=== PATIENT | female | born 1950 | race Caucasian/White ===

== ENCOUNTER → 2017-02-12 | Outpatient (CLI) | payer MEDICARE ==
[~2017-02-12] MED LIST: AMBI5TAB PO; CALC250 PO; DEXA4TAB PO; FENT100D T-DERMAL; LEVO.15 PO; MAGN400C2 PO; MULT-65 PO; NORC10TA2 PO; POLY119S PO; PRAV20 PO; PROT40TA PO; VITA20002 PO; [UNRECOGNIZED DRUG - OTHER] PO
== END ==
LOC: PLAB 13:25
PROVIDERS: ATTEND Family Medicine
DX: E03.9 Hypothyroidism, unspecified (principal)

== ENCOUNTER 2018-09-13 08:36 | Inpatient (IN) ==
[2018-09-13] MEDS ORDERED: Morphine Sulfate Inj 8 MG/ML Vial IV.PUSH ONE (08:54)
--- NOTE | 2018-09-13 08:54 | ED ---
HPI General Chief complaint: Pain: Chronic Stated complaint: Back pain/Abd pain Time Seen by Provider: 09/13/18 09:05 Source: patient Mode of arrival: EMS Limitations: no limitations History of Present Illness HPI narrative: This 68-year-old female is complaining of abdominal pain and back pain. She has a history of multiple myeloma. She was initially treated with Revlimid Decadron and Velcade and bone marrow transplant at [facility] in [place]. Last week she had chemotherapy with Dr. Martinez. She was thought not to be responding to the Revlimid so she was given different chemotherapy. The chemotherapy was given last Thursday. She says she felt in her normal health for a couple of days and then or Thursday she started having abdominal pain. She was incontinent of stool and urine on . She has been having vomiting and diarrhea. She has not been able to eat for several days she has been unable to walk due to general weakness Thursday. She denies any numbness in her legs. She says she has not had abdominal pain like this. She does have a history of back pain and says her back pain is worse than usual though she has had back pain like this before. She has no history of abdominal surgery. She has had a myeloma for about 2 years, her bone marrow transplant was about a year ago. Related Data Home Medications Medication Instructions Recorded Confirmed aspirin 81 mg PO DAILY 07/01/18 09/13/18 calcium carbonate [Calcium 500] 500 mg PO DAILY 07/01/18 09/13/18 cholecalciferol (vitamin D3) 2,000 unit PO DAILY 07/01/18 09/13/18 [Vitamin D3] duloxetine 30 mg PO DAILY 07/01/18 09/13/18 gabapentin 2,400 mg PO DAILY 07/01/18 09/13/18 levothyroxine 112 mcg PO DAILY 07/01/18 09/13/18 magnesium oxide 400 mg PO DAILY 07/01/18 09/13/18 metoprolol tartrate 50 mg PO DAILY 07/01/18 09/13/18 metronidazole [MetroCream] 1 applic TOPICAL BID 07/01/18 09/13/18 multivitamin 1 tab PO DAILY 07/01/18 09/13/18 ondansetron 4 mg PO TID PRN 07/01/18 09/13/18 oxycodone 20 mg PO Q4-6H PRN 07/01/18 09/13/18 pantoprazole 40 mg PO DAILY 07/01/18 09/13/18 polyethylene glycol 3350 17 g PO DAILY 07/01/18 09/13/18 potassium chloride 10 meq PO DAILY 07/01/18 09/13/18 pravastatin 40 mg PO DAILY 07/01/18 09/13/18 valacyclovir 500 mg PO BID 07/01/18 09/13/18 zolpidem [Ambien] 5 mg PO DAILY 07/01/18 09/13/18 cholecalciferol (vitamin D3) 1,000 unit PO DAILY 09/13/18 09/13/18 [Vitamin D3] enoxaparin 40 mg SUBCUT DAILY 09/13/18 09/13/18 magnesium oxide [MagOx] 400 mg PO DAILY 09/13/18 09/13/18 pantoprazole [Protonix] 40 mg PO BID 09/13/18 09/13/18 pyridoxine (vitamin B6) [Vitamin 50 mg PO BID 09/13/18 09/13/18 B-6] Allergies Allergy/AdvReac Type Severity Reaction Status Date / Time No Known Allergies Allergy Verified 07/22/18 10:18 Review of Systems Constitutional Reports fatigue, Reports poor appetite and Reports weakness Gastrointestinal Reports diarrhea and Reports vomiting Musculoskeletal Reports back pain, Reports myalgias and Reports muscle weakness PMFSH Medical History Medical History FHx: bone marrow transplant (Acute) FHx: radiation therapy (Acute) GERD (gastroesophageal reflux disease) (Acute) Hemangioma (Acute) Hyperlipemia (Acute) Monoclonal gammopathies (Acute) Multiple myeloma (Acute) Plasmacytoma (Acute) Thyroid disease (Acute) Family History Family History Other Family history of hypertension Social History Social History Substance History: No History of Abuse Second Hand Smoke Exposure: No Smoking Status: Former smoker Tobacco Type: Cigarettes How Often Do You Have a Drink Containing Alcohol: Never Hx Recent Travel: No Recent Travel in [place] within the Last 8 Weeks: No Recent Out of Country Travel within the Last 8 Weeks: No Exam Narrative Exam Narrative: GENERAL: Well-developed female. She is complaining of considerable pain SKIN: Focused skin assessment warm/dry. HEAD: Atraumatic. Normocephalic. EYES: Pupils equal and round. No scleral icterus. No injection or drainage. ENT: No nasal bleeding or discharge. Mucous membranes pink and moist. NECK: Trachea midline. No JVD. CARDIOVASCULAR: Regular rate and rhythm. No murmur appreciated. RESPIRATORY: No accessory muscle use. Clear to auscultation. Breath sounds equal bilaterally. GASTROINTESTINAL: Abdomen there is epigastric and bilateral abdominal upper tenderness. Bowel sounds are diminished. No abnormal masses are felt MUSCULOSKELETAL: No obvious deformities. No clubbing. No cyanosis. No edema. NEUROLOGICAL: Awake and alert. No obvious cranial nerve deficits. He does have a lot of pain in her back and tenderness. Anal sphincter tone is normal. PSYCHIATRIC: Appropriate mood and affect; insight and judgment normal. Course Initial Documented Vital Signs Temperature 98.2 F 09/13/18 08:40 Pulse Rate 96 H 09/13/18 08:40 Respiratory Rate 20 09/13/18 08:40 Blood Pressure 148/83 H 09/13/18 08:40 Pulse Oximetry 90 L 09/13/18 08:40 Last Documented Vital Signs Temperature 98.2 F 09/13/18 08:40 Pulse Rate 109 H 09/13/18 10:59 Respiratory Rate 18 09/13/18 10:59 Blood Pressure 108/70 09/13/18 10:59 Pulse Oximetry 96 09/13/18 10:59 Medical Decision Making MDM Narrative Medical decision making narrative: She has been given IV fluids and some morphine for her pain with some improvement in her pain level. Her lab work is remarkable for a sodium of 119, potassium is 3.1. Her BUN is 86 and creatinine is 9.2. One week ago her creatinine was 1.4. A CT scan of the abdomen and pelvis was obtained which shows a small ventral hernia with only fat and no bowel. There is no bowel obstruction. Patient has acute renal failure possibly due to dehydration. IV fluids are being given. Case discussed with Dr. Valle who recommends admission at the [facility] Medical Screen Exam Complete: Yes Emergency Medical Condition: Yes Differential Diagnosis Differential Diagnosis: Differential includes dehydration, bowel obstruction, adverse medication effect Lab Data Result diagrams: 09/13/18 08:50 09/13/18 08:50 Lab Results 09/13/18 09/13/18 09/13/18 Range/Units 08:50 08:50 08:50 CBC w Diff Slide review pending WBC 5.4 (4.0-11.0) th/mm3 RBC 4.73 (4.00-5.30) mil/mm3 Hgb 15.1 (11.6-15.3) gm/dL Hct 45.5 (35.0-46.0) % MCV 96.3 (80.0-100.0) fL MCH 31.9 (27.0-34.0) pg MCHC 33.2 (32.0-36.0) % RDW 14.7 (11.6-17.2) % Plt Count 133 L (150-450) th/mm3 MPV 8.8 (7.0-11.0) fL Neut % (Auto) 87.7 H (16.0-70.0) % Lymph % (Auto) 6.0 L (9.0-44.0) % [place] % (Auto) 1.7 (0.0-8.0) % Eos % (Auto) 0.1 (0.0-4.0) % Baso % (Auto) 4.5 H (0.0-2.0) % Neut # (Auto) 4.8 (1.8-7.7) th/mm3 Lymph # (Auto) 0.3 L (1.0-4.8) th/mm3 [place]ult[place] # (Auto) 0.1 (0.0-0.9) th/mm3 Eos # (Auto) 0.0 (0.0-0.4) th/mm3 Baso # (Auto) 0.2 (0.0-0.2) th/mm3 WBC Differential . Diff Scan Auto diff confirmed Differential Comment . Platelet Estimate Low L (Normal) Platelet Morphology Normal (Normal) RBC Morphology Normal (Normal) PT 10.8 (9.8-11.6) sec INR 1.1 Ratio APTT 28.1 (24.3-30.1) sec Sodium 119 L* (136-145) meq/L Potassium 3.1 L (3.5-5.1) meq/L Chloride 79 L (98-107) meq/L Carbon Dioxide 19.9 L (21.0-32.0) meq/L Anion Gap 20 H (5-15) meq/L BUN 86 H (7-18) mg/dL Creatinine 9.20 H (0.50-1.00) mg/dL Estimated GFR 4 L (>89) mL/min Random Glucose 131 H (74-106) mg/dL Calcium 9.1 (8.5-10.1) mg/dL Total Bilirubin 1.8 H (0.2-1.0) mg/dL AST 116 H (15-37) U/L ALT 76 H (10-53) U/L Alkaline Phosphatase 53 (45-117) U/L Total Protein 10.5 H D (6.4-8.2) g/dL Albumin 2.7 L (3.4-5.0) g/dL Lipase 60 L (73-393) U/L Imaging Data Radiologist's impression: Abdomen/Pelvis CT 09/13/18 08:54 CONCLUSION: 1. There is a small ventral hernia in the anterior abdominal wall. There is some omental fat herniated through the defect. 2. There are no findings to indicate a bowel obstruction. No free air free fluid is seen. 3. Nodular enlargement of the left adrenal gland new compared to previous of . Metastatic disease to the left adrenal is not excluded. 4. Stable mixed lytic and sclerotic lesion seen in the osseous structures when compared to PET examination of 06/28/2018. Chest X-Ray 09/13/18 08:54 CONCLUSION: Mild streaky opacity in left lateral lung and left lung base with no consolidation. This is most characteristic of atelectasis or scarring. Lumbar Spine CT 09/13/18 08:54 CONCLUSION: 1. Moderate fracture deformity of the L3 vertebral body with central lucency, sclerosis and invagination of the superior and inferior endplates. This may be acute. 2. Moderate fracture deformity of the T11 vertebral body with abnormal lucency , sclerosis and invagination superior and inferior endplates. 3. Atheromatous involvement of T10, T11, L1, L2 and L3 vertebral bodies. 4. Large lytic lesion involving the right side of the sacrum. 5. Moderate central canal stenosis at the L4-5 level secondary to disc bulge and degenerative change involving the facet joints. Discharge Plan Discharge Disposition Patient Disposition: 30 Still Patient Discharge Condition Condition: Serious Discharge Details Diagnosis: Acute renal failure Physicians Team ED Provider: Damaso Sethi Primary Care Provider: Renee Thomson Attending Provider: Jarad Avery Other Providers: Bob Valle ; Genevieve Martinez Status ED Status: Left Department Discharge Information Discharge Date/Time: 09/13/18 14:15
[2018-09-13] MEDS ORDERED: Sod Chloride 0.9% Inj 1,000 ML IV.CONT SCH (09:00)
[2018-09-13 09:11] LABS: Baso # (Auto) 0.2 th/mm3 (0.0-0.2); Baso % (Auto) 4.5 % (0.0-2.0); Eos % (Auto) 0.1 % (0.0-4.0); Hematocrit 45.5 % (35.0-46.0); Hemoglobin 15.1 gm/dL (11.6-15.3); Lymph # (Auto) 0.3 th/mm3 (1.0-4.8); Mean Corpuscular HGB Conc 33.2 % (32.0-36.0); Mean Corpuscular Hemoglobin 31.9 pg (27.0-34.0); Mean Corpuscular Volume 96.3 fL (80.0-100.0); Mean Platelet Volume 8.8 fL (7.0-11.0); Mono # (Auto) 0.1 th/mm3 (0.0-0.9); Mono % (Auto) 1.7 % (0.0-8.0); Neut # (Auto) 4.8 th/mm3 (1.8-7.7); Neut % (Auto) 87.7 % (16.0-70.0); Platelet Count 133 th/mm3 (150-450); Red Blood Count 4.73 mil/mm3 (4.00-5.30); Red Cell Distribution Width 14.7 % (11.6-17.2); White Blood Count 5.4 th/mm3 (4.0-11.0)
[2018-09-13 09:24] LABS: Activated Partial Thrombo Time 28.1 sec (24.3-30.1); INR 1.1 Ratio; Prothrombin Time 10.8 sec (9.8-11.6)
--- NOTE | 2018-09-13 09:33 | XR ---
EXAM DATE: 09/13/2018 9:28 AM EDT AGE/SEX: 68 years / Female INDICATIONS: Short of Breath CLINICAL DATA: This is the patient's initial encounter. Patient reports that signs and symptoms have been present for 1 day and indicates a pain score of 0/10. MEDICAL/SURGICAL HISTORY: . Multiple myeloma. Hysterectomy. . Cholecystectomy COMPARISON: [facility] – [place], CHEST SINGLE AP, 12/06/2015. . FINDINGS: A single AP view of the chest demonstrates the lungs to be symmetrically aerated without evidence of mass, confluent infiltrate or effusion. There is mild streaky opacity in the left lateral lung and le ft lung base with no consolidation. Atherosclerotic changes are present in the aorta. The cardiomedia stinal contours are unremarkable. Osseous structures are intact. CONCLUSION: Mild streaky opacity in left lateral lung and left lung base with no consolidation. This is most joanna acteristic of atelectasis or scarring. Electronically signed by: Luke Barfield MD 09/13/2018 9:31 AM EDT
[2018-09-13 09:53] LABS: Calcium 9.1 mg/dL (8.5-10.1)
[2018-09-13 09:54] LABS: Carbon Dioxide 19.9 meq/L (21.0-32.0); Glucose,Random 131 mg/dL (74-106)
[2018-09-13 09:57] LABS: Alanine Aminotransferase 76 U/L (10-53); Aspartate Aminotransferase 116 U/L (15-37); Glomerular Filtration Rate 4 mL/min (>89); Lipase 60 U/L (73-393)
[2018-09-13 10:00] LABS: Albumin 2.7 g/dL (3.4-5.0)
[2018-09-13 10:04] LABS: Potassium 3.1 meq/L (3.5-5.1)
[2018-09-13 10:09] LABS: Alkaline Phosphatase 53 U/L (45-117); Anion Gap 20 meq/L (5-15); Blood Urea Nitrogen 86 mg/dL (7-18); Chloride 79 meq/L (98-107); Total Protein 10.5 g/dL (6.4-8.2)
[2018-09-13 10:10] LABS: Sodium 119 meq/L (136-145)
[2018-09-13] MEDS ORDERED: Sod Chloride 0.9% Inj 1,000 ML IV.SIG SCH ×3 (10:15→13:00)
[2018-09-13] MEDS ORDERED: Morphine Inj 4 MG/ML Vial IV.PUSH ONE ×2 (10:16→13:54)
[2018-09-13 10:31] LABS: Platelet Morphology Normal (Normal); RBC Morphology Normal (Normal)
--- NOTE | 2018-09-13 10:44 | CT ---
EXAM DATE: 09/13/2018 10:21 AM EDT AGE/SEX: 68 years / Female INDICATIONS: Epigastric and right upper quadrant pain with vomiting and diarrhea. CLINICAL DATA: This is the patient's initial encounter. Patient reports that signs and symptoms have been present for 3 days and indicates a pain score of 9/10. MEDICAL/SURGICAL HISTORY: Gastroesophageal reflux disease. Multiple myeloma. Chemotherapy. Non e. RADIATION DOSE: 22.82 CTDI (mGy) COMPARISON: PET examination dated 06/28/2018.. TECHNIQUE: Multiple contiguous axial images were obtained through the abdomen. Images were obtained using multiple row detector helical technique. Using automated exposure control and adjustment of the mA and/or kV according to patient size, radiation dose was kept as low as reasonably achievable to o btain optimal diagnostic quality images. DICOM format image data is available electronically for rev iew and comparison. FINDINGS: Imaging through the lung bases demonstrate atelectatic changes in both lower lobes. There is no pleur al effusion. The heart is mildly enlarged. There is atherosclerotic plaquing in the coronary arteries . The appearance of the liver, spleen, pancreas, right adrenal gland and kidneys is within normal limit s. Examination of the left adrenal gland demonstrates a 1.1 cm nodule. The left adrenal gland does ap pear larger when compared to a PET examination dated 06/28/2018. Metastatic disease to the left adrena l would be a consideration. There is no retroperitoneal lymphadenopathy. No free air free fluid is seen. The abdominal aorta is n ormal in caliber. The visualized loops of small and large bowel are unremarkable. The patient is post cholecystectomy. There is no free fluid within the pelvis. No iliac or inguinal adenopathy is seen. The patient is pos t hysterectomy. Note is made of a small ventral hernia along the low anterior abdominal wall. Bone windowed images demonstrate a large sclerotic lesion within the sternum and mixed lytic and scle rotic lesions involving T12, at multiple levels of the lumbar spine and the right side of the sacrum. Findings would be consistent with metastatic disease to bone. These changes are similar to previous examination. CONCLUSION: 1. There is a small ventral hernia in the anterior abdominal wall. There is some omental fat herniat ed through the defect. 2. There are no findings to indicate a bowel obstruction. No free air free fluid is seen. 3. Nodular enlargement of the left adrenal gland new compared to previous of 06/28/2018. Metastatic d isease to the left adrenal is not excluded. 4. Stable mixed lytic and sclerotic lesion seen in the osseous structures when compared to PET exami nation of 06/28/2018. Electronically signed by: Jose Peters MD 09/13/2018 10:43 AM EDT
[2018-09-13] MEDS ORDERED: Bisacodyl 10 MG Supp RECTAL PRN (11:11)
--- NOTE | 2018-09-13 11:12 | CT ---
EXAM DATE: 09/13/2018 10:47 AM EDT AGE/SEX: 68 years / Female INDICATIONS: Lower back pain. CLINICAL DATA: This is the patient's initial encounter. Patient reports that signs and symptoms have been present for 3 days and indicates a pain score of 9/10. MEDICAL/SURGICAL HISTORY: Gastroesophageal reflux disease. Multiple myeloma. Chemotherapy. None. RADIATION DOSE: . CTDI (mGy) ; Reconstructed from previous dataset, no dose COMPARISON: No prior exams available for comparison. TECHNIQUE: Contiguous axial images were acquired with a multirow detector CT scanner without contras t. Multiplanar reconstructions in the sagittal and coronal plane were also performed. Using automate d exposure control and adjustment of the mA and/or kV according to patient size, radiation dose was k ept as low as reasonably achievable to obtain optimal diagnostic quality images. DICOM format image data is available electronically for review and comparison. FINDINGS: Vertebrae: Focal destructive change and fracture involving the L3 vertebral body with central lucenc y and patchy sclerosis. There is invagination of the superior and inferior endplates. There are lytic lesions involving the T10 and T11 vertebral bodies with patchy sclerosis. There is invagination of t he superior and inferior endplates of the T11 vertebral body as well consistent with fracture. There are faint lucencies involving the L1, L2 and T12 vertebral bodies. There is patchy osteopenia. There is a mild scoliosis. Discs: Disc space heights are fairly well preserved with mild degenerative disc change in the lower t horacic spine. Alignment: Normal. No subluxation. The axial images again demonstrate the lytic lucencies involving the vertebral bodies as well as a fr acture deformity of the L3 vertebral body. A large lytic lesion involving the right side of the sacru m. There is an annular disc bulge at L4-5 with flattening of the anterior thecal sac and narrowing th e neural foramina. There are degenerative change involving facet joints there is evidence of moderate central canal stenosis. CONCLUSION: 1. Moderate fracture deformity of the L3 vertebral body with central lucency, sclerosis and invagina tion of the superior and inferior endplates. This may be acute. 2. Moderate fracture deformity of the T11 vertebral body with abnormal lucency, sclerosis and invagi nation superior and inferior endplates. 3. Atheromatous involvement of T10, T11, L1, L2 and L3 vertebral bodies. 4. Large lytic lesion involving the right side of the sacrum. 5. Moderate central canal stenosis at the L4-5 level secondary to disc bulge and degenerative change involving the facet joints. Electronically signed by: Luke Barfield MD 09/13/2018 11:10 AM EDT
--- NOTE | 2018-09-13 15:42 | P.HPIM ---
History of Present Illness Service: [facility] Primary Care Physician: Renee Thomson Chief Complaint: Chronic pain/ abdominal pain History of Present Illness: Patient is a 68-year-old female who presented to [place] emergency department complaining of abdominal pain and back pain. She has a history of multiple myeloma. She was recently treated with Revlimid and Decadron and Velcade. Patient also had a bone marrow transplant at [facility] in [place]. Last week she had chemotherapy with Dr. Martinez. She was thought not to be responding to Revlimid and was given a different chemo that she does not know what it was last week. This was given last Thursday. She states she felt in her normal health for a few days and then Thursday started having abdominal pain. She then stated she was incontinent of stool and urine. And was having vomiting and diarrhea. Has not been able to eat or drink for several days has not been able to walk due to generalized weakness. Was found to have acute renal failure with a creatinine of 9 denies any numbness in her legs. States that this abdominal pain is brand-new to her. She does have a history of back pain. And states that her back pain is worse than usual. Patient denies any history of any abdominal surgeries. Has had multiple myeloma for about 2 years and had her bone marrow transplant about a year ago. Past medical history is significant for history of depression and neuropathy and hypothyroidism and hypertension and chronic pain and GERD and constipation and hyperlipidemia and herpes viruses and insomnia Patient not able to give a good historical assessment at this time quite lethargic We will give fluids pain medications and consult nephrology for the severely elevated creatinine and will also consult Dr. Martinez of oncology Inpatient Certification: I certify that the inpatient services were ordered in accordance with Medicare regulations governing the order. This includes certification that hospital inpatient services are reasonable and necessary and in the case of services not specified as inpatient-only under 42 CFR 419.22(n), that they are appropriately provided as inpatient services in accordance to with the 2-midnight benchmark under 43 CFR 412.3(e) Estimated Total Length of Stay (Days): 3 Plans for Post Hospital Care: Not yet determined Review of Systems All other systems reviewed negative except as stated in HPI [facility] - History History Provided By: Patient - Medical History Medical History: Medical History (Last Reviewed 09/13/18 @ 10:53 by Damaso Sethi MD) FHx: bone marrow transplant FHx: radiation therapy GERD (gastroesophageal reflux disease) Hemangioma Hyperlipemia Monoclonal gammopathies Multiple myeloma Plasmacytoma Thyroid disease - Family History Family History: Family History (Last Updated 09/13/18 @ 15:24 by Jarad Avery DO) Other Family history of hypertension - Tobacco History Second Hand Smoke Exposure: No Tobacco Use In Past 30 Days: No Smoking Status: Former smoker Tobacco Type: Cigarettes - Alcohol History How Often Do You Have a Drink Containing Alcohol: Never - Substance Use History Substance History: No History of Abuse - Travel History History of Recent Travel: No Recent Travel in the [place] Within the Last 8 Weeks: No Recent Travel Out of the Country Within the Last 8 Weeks: No - Immunization History Tetanus Immunization: Unsure Medications and Allergies Active Medications: Active Medications Al Hydroxide/Mg Hydroxide (Milk Of Magnesia Liq) 30 ml PO Q12H PRN PRN Reason: Mild Constipation Bisacodyl (Dulcolax Supp) 10 mg RECTAL DAILY PRN PRN Reason: SEVERE CONSITIPATION Sodium Chloride (Ns Inj) 1,000 mls @ 125 mls/hr IV.CONT .Q8H MACKENZIE Stop: 09/13/18 16:59 Last Infusion: 09/13/18 14:07 Dose: 125 mls/hr Sodium Chloride (Ns Inj) 1,000 mls @ 0 mls/hr IV.SIG BOLUS MACKENZIE Last Infusion: 09/13/18 14:07 Dose: Infused Sodium Chloride (Ns Inj) 1,000 mls @ 0 mls/hr IV.SIG BOLUS MACKENZIE Last Infusion: 09/13/18 14:08 Dose: 1,000 mls/hr Sodium Chloride (Ns Inj) 1,000 mls @ 0 mls/hr IV.SIG BOLUS MACKENZIE Lactulose (Lactulose Liq) 30 ml PO DAILY PRN PRN Reason: SEVERE CONSITIPATION Metoclopramide HCl (Reglan Inj) 5 mg IV.PUSH Q6HR PRN; Protocol PRN Reason: NAUSEA OR VOMITING Ondansetron HCl (Zofran Inj) 4 mg IV.PUSH Q6H PRN PRN Reason: NAUSEA OR VOMITING Senna/Docusate Sodium (Chloé-Colace) 1 tab PO BID MACKENZIE Sennosides (Senokot) 17.2 mg PO Q12H PRN PRN Reason: Moderate Constipation Allergies Allergy/AdvReac Type Severity Reaction Status Date / Time No Known Allergies Allergy Verified 07/22/18 10:18 Home Medications Medication Instructions Recorded Confirmed Type aspirin 81 mg PO DAILY 07/01/18 09/13/18 History calcium carbonate [Calcium 500] 500 mg PO DAILY 07/01/18 09/13/18 History cholecalciferol (vitamin D3) 2,000 unit PO DAILY 07/01/18 09/13/18 History [Vitamin D3] duloxetine 30 mg PO DAILY 07/01/18 09/13/18 History gabapentin 2,400 mg PO DAILY 07/01/18 09/13/18 History levothyroxine 112 mcg PO DAILY 07/01/18 09/13/18 History magnesium oxide 400 mg PO DAILY 07/01/18 09/13/18 History metoprolol tartrate 50 mg PO DAILY 07/01/18 09/13/18 History metronidazole [MetroCream] 1 applic TOPICAL BID 07/01/18 09/13/18 History multivitamin 1 tab PO DAILY 07/01/18 09/13/18 History ondansetron 4 mg PO TID PRN 07/01/18 09/13/18 History oxycodone 20 mg PO Q4-6H PRN 07/01/18 09/13/18 History pantoprazole 40 mg PO DAILY 07/01/18 09/13/18 History polyethylene glycol 3350 17 g PO DAILY 07/01/18 09/13/18 History potassium chloride 10 meq PO DAILY 07/01/18 09/13/18 History pravastatin 40 mg PO DAILY 07/01/18 09/13/18 History valacyclovir 500 mg PO BID 07/01/18 09/13/18 History zolpidem [Ambien] 5 mg PO DAILY 07/01/18 09/13/18 History cholecalciferol (vitamin D3) 1,000 unit PO DAILY 09/13/18 09/13/18 History [Vitamin D3] enoxaparin 40 mg SUBCUT DAILY 09/13/18 09/13/18 History magnesium oxide [MagOx] 400 mg PO DAILY 09/13/18 09/13/18 History pantoprazole [Protonix] 40 mg PO BID 09/13/18 09/13/18 History pyridoxine (vitamin B6) [Vitamin 50 mg PO BID 09/13/18 09/13/18 History B-6] Exam Vital signs: Vital Signs 09/13/18 08:40 09/13/18 10:59 Temperature 98.2 F Pulse Rate 96 H 109 H Respiratory Rate 20 18 Blood Pressure 148/83 H 108/70 Pulse Oximetry 90 L 96 Intake & Output 09/12/18 09/13/18 09/13/18 18:59 06:59 18:59 Intake Total 1700 / 1700 Balance 1700 / 1700 Weight 113.398 kg Intake: IV 1700 / 1700 NS Inj 1,000 ML @ 125 mls/hr IV 200 / 200 .CONT .Q8H MACKENZIE Rx#:[id number] NS Inj 1,000 ML @ Wide Open IV. 1500 / 1500 SIG BOLUS MACKENZIE Rx#:[id number] Narrative: Exam Narrative: GENERAL: Well-developed female. She is complaining of considerable pain SKIN: Focused skin assessment warm/dry. HEAD: Atraumatic. Normocephalic. EYES: Pupils equal and round. No scleral icterus. No injection or drainage. ENT: No nasal bleeding or discharge. Mucous membranes pink and moist. NECK: Trachea midline. No JVD. CARDIOVASCULAR: Regular rate and rhythm. No murmur appreciated. RESPIRATORY: No accessory muscle use. Clear to auscultation. Breath sounds equal bilaterally. GASTROINTESTINAL: Abdomen there is epigastric and bilateral abdominal upper tenderness. Bowel sounds are diminished. No abnormal masses are felt obese Razo catheter in place MUSCULOSKELETAL: No obvious deformities. No clubbing. No cyanosis. No edema. NEUROLOGICAL: Awake and alert. No obvious cranial nerve deficits. He does have a lot of pain in her back and tenderness. Anal sphincter tone is normal. PSYCHIATRIC: Appropriate mood and affect; insight and judgment normal. Results - Labs CBC & Chem 7: 09/13/18 08:50 09/13/18 08:50 Labs: Short CBC 09/13/18 Range/Units 08:50 WBC 5.4 (4.0-11.0) th/mm3 Hgb 15.1 (11.6-15.3) gm/dL Hct 45.5 (35.0-46.0) % Plt Count 133 L (150-450) th/mm3 BMP 09/13/18 08:50 Sodium 119 L* Potassium 3.1 L Chloride 79 L Carbon Dioxide 19.9 L BUN 86 H Creatinine 9.20 H Calcium 9.1 Liver Function 09/13/18 Range/Units 08:50 Total Bilirubin 1.8 H (0.2-1.0) mg/dL AST 116 H (15-37) U/L ALT 76 H (10-53) U/L Alkaline Phosphatase 53 (45-117) U/L Albumin 2.7 L (3.4-5.0) g/dL - Imaging Impressions Abdomen/Pelvis CT 09/13/18 08:54 CONCLUSION: 1. There is a small ventral hernia in the anterior abdominal wall. There is some omental fat herniated through the defect. 2. There are no findings to indicate a bowel obstruction. No free air free fluid is seen. 3. Nodular enlargement of the left adrenal gland new compared to previous of . Metastatic disease to the left adrenal is not excluded. 4. Stable mixed lytic and sclerotic lesion seen in the osseous structures when compared to PET examination of 06/28/2018. Chest X-Ray 09/13/18 08:54 CONCLUSION: Mild streaky opacity in left lateral lung and left lung base with no consolidation. This is most characteristic of atelectasis or scarring. Lumbar Spine CT 09/13/18 08:54 CONCLUSION: 1. Moderate fracture deformity of the L3 vertebral body with central lucency, sclerosis and invagination of the superior and inferior endplates. This may be acute. 2. Moderate fracture deformity of the T11 vertebral body with abnormal lucency , sclerosis and invagination superior and inferior endplates. 3. Atheromatous involvement of T10, T11, L1, L2 and L3 vertebral bodies. 4. Large lytic lesion involving the right side of the sacrum. 5. Moderate central canal stenosis at the L4-5 level secondary to disc bulge and degenerative change involving the facet joints. Caprini VTE Risk Assessment Caprini VTE Risk Assessment: Moderate/High Risk (score >= 2) Caprini Risk Assessment Model: Point Value = 1 Point Value = 2 Point Value = 3 Point Value = 5 Age 41-60 Minor surgery BMI > 25 kg/m2 Swollen legs Varicose veins or History of unexplained or recurrent spontaneous Oral contraceptives or hormone replacement Sepsis (< 1 month) Serious lung disease, including pneumonia (< 1 month) Abnormal pulmonary function Acute myocardial infarction Congestive heart failure (< 1 month) History of inflammatory bowel disease Medical patient at bed rest Age 61-74 Arthroscopic surgery Major open surgery (> 45 min) Laparoscopic surgery (> 45 min) Malignancy Confined to bed (> 72 hours) Immobilizing plaster cast Central venous access Age >= 75 History of VTE Family history of VTE Factor V Leiden Prothrombin [id number] Lupus anticoagulant Anticardiolipin antibodies Elevated serum homocysteine Heparin-induced thrombocytopenia Other congenital or acquired thrombophilia Stroke (< 1 month) Elective arthroplasty Hip, pelvis, or leg fracture Acute spinal cord injury (< 1 month) Prophylaxis Regimen: Total Risk Factor Score Risk Level Prophylaxis Regimen 0-1 Low Early ambulation 2 Moderate Order ONE of the following: *Sequential Compression Device (SCD) *Heparin 5000 units SQ BID 3-4 Higher Order ONE of the following medications: *Heparin 5000 units SQ TID *Enoxaparin/Lovenox 40 mg SQ daily (WT < 150 kg, CrCl > 30 mL/min) *Enoxaparin/Lovenox 30 mg SQ daily (WT < 150 kg, CrCl > 10-29 mL/min) *Enoxaparin/Lovenox 30 mg SQ BID (WT < 150 kg, CrCl > 30 mL/min) AND/OR *Sequential Compression Device (SCD) 5 or more Highest Order ONE of the following medications: *Heparin 5000 units SQ TID (Preferred with Epidurals) *Enoxaparin/Lovenox 40 mg SQ daily (WT < 150 kg, CrCl > 30 mL/min) *Enoxaparin/Lovenox 30 mg SQ daily (WT < 150 kg, CrCl > 10-29 mL/min) *Enoxaparin/Lovenox 30 mg SQ BID (WT < 150 kg, CrCl > 30 mL/min) AND *Sequential Compression Device (SCD) Assessment and Plan - Plan Acute renal failure BUN of 86 and creatinine of 9.2 suspect prerenal with persistent nausea and vomiting Consult Dr. DYER of nephrology Continue IV fluids -Dehydration Multiple myeloma status post chemotherapy by Dr. Maritnez -Continue aggressive fluid rehydration Nausea and vomiting continue aggressive fluid rehydration Hyponatremia due to severe nausea and vomiting-continue rehydration with fluids Hypokalemia of 3.1 we will gently replace Neuropathy chronically on gabapentin-will hold Hyperlipidemia chronically on pravastatin-we will hold Hypertension we will hold blood pressure medications and she remains hypotensive we will give aggressive fluid rehydration Depression and anxiety continue on duloxetine once fluid status is improved Hypothyroidism we will restart her levothyroxine and check a TSH and a free T4 Chronic pain will continue with IV pain meds and oxycodone as needed DVT prophylaxis with heparin GI prophylaxis PT and OT Code Status: Full code Discussed Condition With: RN and patient Discharge Planning: Pending improvement
[2018-09-13] MEDS ORDERED: Morphine Sulfate Inj 2 MG/ML Vial IV.PUSH PRN (16:46)
[2018-09-13] MEDS ORDERED: oxyCODONE/Acetaminophen 10/325 Tablet PO PRN (16:46)
[2018-09-13] MEDS ORDERED: Acetaminophen 325 MG Tablet PO PRN (16:46)
[2018-09-13] MEDS ORDERED: Morphine Inj 4 MG/ML Vial IV.PUSH PRN ×3 (16:46)
[2018-09-13] MEDS ORDERED: Naloxone Inj 0.4 MG/ML Vial IV.PUSH PRN (16:46)
--- NOTE | 2018-09-13 16:50 | US ---
EXAM DATE: 09/13/2018 4:38 PM EDT AGE/SEX: 68 years / Female INDICATIONS: Increased BUN/creatinine. CLINICAL DATA: This is the patient's initial encounter. Patient reports that signs and symptoms have been present for 1 day and indicates a pain score of 0/10. MEDICAL/SURGICAL HISTORY: Gastroesophageal reflux disease. Hemangioma. Hyperlipidemia. Multiple myeloma. Thyroid disease. . Bone marrow transplant. Radiation therapy. COMPARISON: [facility], CT ABDOMEN & PELVIS W/O CONTRAST, 09/13/2018. . MEASUREMENTS: Right Kidney:__10.4 x 5.0 x 5.4 cm Left Kidney:__10.2 x 4.4 x 5.4 cm FINDINGS: Right Kidney: Normal echotexture and cortical thickness. No mass or hydronephrosis. Left Kidney: 2.1 x 2 x 2.3 cm simple cyst at the midpole. Bladder: Razo catheter is present. Bladder decompressed. Other: None. CONCLUSION: 1. Simple cyst left kidney. Electronically signed by: Michael Glaser MD 09/13/2018 4:48 PM EDT
[2018-09-13] MEDS ORDERED: Dextrose 50% in Water 50 ML Vial IV.PUSH PRN (17:15)
[2018-09-13 17:31] LABS: ABG Base Excess -11.2 mmol/L (-2-2); ABG PCO2 34 mmHg (38-42); ABG PO2 88 mmHG (61-120)
--- NOTE | 2018-09-13 17:46 | P.CONNP ---
History of Present Illness Service: Nephrology Reason for Consult: MARGOT Primary Care Provider: Renee Thomson Chief Complaint: Chronic pain/ abdominal pain History of Present Illness: This is a 68 year old lady with multiple myeloma. She apparently has been treated with bone marrow transplant at [facility], it appears that her disease has recurred, she was on Velcade, Revlimid, and Decadron. Apparently she was not responding, and Last Thursday she was treated with another agent. Patient has developed severe diarrhea for the past 4 days, her oral intake has been poor , she has developed abdominal pain and tenderness. She presented to the ER with these complaints. She was transferred here for further management. On route, apparently she was hypotensive. Also, she is hypoxic. Patient has received at least 1.5 liters of IVF, her urine output is low. She has a Razo catheter. She is lethargic, moaning, not a good historian. Obvious discomfort is noted. Ill appearing, also looks pale. Review of Systems Constitutional: Reports anorexia, Reports body ache(s), Reports malaise, Reports weight loss, Denies chills Cardiovascular: Denies chest pain, Denies shortness of breath Respiratory: Denies cough Gastrointestinal: Reports abdominal pain, Reports cramping, Denies black, tarry stools, Denies pain with swallowing Hematologic/Lymphatic: Denies easy bleeding PMFSH - History History Provided By: Patient - Medical History Medical History: Medical History (Last Reviewed 09/13/18 @ 10:53 by Damaso Sethi MD) FHx: bone marrow transplant FHx: radiation therapy GERD (gastroesophageal reflux disease) Hemangioma Hyperlipemia Monoclonal gammopathies Multiple myeloma Plasmacytoma Thyroid disease - Family History Family History: Family History (Last Updated 09/13/18 @ 15:24 by Jarad Avery DO) Other Family history of hypertension - Tobacco History Second Hand Smoke Exposure: No Tobacco Use In Past 30 Days: No Smoking Status: Former smoker Tobacco Type: Cigarettes - Alcohol History How Often Do You Have a Drink Containing Alcohol: Never - Substance Use History Substance History: No History of Abuse - Travel History History of Recent Travel: No Recent Travel in the [place] Within the Last 8 Weeks: No Recent Travel Out of the Country Within the Last 8 Weeks: No - Immunization History Tetanus Immunization: Unsure Medications and Allergies Active Medications: Active Medications Acetaminophen (Tylenol) 650 mg PO Q6HR PRN PRN Reason: PAIN SCALE 1 TO 2 Al Hydroxide/Mg Hydroxide (Milk Of Magnesia Liq) 30 ml PO Q12H PRN PRN Reason: Mild Constipation Albuterol (Duoneb Neb (Prn)) 1 ampul NEB Q2HR NEB PRN PRN Reason: SHORTNESS OF BREATH Albuterol (Duoneb Neb (Bill)) 1 ampul NEB Q4HR NEB BILL Bisacodyl (Dulcolax Supp) 10 mg RECTAL DAILY PRN PRN Reason: SEVERE CONSITIPATION Dextrose (D50w Vial) 50 ml IV.PUSH UNSCH PRN PRN Reason: PER HYPOGLYCEMIA PROTOCOL Glucagon (Glucagon Inj) 1 mg OTHER PRN PRN PRN Reason: for Hypoglycemia Protocol Heparin Sodium (Porcine) (Heparin Inj) 5,000 units SQ Q8HR BILL Sodium Chloride (Ns Inj) 1,000 mls @ 0 mls/hr IV.SIG BOLUS BILL Last Infusion: 09/13/18 14:07 Dose: Infused Sodium Chloride (Ns Inj) 1,000 mls @ 0 mls/hr IV.SIG BOLUS BILL Last Infusion: 09/13/18 14:08 Dose: 1,000 mls/hr Sodium Chloride (Ns Inj) 1,000 mls @ 0 mls/hr IV.SIG BOLUS BILL Insulin Human Regular (Novolin R Correctional Sugar Inj) 0 units SQ Q4HR BILL; Protocol Lactulose (Lactulose Liq) 30 ml PO DAILY PRN PRN Reason: SEVERE CONSITIPATION Levothyroxine Sodium (Synthroid) 112 mcg PO DAILY@0600 [facility] Metoclopramide HCl (Reglan Inj) 5 mg IV.PUSH Q6HR PRN; Protocol PRN Reason: NAUSEA OR VOMITING Morphine Sulfate (Morphine Inj) 4 mg IV.PUSH Q3H PRN PRN Reason: PAIN 6-10;IF UNABLE TO TAKE PO Morphine Sulfate (Morphine Inj) 4 mg IV.PUSH Q3H PRN PRN Reason: BREAKTHROUGH PAIN Morphine Sulfate (Morphine Inj) 4 mg IV.PUSH Q1H PRN PRN Reason: Pain Scale 7-10 (Intractable) Morphine Sulfate (Morphine Inj) 2 mg IV.PUSH Q3H PRN PRN Reason: PAIN 3-5; IF UABLE TO TAKE PO Naloxone HCl (Narcan Inj) 0.4 mg IV.PUSH UNSCH PRN PRN Reason: SEE LABEL COMMENTS Ondansetron HCl (Zofran Inj) 4 mg IV.PUSH Q6H PRN PRN Reason: NAUSEA OR VOMITING Oxycodone/Acetaminophen (Percocet 10/325 Mg) 1 tab PO Q6H PRN PRN Reason: PAIN SCALE 6 TO 10 Oxycodone/Acetaminophen (Percocet 5/325 Mg) 1 tab PO Q6H PRN PRN Reason: PAIN SCALE 3 TO 5 Pantoprazole Sodium (Protonix) 40 mg PO DAILY BILL Senna/Docusate Sodium (Chloé-Colace) 1 tab PO BID BILL Sennosides (Senokot) 17.2 mg PO Q12H PRN PRN Reason: Moderate Constipation Allergies Allergy/AdvReac Type Severity Reaction Status Date / Time No Known Allergies Allergy Verified 07/22/18 10:18 Home Medications Medication Instructions Recorded Confirmed Type aspirin 81 mg PO DAILY 07/01/18 09/13/18 History calcium carbonate [Calcium 500] 500 mg PO DAILY 07/01/18 09/13/18 History cholecalciferol (vitamin D3) 2,000 unit PO DAILY 07/01/18 09/13/18 History [Vitamin D3] duloxetine 30 mg PO DAILY 07/01/18 09/13/18 History gabapentin 2,400 mg PO DAILY 07/01/18 09/13/18 History levothyroxine 112 mcg PO DAILY 07/01/18 09/13/18 History magnesium oxide 400 mg PO DAILY 07/01/18 09/13/18 History metoprolol tartrate 50 mg PO DAILY 07/01/18 09/13/18 History metronidazole [MetroCream] 1 applic TOPICAL BID 07/01/18 09/13/18 History multivitamin 1 tab PO DAILY 07/01/18 09/13/18 History ondansetron 4 mg PO TID PRN 07/01/18 09/13/18 History oxycodone 20 mg PO Q4-6H PRN 07/01/18 09/13/18 History pantoprazole 40 mg PO DAILY 07/01/18 09/13/18 History polyethylene glycol 3350 17 g PO DAILY 07/01/18 09/13/18 History potassium chloride 10 meq PO DAILY 07/01/18 09/13/18 History pravastatin 40 mg PO DAILY 07/01/18 09/13/18 History valacyclovir 500 mg PO BID 07/01/18 09/13/18 History zolpidem [Ambien] 5 mg PO DAILY 07/01/18 09/13/18 History cholecalciferol (vitamin D3) 1,000 unit PO DAILY 09/13/18 09/13/18 History [Vitamin D3] enoxaparin 40 mg SUBCUT DAILY 09/13/18 09/13/18 History magnesium oxide [MagOx] 400 mg PO DAILY 09/13/18 09/13/18 History pantoprazole [Protonix] 40 mg PO BID 09/13/18 09/13/18 History pyridoxine (vitamin B6) [Vitamin 50 mg PO BID 09/13/18 09/13/18 History B-6] Exam Vital signs: Vital Signs 09/13/18 08:40 09/13/18 10:59 Temperature 98.2 F Pulse Rate 96 H 109 H Respiratory Rate 20 18 Blood Pressure 148/83 H 108/70 Pulse Oximetry 90 L 96 Intake & Output 09/12/18 09/13/18 09/13/18 18:59 06:59 18:59 Intake Total 1700 / 1700 Balance 1700 / 1700 Weight 113.398 kg Intake: IV 1700 / 1700 NS Inj 1,000 ML @ 125 mls/hr IV 200 / 200 .CONT .Q8H BILL Rx#:[id number] NS Inj 1,000 ML @ Wide Open IV. 1500 / 1500 SIG BOLUS BILL Rx#:[id number] - Constitutional mild distress, chronically ill appearing Comments: ill appearing. - Routine HEENT Exam Head: Present: normocephalic, atraumatic Eye: Present: EOMI, PERRL ENT: Present: mucous membranes dry - Routine Neck Exam Absent: JVD, carotid bruit, lymphadenopathy, thyromegaly - Routine Chest/Breast/Axilla Exam Chest wall: Absent: tenderness, pacemaker - Routine Cardiovascular Exam Present: RRR, S1, S2 - Routine Abdominal Exam Present: soft, tenderness, distended - Routine Extremities Exam Absent: edema - Routine Skin Exam Present: intact - Routine Neurological Exam lethargic. Able to move all extremities. Results - Lab Results 09/13/18 08:50 09/13/18 08:50 Most recent lab results Calcium 9.1 mg/dL (8.5-10.1) 09/13/18 08:50 Assessment and Plan - Assessment (1) Acute renal failure Code(s): N17.9 - Acute kidney failure, unspecified Status: Acute Plan: patient may have developed pre-renal azotemia due to GI losses, but it could have progressed to ATN. Also have to consider cast nephropathy or "myeloma kidney". It is not known what chemotherapy she received, so drug toxicity is a consideration. Continue IVF. Obtain UA. Avoid nephrotoxic agents. CT did not reveal hydronephrosis. Monitor urine output. Prognosis is guarded. (2) Hypo-osmolality and hyponatremia Code(s): E87.1 - Hypo-osmolality and hyponatremia Status: Acute Plan: Could be hypovolemic hyponatremia. Continue isotonic fluids, repeat labs. Obtain serum uric acid. (3) Hypokalemia Code(s): E87.6 - Hypokalemia Status: Acute Plan: Likely due to GI losses. Replace. Repeat labs. (4) Acidosis Code(s): E87.2 - Acidosis Status: Acute Plan: Anion gap of 19. Could be due to renal failure. Obtain lactic acid level. (5) Multiple myeloma Code(s): C90.00 - Multiple myeloma not having achieved remission Status: Acute Plan: consider consulting oncology. - Attending Attestation Thanks for the consult. Her condition is guarded, she became hypotensive and hypoxic. May be transferred to ICU. Discussed with hospitalist. (1) Acute renal failure Qualifiers: Acute renal failure type: unspecified Qualified Code(s): N17.9 - Acute kidney failure, unspecified
[2018-09-13 17:57] LABS: Baso % (Auto) 0.2 % (0.0-2.0); Eos % (Auto) 0.7 % (0.0-4.0); Hematocrit 37.7 % (35.0-46.0); Hemoglobin 13.2 gm/dL (11.6-15.3); Lymph # (Auto) 0.2 th/mm3 (1.0-4.8); Lymph % (Auto) 5.8 % (9.0-44.0); Mean Corpuscular HGB Conc 34.9 % (32.0-36.0); Mean Corpuscular Hemoglobin 33.2 pg (27.0-34.0); Mean Corpuscular Volume 95.2 fL (80.0-100.0); Mean Platelet Volume 9.3 fL (7.0-11.0); Mono % (Auto) 0.9 % (0.0-8.0); Neut # (Auto) 2.9 th/mm3 (1.8-7.7); Neut % (Auto) 92.4 % (16.0-70.0); Platelet Count 85 th/mm3 (150-450); Red Blood Count 3.96 mil/mm3 (4.00-5.30); Red Cell Distribution Width 15.3 % (11.6-17.2); White Blood Count 3.2 th/mm3 (4.0-11.0)
[2018-09-13] MEDS ORDERED: Sodium Bicarbonate 8.4% Inj 100 MEQ in Water for Inj, Sterile 900 ML IV.CONT SCH (18:00)
[2018-09-13] MEDS: Pantoprazole Inj 40 MG Vial IV.PUSH SCH (18:19)
[2018-09-13 18:32] LABS: Albumin 2.1 g/dL (3.4-5.0); Carbon Dioxide 16.6 meq/L (21.0-32.0); Potassium 3.3 meq/L (3.5-5.1); Thyroid Stimulating Hormone 0.238 uIU/mL (0.358-3.740); Total Protein 8.6 g/dL (6.4-8.2)
[2018-09-13 18:38] LABS: Calcium 7.3 mg/dL (8.5-10.1)
[2018-09-13 18:47] LABS: Eosinophils 1 % (0-4); Lymphocytes 6 % (9-44); Metamyelocytes 6 % (0-1); Monocytes 4 % (0-8); Myelocytes 1 % (0-0); Tallied Nucleated RBC 1 (0-0)
[2018-09-13 18:49] LABS: Dohle Bodies Present; Toxic Granulation 2+; Toxic Vacuolation Present
[2018-09-13 19:06] LABS: CKMB Percent 0.6 % (0.0-4.0)
[2018-09-13] MEDS: Sodium Bicarbonate 8.4% Inj 75 MEQ in Sodium Chloride 0.45 % Inj 925 ML IV.CONT SCH (19:14)
--- NOTE | 2018-09-13 19:46 | MB ---
cc: Yin Polk MD DATE: 09/13/2018 HISTORY OF PRESENT ILLNESS: The patient is a 68-year-old female with a past medical history of hyperlipidemia, multiple myeloma, monoclonal gammopathy and GERD, who initially presented to [facility] with complaints of abdominal pain and back pain. The patient was recently treated with Revlimid, Decadron and Velcade. She also had a bone marrow transplant at [facility] in [place]. She is being followed by Dr. Martinez and had chemotherapy last week. The patient also was incontinent with a stool and urine and reported feeling nauseous and having vomiting and diarrhea. Also, she reports decreased p.o. intake for several days and generalized weakness. Her initial laboratory data showed acute renal failure with a BUN of 86, creatinine 9.2 and hyponatremia with a sodium level of 119. There was no evidence of any fever or leukocytosis. Due to abdominal pain, a CT abdomen and pelvis was done which showed a small ventral hernia in the anterior abdominal wall, no findings to indicate a bowel obstruction and no evidence of any free air or free fluid. Nodular enlargement of the left adrenal gland, new compared to prior study, and stable mixed lytic and sclerotic lesions in the osseous structures. She also had an ultrasound of the abdomen which showed a simple cyst in left kidney, no evidence of any masses or hydronephrosis. Due to her back pain, a lumbar CT spine was performed which showed moderate fracture deformity of the L3 vertebral body and T11. She was transferred to [facility] where she was seen by Dr. Avery from the hospitalist service this afternoon. Shortly after, the patient was transferred to the ICU for increased O2 requirements and tachycardia. She had a chest x-ray this morning as well which showed a mild streaky opacity in the left lateral lung and left lung base with no consolidation. When seen in the ICU, she is tachycardic with heart rate of 114, blood pressure 128/79 and on a nonrebreather mask. The patient is complaining of abdominal pain and back pain. She received morphine earlier. The patient was also seen by Dr. Valle from the nephrology service. She has been given approximately 3 liters of crystalloids thus far. PAST MEDICAL HISTORY: Significant for multiple myeloma, depression, neuropathy, hypothyroidism, hypertension, chronic pain syndrome, GERD, hyperlipidemia. PAST SURGICAL HISTORY: Previous bone marrow transplant. FAMILY HISTORY: Hypertension runs in the family. ALLERGIES: NO KNOWN DRUG ALLERGIES. SOCIAL HISTORY: Nondrinker, ex-smoker. MEDICATIONS AT HOME: Include: 1. Valacyclovir. 2. Pravastatin. 3. Protonix. 4. Oxycodone. 5. Gabapentin. 6. Aspirin. REVIEW OF SYSTEMS: As per HPI. The rest of the review of systems is limited as the patient is a poor historian. PHYSICAL EXAMINATION: GENERAL: A 68-year-old female lying in bed, in mild to moderate distress, complaining of back and abdominal pain. VITAL SIGNS: Afebrile with a temperature of 98.2, pulse 114, blood pressure 124/54, saturation 93% to 96% on a nonrebreather mask, respiratory rate 18. HEENT: Atraumatic, normocephalic. Pupils are equal, round and reactive to light and accommodation. Extraocular muscles are intact. Conjunctivae pink. Nonicteric sclerae. Oral mucosa within normal. NECK: Supple. No JVD, adenopathy or thyromegaly. Trachea in the midline. CARDIOVASCULAR: Tachycardic. Normal S1, S2. No murmurs, rubs or gallops noted. PULMONARY: Bilateral equal air entry. No rales or wheezing. ABDOMEN: Soft, obese. Epigastric tenderness noted. No distention. Bowel sounds normal. EXTREMITIES: No cyanosis, clubbing or edema. NEUROLOGIC: No focal sensory deficits. LABORATORY DATA: WBC 5.4, hemoglobin 15, hematocrit 45, platelet count 133. Sodium 119, potassium 3.1, chloride 79, CO2 of 19.9, BUN 86, creatinine 9.20, glucose 131, AST 116, ALT 76, total bilirubin 1.8. INR 1.1, PT 10.8, PTT 28.1. RADIOGRAPHIC STUDIES: CT abdomen and pelvis showed no findings to indicate a bowel obstruction. Ultrasound of the abdomen showed no evidence of hydronephrosis. Chest x-ray showed a mild streaky opacity in the left lung base. IMPRESSION: 1. Acute hypoxemic respiratory insufficiency. 2. Acute renal failure. 3. Hyponatremia. 4. Dehydration. 5. Elevated liver enzymes. 6. Hypertension. 7. Chronic pain syndrome. 8. Abdominal pain associated with nausea and vomiting. 9. Gastroesophageal reflux disease. 10. History of multiple myeloma. RECOMMENDATIONS: 1. Monitor neuro status closely. 2. Continue with oxygen and maintain sats above 92%. 3. Bronchodilators in the form of DuoNeb q.4 plus q.2 p.r.n. for shortness of breath. 4. BiPAP p.r.n. for respiratory distress. We will obtain ABGs now. If there is any worsening in respiratory status or clinical condition, we will proceed with intubation and mechanical ventilation. 5. Monitor heart rate and blood pressure closely and maintain a MAP of greater than 65 mmHg. 6. Monitor renal function, I's and O's and avoid nephrotoxins. A CT abdomen and pelvis showed no signs of obstruction and an ultrasound of the abdomen showed no evidence of hydronephrosis. She has been given approximately 3 liters of crystalloids so far and is currently on NS at 125 mL an hour. 7. We will repeat labs now, which include a CMP, CK, serum and urine osmolality and baseline TSH level. 8. The patient was seen by Dr. Valle from the nephrology service. Follow electrolytes closely. If there is no improvement, she might need dialysis. 9. Check a baseline lactic acid level. 10. Keep n.p.o. for now and place on Protonix 40 mg IV daily for GI prophylaxis. 11. Monitor LFTs. A CT abdomen and pelvis showed the liver was within normal limits. 12. We will obtain a urinalysis with culture if indicated and check a sputum culture. Monitor for signs of infection, which includes fever and WBC. I will hold off on antibiotics at this time as there is no evidence of any infectious process. 13. Monitor CBC and coags. We will consult Dr. Martinez from the hematology service as the patient is known to her. 14. Place on sliding scale insulin with Accu-Cheks to maintain euglycemic control. 15. GI prophylaxis with Protonix 40 mg daily and DVT prophylaxis with SCDs and heparin subcutaneously. MD LEELEE Villafuerte/jonelle , 05:38 PM , 05:56 PM
[2018-09-13] MEDS ORDERED: Influenza (Quadrivalent) Vaccine 0.5 ML Syringe IM ONE (20:15)
[2018-09-13] MEDS ORDERED: Sodium Chloride 0.9% 2 ML Flush PRN IV.FLUSH (20:15)
[2018-09-13 20:38] LABS: Bacteria,Urine Many /hpf; Bilirubin,Urine Negative (Negative); Clarity,Urine Turbid (Clear); Color,Urine Yellow (Yellw/Straw); Glucose,Urine (UA) Negative (Negative); Hyaline Casts,Urine 19 /lpf (0-3); Leukocyte Esterase,Urine Moderate (Negative); Mucus,Urine Many /lpf (Occasional); Nitrite,Urine Negative (Negative); Specific Gravity,Urine 1.025 (1.002-1.035)
[2018-09-13] MEDS: Insulin NovoLIN Regular Correctional Sugar Inj SQ SCH (20:38)
[2018-09-13 20:41] LABS: Creatinine,Urine Random 244 mg/dL (27-300)
[2018-09-13] MEDS: Senna/Docusate Sodium 8.6/50 MG Tablet PO SCH (20:55)
[2018-09-13] MEDS: Sodium Chloride 0.9% 2 ML Flush BID IV.FLUSH SCH (21:01)
[2018-09-13] MEDS: Heparin - SQ 10,000 UNITS/ML Vial SQ SCH (21:01)
--- NOTE | 2018-09-13 23:42 | MB ---
cc: Genevieve Martinez MD, Dr. DATE: 09/13/2018 REFERRING PHYSICIAN: Dr. Emerson. CHIEF COMPLAINT: Dr. Emerson requests a consultation for Mrs. Garcia regarding multiple myeloma. HISTORY OF PRESENT ILLNESS: Mrs. Garcia is a 68-year-old woman, well known patient with a history of plasmacytoma subsequently diagnosed with multiple myeloma with high risk cytogenetics. She had induction therapy with Revlimid, Decadron and Velcade and underwent autologous stem cell transplant at [facility]. She had a very good partial response and was placed on maintenance therapy with Revlimid. Throughout her course in followup. She has had a recurrent or progressive disease. Most recent evaluation shows an increase in her creatinine and increase in her monoclonal protein and her light chain. The monoclonal gammaglobulin had increased progressively. Her free kappa light chain as good rippled on her last evaluation on 08/24/2018. This is despite Revlimid maintenance. We had a lengthy discussion about treatment of her myeloma with combination darutumamab, Velcade, Decadron. She received her first dose of treatment 7 days ago. She was due for her day 8 treatment of darutumumab today with her next dose tomorrow. Her baseline creatinine was 1.4, but was increasing. Several days after her infusion, her describes her appetite decreased. She was having constipation, was using some MiraLax. He reports that she was drinking the whole time. However, her performance status is diminished. She was usually independent, but she was requiring his assistance even go to the bathroom. He assures me that she was drinking and urinating the whole time. However, she was staying in bed most of the time on Thursday, Thursday, Thursday. On Thursday morning, I was called by her . He was advised to go into the emergency room and called the ambulance as he is unable to lift her to the car to come into the clinic. She, at this point, was complaining of low abdominal pain. He denies her taking ibuprofen. She has chronic pain and is taking her chronic pain regimen. He denies any fevers at home. Very little information is obtained from the patient. She was sedated, moaning. She is on 100% nonrebreather with saturation 96%. Much of the history was obtained from the , who was at bedside. PAST MEDICAL HISTORY: Gastroesophageal reflux, obesity, hypercholesterolemia, hypothyroidism, history of MGUS leading to multiple myeloma, plasmacytoma, status post radiation, autologous stem cell transplant, pulmonary nodule. PAST SURGICAL HISTORY: Fractured right arm, hysterectomy autologous bone marrow transplant, cholecystectomy, colonoscopy, kyphoplasty. FAMILY HISTORY: Significant for a family history of brother with hemochromatosis and hepatocellular cancer. ALLERGIES: NO KNOWN DRUG ALLERGIES. SOCIAL HISTORY: She is and lives with her . She quit smoking 25 years ago. She is an active social drinker. She denies any illicit drug use. MEDICATIONS: 1. Tylenol p.r.n. 2. DuoNebs. 3. Dulcolax. 4. Dextrose. 5. Glucagon. 6. Heparin. 7. Novolin. 8. Lactulose. 9. Synthroid. 10. Reglan. 11. Morphine p.r.n. 12. Ondansetron p.r.n. 13. Protonix. 14. Normal saline. PHYSICAL EXAMINATION: VITAL SIGNS: Temperature 98.2, heart rate 109, respiratory rate 22, blood pressure 108/70, saturation 96% on nonrebreather. GENERAL: Mrs. Garcia is a well-developed, ill-appearing woman, who looks her stated age. She is lethargic, moans. HEENT: Her pupils are round, reactive to light and accommodation. Oropharynx is dry. NECK: Supple. LUNGS: Clear anteriorly. CARDIOVASCULAR: Reveals tachycardia. ABDOMEN: Large but benign, soft, nontender. No guarding. EXTREMITIES: No edema. Good pulses. She is unable to participate in neurological exam. LABORATORY DATA: Significant for hyponatremia, sodium 125, which is improve, a potassium of 3.3, BUN of 92, creatinine 8.83, calcium is decreased to 7.3, total bilirubin 2.0, LDH is pending. Total protein is decreased to 8.6. CBC significant for mild thrombocytopenia with platelet count of 133, hemoglobin is 11.5. ASSESSMENT AND PLAN: Mrs. Garcia is a 68-year-old woman with multiple myeloma, not in remission. She has a history of induction therapy with Revlimid, Decadron and Velcade followed by autologous stem cell transplant with very good partial response. She was placed on Revlimid maintenance until progression. She had her first cycle of darutumumab, Velcade and Decadron about 7 days ago. She is admitted with acute renal failure and mild thrombocytopenia. Microangiopathic hemolytic process will be excluded. Ultrasound of the kidneys were noted to be normal. There is no obstruction. LDH will be obtained. She seems to be responding with a slight improvement in her creatinine with the hydration over the last 12 hours. Her bilirubin is slightly elevated. She has not been eating, per her . Liver function appears to be stable. Peripheral smear will be reviewed. There is no significant thrombocytopenia and therefore, a microangiopathic hemolytic process is less likely. LDH and haptoglobin will be added. Treatment for her myeloma is placed on hold at present. We will continue her treatment once she is stabilized from the acute events. The case was discussed with the gate services supervisor. Support and correction of renal failure with nephrology help. Renal failure is acute and is in keeping with prerenal. Darutumumab is unlikely the culprit. Darutumumab can be administered to patients without dose adjustment with a single male infiltration lead up to 15%. It is a monoclonal antibody to CD38. It is generally not nephrotoxic. I considered; however, a response to the darutumumab which may have precipitated the renal failure. Her 's questions were answered to his satisfaction. The case was discussed with her nurse. MD OCTAVIO Venegas/brittney , 07:39 PM , 07:54 PM
[2018-09-14] MEDS: Insulin NovoLIN Regular Correctional Sugar Inj SQ SCH ×7 (01:09→23:41)
[2018-09-14] MEDS ORDERED: Chlorhexidine Gluconate 2% 1 Pack (2 Cloths) TOPICAL PRN (04:00)
[2018-09-14] MEDS: Chlorhexidine Gluconate 2% 1 Pack (2 Cloths) TOPICAL SCH (04:35)
[2018-09-14] MEDS: Sodium Bicarbonate 8.4% Inj 75 MEQ in Sodium Chloride 0.45 % Inj 925 ML IV.CONT SCH (04:36)
[2018-09-14 06:07] LABS: Baso % (Auto) 0.2 % (0.0-2.0); Eos % (Auto) 0.3 % (0.0-4.0); Hematocrit 33.4 % (35.0-46.0); Hemoglobin 11.5 gm/dL (11.6-15.3); Lymph # (Auto) 0.2 th/mm3 (1.0-4.8); Lymph % (Auto) 8.7 % (9.0-44.0); Mean Corpuscular HGB Conc 34.3 % (32.0-36.0); Mean Corpuscular Hemoglobin 33.3 pg (27.0-34.0); Mean Platelet Volume 9.1 fL (7.0-11.0); Mono # (Auto) 0.1 th/mm3 (0.0-0.9); Mono % (Auto) 4.6 % (0.0-8.0); Neut % (Auto) 86.2 % (16.0-70.0); Platelet Count 46 th/mm3 (150-450); Red Blood Count 3.44 mil/mm3 (4.00-5.30); Red Cell Distribution Width 15.5 % (11.6-17.2); White Blood Count 2.3 th/mm3 (4.0-11.0)
[2018-09-14 06:20] LABS: INR 1.2 Ratio; Prothrombin Time 11.8 sec (9.8-11.6)
[2018-09-14] MEDS: Levothyroxine 112 MCG Tablet PO SCH (06:26)
[2018-09-14] MEDS: Heparin - SQ 10,000 UNITS/ML Vial SQ SCH (06:26)
[2018-09-14 06:45] LABS: Albumin 1.8 g/dL (3.4-5.0); Calcium 6.9 mg/dL (8.5-10.1); Free T4 (Free Thyroxine) 1.34 ng/dL (0.76-1.46); Magnesium 2.2 mg/dL (1.5-2.5); Phosphorus 11.6 mg/dL (2.5-4.9); Potassium 3.4 meq/L (3.5-5.1); Thyroid Stimulating Hormone 0.145 uIU/mL (0.358-3.740); Total Protein 7.5 g/dL (6.4-8.2)
--- NOTE | 2018-09-14 07:09 | P.PNCC ---
Subjective Subjective Remarks/Hospital Course: patient is a 68-year-old female with a past medical history of hyperlipidemia, multiple myeloma, monoclonal gammopathy and GERD, who initially presented to [place] ED with complaints of abdominal pain and back pain. The patient was recently treated with Revlimid, Decadron and Velcade. She also had a bone marrow transplant at [facility] in [place]. She is being followed by Dr. Martinez and had chemotherapy last week. The patient also was incontinent with a stooland urine and reported feeling nauseous and having vomiting and diarrhea. Also, she reports decreased p.o. intake for several days and generalized weakness. Her initial laboratory data showed acute renal failure with a BUN of 86, creatinine 9.2 and hyponatremia with a sodium level of 119. There was no evidence of any fever or leukocytosis. Due to abdominal pain, a CT abdomen and pelvis was done which showed a small ventral hernia in the anterior abdominal wall, no findings to indicate a bowel obstruction and no evidence of any free air or free fluid. Nodular enlargement of the left adrenal gland, new compared to prior study, and stable mixed lytic and sclerotic lesions in the osseous structures. She also had an ultrasound of the abdomen which showed a simple cyst in left kidney, no evidence of any masses or hydronephrosis. Due to her back pain, a lumbar CT spine was performed which showed moderate fracture deformity of the L3 vertebral body and T11. She was transferred to [facility] where she was seen by Dr. Avery from the hospitalist service this afternoon. Shortly after, the patient was transferred to the ICU for increased O2 requirements and tachycardia. She had a chest x- ray this morning as well which showeda mild streaky opacity in the left lateral lung and left lung base with no consolidation. When seen in the ICU, she is tachycardic with heart rate of 114, blood pressure 128/79 and on a nonrebreather mask. The patient is complaining of abdominal pain and back pain. She received morphine earlier. The patient was also seen by Dr. Valle from the nephrology service. She has been given approximately 3 liters of crystalloids thus far. 09/14 Patient is on NRM, renal function slowly improving, on bicarb drip. Afebrile. Objective Vital Signs / I&O: Vital Signs 09/13/18 08:40 09/13/18 10:59 09/13/18 18:06 Temperature 98.2 F Pulse Rate 96 H 109 H Respiratory Rate 20 18 22 Blood Pressure 148/83 H 108/70 Pulse Oximetry 90 L 96 09/13/18 20:00 09/13/18 20:58 09/13/18 21:00 Temperature 97.6 F Pulse Rate 109 H 109 H 108 H Respiratory Rate 24 24 24 Blood Pressure 92/50 L 119/59 L Pulse Oximetry 96 96 93 L 09/13/18 22:00 09/13/18 23:00 09/14/18 00:00 Temperature 97.6 F Pulse Rate 105 H 101 H 100 H Respiratory Rate 24 24 24 Blood Pressure 82/52 L 90/55 L 91/50 L Pulse Oximetry 96 96 99 09/14/18 00:56 09/14/18 01:00 09/14/18 01:35 Temperature Pulse Rate 100 H 100 H 100 H Respiratory Rate 26 H 24 20 Blood Pressure 78/50 L Pulse Oximetry 95 98 09/14/18 01:45 09/14/18 02:00 09/14/18 02:15 Temperature Pulse Rate 100 H 100 H 101 H Respiratory Rate 26 H 25 H 32 H Blood Pressure 100/58 L 91/51 L 124/59 L Pulse Oximetry 97 96 93 L 09/14/18 02:30 09/14/18 02:35 09/14/18 02:45 Temperature Pulse Rate 101 H 101 H 102 H Respiratory Rate 32 H 26 H 27 H Blood Pressure 110/55 L 102/59 L Pulse Oximetry 93 L 92 L 09/14/18 03:00 09/14/18 03:15 09/14/18 03:30 Temperature Pulse Rate 101 H 101 H 100 H Respiratory Rate 28 H 22 21 Blood Pressure 98/54 L 103/56 L 100/50 L Pulse Oximetry 92 L 92 L 92 L Intake & Output 09/13/18 09/13/18 09/14/18 06:59 18:59 06:59 Intake Total 1700 / 1700 2300 / 2300 Output Total 50 / 50 Balance 1650 / 1650 2300 / 2300 Weight 113.398 kg Intake: IV 1700 / 1700 2300 / 2300 NS Inj 1,000 ML @ 125 mls/hr IV 200 / 200 800 / 800 .CONT .Q8H [facility] Rx#:[id number] Sodium Bicarbonate 8.4% Inj 75 1000 / 1000 MEQ In 1/2 Normal Saline Inj 925 ML @ 100 mls/hr IV.CONT . Q10H [facility] Rx#:[id number] NS Inj 1,000 ML @ Wide Open IV. 1500 / 1500 500 / 500 SIG BOLUS [facility] Rx#:[id number] Output: Urine Amount (Catheter) 50 / 50 Indwelling Urethral Catheter 50 / 50 Result Diagrams: 09/14/18 04:18 09/14/18 04:18 Other Results: Laboratory Results - last 12 hr 09/13/18 09/13/18 09/13/18 17:40 17:45 17:45 WBC RBC Hgb Hct MCV MCH MCHC RDW Plt Count MPV Prelim Diff (Auto) Neut % (Auto) Lymph % (Auto) [place] % (Auto) Eos % (Auto) Baso % (Auto) Neut # (Auto) Lymph # (Auto) [place] # (Auto) Eos # (Auto) Baso # (Auto) Differential Comment Haptoglobin PT INR POC Glucose Osmolality Lactic Acid Total Bilirubin Direct Bilirubin Indirect Bilirubin Lactate Dehydrogenase CK-MB (CK-2) CK-MB (CK-2) % Urine Color Yellow Urine Clarity Turbid H Urine pH 5.0 Ur Specific [place] 1.025 Urine Protein 100 H Urine Glucose (UA) Negative Urine Ketones Negative Urine Occult Blood Moderate H Urine Nitrate Negative Urine Bilirubin Negative Urine Urobilinogen Less than 2 Ur Leukocyte Esterase Moderate H Urine RBC 19 H Urine WBC Urine Bacteria Many H Hyaline Casts 19 Urine Mucus Many H Micro UA Comment Cath-culture ind Ur Microscopic Review Not Reportable Urine Culture Comments Cath-cult indicated Urine Osmolality Ur Random Creatinine 244 Ur Random Sodium 19 Nasal Screen MRSA (PCR) Not detected 09/13/18 09/13/18 09/13/18 17:45 17:54 17:54 WBC RBC Hgb Hct MCV MCH MCHC RDW Plt Count MPV Prelim Diff (Auto) Neut % (Auto) Lymph % (Auto) [place] % (Auto) Eos % (Auto) Baso % (Auto) Neut # (Auto) Lymph # (Auto) [place] # (Auto) Eos # (Auto) Baso # (Auto) Differential Comment Haptoglobin PT INR POC Glucose Osmolality 297 H Lactic Acid Total Bilirubin Direct Bilirubin Indirect Bilirubin Lactate Dehydrogenase CK-MB (CK-2) 3 CK-MB (CK-2) % 0.6 Urine Color Urine Clarity Urine pH Ur Specific [place] Urine Protein Urine Glucose (UA) Urine Ketones Urine Occult Blood Urine Nitrate Urine Bilirubin Urine Urobilinogen Ur Leukocyte Esterase Urine RBC Urine WBC Urine Bacteria Hyaline Casts Urine Mucus Micro UA Comment Ur Microscopic Review Urine Culture Comments Urine Osmolality 313 Ur Random Creatinine Ur Random Sodium Nasal Screen MRSA (PCR) 09/13/18 09/13/18 09/13/18 17:54 17:54 20:08 WBC RBC Hgb Hct MCV MCH MCHC RDW Plt Count MPV Prelim Diff (Auto) Neut % (Auto) Lymph % (Auto) [place] % (Auto) Eos % (Auto) Baso % (Auto) Neut # (Auto) Lymph # (Auto) [place] # (Auto) Eos # (Auto) Baso # (Auto) Differential Comment Haptoglobin 321 H PT INR POC Glucose 91 Osmolality Lactic Acid Total Bilirubin 2.0 H Direct Bilirubin 1.4 H Indirect Bilirubin 0.6 Lactate Dehydrogenase 350 H CK-MB (CK-2) CK-MB (CK-2) % Urine Color Urine Clarity Urine pH Ur Specific [place] Urine Protein Urine Glucose (UA) Urine Ketones Urine Occult Blood Urine Nitrate Urine Bilirubin Urine Urobilinogen Ur Leukocyte Esterase Urine RBC Urine WBC Urine Bacteria Hyaline Casts Urine Mucus Micro UA Comment Ur Microscopic Review Urine Culture Comments Urine Osmolality Ur Random Creatinine Ur Random Sodium Nasal Screen MRSA (PCR) 09/13/18 09/13/18 09/14/18 21:34 23:20 04:18 WBC 2.3 L RBC 3.44 L Hgb 11.5 L Hct 33.4 L MCV 97.0 MCH 33.3 MCHC 34.3 RDW 15.5 Plt Count 46 L D MPV 9.1 Prelim Diff (Auto) Slide review pending Neut % (Auto) 86.2 H Lymph % (Auto) 8.7 L [place] % (Auto) 4.6 Eos % (Auto) 0.3 Baso % (Auto) 0.2 Neut # (Auto) 2.0 Lymph # (Auto) 0.2 L [place] # (Auto) 0.1 Eos # (Auto) 0.0 Baso # (Auto) 0.0 Differential Comment . Haptoglobin PT INR POC Glucose 89 Osmolality Lactic Acid 1.9 Total Bilirubin Direct Bilirubin Indirect Bilirubin Lactate Dehydrogenase CK-MB (CK-2) CK-MB (CK-2) % Urine Color Urine Clarity Urine pH Ur Specific [place] Urine Protein Urine Glucose (UA) Urine Ketones Urine Occult Blood Urine Nitrate Urine Bilirubin Urine Urobilinogen Ur Leukocyte Esterase Urine RBC Urine WBC Urine Bacteria Hyaline Casts Urine Mucus Micro UA Comment Ur Microscopic Review Urine Culture Comments Urine Osmolality Ur Random Creatinine Ur Random Sodium Nasal Screen MRSA (PCR) 09/14/18 09/14/18 04:18 04:30 WBC RBC Hgb Hct MCV MCH MCHC RDW Plt Count MPV Prelim Diff (Auto) Neut % (Auto) Lymph % (Auto) [place] % (Auto) Eos % (Auto) Baso % (Auto) Neut # (Auto) Lymph # (Auto) [place] # (Auto) Eos # (Auto) Baso # (Auto) Differential Comment Haptoglobin PT 11.8 H INR 1.2 POC Glucose 87 Osmolality Lactic Acid Total Bilirubin Direct Bilirubin Indirect Bilirubin Lactate Dehydrogenase CK-MB (CK-2) CK-MB (CK-2) % Urine Color Urine Clarity Urine pH Ur Specific [place] Urine Protein Urine Glucose (UA) Urine Ketones Urine Occult Blood Urine Nitrate Urine Bilirubin Urine Urobilinogen Ur Leukocyte Esterase Urine RBC Urine WBC Urine Bacteria Hyaline Casts Urine Mucus Micro UA Comment Ur Microscopic Review Urine Culture Comments Urine Osmolality Ur Random Creatinine Ur Random Sodium Nasal Screen MRSA (PCR) Imaging: Abdomen/Bladder Ultrasound 09/13/18 00:00 CONCLUSION: 1. Simple cyst left kidney. Abdomen/Pelvis CT 09/13/18 08:54 CONCLUSION: 1. There is a small ventral hernia in the anterior abdominal wall. There is some omental fat herniated through the defect. 2. There are no findings to indicate a bowel obstruction. No free air free fluid is seen. 3. Nodular enlargement of the left adrenal gland new compared to previous of . Metastatic disease to the left adrenal is not excluded. 4. Stable mixed lytic and sclerotic lesion seen in the osseous structures when compared to PET examination of 06/28/2018. Chest X-Ray 09/13/18 08:54 CONCLUSION: Mild streaky opacity in left lateral lung and left lung base with no consolidation. This is most characteristic of atelectasis or scarring. Lumbar Spine CT 09/13/18 08:54 CONCLUSION: 1. Moderate fracture deformity of the L3 vertebral body with central lucency, sclerosis and invagination of the superior and inferior endplates. This may be acute. 2. Moderate fracture deformity of the T11 vertebral body with abnormal lucency , sclerosis and invagination superior and inferior endplates. 3. Atheromatous involvement of T10, T11, L1, L2 and L3 vertebral bodies. 4. Large lytic lesion involving the right side of the sacrum. 5. Moderate central canal stenosis at the L4-5 level secondary to disc bulge and degenerative change involving the facet joints. Objective Remarks: GENERAL: Patient is 68 yo lying in bed in mild-mod distress SKIN: Warm and dry. HEAD: Normocephalic. EYES: No scleral icterus. No injection or drainage. NECK: Supple, trachea midline. No JVD or lymphadenopathy. CARDIOVASCULAR: Tachycardic without murmurs, gallops, or rubs. RESPIRATORY: Breath sounds equal bilaterally. No accessory muscle use. GASTROINTESTINAL: Abdomen soft, mild-tenderness on palpation, nondistended, obese. MUSCULOSKELETAL: No cyanosis, or edema. Neuro: Awake and alert Assessment and Plan - Assessment and Plan Plan: 1. Acute hypoxemic respiratory insufficiency. 2. Acute renal failure. 3. Hyponatremia. 4. Dehydration. 5. Elevated liver enzymes. 6. Hypertension. 7. Chronic pain syndrome. 8. Abdominal pain associated with nausea and vomiting. 9. Gastroesophageal reflux disease. 10. History of multiple myeloma. 11 UTI 12 Pancytopenia Plan Neuro: Monitor neuro status closely. Pain control with morphine and Percocet Pulm: Wean down oxygen and maintain sats > 92%. Bronchodilators. Check ABG BiPAP p.r.n. for respiratory distress. CV: Monitor HR and BP keep MAP>65mmHG Lactic acid 1.9 from 3.1 Check 2D echo to eval LV function : Monitor renal function, I's and O's and avoid nephrotoxins. CT abdomen and pelvis showed no signs of obstruction ultrasound abdomen showed no evidence of hydronephrosis. She has been given Renal is following- Tori Lay, on 1/2NS+75meq bicarb drip @100ml/hr. Follow up on BMP GI: on Protonix 40 mg IV daily for GI prophylaxis. Monitor LFTs. A CT abdomen and pelvis showed the liver was within normal limits. ID: Start on Zosyn. Monitor for signs of infections( fever and WBC). Follow up on urine cx Heme: Monitor CBC and coags. Check Fibrinogen level. Hold Heparin SQ for worsening thrombocytopenia, PLT < 50 Endo: SSI with Accu-Cheks to maintain euglycemic control. TSH: 0.145, FT4:1.34 GI prophylaxis with Protonix 40 mg daily and DVT prophylaxis with SCDs, hold Heparin SQ Addendum 1600 Patient became hypotensive and had low O2 saturation on BIPAP after discussion with patient and her at bedside they were agreeable for intubation and central line placement. She was subsequently intubated and right IJ central line placed. Patient was started on Neosyn. CCT 40 mins excluding procedures
[2018-09-14 07:44] LABS: Lymphocytes 8 % (9-44); Metamyelocytes 2 % (0-1); Monocytes 2 % (0-8)
[2018-09-14 07:45] LABS: Burr Cells 1+; Dohle Bodies Present; Ovalocytes 1+; Tear Drop Cells 1+; Toxic Granulation 2+
[2018-09-14 07:46] LABS: Platelet Morphology Normal (Normal)
[2018-09-14] MEDS: Piperacil/Tazo 2.25 GM Premix 50 ML IV.SIG SCH ×3 (08:50→23:41)
[2018-09-14] MEDS: Senna/Docusate Sodium 8.6/50 MG Tablet PO SCH ×3 (08:50→22:13)
[2018-09-14] MEDS: Calcium Gluconate Inj 2 GM in Sodium Chlor 0.9% Inj 100 ML IV.SIG ONE ×2 (08:50→09:10)
[2018-09-14] MEDS: Sodium Chloride 0.9% 2 ML Flush BID IV.FLUSH SCH ×2 (08:50→20:35)
--- NOTE | 2018-09-14 11:09 | P.PNNP ---
Subjective Interval history: Oliguric. Patient is lethargic, continues to complain of abdominal pain. BUN is higher. Serum Na is 130, improved. Acidosis has improved. Physical Exam Vital signs: Vital Signs 09/13/18 10:59 09/13/18 18:06 09/13/18 20:00 Temperature 97.6 F Pulse Rate 109 H 109 H Respiratory Rate 18 22 24 Blood Pressure 108/70 92/50 L Pulse Oximetry 96 96 09/13/18 20:58 09/13/18 21:00 09/13/18 22:00 Temperature Pulse Rate 109 H 108 H 105 H Respiratory Rate 24 24 24 Blood Pressure 119/59 L 82/52 L Pulse Oximetry 96 93 L 96 09/13/18 23:00 09/14/18 00:00 09/14/18 00:56 Temperature 97.6 F Pulse Rate 101 H 100 H 100 H Respiratory Rate 24 24 26 H Blood Pressure 90/55 L 91/50 L Pulse Oximetry 96 99 09/14/18 01:00 09/14/18 01:35 09/14/18 01:45 Temperature Pulse Rate 100 H 100 H 100 H Respiratory Rate 24 20 26 H Blood Pressure 78/50 L 100/58 L Pulse Oximetry 95 98 97 09/14/18 02:00 09/14/18 02:15 09/14/18 02:30 Temperature Pulse Rate 100 H 101 H 101 H Respiratory Rate 25 H 32 H 32 H Blood Pressure 91/51 L 124/59 L 110/55 L Pulse Oximetry 96 93 L 93 L 09/14/18 02:35 09/14/18 02:45 09/14/18 03:00 Temperature Pulse Rate 101 H 102 H 101 H Respiratory Rate 26 H 27 H 28 H Blood Pressure 102/59 L 98/54 L Pulse Oximetry 92 L 92 L 09/14/18 03:15 09/14/18 03:30 09/14/18 03:45 Temperature Pulse Rate 101 H 100 H 100 H Respiratory Rate 22 21 26 H Blood Pressure 103/56 L 100/50 L 102/54 L Pulse Oximetry 92 L 92 L 93 L 09/14/18 04:00 09/14/18 04:15 09/14/18 04:30 Temperature 97.9 F Pulse Rate 101 H 103 H 104 H Respiratory Rate 31 H 31 H 32 H Blood Pressure 108/53 L 108/57 L 111/55 L Pulse Oximetry 94 L 94 L 94 L 09/14/18 04:45 09/14/18 05:00 09/14/18 05:15 Temperature Pulse Rate 104 H 102 H 101 H Respiratory Rate 34 H 35 H 28 H Blood Pressure 117/56 L 108/54 L 109/56 L Pulse Oximetry 95 94 L 95 09/14/18 05:30 09/14/18 05:45 09/14/18 06:00 Temperature Pulse Rate 104 H 101 H 102 H Respiratory Rate 35 H 36 H 30 H Blood Pressure 113/58 L 102/54 L 110/57 L Pulse Oximetry 95 94 L 94 L 09/14/18 06:15 09/14/18 06:30 09/14/18 06:45 Temperature Pulse Rate 101 H 104 H 104 H Respiratory Rate 37 H 45 H 36 H Blood Pressure 114/61 122/65 125/70 Pulse Oximetry 96 90 L 91 L 09/14/18 07:00 09/14/18 08:00 Temperature Pulse Rate 104 H Respiratory Rate 32 H Blood Pressure 124/59 L Pulse Oximetry 91 L 92 L Intake & Output 09/13/18 09/14/18 09/14/18 18:59 06:59 18:59 Intake Total 1700 / 1700 3020 / 3020 Output Total 50 / 50 75 / 75 Balance 1650 / 1650 2945 / 2945 Weight 113.398 kg Intake: IV 1700 / 1700 2300 / 2300 NS Inj 1,000 ML @ 125 mls/hr IV 200 / 200 800 / 800 .CONT .Q8H [facility] Rx#:[id number] Sodium Bicarbonate 8.4% Inj 75 1000 / 1000 MEQ In 1/2 Normal Saline Inj 925 ML @ 100 mls/hr IV.CONT . Q10H [facility] Rx#:[id number] NS Inj 1,000 ML @ Wide Open IV. 1500 / 1500 500 / 500 SIG BOLUS [facility] Rx#:[id number] Oral 720 / 720 Output: Urine Amount (Catheter) 50 / 50 75 / 75 Indwelling Urethral Catheter 50 / 50 75 / 75 Other: # Bowel Movements 0 Narrative: GENERAL: lethargic, complaining of abdominal pain, weak appearing, pale. SKIN: Focused skin assessment warm/dry. HEAD: Atraumatic. Normocephalic. EYES: Pupils equal and round. No scleral icterus. No injection or drainage. ENT: No nasal bleeding or discharge. Mucous membranes pink and moist. NECK: Trachea midline. No JVD. CARDIOVASCULAR: Regular rate and rhythm. No murmur appreciated. RESPIRATORY: No accessory muscle use. Clear to auscultation. Breath sounds equal bilaterally. GASTROINTESTINAL: diffuse non specific tenderness. Today her abdomen is soft, no organomegaly. Razo catheter in place MUSCULOSKELETAL: No obvious deformities. No clubbing. No cyanosis. No edema. NEUROLOGICAL: No focal deficits. - Urinary Catheter Management Indwelling Urethral Catheter Cath placed during this visit: yes Reason for continuing: Other continuation reason Insertion date: 09/13/18 Insertion time: 10:44 Assessment and Plan - Assessment (1) Acute renal failure Code(s): N17.9 - Acute kidney failure, unspecified Status: Acute Qualifiers: Acute renal failure type: unspecified Qualified Code(s): N17.9 - Acute kidney failure, unspecified Plan: Patient is oliguric. May have suffered ATN. Also have to consider cast nephropathy or "myeloma kidney". Tumor lysis syndrome is a consideration, I will obtain uric acid level. Continue cautious hydration. UA suggests UTI. Avoid nephrotoxic agents. CT did not reveal hydronephrosis. Monitor urine output. Prognosis is guarded. (2) Hypo-osmolality and hyponatremia Code(s): E87.1 - Hypo-osmolality and hyponatremia Status: Acute Plan: improved with hydration, will change IVF to 1/2NS. (3) Hypokalemia Code(s): E87.6 - Hypokalemia Status: Acute Plan: Improved, replace cautiously. (4) Acidosis Code(s): E87.2 - Acidosis Status: Acute Plan: Anion gap of 19. Could be due to renal failure. Lactic acid level was not high. (5) Multiple myeloma Code(s): C90.00 - Multiple myeloma not having achieved remission Status: Acute Plan: Oncology on the case, note was reviewed.
[2018-09-14 11:12] LABS: Hemoglobin A1c 5.2 % (4.3-6.0)
[2018-09-14] MEDS ORDERED: Sodium Chloride 0.45 % Inj 1,000 ML IV.CONT SCH (11:15)
[2018-09-14 11:46] LABS: ABG PCO2 46 mmHg (38-42); ABG PO2 71 mmHG (61-120)
[2018-09-14 15:03] LABS: ABG Base Excess -6.5 mmol/L (-2-2); ABG PCO2 35 mmHg (38-42); ABG PO2 82 mmHG (61-120)
--- NOTE | 2018-09-14 15:54 | OTSOAPIP ---
RECEIVED OCCUPATIONAL THERAPY ORDER FROM DR. LEMSO. ATTEMPTED TO SEE PATIENT, HOWEVER UPON ARRIVAL, PATIENT WAS NOT MEDICALLY STABLE AND MAY REQUIRE INTUBATION. YOVANNY MERCADO DEFERRED EVALUATION THIS DATE. WILL FOLLOW UP NEXT DAY. INTERDISCIPLINARY COMMUNICATION: REVIEWED ELECTRONIC MEDICAL RECORD, SPOKE WITH YOVANNY MERCADO Therapist: Brooklynn Villafana OTR/L Signature on file
--- NOTE | 2018-09-14 16:20 | ECG ---
Date Performed: 09/13/2018 Time Performed: 09:07:32 PTAGE: 68 years EKG: Sinus Tachycardia INCOMPLETE RIGHT BUNDLE BRANCH BLOCK INFERIOR MYOCARDIAL INFARCTION Consi kenna Inferior Myocardial infarction, age indeterminate PREVIOUS TRACING : 10/10/2015 09.39 DOCTOR: Krishna Chaidez Interpretating Date/Time 09/14/2018 16:19:09
--- NOTE | 2018-09-14 16:29 | P.PNONC ---
Subjective Interval history: Afebrile, patient currently on BiPAP. She responds to voice and is alert to person. Her RN is at the bedside and the patient is currently hypotensive, she is communicating with the operations leader at this time and has received orders for a 250 mL bolus. Patient's is at the bedside, his questions have been answered. Objective Vital Signs/Intake & Output: Vital Signs 09/13/18 18:06 09/13/18 20:00 09/13/18 20:58 Temperature 97.6 F Pulse Rate 109 H 109 H Respiratory Rate 22 24 24 Blood Pressure 92/50 L Pulse Oximetry 96 96 09/13/18 21:00 09/13/18 22:00 09/13/18 23:00 Temperature Pulse Rate 108 H 105 H 101 H Respiratory Rate 24 24 24 Blood Pressure 119/59 L 82/52 L 90/55 L Pulse Oximetry 93 L 96 96 09/14/18 00:00 09/14/18 00:56 09/14/18 01:00 Temperature 97.6 F Pulse Rate 100 H 100 H 100 H Respiratory Rate 24 26 H 24 Blood Pressure 91/50 L 78/50 L Pulse Oximetry 99 95 09/14/18 01:35 09/14/18 01:45 09/14/18 02:00 Temperature Pulse Rate 100 H 100 H 100 H Respiratory Rate 20 26 H 25 H Blood Pressure 100/58 L 91/51 L Pulse Oximetry 98 97 96 09/14/18 02:15 09/14/18 02:30 09/14/18 02:35 Temperature Pulse Rate 101 H 101 H 101 H Respiratory Rate 32 H 32 H 26 H Blood Pressure 124/59 L 110/55 L Pulse Oximetry 93 L 93 L 09/14/18 02:45 09/14/18 03:00 09/14/18 03:15 Temperature Pulse Rate 102 H 101 H 101 H Respiratory Rate 27 H 28 H 22 Blood Pressure 102/59 L 98/54 L 103/56 L Pulse Oximetry 92 L 92 L 92 L 09/14/18 03:30 09/14/18 03:45 09/14/18 04:00 Temperature 97.9 F Pulse Rate 100 H 100 H 101 H Respiratory Rate 21 26 H 31 H Blood Pressure 100/50 L 102/54 L 108/53 L Pulse Oximetry 92 L 93 L 94 L 09/14/18 04:15 09/14/18 04:30 09/14/18 04:45 Temperature Pulse Rate 103 H 104 H 104 H Respiratory Rate 31 H 32 H 34 H Blood Pressure 108/57 L 111/55 L 117/56 L Pulse Oximetry 94 L 94 L 95 09/14/18 05:00 09/14/18 05:15 09/14/18 05:30 Temperature Pulse Rate 102 H 101 H 104 H Respiratory Rate 35 H 28 H 35 H Blood Pressure 108/54 L 109/56 L 113/58 L Pulse Oximetry 94 L 95 95 09/14/18 05:45 09/14/18 06:00 09/14/18 06:15 Temperature Pulse Rate 101 H 102 H 101 H Respiratory Rate 36 H 30 H 37 H Blood Pressure 102/54 L 110/57 L 114/61 Pulse Oximetry 94 L 94 L 96 09/14/18 06:30 09/14/18 06:45 09/14/18 07:00 Temperature Pulse Rate 104 H 104 H 104 H Respiratory Rate 45 H 36 H 32 H Blood Pressure 122/65 125/70 124/59 L Pulse Oximetry 90 L 91 L 91 L 09/14/18 07:15 09/14/18 07:30 09/14/18 07:45 Temperature Pulse Rate 103 H 103 H 104 H Respiratory Rate 30 H 32 H 38 H Blood Pressure 131/56 L 126/59 L 113/58 L Pulse Oximetry 80 L 93 L 92 L 09/14/18 08:00 09/14/18 08:15 09/14/18 08:30 Temperature 98.0 F Pulse Rate 104 H 106 H 109 H Respiratory Rate 44 H 47 H 39 H Blood Pressure 136/58 L 122/59 L 117/56 L Pulse Oximetry 90 L 90 L 94 L 09/14/18 08:45 09/14/18 09:00 09/14/18 09:15 Temperature Pulse Rate 106 H 108 H 108 H Respiratory Rate 29 H 29 H 26 H Blood Pressure 115/56 L 103/53 L 108/57 L Pulse Oximetry 90 L 91 L 92 L 09/14/18 09:30 09/14/18 09:45 09/14/18 10:00 Temperature Pulse Rate 109 H 108 H 109 H Respiratory Rate 37 H 30 H 27 H Blood Pressure 119/59 L 109/51 L 112/54 L Pulse Oximetry 89 L 95 95 09/14/18 10:15 09/14/18 10:30 09/14/18 10:45 Temperature Pulse Rate 108 H 109 H 109 H Respiratory Rate 28 H 28 H 29 H Blood Pressure 93/50 L 107/59 L 107/58 L Pulse Oximetry 94 L 94 L 82 L 09/14/18 10:56 09/14/18 11:00 09/14/18 11:15 Temperature Pulse Rate 109 H 109 H 110 H Respiratory Rate 20 27 H 32 H Blood Pressure 107/53 L 109/56 L Pulse Oximetry 89 L 91 L 09/14/18 11:30 09/14/18 11:46 09/14/18 12:00 Temperature 98.2 F Pulse Rate 154 H 114 H 113 H Respiratory Rate 30 H 29 H 28 H Blood Pressure 141/51 H 136/59 L 121/58 L Pulse Oximetry 90 L 92 L 93 L 09/14/18 12:15 09/14/18 12:19 09/14/18 12:30 Temperature Pulse Rate 115 H 114 H 113 H Respiratory Rate 27 H 31 H 36 H Blood Pressure 90/48 L 122/56 L 104/55 L Pulse Oximetry 90 L 87 L 93 L Intake & Output 09/13/18 09/14/18 09/14/18 18:59 06:59 18:59 Intake Total 1700 / 1700 3020 / 3020 Output Total 50 / 50 75 / 75 Balance 1650 / 1650 2945 / 2945 Weight 113.398 kg Intake: IV 1700 / 1700 2300 / 2300 NS Inj 1,000 ML @ 125 mls/hr IV 200 / 200 800 / 800 .CONT .Q8H MACKENZIE Rx#:[id number] Sodium Bicarbonate 8.4% Inj 75 1000 / 1000 MEQ In 1/2 Normal Saline Inj 925 ML @ 100 mls/hr IV.CONT . Q10H MACKENZIE Rx#:[id number] NS Inj 1,000 ML @ Wide Open IV. 1500 / 1500 500 / 500 SIG BOLUS MACKENZIE Rx#:[id number] Oral 720 / 720 Output: Urine Amount (Catheter) 50 / 50 75 / 75 Indwelling Urethral Catheter 50 / 50 75 / 75 Other: # Bowel Movements 0 Result Diagrams: 09/14/18 17:10 09/14/18 17:10 Laboratory Results: Laboratory Results - last 24 hr 1009/13/18 09/13/18 17:25 17:30 17:40 WBC RBC Hgb Hct MCV MCH MCHC RDW Plt Count MPV Prelim Diff (Auto) Neut % (Auto) Lymph % (Auto) [place] % (Auto) Eos % (Auto) Baso % (Auto) Neut # (Auto) Lymph # (Auto) [place] # (Auto) Eos # (Auto) Baso # (Auto) WBC Differential Seg Neuts % (Manual) Band Neuts % (Manual) Lymphocytes % (Manual) Monocytes % (Manual) Eosinophils % (Manual) Metamyelocytes % (Man) Myelocytes % (Man) Abs Neuts (Manual) Nucleated RBCs/100 WBC Differential Comment Toxic Granulation Toxic Vacuolation Dohle Bodies Platelet Estimate Platelet Morphology Tear Drop Cells Ovalocytes Avery Cells Haptoglobin PT INR Fibrinogen Puncture Site Left radial Patient Temperature 98.6 O2 Saturation 91 ABG pH 7.26 L* ABG pCO2 34 L ABG pO2 88 ABG HCO3 15 L* ABG O2 Content 16.6 ABG Base Excess -11.2 L ABG Methemoglobin 1.9 John Test Present Hemoglobin 13.0 Carboxyhemoglobin 1.0 O2 Delivery Device Non-rebreathing mask Liter Flow 15.00 Vent Setting Inspired O2 Critical Value Yes Sodium Potassium Chloride Carbon Dioxide Anion Gap BUN Creatinine Estimated GFR POC Glucose Random Glucose Hemoglobin A1c Osmolality Lactic Acid 3.1 H Uric Acid Calcium Prot Corrected Calcium Phosphorus Magnesium Total Bilirubin Direct Bilirubin Indirect Bilirubin AST ALT Alkaline Phosphatase Lactate Dehydrogenase Total Creatine Kinase CK-MB (CK-2) CK-MB (CK-2) % Total Protein Albumin TSH Free T4 Urine Color Urine Clarity Urine pH Ur Specific [place] Urine Protein Urine Glucose (UA) Urine Ketones Urine Occult Blood Urine Nitrate Urine Bilirubin Urine Urobilinogen Ur Leukocyte Esterase Urine RBC Urine WBC Urine Bacteria Hyaline Casts Urine Mucus Micro UA Comment Ur Microscopic Review Urine Culture Comments Urine Osmolality Ur Random Creatinine Ur Random Sodium Nasal Screen MRSA (PCR) Not detected 09/13/18 09/13/18 09/13/18 17:45 17:45 17:45 WBC RBC Hgb Hct MCV MCH MCHC RDW Plt Count MPV Prelim Diff (Auto) Neut % (Auto) Lymph % (Auto) [place] % (Auto) Eos % (Auto) Baso % (Auto) Neut # (Auto) Lymph # (Auto) [place] # (Auto) Eos # (Auto) Baso # (Auto) WBC Differential Seg Neuts % (Manual) Band Neuts % (Manual) Lymphocytes % (Manual) Monocytes % (Manual) Eosinophils % (Manual) Metamyelocytes % (Man) Myelocytes % (Man) Abs Neuts (Manual) Nucleated RBCs/100 WBC Differential Comment Toxic Granulation Toxic Vacuolation Dohle Bodies Platelet Estimate Platelet Morphology Tear Drop Cells Ovalocytes Avery Cells Haptoglobin PT INR Fibrinogen Puncture Site Patient Temperature O2 Saturation ABG pH ABG pCO2 ABG pO2 ABG HCO3 ABG O2 Content ABG Base Excess ABG Methemoglobin John Test Hemoglobin Carboxyhemoglobin O2 Delivery Device Liter Flow Vent Setting Inspired O2 Critical Value Sodium Potassium Chloride Carbon Dioxide Anion Gap BUN Creatinine Estimated GFR POC Glucose Random Glucose Hemoglobin A1c Osmolality Lactic Acid Uric Acid Calcium Prot Corrected Calcium Phosphorus Magnesium Total Bilirubin Direct Bilirubin Indirect Bilirubin AST ALT Alkaline Phosphatase Lactate Dehydrogenase Total Creatine Kinase CK-MB (CK-2) CK-MB (CK-2) % Total Protein Albumin TSH Free T4 Urine Color Yellow Urine Clarity Turbid H Urine pH 5.0 Ur Specific [place] 1.025 Urine Protein 100 H Urine Glucose (UA) Negative Urine Ketones Negative Urine Occult Blood Moderate H Urine Nitrate Negative Urine Bilirubin Negative Urine Urobilinogen Less than 2 Ur Leukocyte Esterase Moderate H Urine RBC 19 H Urine WBC Urine Bacteria Many H Hyaline Casts 19 Urine Mucus Many H Micro UA Comment Cath-culture ind Ur Microscopic Review Not Reportable Urine Culture Comments Cath-cult indicated Urine Osmolality 313 Ur Random Creatinine 244 Ur Random Sodium 19 Nasal Screen MRSA (PCR) 09/13/18 09/13/18 09/13/18 17:54 17:54 17:54 WBC 3.2 L RBC 3.96 L Hgb 13.2 Hct 37.7 MCV 95.2 MCH 33.2 MCHC 34.9 RDW 15.3 Plt Count 85 L D MPV 9.3 Prelim Diff (Auto) Slide review pending Neut % (Auto) 92.4 H Lymph % (Auto) 5.8 L [place] % (Auto) 0.9 Eos % (Auto) 0.7 Baso % (Auto) 0.2 Neut # (Auto) 2.9 Lymph # (Auto) 0.2 L [place] # (Auto) 0.0 Eos # (Auto) 0.0 Baso # (Auto) 0.0 WBC Differential Manual diff final Seg Neuts % (Manual) 43 Band Neuts % (Manual) 39 H Lymphocytes % (Manual) 6 L Monocytes % (Manual) 4 Eosinophils % (Manual) 1 Metamyelocytes % (Man) 6 H Myelocytes % (Man) 1 H Abs Neuts (Manual) 2.8 Nucleated RBCs/100 WBC 1 H Differential Comment . Toxic Granulation 2+ H Toxic Vacuolation Present H Dohle Bodies Present H Platelet Estimate Low L Platelet Morphology Enlarged H Tear Drop Cells Ovalocytes [place] Cells Haptoglobin PT INR Fibrinogen Puncture Site Patient Temperature O2 Saturation ABG pH ABG pCO2 ABG pO2 ABG HCO3 ABG O2 Content ABG Base Excess ABG Methemoglobin John Test Hemoglobin Carboxyhemoglobin O2 Delivery Device Liter Flow Vent Setting Inspired O2 Critical Value Sodium 125 L Potassium 3.3 L Chloride 91 L D Carbon Dioxide 16.6 L Anion Gap 17 H BUN 92 H Creatinine 8.83 H Estimated GFR 4 L POC Glucose Random Glucose 88 Hemoglobin A1c Osmolality 297 H Lactic Acid Uric Acid Calcium 7.3 L* D Prot Corrected Calcium Phosphorus Magnesium Total Bilirubin 2.0 H Direct Bilirubin Indirect Bilirubin AST 102 H ALT 73 H Alkaline Phosphatase 46 Lactate Dehydrogenase Total Creatine Kinase 505 H CK-MB (CK-2) 3 CK-MB (CK-2) % 0.6 Total Protein 8.6 H D Albumin 2.1 L D TSH 0.238 L Free T4 Urine Color Urine Clarity Urine pH Ur Specific [place] Urine Protein Urine Glucose (UA) Urine Ketones Urine Occult Blood Urine Nitrate Urine Bilirubin Urine Urobilinogen Ur Leukocyte Esterase Urine RBC Urine WBC Urine Bacteria Hyaline Casts Urine Mucus Micro UA Comment Ur Microscopic Review Urine Culture Comments Urine Osmolality Ur Random Creatinine Ur Random Sodium Nasal Screen MRSA (PCR) 09/13/18 09/13/18 09/13/18 17:54 17:54 20:08 WBC RBC Hgb Hct MCV MCH MCHC RDW Plt Count MPV Prelim Diff (Auto) Neut % (Auto) Lymph % (Auto) [place] % (Auto) Eos % (Auto) Baso % (Auto) Neut # (Auto) Lymph # (Auto) [place] # (Auto) Eos # (Auto) Baso # (Auto) WBC Differential Seg Neuts % (Manual) Band Neuts % (Manual) Lymphocytes % (Manual) Monocytes % (Manual) Eosinophils % (Manual) Metamyelocytes % (Man) Myelocytes % (Man) Abs Neuts (Manual) Nucleated RBCs/100 WBC Differential Comment Toxic Granulation Toxic Vacuolation Dohle Bodies Platelet Estimate Platelet Morphology Tear Drop Cells Ovalocytes Avery Cells Haptoglobin 321 H PT INR Fibrinogen Puncture Site Patient Temperature O2 Saturation ABG pH ABG pCO2 ABG pO2 ABG HCO3 ABG O2 Content ABG Base Excess ABG Methemoglobin John Test Hemoglobin Carboxyhemoglobin O2 Delivery Device Liter Flow Vent Setting Inspired O2 Critical Value Sodium Potassium Chloride Carbon Dioxide Anion Gap BUN Creatinine Estimated GFR POC Glucose 91 Random Glucose Hemoglobin A1c Osmolality Lactic Acid Uric Acid Calcium Prot Corrected Calcium Phosphorus Magnesium Total Bilirubin 2.0 H Direct Bilirubin 1.4 H Indirect Bilirubin 0.6 AST ALT Alkaline Phosphatase Lactate Dehydrogenase 350 H Total Creatine Kinase CK-MB (CK-2) CK-MB (CK-2) % Total Protein Albumin TSH Free T4 Urine Color Urine Clarity Urine pH Ur Specific [place] Urine Protein Urine Glucose (UA) Urine Ketones Urine Occult Blood Urine Nitrate Urine Bilirubin Urine Urobilinogen Ur Leukocyte Esterase Urine RBC Urine WBC Urine Bacteria Hyaline Casts Urine Mucus Micro UA Comment Ur Microscopic Review Urine Culture Comments Urine Osmolality Ur Random Creatinine Ur Random Sodium Nasal Screen MRSA (PCR) 09/13/18 09/13/18 09/14/18 21:34 23:20 04:18 WBC RBC Hgb Hct MCV MCH MCHC RDW Plt Count MPV Prelim Diff (Auto) Neut % (Auto) Lymph % (Auto) [place] % (Auto) Eos % (Auto) Baso % (Auto) Neut # (Auto) Lymph # (Auto) [place] # (Auto) Eos # (Auto) Baso # (Auto) WBC Differential Seg Neuts % (Manual) Band Neuts % (Manual) Lymphocytes % (Manual) Monocytes % (Manual) Eosinophils % (Manual) Metamyelocytes % (Man) Myelocytes % (Man) Abs Neuts (Manual) Nucleated RBCs/100 WBC Differential Comment Toxic Granulation Toxic Vacuolation Dohle Bodies Platelet Estimate Platelet Morphology Tear Drop Cells Ovalocytes [place] Cells Haptoglobin PT INR Fibrinogen Puncture Site Patient Temperature O2 Saturation ABG pH ABG pCO2 ABG pO2 ABG HCO3 ABG O2 Content ABG Base Excess ABG Methemoglobin John Test Hemoglobin Carboxyhemoglobin O2 Delivery Device Liter Flow Vent Setting Inspired O2 Critical Value Sodium 130 L Potassium 3.4 L Chloride 91 L Carbon Dioxide 23.0 Anion Gap 16 H BUN 96 H Creatinine 8.64 H Estimated GFR 5 L POC Glucose 89 Random Glucose 73 L Hemoglobin A1c Osmolality Lactic Acid 1.9 Uric Acid Calcium 6.9 L* Prot Corrected Calcium 6.8 L* Phosphorus 11.6 H Magnesium 2.2 Total Bilirubin 1.8 H Direct Bilirubin Indirect Bilirubin AST 93 H ALT 73 H Alkaline Phosphatase 39 L Lactate Dehydrogenase 330 H Total Creatine Kinase CK-MB (CK-2) CK-MB (CK-2) % Total Protein 7.5 D Albumin 1.8 L TSH 0.145 L Free T4 1.34 Urine Color Urine Clarity Urine pH Ur Specific [place] Urine Protein Urine Glucose (UA) Urine Ketones Urine Occult Blood Urine Nitrate Urine Bilirubin Urine Urobilinogen Ur Leukocyte Esterase Urine RBC Urine WBC Urine Bacteria Hyaline Casts Urine Mucus Micro UA Comment Ur Microscopic Review Urine Culture Comments Urine Osmolality Ur Random Creatinine Ur Random Sodium Nasal Screen MRSA (PCR) 09/14/18 09/14/18 09/14/18 04:18 04:18 04:18 WBC 2.3 L RBC 3.44 L Hgb 11.5 L Hct 33.4 L MCV 97.0 MCH 33.3 MCHC 34.3 RDW 15.5 Plt Count 46 L D MPV 9.1 Prelim Diff (Auto) Slide review pending Neut % (Auto) 86.2 H Lymph % (Auto) 8.7 L [place] % (Auto) 4.6 Eos % (Auto) 0.3 Baso % (Auto) 0.2 Neut # (Auto) 2.0 Lymph # (Auto) 0.2 L [place] # (Auto) 0.1 Eos # (Auto) 0.0 Baso # (Auto) 0.0 WBC Differential Manual diff final Seg Neuts % (Manual) 37 Band Neuts % (Manual) 51 H Lymphocytes % (Manual) 8 L Monocytes % (Manual) 2 Eosinophils % (Manual) Metamyelocytes % (Man) 2 H Myelocytes % (Man) Abs Neuts (Manual) 2.1 Nucleated RBCs/100 WBC Differential Comment . Toxic Granulation 2+ H Toxic Vacuolation Dohle Bodies Present H Platelet Estimate Low L Platelet Morphology Normal Tear Drop Cells 1+ H Ovalocytes 1+ H Avery Cells 1+ H Haptoglobin PT 11.8 H INR 1.2 Fibrinogen Puncture Site Patient Temperature O2 Saturation ABG pH ABG pCO2 ABG pO2 ABG HCO3 ABG O2 Content ABG Base Excess ABG Methemoglobin John Test Hemoglobin Carboxyhemoglobin O2 Delivery Device Liter Flow Vent Setting Inspired O2 Critical Value Sodium Potassium Chloride Carbon Dioxide Anion Gap BUN Creatinine Estimated GFR POC Glucose Random Glucose Hemoglobin A1c 5.2 Osmolality Lactic Acid Uric Acid Calcium Prot Corrected Calcium Phosphorus Magnesium Total Bilirubin Direct Bilirubin Indirect Bilirubin AST ALT Alkaline Phosphatase Lactate Dehydrogenase Total Creatine Kinase CK-MB (CK-2) CK-MB (CK-2) % Total Protein Albumin TSH Free T4 Urine Color Urine Clarity Urine pH Ur Specific [place] Urine Protein Urine Glucose (UA) Urine Ketones Urine Occult Blood Urine Nitrate Urine Bilirubin Urine Urobilinogen Ur Leukocyte Esterase Urine RBC Urine WBC Urine Bacteria Hyaline Casts Urine Mucus Micro UA Comment Ur Microscopic Review Urine Culture Comments Urine Osmolality Ur Random Creatinine Ur Random Sodium Nasal Screen MRSA (PCR) 09/14/18 09/14/18 09/14/18 04:18 04:18 04:30 WBC RBC Hgb Hct MCV MCH MCHC RDW Plt Count MPV Prelim Diff (Auto) Neut % (Auto) Lymph % (Auto) [place] % (Auto) Eos % (Auto) Baso % (Auto) Neut # (Auto) Lymph # (Auto) [place] # (Auto) Eos # (Auto) Baso # (Auto) WBC Differential Seg Neuts % (Manual) Band Neuts % (Manual) Lymphocytes % (Manual) Monocytes % (Manual) Eosinophils % (Manual) Metamyelocytes % (Man) Myelocytes % (Man) Abs Neuts (Manual) Nucleated RBCs/100 WBC Differential Comment Toxic Granulation Toxic Vacuolation Dohle Bodies Platelet Estimate Platelet Morphology Tear Drop Cells Ovalocytes [place] Cells Haptoglobin PT INR Fibrinogen 657 H Puncture Site Patient Temperature O2 Saturation ABG pH ABG pCO2 ABG pO2 ABG HCO3 ABG O2 Content ABG Base Excess ABG Methemoglobin John Test Hemoglobin Carboxyhemoglobin O2 Delivery Device Liter Flow Vent Setting Inspired O2 Critical Value Sodium Potassium Chloride Carbon Dioxide Anion Gap BUN Creatinine Estimated GFR POC Glucose 87 Random Glucose Hemoglobin A1c Osmolality Lactic Acid Uric Acid 12.5 H Calcium Prot Corrected Calcium Phosphorus Magnesium Total Bilirubin Direct Bilirubin Indirect Bilirubin AST ALT Alkaline Phosphatase Lactate Dehydrogenase Total Creatine Kinase CK-MB (CK-2) CK-MB (CK-2) % Total Protein Albumin TSH Free T4 Urine Color Urine Clarity Urine pH Ur Specific [place] Urine Protein Urine Glucose (UA) Urine Ketones Urine Occult Blood Urine Nitrate Urine Bilirubin Urine Urobilinogen Ur Leukocyte Esterase Urine RBC Urine WBC Urine Bacteria Hyaline Casts Urine Mucus Micro UA Comment Ur Microscopic Review Urine Culture Comments Urine Osmolality Ur Random Creatinine Ur Random Sodium Nasal Screen MRSA (PCR) 09/14/18 09/14/18 09/14/18 10:39 11:35 11:35 WBC RBC Hgb Hct MCV MCH MCHC RDW Plt Count MPV Prelim Diff (Auto) Neut % (Auto) Lymph % (Auto) [place] % (Auto) Eos % (Auto) Baso % (Auto) Neut # (Auto) Lymph # (Auto) [place] # (Auto) Eos # (Auto) Baso # (Auto) WBC Differential Seg Neuts % (Manual) Band Neuts % (Manual) Lymphocytes % (Manual) Monocytes % (Manual) Eosinophils % (Manual) Metamyelocytes % (Man) Myelocytes % (Man) Abs Neuts (Manual) Nucleated RBCs/100 WBC Differential Comment Toxic Granulation Toxic Vacuolation Dohle Bodies Platelet Estimate Platelet Morphology Tear Drop Cells Ovalocytes Avery Cells Haptoglobin PT INR Fibrinogen Puncture Site Left radial Left radial Patient Temperature 98.6 98.6 O2 Saturation 88 L* 92 ABG pH 7.26 L* 7.34 L ABG pCO2 46 H 35 L ABG pO2 71 82 ABG HCO3 20 L 18 L ABG O2 Content 14.8 15.3 ABG Base Excess -6.0 L -6.5 L ABG Methemoglobin 2.0 1.9 John Test Present Present Hemoglobin 11.9 L 11.8 L Carboxyhemoglobin 0.8 0.9 O2 Delivery Device Nrb Bipap Liter Flow 15.00 Vent Setting 15/+5 Inspired O2 100 50 Critical Value Yes No Sodium Potassium Chloride Carbon Dioxide Anion Gap BUN Creatinine Estimated GFR POC Glucose 72 Random Glucose Hemoglobin A1c Osmolality Lactic Acid Uric Acid Calcium Prot Corrected Calcium Phosphorus Magnesium Total Bilirubin Direct Bilirubin Indirect Bilirubin AST ALT Alkaline Phosphatase Lactate Dehydrogenase Total Creatine Kinase CK-MB (CK-2) CK-MB (CK-2) % Total Protein Albumin TSH Free T4 Urine Color Urine Clarity Urine pH Ur Specific [place] Urine Protein Urine Glucose (UA) Urine Ketones Urine Occult Blood Urine Nitrate Urine Bilirubin Urine Urobilinogen Ur Leukocyte Esterase Urine RBC Urine WBC Urine Bacteria Hyaline Casts Urine Mucus Micro UA Comment Ur Microscopic Review Urine Culture Comments Urine Osmolality Ur Random Creatinine Ur Random Sodium Nasal Screen MRSA (PCR) 09/14/18 09/14/18 11:38 15:27 WBC RBC Hgb Hct MCV MCH MCHC RDW Plt Count MPV Prelim Diff (Auto) Neut % (Auto) Lymph % (Auto) [place] % (Auto) Eos % (Auto) Baso % (Auto) Neut # (Auto) Lymph # (Auto) [place] # (Auto) Eos # (Auto) Baso # (Auto) WBC Differential Seg Neuts % (Manual) Band Neuts % (Manual) Lymphocytes % (Manual) Monocytes % (Manual) Eosinophils % (Manual) Metamyelocytes % (Man) Myelocytes % (Man) Abs Neuts (Manual) Nucleated RBCs/100 WBC Differential Comment Toxic Granulation Toxic Vacuolation Dohle Bodies Platelet Estimate Platelet Morphology Tear Drop Cells Ovalocytes Avery Cells Haptoglobin PT INR Fibrinogen Puncture Site Patient Temperature O2 Saturation ABG pH ABG pCO2 ABG pO2 ABG HCO3 ABG O2 Content ABG Base Excess ABG Methemoglobin John Test Hemoglobin Carboxyhemoglobin O2 Delivery Device Liter Flow Vent Setting Inspired O2 Critical Value Sodium Potassium Chloride Carbon Dioxide Anion Gap BUN Creatinine Estimated GFR POC Glucose 72 71 Random Glucose Hemoglobin A1c Osmolality Lactic Acid Uric Acid Calcium Prot Corrected Calcium Phosphorus Magnesium Total Bilirubin Direct Bilirubin Indirect Bilirubin AST ALT Alkaline Phosphatase Lactate Dehydrogenase Total Creatine Kinase CK-MB (CK-2) CK-MB (CK-2) % Total Protein Albumin TSH Free T4 Urine Color Urine Clarity Urine pH Ur Specific [place] Urine Protein Urine Glucose (UA) Urine Ketones Urine Occult Blood Urine Nitrate Urine Bilirubin Urine Urobilinogen Ur Leukocyte Esterase Urine RBC Urine WBC Urine Bacteria Hyaline Casts Urine Mucus Micro UA Comment Ur Microscopic Review Urine Culture Comments Urine Osmolality Ur Random Creatinine Ur Random Sodium Nasal Screen MRSA (PCR) Culture Results: Microbiology 09/13/18 17:45 Urine Culture - Preliminary Catheterized Urine gram negative rods Imaging Studies: Impressions Abdomen/Bladder Ultrasound 09/13/18 00:00 CONCLUSION: 1. Simple cyst left kidney. Medications: Active Medications Generic Name Dose Route Start Last Admin Trade Name Tyler PRN Reason Stop Dose Admin Albuterol 1 ampul 09/13/18 20:00 09/14/18 10:54 Duoneb Neb ([facility]) NEB 1 ampul Q4HR NEB MACKENZIE Administration Chlorhexidine Gluconate 3 pack 09/14/18 04:00 09/14/18 04:35 Chlorhexidine 2% Cloth TOPICAL 09/19/18 03:59 3 pack DAILY@0400 MACKENZIE Administration Heparin Sodium (Porcine) 5,000 units 09/13/18 22:00 09/14/18 06:26 Heparin Inj SQ 5,000 units Q8HR MACKENZIE Administration Piperacillin/Tazobactam/Dextrose 50 mls @ 100 mls/hr 09/14/18 08:00 09/14/18 08:50 Zosyn 2.25 Gm Premix IV.SIG 100 mls/hr Q8H MACKENZIE Administration Insulin Human Regular 0 units 09/13/18 20:00 09/14/18 11:39 Novolin R Correctional Sugar Inj SQ Not Given Q4HR [facility] Protocol Levothyroxine Sodium 112 mcg 09/14/18 06:00 09/14/18 06:26 Synthroid PO 112 mcg DAILY@0600 MACKENZIE Administration Morphine Sulfate 4 mg 09/13/18 16:46 09/14/18 08:36 Morphine Inj IV.PUSH 4 mg Q3H PRN Administration BREAKTHROUGH PAIN Morphine Sulfate 2 mg 09/13/18 16:46 09/14/18 04:41 Morphine Inj IV.PUSH 2 mg Q3H PRN Administration PAIN 3-5; IF UABLE TO TAKE PO Oxycodone/Acetaminophen 1 tab 09/13/18 16:46 09/14/18 03:00 Percocet 10/325 Mg PO 1 tab Q6H PRN Administration PAIN SCALE 6 TO 10 Oxycodone/Acetaminophen 1 tab 09/13/18 16:46 09/13/18 20:55 Percocet 5/325 Mg PO 1 tab Q6H PRN Administration PAIN SCALE 3 TO 5 Pantoprazole Sodium 40 mg 09/13/18 18:00 09/13/18 18:19 Protonix Inj IV.PUSH 40 mg Q24H MACKENZIE Administration Senna/Docusate Sodium 1 tab 09/13/18 21:00 09/14/18 08:50 Chloé-Colace PO 1 tab BID MACKENZIE Administration Sodium Chloride 2 ml 09/13/18 21:00 09/14/18 08:50 Ns Flush IV.FLUSH 2 ml BID MACKENZIE Administration Objective Remarks: GENERAL: Critically ill appearing female patient, in moderate distress. SKIN: Pale, warm and dry. HEAD: Normocephalic. EYES: No scleral icterus. No injection or drainage. NECK: Supple, trachea midline. No JVD or lymphadenopathy. LYMPHATIC: No adenopathy. CARDIOVASCULAR: Regular rate and rhythm without murmurs. + Tachycardic RESPIRATORY: Breath sounds equal bilaterally. Tachypneic, BiPAP in place EXTREMITIES: No cyanosis, or edema. Bilateral hands cool to touch. Cap refill< 3 sec. diminished radial pulses. MUSCULOSKELETAL: Decreased muscle tone. NEUROLOGICAL: Opens her eyes to voice, alert to person. PSYCHIATRIC: Appropriate mood and affect; insight and judgment normal. Assessment/Plan - Plan Mrs. 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 She has a history of induction therapy with Revlimid, Decadron and Velcade followed by stem cell transplant. She was placed on Revlimid maintenance until progression. She had her first cycle of darutumumab, Velcade and Decadron approximately 8 days ago. She was admitted to the hospital with acute renal failure and mild thrombocytopenia. Recommendations: 1. Multiple myeloma, treatment is placed on hold until she is stabilized from her acute events. 2. Acute renal failure, management per nephrology. 3. Critical care, management per operations leader. 4. Thrombocytopenia, platelets decreased to 46,000 today. Continue to monitor closely for bleeding. Continue to hold heparin. 5. Urine culture positive for gram-negative rods. Patient appears to likely be septic, will order blood cultures and consult infectious disease. 6. Patient's condition is critical, discussed with , all questions answered. - Attending Statement The exam, history, and the medical decision-making described in the above note were completed with the assistance of the mid-level provider. I reviewed and agree with the findings presented. I attest that I had a [id number] encounter with the patient on the same day, and personally performed and documented my assessment and findings in the medical record. Pt seen and examined in evening. Events in AM noted, pt intubated and sedated. Urine out put was poor, no improvement despite hydration support. Noted acuity of renal failure, hypocalcemia, hypokalemia, acidosis. LDH increase mild, unlikely microangiopathic process. Consider tumor lysis post treatment however dramatic responses are not typical with one dose. Patient had prodrome of anorexia followed by abdominal pain. Treatment is supportive. Agree with current support. Pt has had Velcade before without such a dramatic response. Myeloma kidney, pt known to have lambda light chain but the acute deterioration of renal function is difficult to explain. Consider biopsy kidney if no improvement to evaluate confirm light chain disease.
--- NOTE | 2018-09-14 16:46 | P.PCN ---
Date of procedure: 09/14/18 Pre-op diagnosis: resp failure Post-op diagnosis: same Procedure: Central line placement: Right IJ vein. Ultrasound-guided INDICATION: Central venous access CONSENT Informed consent for procedure was obtained from patient's after discussion of risk, benefits, alternatives. DESCRIPTION OF THE PROCEDURE The patient was placed in supine position, Trendelenburg. The skin was cleansed with Chloraprep x3. Additional barrier precautions included large sterile drape, sterile gloves, sterile gown, face mask, and hat. 1 % lidocaine was used for local anesthesia. Under direct ultrasound guidance and on single attempt, the vein was accessed with an introducer needle. The guide wire was advanced and confirmed intravenous by ultrasound. The tract was dilated. Using Seldinger technique a 7 Bulgarian 20 cm antimicrobial coated triple-lumen catheter was advanced to a depth of 16 centimeters. The guide wire was removed. All ports had good return of dark venous blood and flushed easily with saline. A sterile dressing with antibiotic disc was applied. ESTIMATED BLOOD LOSS: Minimal COMPLICATIONS: No apparent complications. CXR ordered to verify line placement.
[2018-09-14] MEDS: Phenylephrine Inj 40 MG in Sodium Chlor 0.9% Inj 496 ML IV.CONT PRN (17:04)
--- NOTE | 2018-09-14 17:04 | XR ---
EXAM DATE: 09/14/2018 5:01 PM EDT AGE/SEX: 68 years / Female INDICATIONS: Post central line placement. CLINICAL DATA: This is the patient's subsequent encounter. Patient reports that signs and symptoms h ave been present for 1 day and indicates a pain score of Nonresponsive. MEDICAL/SURGICAL HISTORY: . Gastroesophageal reflux disease. Hemangioma. Hyperlipidemia. Multip le myeloma. Thyroid disease. . Bone marrow transplant. COMPARISON: [facility], CHEST 1V SINGLE AP, 09/13/2018. . FINDINGS: Single view chest demonstrate the endotracheal tube, right IJ central line are in good position. Ther e is bilateral perihilar vascular congestion. There is no visible pneumothorax. The heart is slightly enlarged. CONCLUSION: Right IJ central line in excellent position. No visible pneumothorax Electronically signed by: Shorty Bosch MD 09/14/2018 5:03 PM EDT
[2018-09-14] MEDS: Pantoprazole Inj 40 MG Vial IV.PUSH SCH (17:21)
[2018-09-14 17:22] LABS: Hemoglobin 11.3 gm/dL (11.6-15.3); Mean Corpuscular HGB Conc 34.3 % (32.0-36.0); Mean Corpuscular Hemoglobin 32.9 pg (27.0-34.0); Mean Corpuscular Volume 95.9 fL (80.0-100.0); Mean Platelet Volume 10.3 fL (7.0-11.0); Platelet Count 57 th/mm3 (150-450); Red Blood Count 3.45 mil/mm3 (4.00-5.30); Red Cell Distribution Width 15.6 % (11.6-17.2); White Blood Count 3.1 th/mm3 (4.0-11.0)
[2018-09-14] MEDS: Dextrose 5%/NaCl 0.45% Inj 1,000 ML IV.CONT SCH (17:22)
[2018-09-14 17:34] LABS: INR 1.3 Ratio; Prothrombin Time 12.7 sec (9.8-11.6)
[2018-09-14 17:48] LABS: Alanine Aminotransferase 66 U/L (10-53); Albumin 1.5 g/dL (3.4-5.0); Alkaline Phosphatase 34 U/L (45-117); Anion Gap 17 meq/L (5-15); Aspartate Aminotransferase 80 U/L (15-37); Blood Urea Nitrogen 100 mg/dL (7-18); Calcium 6.3 mg/dL (8.5-10.1); Carbon Dioxide 22.5 meq/L (21.0-32.0); Chloride 92 meq/L (98-107); Creatine Kinase 186 U/L (26-192); Glomerular Filtration Rate 5 mL/min (>89); Glucose,Random 103 mg/dL (74-106); Potassium 3.2 meq/L (3.5-5.1); Sodium 131 meq/L (136-145); Total Protein 6.8 g/dL (6.4-8.2)
[2018-09-14 18:08] LABS: Creatine Kinase MB 2.1 ng/mL (0.5-3.6)
[2018-09-14] MEDS: fentaNYL 10 mcg/mL Premix Drip 2,500 MCG/250 ML BAG IV.SIG PRN (19:00)
--- NOTE | 2018-09-14 21:35 | XR ---
EXAM DATE: 09/14/2018 9:27 PM EDT AGE/SEX: 68 years / Female INDICATIONS: OG tube placement. CLINICAL DATA: This is the patient's subsequent encounter. Patient reports that signs and symptoms h ave been present for 1 day and indicates a pain score of Nonresponsive. MEDICAL/SURGICAL HISTORY: . Gastroesophageal reflux disease. Hemangioma. Hyperlipidemia. Multip le myeloma. Thyroid disease. . Bone marrow transplant. [place] [facility] [place]. . FINDINGS: There is bilateral basilar consolidation and probable small effusions. Right jugular line tip overlie s the SVC. Endotracheal tube tip terminates 3 cm above the evangelist. There is cardiomegaly. Enteric tub e is noted and the side-port is believed to project at the inferior margin the film in the left upper quadrant. The distal tip is not fully visualized. CONCLUSION: Enteric tube distal tip is not clearly seen. It extends beneath the diaphragm. Electronically signed by: Michael Glaser MD 09/14/2018 9:33 PM EDT
--- NOTE | 2018-09-14 22:59 | XR ---
EXAM DATE: 09/14/2018 10:45 PM EDT AGE/SEX: 68 years / Female INDICATIONS: OG TUBE PLACEMENT. CLINICAL DATA: This is the patient's subsequent encounter. Patient reports that signs and symptoms h ave been present for 1 week and indicates a pain score of 0/10. MEDICAL/SURGICAL HISTORY: Non-responsive. Non-responsive. COMPARISON: No prior exams available for comparison. FINDINGS: Bowel gas pattern nonspecific without evidence for obstruction. NG tip in distal stomach. No free air . Mild rotatory lumbar levoscoliosis. CONCLUSION: OG tube tip in distal stomach. No free air. Electronically signed by: Ahsan Tillman MD 09/14/2018 10:57 PM EDT
[2018-09-15 03:35] LABS: Baso % (Auto) 0.1 % (0.0-2.0); Eos % (Auto) 0.2 % (0.0-4.0); Hematocrit 32.9 % (35.0-46.0); Hemoglobin 11.3 gm/dL (11.6-15.3); Lymph # (Auto) 0.3 th/mm3 (1.0-4.8); Lymph % (Auto) 3.9 % (9.0-44.0); Mean Corpuscular HGB Conc 34.4 % (32.0-36.0); Mean Corpuscular Hemoglobin 33.1 pg (27.0-34.0); Mean Corpuscular Volume 96.1 fL (80.0-100.0); Mean Platelet Volume 9.4 fL (7.0-11.0); Mono # (Auto) 0.2 th/mm3 (0.0-0.9); Mono % (Auto) 2.7 % (0.0-8.0); Neut # (Auto) 6.8 th/mm3 (1.8-7.7); Neut % (Auto) 93.1 % (16.0-70.0); Platelet Count 47 th/mm3 (150-450); Red Blood Count 3.42 mil/mm3 (4.00-5.30); Red Cell Distribution Width 15.7 % (11.6-17.2); White Blood Count 7.3 th/mm3 (4.0-11.0)
[2018-09-15 04:07] LABS: Lymphocytes 3 % (9-44); Metamyelocytes 8 % (0-1); Plasma Cells 1 % (0-0)
[2018-09-15 04:12] LABS: Acanthocytes Occ; Dohle Bodies Present; Ovalocytes 1+; Platelet Morphology Normal (Normal); Toxic Vacuolation Present
[2018-09-15] MEDS: Insulin NovoLIN Regular Correctional Sugar Inj SQ SCH ×6 (04:21→23:55)
[2018-09-15] MEDS: Chlorhexidine Gluconate 2% 1 Pack (2 Cloths) TOPICAL SCH (04:21)
[2018-09-15 04:26] LABS: Albumin 1.4 g/dL (3.4-5.0); Calcium 5.9 mg/dL (8.5-10.1); Carbon Dioxide 23.8 meq/L (21.0-32.0); Phosphorus 9.2 mg/dL (2.5-4.9); Potassium 3.5 meq/L (3.5-5.1); Total Protein 6.4 g/dL (6.4-8.2)
[2018-09-15] MEDS: Phenylephrine Inj 40 MG in Sodium Chlor 0.9% Inj 496 ML IV.CONT PRN ×3 (04:40→22:43)
[2018-09-15] MEDS ORDERED: Calcium Chloride Inj 1 GM in Sodium Chlor 0.9% Inj 100 ML IV.SIG ONE (05:30)
[2018-09-15] MEDS: Levothyroxine 112 MCG Tablet PO SCH (05:36)
[2018-09-15] MEDS ORDERED: Vancomycin Inj 1,000 MG in Sodium Chlor 0.9% Inj 250 ML IV.SIG ONE (05:52)
[2018-09-15] MEDS: Piperacil/Tazo 2.25 GM Premix 50 ML IV.SIG SCH ×3 (08:01→23:55)
[2018-09-15] MEDS: Sodium Chloride 0.9% 2 ML Flush BID IV.FLUSH SCH ×2 (08:02→20:24)
[2018-09-15] MEDS: Senna/Docusate Sodium 8.6/50 MG Tablet PO SCH ×2 (08:03→20:24)
[2018-09-15] MEDS: Dextrose 5%/NaCl 0.45% Inj 1,000 ML IV.CONT SCH (08:03)
--- NOTE | 2018-09-15 09:48 | P.PNCC ---
Subjective Subjective Remarks/Hospital Course: patient is a 68-year-old female with a past medical history of hyperlipidemia, multiple myeloma, monoclonal gammopathy and GERD, who initially presented to [place] ED with complaints of abdominal pain and back pain. The patient was recently treated with Revlimid, Decadron and Velcade. She also had a bone marrow transplant at [facility] in [place]. She is being followed by Dr. Martinez and had chemotherapy last week. The patient also was incontinent with a stooland urine and reported feeling nauseous and having vomiting and diarrhea. Also, she reports decreased p.o. intake for several days and generalized weakness. Her initial laboratory data showed acute renal failure with a BUN of 86, creatinine 9.2 and hyponatremia with a sodium level of 119. There was no evidence of any fever or leukocytosis. Due to abdominal pain, a CT abdomen and pelvis was done which showed a small ventral hernia in the anterior abdominal wall, no findings to indicate a bowel obstruction and no evidence of any free air or free fluid. Nodular enlargement of the left adrenal gland, new compared to prior study, and stable mixed lytic and sclerotic lesions in the osseous structures. She also had an ultrasound of the abdomen which showed a simple cyst in left kidney, no evidence of any masses or hydronephrosis. Due to her back pain, a lumbar CT spine was performed which showed moderate fracture deformity of the L3 vertebral body and T11. She was transferred to [facility] where she was seen by Dr. Avery from the hospitalist service this afternoon. Shortly after, the patient was transferred to the ICU for increased O2 requirements and tachycardia. She had a chest x- ray this morning as well which showeda mild streaky opacity in the left lateral lung and left lung base with no consolidation. When seen in the ICU, she is tachycardic with heart rate of 114, blood pressure 128/79 and on a nonrebreather mask. The patient is complaining of abdominal pain and back pain. She received morphine earlier. The patient was also seen by Dr. Valle from the nephrology service. She has been given approximately 3 liters of crystalloids thus far. 09/14 Patient is on NRM, renal function slowly improving, on bicarb drip. Afebrile. Subjective 09/15: Febrile overnight. T-max 102.9. Currently on phenylephrine drip. Minimal urine output. Tolerating tube feeds at 30 cc an hour. Objective Vital Signs / I&O: Vital Signs 09/14/18 09:45 09/14/18 10:00 09/14/18 10:15 Temperature Pulse Rate 108 H 109 H 108 H Respiratory Rate 30 H 27 H 28 H Blood Pressure 109/51 L 112/54 L 93/50 L Pulse Oximetry 95 95 94 L 09/14/18 10:30 09/14/18 10:45 09/14/18 10:56 Temperature Pulse Rate 109 H 109 H 109 H Respiratory Rate 28 H 29 H 20 Blood Pressure 107/59 L 107/58 L Pulse Oximetry 94 L 82 L 09/14/18 11:00 09/14/18 11:15 09/14/18 11:30 Temperature Pulse Rate 109 H 110 H 154 H Respiratory Rate 27 H 32 H 30 H Blood Pressure 107/53 L 109/56 L 141/51 H Pulse Oximetry 89 L 91 L 90 L 09/14/18 11:46 09/14/18 12:00 09/14/18 12:15 Temperature 98.2 F Pulse Rate 114 H 113 H 115 H Respiratory Rate 29 H 28 H 27 H Blood Pressure 136/59 L 121/58 L 90/48 L Pulse Oximetry 92 L 93 L 90 L 09/14/18 12:19 09/14/18 12:30 09/14/18 13:00 Temperature Pulse Rate 114 H 113 H 111 H Respiratory Rate 31 H 36 H 26 H Blood Pressure 122/56 L 104/55 L 91/55 L Pulse Oximetry 87 L 93 L 92 L 09/14/18 14:00 09/14/18 15:00 09/14/18 16:00 Temperature 98.0 F Pulse Rate 113 H 115 H 120 H Respiratory Rate 26 H 30 H 30 H Blood Pressure 83/50 L 74/51 L 103/50 L Pulse Oximetry 96 93 L 90 L 09/14/18 16:55 09/14/18 17:00 09/14/18 18:48 Temperature Pulse Rate 112 H 113 H Respiratory Rate 20 19 19 Blood Pressure 79/52 L 104/51 L Pulse Oximetry 96 91 L 91 L 09/14/18 18:51 09/14/18 18:54 09/14/18 18:57 Temperature Pulse Rate 112 H 112 H 112 H Respiratory Rate 20 19 19 Blood Pressure 100/60 95/53 L 86/42 L Pulse Oximetry 92 L 91 L 91 L 09/14/18 19:00 09/14/18 19:03 09/14/18 19:07 Temperature Pulse Rate 113 H 112 H 113 H Respiratory Rate 20 19 19 Blood Pressure 88/52 L 94/46 L 86/58 L Pulse Oximetry 91 L 91 L 91 L 09/14/18 19:09 09/14/18 19:12 09/14/18 19:15 Temperature Pulse Rate 113 H 114 H 113 H Respiratory Rate 19 21 19 Blood Pressure 67/48 L 76/53 L 90/55 L Pulse Oximetry 92 L 92 L 92 L 09/14/18 19:19 09/14/18 19:21 09/14/18 19:24 Temperature Pulse Rate 113 H 115 H 115 H Respiratory Rate 20 20 20 Blood Pressure 108/57 L 87/54 L 83/53 L Pulse Oximetry 92 L 92 L 91 L 09/14/18 19:27 09/14/18 19:30 09/14/18 19:33 Temperature Pulse Rate 115 H 114 H 113 H Respiratory Rate 19 20 19 Blood Pressure 87/49 L 86/47 L 85/51 L Pulse Oximetry 92 L 92 L 91 L 09/14/18 19:36 09/14/18 19:39 09/14/18 19:42 Temperature Pulse Rate 114 H 113 H 114 H Respiratory Rate 19 19 20 Blood Pressure 85/54 L 94/54 L 91/55 L Pulse Oximetry 92 L 91 L 92 L 09/14/18 19:45 09/14/18 19:48 09/14/18 19:51 Temperature Pulse Rate 115 H 114 H 114 H Respiratory Rate 20 19 19 Blood Pressure 91/53 L 90/54 L 90/54 L Pulse Oximetry 92 L 92 L 91 L 09/14/18 19:54 09/14/18 19:57 09/14/18 20:00 Temperature Pulse Rate 114 H 115 H 115 H Respiratory Rate 19 19 20 Blood Pressure 85/50 L 85/54 L 86/50 L Pulse Oximetry 91 L 92 L 100 09/14/18 20:03 09/14/18 20:06 09/14/18 20:10 Temperature 98 F Pulse Rate 115 H 114 H 115 H Respiratory Rate 19 19 19 Blood Pressure 93/51 L 85/53 L Pulse Oximetry 91 L 91 L 91 L 09/14/18 20:12 09/14/18 20:15 09/14/18 20:16 Temperature Pulse Rate 115 H 115 H 115 H Respiratory Rate 20 19 20 Blood Pressure 87/52 L 91/52 L Pulse Oximetry 90 L 90 L 93 L 09/14/18 20:18 09/14/18 20:21 09/14/18 20:24 Temperature Pulse Rate 115 H 114 H 114 H Respiratory Rate 21 20 19 Blood Pressure 86/53 L 87/53 L 85/51 L Pulse Oximetry 96 91 L 94 L 09/14/18 20:28 09/14/18 20:30 09/14/18 20:33 Temperature Pulse Rate 115 H 115 H 115 H Respiratory Rate 19 19 19 Blood Pressure 78/50 L 81/58 L 90/52 L Pulse Oximetry 91 L 91 L 91 L 09/14/18 20:36 09/14/18 20:39 09/14/18 20:42 Temperature Pulse Rate 115 H 115 H 115 H Respiratory Rate 19 19 19 Blood Pressure 89/52 L 98/43 L 90/55 L Pulse Oximetry 90 L 91 L 91 L 09/14/18 20:45 09/14/18 20:48 09/14/18 20:51 Temperature Pulse Rate 116 H 116 H 116 H Respiratory Rate 19 19 19 Blood Pressure 86/49 L 88/50 L 87/52 L Pulse Oximetry 91 L 91 L 91 L 09/14/18 20:54 09/14/18 20:57 09/14/18 21:00 Temperature Pulse Rate 116 H 117 H 117 H Respiratory Rate 19 20 23 Blood Pressure 87/54 L 89/54 L Pulse Oximetry 92 L 91 L 91 L 09/14/18 21:01 09/14/18 21:03 09/14/18 21:06 Temperature Pulse Rate 117 H 116 H 116 H Respiratory Rate 21 19 19 Blood Pressure 100/53 L 92/51 L 81/45 L Pulse Oximetry 90 L 91 L 91 L 09/14/18 21:09 09/14/18 21:12 09/14/18 21:15 Temperature Pulse Rate 116 H 117 H 117 H Respiratory Rate 19 20 21 Blood Pressure 87/51 L 87/52 L 90/50 L Pulse Oximetry 91 L 91 L 91 L 09/14/18 21:18 09/14/18 21:21 09/14/18 21:30 Temperature Pulse Rate 118 H 116 H 115 H Respiratory Rate 22 19 19 Blood Pressure 90/53 L 90/55 L 88/51 L Pulse Oximetry 91 L 91 L 91 L 09/14/18 21:45 09/14/18 22:00 09/14/18 22:15 Temperature Pulse Rate 115 H 115 H 114 H Respiratory Rate 19 20 18 Blood Pressure 86/54 L 89/50 L 84/51 L Pulse Oximetry 91 L 91 L 92 L 09/14/18 22:30 09/14/18 22:45 09/14/18 23:00 Temperature Pulse Rate 115 H 114 H 114 H Respiratory Rate 19 18 19 Blood Pressure 88/54 L 91/53 L 90/50 L Pulse Oximetry 93 L 92 L 92 L 09/14/18 23:15 09/14/18 23:30 09/14/18 23:40 Temperature Pulse Rate 114 H 114 H 114 H Respiratory Rate 18 18 18 Blood Pressure 89/52 L 87/51 L 91/54 L Pulse Oximetry 92 L 92 L 92 L 09/14/18 23:45 09/15/18 00:00 09/15/18 00:15 Temperature 98.5 F Pulse Rate 114 H 113 H 112 H Respiratory Rate 18 18 17 Blood Pressure 91/55 L 89/53 L 89/53 L Pulse Oximetry 92 L 91 L 91 L 09/15/18 00:30 09/15/18 00:45 09/15/18 01:00 Temperature Pulse Rate 113 H 112 H 113 H Respiratory Rate 18 19 18 Blood Pressure 90/54 L 90/51 L 89/52 L Pulse Oximetry 91 L 91 L 92 L 09/15/18 01:02 09/15/18 01:15 09/15/18 01:30 Temperature Pulse Rate 113 H 113 H 114 H Respiratory Rate 17 17 18 Blood Pressure 89/52 L 89/54 L Pulse Oximetry 92 L 92 L 92 L 09/15/18 01:45 09/15/18 02:00 09/15/18 02:15 Temperature Pulse Rate 114 H 114 H 114 H Respiratory Rate 18 17 19 Blood Pressure 89/53 L 88/50 L 91/50 L Pulse Oximetry 91 L 92 L 92 L 09/15/18 02:30 09/15/18 02:45 09/15/18 03:00 Temperature Pulse Rate 115 H 113 H 115 H Respiratory Rate 19 19 23 Blood Pressure 86/53 L 86/54 L 85/52 L Pulse Oximetry 92 L 92 L 92 L 09/15/18 03:15 09/15/18 03:30 09/15/18 03:40 Temperature Pulse Rate 115 H 113 H 113 H Respiratory Rate 21 20 20 Blood Pressure 104/54 L 97/54 L Pulse Oximetry 92 L 90 L 92 L 09/15/18 03:45 09/15/18 04:00 09/15/18 04:15 Temperature 101.2 F H Pulse Rate 114 H 113 H 115 H Respiratory Rate 19 19 19 Blood Pressure 98/52 L 102/50 L 91/55 L Pulse Oximetry 91 L 92 L 93 L 09/15/18 04:30 09/15/18 04:45 09/15/18 05:00 Temperature Pulse Rate 114 H 113 H 113 H Respiratory Rate 19 20 19 Blood Pressure 96/51 L 96/54 L 90/51 L Pulse Oximetry 93 L 94 L 93 L 09/15/18 05:15 09/15/18 05:30 09/15/18 05:45 Temperature Pulse Rate 114 H 113 H 116 H Respiratory Rate 20 20 20 Blood Pressure 94/53 L 87/49 L 92/51 L Pulse Oximetry 94 L 94 L 93 L 09/15/18 06:00 09/15/18 06:15 09/15/18 07:51 Temperature 102 F H Pulse Rate 115 H 114 H Respiratory Rate 18 19 16 Blood Pressure 93/55 L 93/55 L Pulse Oximetry 93 L 93 L 95 Intake & Output 09/14/18 09/15/18 09/15/18 18:59 06:59 18:59 Intake Total 1150 / 1150 760 / 760 2300 / 2300 Output Total 75 / 75 75 / 75 Balance 1075 / 1075 685 / 685 2300 / 2300 Weight 96.5 kg Intake: IV 1100 / 1100 660 / 660 2300 / 2300 D5W/1/2 NS Inj 1,000 ML @ 60 1000 / 1000 mls/hr IV.CONT .[id number] [facility] Rx# :[id number] Neosynephrine Inj 40 MG In NS 500 / 500 Inj 496 ML @ 40 MCG/MIN 30 mls/ hr IV.CONT TITRATE PRN Rx#: [id number] Sodium Bicarbonate 8.4% Inj 75 1000 / 1000 MEQ In 1/2 Normal Saline Inj 925 ML @ 100 mls/hr IV.CONT . Q10H [facility] Rx#:[id number] Calcium Chloride Inj 1 GM In NS 110 / 110 Inj 100 ML @ 110 mls/hr IV.SIG ONCE ONE Rx#:[id number] Zosyn 2.25 GM Premix 50 ML @ 100 / 100 50 / 50 50 / 50 100 mls/hr IV.SIG Q8H [facility] Rx#: [id number] Vancomycin Inj 1,000 MG In NS 250 / 250 Inj 250 ML @ 250 mls/hr IV.SIG ONCE ONE Rx#:[id number] Oral 50 / 50 Tube Feeding 100 / 100 Output: Urine Amount (Catheter) 75 / 75 75 / 75 Indwelling Urethral Catheter 75 / 75 75 / 75 Other: Date of Last Bowel Movement 09/15/18 # Bowel Movements 0 # Incontinent Bowel Movements 1 Result Diagrams: 09/15/18 02:55 09/15/18 02:55 Other Results: Microbiology 09/14/18 18:13 Blood - Peripheral Aerobic Blood Culture - Preliminary gram negative rods 09/13/18 17:45 Catheterized Urine Urine Culture - Preliminary gram negative rods Imaging: Abdomen/Bladder Ultrasound 09/13/18 00:00 CONCLUSION: 1. Simple cyst left kidney. Abdomen/Pelvis CT 09/13/18 08:54 CONCLUSION: 1. There is a small ventral hernia in the anterior abdominal wall. There is some omental fat herniated through the defect. 2. There are no findings to indicate a bowel obstruction. No free air free fluid is seen. 3. Nodular enlargement of the left adrenal gland new compared to previous of . Metastatic disease to the left adrenal is not excluded. 4. Stable mixed lytic and sclerotic lesion seen in the osseous structures when compared to PET examination of 06/28/2018. Chest X-Ray 09/13/18 08:54 CONCLUSION: Mild streaky opacity in left lateral lung and left lung base with no consolidation. This is most characteristic of atelectasis or scarring. Lumbar Spine CT 09/13/18 08:54 CONCLUSION: 1. Moderate fracture deformity of the L3 vertebral body with central lucency, sclerosis and invagination of the superior and inferior endplates. This may be acute. 2. Moderate fracture deformity of the T11 vertebral body with abnormal lucency , sclerosis and invagination superior and inferior endplates. 3. Atheromatous involvement of T10, T11, L1, L2 and L3 vertebral bodies. 4. Large lytic lesion involving the right side of the sacrum. 5. Moderate central canal stenosis at the L4-5 level secondary to disc bulge and degenerative change involving the facet joints. Chest X-Ray 09/14/18 00:00 CONCLUSION: Right IJ central line in excellent position. No visible pneumothorax Chest X-Ray 09/14/18 21:04 CONCLUSION: Enteric tube distal tip is not clearly seen. It extends beneath the diaphragm. Abdomen X-Ray 09/14/18 21:45 CONCLUSION: OG tube tip in distal stomach. No free air. Objective Remarks: GENERAL: Patient is 68 yo lying in bed in no acute distress SKIN: Warm and dry. HEAD: Normocephalic. EYES: No scleral icterus. No injection or drainage. NECK: Supple, trachea midline. No JVD or lymphadenopathy. He is clean dry and intact CARDIOVASCULAR: Tachycardic without murmurs, gallops, or rubs. RESPIRATORY: Breath sounds equal bilaterally. No accessory muscle use. GASTROINTESTINAL: Abdomen soft, mild-tenderness on palpation, nondistended, obese. Reducible anterior wall hernia MUSCULOSKELETAL: Trace bilateral lower extremity edema. Neuro: Awake and alert Assessment and Plan - Assessment and Plan Plan: 1. Acute hypoxemic respiratory insufficiency. 2. Acute renal failure. 3. Hyponatremia. 4. Dehydration. 5. Elevated liver enzymes. 6. Hypertension. 7. Chronic pain syndrome. 8. Abdominal pain associated with nausea and vomiting. 9. Gastroesophageal reflux disease. 10. History of multiple myeloma. 11 UTI -gram-negative warren 12 normocytic anemia with thrombocytopenia/acute 13. Gram-negative warren sepsis 14. Hypocalcemia 15. Hyponatremia 16. Hyperphosphatemia 17. Lactic acidosis 18. Ventral abdominal hernia with omental fat 19 T11 fracture, L3 fracture 20. Hypothyroidism overcorrected Plan Neuro: Monitor neuro status closely. Currently on fentanyl drip at 50 mcg/min. Pulm: PRVC ventilation and maintain sats > 92%. Albuterol/ipratropium aerosols every 4 hours with albuterol aerosols every 2 hours as needed dyspnea Spontaneous breathing trials when clinically indicated CV: Monitor HR and BP keep MAP>65mmHG. Currently on phenylephrine drip at 100 mcg/min Lactic acid 1.9 from 3.1 Check 2D echo to eval LV function and complete 09/14. Results pending : Monitor renal function, I's and O's and avoid nephrotoxins. CT abdomen and pelvis showed no signs of obstruction ultrasound abdomen showed no evidence of hydronephrosis. She has been given Renal is following- Tori Lay, on D5 water/half normal saline at 60 cc an hour Follow up on BMP in a.m. GI: on pantoprazole 40 mg IV daily for GI prophylaxis. Monitor LFTs. A CT abdomen and pelvis showed the liver was within normal limits. ID: Start on piperacillin/tazobactam and vancomycin. Monitor for signs of infections( fever and WBC). Follow up on urine cx 09/13 and blood culture 09/14 with gram-negative rods Heme: Monitor CBC and coags. Hold Heparin SQ for worsening thrombocytopenia, PLT < 50 Endo: SSI with Accu-Cheks to maintain euglycemic control every 4 hours. TSH: 0.145, FT4:1.34. Reduce levothyroxine from 112 200 mg daily GI prophylaxis with pantoprazole 40 mg daily and DVT prophylaxis with SCDs, hold Heparin SQ CCT 40 mins excluding procedures
--- NOTE | 2018-09-15 10:10 | ECHRPT ---
Indication: SHORTNESSS OF BREATH CONCLUSIONS Normal left ventricular size and wall thickness. The left ventricular systolic function is normal wi th an estimated ejection fraction in the range of 60-65%. No regional wall motion abnormalities are prese nt. There is mild tricuspid valve regurgitation. The estimated pulmonary arterial pressure is 30 mmHg. There is a small circumferential pericardial effusion present with no definite echocardiographic lia dence for tamponade. BP: / HR: Rhythm: MEASUREMENTS (Male / Female) Normal Values Technical Quality: 2D ECHO LV Diastolic Diameter PLAX 4.6 cm 4.2 - 5.9 / 3.9 - 5.3 cm LV Systolic Diameter PLAX 3.9 cm IVS Diastolic Thickness 1.3 cm 0.6 - 1.0 / 0.6 - 0.9 cm LVPW Diastolic Thickness 1.3 cm 0.6 - 1.0 / 0.6 - 0.9 cm LV Relative Wall Thickness 0.6 RV Internal Dim ED PLAX 2.5 cm LVOT Diameter 1.8 cm Aortic Root Diameter 2.4 cm LA Systolic Diameter LX 3.3 cm 3.0 - 4.0 / 2.7 - 3.8 cm LV Ejection Fraction MOD BP 43.6 % >= 55 % LV Ejection Fraction MOD 4C 57.4 % LV Ejection Fraction 4C AL 58.5 % LV Ejection Fraction MOD 2C 40.6 % LV Ejection Fraction 2C AL 43.6 % M-MODE Aortic Root Diameter MM 2.6 cm LA Systolic Diameter MM 3.7 cm LA Ao Ratio MM 1.4 AV Cusp Separation MM 1.4 cm DOPPLER AV Peak Velocity 149.0 cm/s AV Peak Gradient 8.9 mmHg LVOT Peak Velocity 116.0 cm/s LVOT Peak Gradient 5.4 mmHg AV Area Cont Eq pk 2.0 cm Mitral E Point Velocity 61.7 cm/s Mitral A Point Velocity 62.9 cm/s Mitral E to A Ratio 1.0 LV E' Lateral Velocity 6.1 cm/s Mitral E to LV E' Lateral Ratio 10.0 LV E' Septal Velocity 4.2 cm/s Mitral E to LV E' Septal Ratio 14.7 TR Peak Velocity 221.0 cm/s TR Peak Gradient 19.5 mmHg Right Atrial Pressure 10.0 mmHg Pulmonary Artery Systolic Pressu 29.5 mmHg Right Ventricular Systolic Press 29.5 mmHg PV Peak Velocity 115.0 cm/s PV Peak Gradient 5.3 mmHg FINDINGS LEFT VENTRICLE Normal left ventricular size and wall thickness. The left ventricular systolic function is normal wi th an estimated ejection fraction in the range of 60-65%. No regional wall motion abnormalities are prese nt. RIGHT VENTRICLE Normal right ventricular size and systolic function. LEFT ATRIUM The left atrial size is normal. RIGHT ATRIUM The right atrial size is normal. ATRIAL SEPTUM Normal atrial septal thickness without atrial level shunting by limited color doppler interrogation. AORTA The aortic root and proximal ascending aorta are normal in size on limited imaging. MITRAL VALVE Structurally normal mitral valve. No mitral valve stenosis or regurgitation. AORTIC VALVE Trileaflet aortic valve. No aortic valve stenosis or regurgitation. TRICUSPID VALVE There is mild tricuspid valve regurgitation. The estimated pulmonary arterial pressure is 30 mmHg. PULMONARY VALVE No pulmonary valve regurgitation or stenosis. VESSELS The inferior vena cava is normal in size. PERICARDIUM There is a small circumferential pericardial effusion present with no definite echocardiographic lia dence for tamponade. Jone Ayala MD (Electronically Signed) Final Date:15 September 2018 10:08
[2018-09-15] MEDS ORDERED: Sod Chloride 0.9% Inj 1,000 ML OTHER PRN ×2 (11:06)
[2018-09-15] MEDS ORDERED: Acetaminophen 325 MG Tablet PO PRN (11:06)
[2018-09-15] MEDS ORDERED: Gelatin 12 MM/7 MM Topical Foam TOPICAL PRN (11:06)
[2018-09-15] MEDS ORDERED: Heparin 10,000 UNITS/10 ML Vial (for IV use) OTHER PRN (11:06)
[2018-09-15] MEDS ORDERED: Sod Chloride 0.9% Inj 1,000 ML IV.CONT PRN (11:06)
--- NOTE | 2018-09-15 11:12 | P.PNNP ---
Subjective Interval history: patient was intubated yesterday. Minimal urine output. Renal function is worse. Needs dialysis today. Physical Exam Vital signs: Vital Signs 09/14/18 11:15 09/14/18 11:30 09/14/18 11:46 Temperature Pulse Rate 110 H 154 H 114 H Respiratory Rate 32 H 30 H 29 H Blood Pressure 109/56 L 141/51 H 136/59 L Pulse Oximetry 91 L 90 L 92 L 09/14/18 12:00 09/14/18 12:15 09/14/18 12:19 Temperature 98.2 F Pulse Rate 113 H 115 H 114 H Respiratory Rate 28 H 27 H 31 H Blood Pressure 121/58 L 90/48 L 122/56 L Pulse Oximetry 93 L 90 L 87 L 09/14/18 12:30 09/14/18 13:00 09/14/18 14:00 Temperature Pulse Rate 113 H 111 H 113 H Respiratory Rate 36 H 26 H 26 H Blood Pressure 104/55 L 91/55 L 83/50 L Pulse Oximetry 93 L 92 L 96 09/14/18 15:00 09/14/18 16:00 09/14/18 16:55 Temperature 98.0 F Pulse Rate 115 H 120 H Respiratory Rate 30 H 30 H 20 Blood Pressure 74/51 L 103/50 L Pulse Oximetry 93 L 90 L 96 09/14/18 17:00 09/14/18 18:48 09/14/18 18:51 Temperature Pulse Rate 112 H 113 H 112 H Respiratory Rate 19 19 20 Blood Pressure 79/52 L 104/51 L 100/60 Pulse Oximetry 91 L 91 L 92 L 09/14/18 18:54 09/14/18 18:57 09/14/18 19:00 Temperature Pulse Rate 112 H 112 H 113 H Respiratory Rate 19 19 20 Blood Pressure 95/53 L 86/42 L 88/52 L Pulse Oximetry 91 L 91 L 91 L 09/14/18 19:03 09/14/18 19:07 09/14/18 19:09 Temperature Pulse Rate 112 H 113 H 113 H Respiratory Rate 19 19 19 Blood Pressure 94/46 L 86/58 L 67/48 L Pulse Oximetry 91 L 91 L 92 L 09/14/18 19:12 09/14/18 19:15 09/14/18 19:19 Temperature Pulse Rate 114 H 113 H 113 H Respiratory Rate 21 19 20 Blood Pressure 76/53 L 90/55 L 108/57 L Pulse Oximetry 92 L 92 L 92 L 09/14/18 19:21 09/14/18 19:24 09/14/18 19:27 Temperature Pulse Rate 115 H 115 H 115 H Respiratory Rate 20 20 19 Blood Pressure 87/54 L 83/53 L 87/49 L Pulse Oximetry 92 L 91 L 92 L 09/14/18 19:30 09/14/18 19:33 09/14/18 19:36 Temperature Pulse Rate 114 H 113 H 114 H Respiratory Rate 20 19 19 Blood Pressure 86/47 L 85/51 L 85/54 L Pulse Oximetry 92 L 91 L 92 L 09/14/18 19:39 09/14/18 19:42 09/14/18 19:45 Temperature Pulse Rate 113 H 114 H 115 H Respiratory Rate 19 20 20 Blood Pressure 94/54 L 91/55 L 91/53 L Pulse Oximetry 91 L 92 L 92 L 09/14/18 19:48 09/14/18 19:51 09/14/18 19:54 Temperature Pulse Rate 114 H 114 H 114 H Respiratory Rate 19 19 19 Blood Pressure 90/54 L 90/54 L 85/50 L Pulse Oximetry 92 L 91 L 91 L 09/14/18 19:57 09/14/18 20:00 09/14/18 20:03 Temperature 98 F Pulse Rate 115 H 115 H 115 H Respiratory Rate 19 20 19 Blood Pressure 85/54 L 86/50 L Pulse Oximetry 92 L 100 91 L 09/14/18 20:06 09/14/18 20:10 09/14/18 20:12 Temperature Pulse Rate 114 H 115 H 115 H Respiratory Rate 19 19 20 Blood Pressure 93/51 L 85/53 L 87/52 L Pulse Oximetry 91 L 91 L 90 L 09/14/18 20:15 09/14/18 20:16 09/14/18 20:18 Temperature Pulse Rate 115 H 115 H 115 H Respiratory Rate 19 20 21 Blood Pressure 91/52 L 86/53 L Pulse Oximetry 90 L 93 L 96 09/14/18 20:21 09/14/18 20:24 09/14/18 20:28 Temperature Pulse Rate 114 H 114 H 115 H Respiratory Rate 20 19 19 Blood Pressure 87/53 L 85/51 L 78/50 L Pulse Oximetry 91 L 94 L 91 L 09/14/18 20:30 09/14/18 20:33 09/14/18 20:36 Temperature Pulse Rate 115 H 115 H 115 H Respiratory Rate 19 19 19 Blood Pressure 81/58 L 90/52 L 89/52 L Pulse Oximetry 91 L 91 L 90 L 09/14/18 20:39 09/14/18 20:42 09/14/18 20:45 Temperature Pulse Rate 115 H 115 H 116 H Respiratory Rate 19 19 19 Blood Pressure 98/43 L 90/55 L 86/49 L Pulse Oximetry 91 L 91 L 91 L 09/14/18 20:48 09/14/18 20:51 09/14/18 20:54 Temperature Pulse Rate 116 H 116 H 116 H Respiratory Rate 19 19 19 Blood Pressure 88/50 L 87/52 L 87/54 L Pulse Oximetry 91 L 91 L 92 L 09/14/18 20:57 09/14/18 21:00 09/14/18 21:01 Temperature Pulse Rate 117 H 117 H 117 H Respiratory Rate 20 23 21 Blood Pressure 89/54 L 100/53 L Pulse Oximetry 91 L 91 L 90 L 09/14/18 21:03 09/14/18 21:06 09/14/18 21:09 Temperature Pulse Rate 116 H 116 H 116 H Respiratory Rate 19 19 19 Blood Pressure 92/51 L 81/45 L 87/51 L Pulse Oximetry 91 L 91 L 91 L 09/14/18 21:12 09/14/18 21:15 09/14/18 21:18 Temperature Pulse Rate 117 H 117 H 118 H Respiratory Rate 20 21 22 Blood Pressure 87/52 L 90/50 L 90/53 L Pulse Oximetry 91 L 91 L 91 L 09/14/18 21:21 09/14/18 21:30 09/14/18 21:45 Temperature Pulse Rate 116 H 115 H 115 H Respiratory Rate 19 19 19 Blood Pressure 90/55 L 88/51 L 86/54 L Pulse Oximetry 91 L 91 L 91 L 09/14/18 22:00 09/14/18 22:15 09/14/18 22:30 Temperature Pulse Rate 115 H 114 H 115 H Respiratory Rate 20 18 19 Blood Pressure 89/50 L 84/51 L 88/54 L Pulse Oximetry 91 L 92 L 93 L 09/14/18 22:45 09/14/18 23:00 09/14/18 23:15 Temperature Pulse Rate 114 H 114 H 114 H Respiratory Rate 18 19 18 Blood Pressure 91/53 L 90/50 L 89/52 L Pulse Oximetry 92 L 92 L 92 L 09/14/18 23:30 09/14/18 23:40 09/14/18 23:45 Temperature Pulse Rate 114 H 114 H 114 H Respiratory Rate 18 18 18 Blood Pressure 87/51 L 91/54 L 91/55 L Pulse Oximetry 92 L 92 L 92 L 09/15/18 00:00 09/15/18 00:15 09/15/18 00:30 Temperature 98.5 F Pulse Rate 113 H 112 H 113 H Respiratory Rate 18 17 18 Blood Pressure 89/53 L 89/53 L 90/54 L Pulse Oximetry 91 L 91 L 91 L 09/15/18 00:45 09/15/18 01:00 09/15/18 01:02 Temperature Pulse Rate 112 H 113 H 113 H Respiratory Rate 19 18 17 Blood Pressure 90/51 L 89/52 L Pulse Oximetry 91 L 92 L 92 L 09/15/18 01:15 09/15/18 01:30 09/15/18 01:45 Temperature Pulse Rate 113 H 114 H 114 H Respiratory Rate 17 18 18 Blood Pressure 89/52 L 89/54 L 89/53 L Pulse Oximetry 92 L 92 L 91 L 09/15/18 02:00 09/15/18 02:15 09/15/18 02:30 Temperature Pulse Rate 114 H 114 H 115 H Respiratory Rate 17 19 19 Blood Pressure 88/50 L 91/50 L 86/53 L Pulse Oximetry 92 L 92 L 92 L 09/15/18 02:45 09/15/18 03:00 09/15/18 03:15 Temperature Pulse Rate 113 H 115 H 115 H Respiratory Rate 19 23 21 Blood Pressure 86/54 L 85/52 L 104/54 L Pulse Oximetry 92 L 92 L 92 L 09/15/18 03:30 09/15/18 03:40 09/15/18 03:45 Temperature Pulse Rate 113 H 113 H 114 H Respiratory Rate 20 20 19 Blood Pressure 97/54 L 98/52 L Pulse Oximetry 90 L 92 L 91 L 09/15/18 04:00 09/15/18 04:15 09/15/18 04:30 Temperature 101.2 F H Pulse Rate 113 H 115 H 114 H Respiratory Rate 19 19 19 Blood Pressure 102/50 L 91/55 L 96/51 L Pulse Oximetry 92 L 93 L 93 L 09/15/18 04:45 09/15/18 05:00 09/15/18 05:15 Temperature Pulse Rate 113 H 113 H 114 H Respiratory Rate 20 19 20 Blood Pressure 96/54 L 90/51 L 94/53 L Pulse Oximetry 94 L 93 L 94 L 09/15/18 05:30 09/15/18 05:45 09/15/18 06:00 Temperature 102 F H Pulse Rate 113 H 116 H 115 H Respiratory Rate 20 20 18 Blood Pressure 87/49 L 92/51 L 93/55 L Pulse Oximetry 94 L 93 L 93 L 09/15/18 06:15 09/15/18 07:45 09/15/18 07:51 Temperature Pulse Rate 114 H 114 H Respiratory Rate 19 18 16 Blood Pressure 93/55 L Pulse Oximetry 93 L 95 09/15/18 08:00 Temperature Pulse Rate Respiratory Rate Blood Pressure Pulse Oximetry 94 L Intake & Output 09/14/18 09/15/18 09/15/18 18:59 06:59 18:59 Intake Total 1150 / 1150 760 / 760 2300 / 2300 Output Total 75 / 75 75 / 75 Balance 1075 / 1075 685 / 685 2300 / 2300 Weight 96.5 kg 97.7 kg Intake: IV 1100 / 1100 660 / 660 2300 / 2300 D5W/1/2 NS Inj 1,000 ML @ 60 1000 / 1000 mls/hr IV.CONT .[id number] [facility] Rx# :[id number] Neosynephrine Inj 40 MG In NS 500 / 500 Inj 496 ML @ 40 MCG/MIN 30 mls/ hr IV.CONT TITRATE PRN Rx#: [id number] Sodium Bicarbonate 8.4% Inj 75 1000 / 1000 MEQ In 1/2 Normal Saline Inj 925 ML @ 100 mls/hr IV.CONT . Q10H [facility] Rx#:[id number] Calcium Chloride Inj 1 GM In NS 110 / 110 Inj 100 ML @ 110 mls/hr IV.SIG ONCE ONE Rx#:[id number] Zosyn 2.25 GM Premix 50 ML @ 100 / 100 50 / 50 50 / 50 100 mls/hr IV.SIG Q8H [facility] Rx#: [id number] Vancomycin Inj 1,000 MG In NS 250 / 250 Inj 250 ML @ 250 mls/hr IV.SIG ONCE ONE Rx#:[id number] Oral 50 / 50 Tube Feeding 100 / 100 Output: Urine Amount (Catheter) 75 / 75 75 / 75 Indwelling Urethral Catheter 75 / 75 75 / 75 Other: Date of Last Bowel Movement 09/15/18 09/15/18 # Bowel Movements 0 # Incontinent Bowel Movements 1 Weight On Admission 96.5 kg Narrative: GENERAL:intubated, patient is awake, does not follow commands. HEAD: Atraumatic. Normocephalic. EYES: Pupils equal and round. No scleral icterus. No injection or drainage. ENT: No nasal bleeding or discharge. Mucous membranes pink and moist. NECK: Trachea midline. No JVD. CARDIOVASCULAR: sinus tachycardia, BP is low. RESPIRATORY: vented breath sounds heard bilaterally. GASTROINTESTINAL: soft. Razo catheter in place MUSCULOSKELETAL: No obvious deformities. No clubbing. No cyanosis. No edema. - Urinary Catheter Management Indwelling Urethral Catheter Cath placed during this visit: yes Reason for continuing: Other continuation reason Insertion date: 09/13/18 Insertion time: 10:44 Assessment and Plan - Assessment (1) Acute renal failure Code(s): N17.9 - Acute kidney failure, unspecified Status: Acute Qualifiers: Acute renal failure type: unspecified Qualified Code(s): N17.9 - Acute kidney failure, unspecified Plan: Patient is oliguric. May have suffered ATN. Also have to consider cast nephropathy or "myeloma kidney". Tumor lysis syndrome is a consideration. Continue cautious hydration. Patient has UTI with sepsis. Therefore multiple possible etiologies. Oliguric, high waste products, will initiate dialysis today. Prognosis is guarded. Avoid nephrotoxic agents. CT did not reveal hydronephrosis. Monitor urine output. (2) Hypo-osmolality and hyponatremia Code(s): E87.1 - Hypo-osmolality and hyponatremia Status: Acute Plan: improved. (3) Hypokalemia Code(s): E87.6 - Hypokalemia Status: Acute Plan: Improved. (4) Acidosis Code(s): E87.2 - Acidosis Status: Acute Plan: improved. (5) Multiple myeloma Code(s): C90.00 - Multiple myeloma not having achieved remission Status: Acute Plan: Oncology on the case, note was reviewed.
--- NOTE | 2018-09-15 11:15 | P.CONID ---
History of Present Illness Service: Infectious Disease Consult date: 09/15/18 Requesting Physician: Yin Polk Reason for Consult: Evaluation and Mment of Septic shock with GNR bacteremia Primary Care Provider: Renee Thomson Chief Complaint: Chronic pain/ abdominal pain History of Present Illness: is a 68-year-old female with past medical history significant for multiple myeloma, monoclonal gammopathy, status post bone marrow transplant at [facility] in [place]. Patient also recently underwent chemotherapy with Revlimid, Decadron and Velcade. She is followed by Dr. Martinez and her last chemotherapy was per week prior to admission. Most of the history is obtained by review of medical records as patient is currently intubated and sedated and no family at bedside. Patient reportedly was incontinent of stool and urine and reportedly felt nauseous with vomiting and diarrhea prior to admission. Her p.o. intake had remarkably gone down prior to admission and she experienced generalized weakness. Upon initial presentation at [facility] she was noted to be in acute renal failure with a BUN of 86, creatinine of 9.2 and a hyponatremia with sodium of 119. No reported history of fever or leukocytosis but again this patient is immune compromised as she has received chemotherapy in the last 1 week prior to admission. A CT of the abdomen and pelvis was done due to history of abdominal pain and GI symptoms. CT shows a small ventral hernia in the anterior abdominal wall with no evidence of bowel obstruction no evidence of any free air or free fluid. There was noted and nodular enlargement of the left adrenal gland as well as stable lytic and sclerotic lesions in the osseous structures. An ultrasound of the abdomen showed simple cyst in the left kidney with no evidence of masses or hydronephrosis or stones noted. Due to her back pain and lumbar spine CT was performed which showed moderate fracture deformity of the L3 vertebral body and T11. She started complaining of abdominal and back pain. Patient received morphine and at some point it appears patient ended up being intubated possibly for respiratory distress or airway protection. Patient also was on Jim-Synephrine 18 mics this morning and currently is on 50 mics. Patient has been evaluated by Dr. Mg from nephrology services the nurse informs me there is a plan for Vas- Cath placement and possible hemodialysis. Patient has been evaluated for sepsis since admission and blood cultures drawn on admission positive for gram-negative rods, urine cultures are positive for Klebsiella pneumonia. Infectious disease is consulted for evaluation and management of septic shock as well as gram-negative bacteremia as well as Klebsiella UTI. Review of Systems unobtainable due to endotracheal tube PMFSH - History History Provided By: Patient - Medical History Medical History: Medical History (Last Reviewed 09/14/18 @ 14:28 by Brooklynn Villafana) FHx: bone marrow transplant FHx: radiation therapy GERD (gastroesophageal reflux disease) Hemangioma Hyperlipemia Monoclonal gammopathies Multiple myeloma Plasmacytoma Thyroid disease - Family History Family History: Family History (Last Updated 09/13/18 @ 15:24 by Jarad Avery DO) Other Family history of hypertension - Tobacco History Second Hand Smoke Exposure: No Tobacco Use In Past 30 Days: No Smoking Status: Former smoker Tobacco Type: Cigarettes - Alcohol History How Often Do You Have a Drink Containing Alcohol: Never - Substance Use History Substance History: No History of Abuse - Travel History History of Recent Travel: No Recent Travel in the [place] Within the Last 8 Weeks: No Recent Travel Out of the Country Within the Last 8 Weeks: No - Immunization History Tetanus Immunization: Unsure Hx Influenza Vaccine This Season: No Medications and Allergies Active Medications: Active Medications Acetaminophen (Tylenol) 650 mg PO Q6HR PRN PRN Reason: FEVER Acetaminophen (Tylenol) 650 mg PO UNSCH X1 PRN PRN Reason: SEE LABEL COMMENTS Al Hydroxide/Mg Hydroxide (Milk Of Gaye Griffith) 30 ml PO Q12H PRN PRN Reason: Mild Constipation Albuterol (Duoneb Neb (Bill)) 1 ampul NEB Q4HR NEB [facility] Last Admin: 09/15/18 07:50 Dose: 1 ampul Albuterol (Albuterol Neb (Prn)) 2.5 mg NEB Q2HR NEB PRN PRN Reason: DYSPNEA Artificial Tears (Tears Naturale Opth Drops) 1 drop EACH EYE TID [facility] Bisacodyl (Dulcolax Supp) 10 mg RECTAL DAILY PRN PRN Reason: SEVERE CONSITIPATION Chlorhexidine Gluconate (Chlorhexidine 2% Cloth) 3 pack TOPICAL DAILY@0400 BILL Stop: 09/19/18 03:59 Last Admin: 09/15/18 04:21 Dose: 3 pack Chlorhexidine Gluconate (Chlorhexidine 2% Cloth) 3 pack TOPICAL DAILY@0400 PRN PRN Reason: Extra cloth needed Stop: 09/19/18 03:59 Clonidine HCl (Catapres) 0.1 mg PO UNSCH PRN PRN Reason: SEE LABEL COMMENTS Dextrose (D50w Vial) 50 ml IV.PUSH UNSCH PRN PRN Reason: PER HYPOGLYCEMIA PROTOCOL Diphenhydramine HCl (Benadryl) 25 mg PO UNSCH PRN PRN Reason: SEE LABEL COMMENTS Gelatin (Gelfoam 12 Mm/7 Mm Topical) 1 foam TOPICAL PRN PRN PRN Reason: help stop bleeding from site Gentamicin Sulfate (Gentamicin Inj) 20 mg OTHER WITH DIALYSIS PRN PRN Reason: Dwell Gentamycin Lock Glucagon (Glucagon Inj) 1 mg OTHER PRN PRN PRN Reason: for Hypoglycemia Protocol Heparin Sodium (Porcine) (Heparin Inj) 8,000 units OTHER WITH DIALYSIS PRN PRN Reason: for machine prime Heparin Sodium (Porcine) (Heparin Inj) 1,000 units OTHER WITH DIALYSIS PRN PRN Reason: Dwell Heparin to Fill Catheter Sodium Chloride (Ns Inj) 1,000 mls @ 0 mls/hr IV.SIG BOLUS BILL Piperacillin/Tazobactam/Dextrose (Zosyn 2.25 Gm Premix) 50 mls @ 100 mls/hr IV.SIG Q8H [facility] Last Infusion: 09/15/18 08:52 Dose: Infused Phenylephrine HCl 40 mg/ (Sodium Chloride) 500 mls @ 30 mls/hr IV.CONT TITRATE PRN; Protocol PRN Reason: See Protocol Last Titration: 09/15/18 11:00 Dose: 50 mcg/min, 37.5 mls/hr Dextrose/Sodium Chloride (D5w/1/2 Ns Inj) 1,000 mls @ 60 mls/hr IV.CONT .[id number] [facility] Last Admin: 09/15/18 08:03 Dose: 60 mls/hr Fentanyl (Fentanyl 10 Mcg/Ml Premix Drip) 2,500 mcg in 250 mls @ 5 mls/hr IV.SIG TITRATE PRN; Protocol PRN Reason: Per Protocol Last Admin: 09/14/18 19:00 Dose: 50 mcg/hr, 5 mls/hr Albumin Human (Flexbumin 25% Inj) 100 mls @ 60 mls/hr IV.SIG WITH DIALYSIS PRN PRN Reason: hypotension / volume replace Sodium Chloride (Ns Inj) 1,000 mls @ 0 mls/hr OTHER .Q0M PRN PRN Reason: for prime and rinse back Sodium Chloride (Ns Inj) 1,000 mls @ 200 mls/hr OTHER .Q5H PRN PRN Reason: for dialyzer flush PRN Sodium Chloride (Ns Inj) 1,000 mls @ 0 mls/hr IV.CONT .Q0M PRN PRN Reason: hypotension / volume replace Insulin Human Regular (Novolin R Correctional Sugar Inj) 0 units SQ Q4HR [facility]; Protocol Last Admin: 09/15/18 08:00 Dose: Not Given Lactulose (Lactulose Liq) 30 ml PO DAILY PRN PRN Reason: SEVERE CONSITIPATION Levothyroxine Sodium (Synthroid) 100 mcg PO DAILY@0600 [facility] Mannitol (Mannitol Inj) 12.5 gm IV.PUSH UNSCH PRN PRN Reason: hypotension / volume replace Metoclopramide HCl (Reglan Inj) 5 mg IV.PUSH Q6HR PRN; Protocol PRN Reason: NAUSEA OR VOMITING Multivitamins (Theragran) 1 tab PO DAILY [facility] Naloxone HCl (Narcan Inj) 0.4 mg IV.PUSH UNSCH PRN PRN Reason: SEE LABEL COMMENTS Nitroglycerin (Nitrostat Sl) 0.4 mg SL Q5M PRN PRN Reason: CHEST PAIN Ondansetron HCl (Zofran Inj) 4 mg IV.PUSH Q6H PRN PRN Reason: NAUSEA OR VOMITING Ondansetron HCl (Zofran Inj) 4 mg IV.PUSH UNSCH PRN PRN Reason: NAUSEA OR VOMITING Pantoprazole Sodium (Protonix Inj) 40 mg IV.PUSH Q24H [facility] Last Admin: 09/14/18 17:21 Dose: 40 mg Metronidazole Cream 1 Application To Skin Bid 0 each TOPICAL BID [facility] Polyethylene Glycol (Miralax) 17 gm PO DAILY [facility] Pyridoxine HCl (Vitamin B-6) 50 mg PO BID [facility] Senna/Docusate Sodium (Chloé-Colace) 1 tab PO BID [facility] Last Admin: 09/15/18 08:03 Dose: Not Given Sennosides (Senokot) 17.2 mg PO Q12H PRN PRN Reason: Moderate Constipation Sodium Chloride (Ns Flush) 2 ml IV.FLUSH BID [facility] Last Admin: 09/15/18 08:02 Dose: 2 ml Sodium Chloride (Ns Flush) 2 ml IV.FLUSH PRN PRN PRN Reason: FLUSH AFTER USING IV ACCESS Sodium Chloride (Ns Flush) 5 ml IV.FLUSH PRN PRN PRN Reason: flush each lumen during HD Terbutaline Sulfate (Brethine Inj) 1 mg SQ UNSCH PRN PRN Reason: For Extravasation Vitamin D (Vitamin D3) 1,000 unit PO DAILY BILL Vitamin D (Vitamin D3) 2,000 unit PO DAILY BILL Allergies Allergy/AdvReac Type Severity Reaction Status Date / Time No Known Allergies Allergy Verified 07/22/18 10:18 Home Medications Medication Instructions Recorded Confirmed Type aspirin 81 mg PO DAILY 07/01/18 09/13/18 History calcium carbonate [Calcium 500] 500 mg PO DAILY 07/01/18 09/13/18 History cholecalciferol (vitamin D3) 2,000 unit PO DAILY 07/01/18 09/13/18 History [Vitamin D3] duloxetine 30 mg PO DAILY 07/01/18 09/13/18 History gabapentin 2,400 mg PO DAILY 07/01/18 09/13/18 History levothyroxine 112 mcg PO DAILY 07/01/18 09/13/18 History magnesium oxide 400 mg PO DAILY 07/01/18 09/13/18 History metoprolol tartrate 50 mg PO DAILY 07/01/18 09/13/18 History metronidazole [MetroCream] 1 applic TOPICAL BID 07/01/18 09/13/18 History multivitamin 1 tab PO DAILY 07/01/18 09/13/18 History ondansetron 4 mg PO TID PRN 07/01/18 09/13/18 History oxycodone 20 mg PO Q4-6H PRN 07/01/18 09/13/18 History pantoprazole 40 mg PO DAILY 07/01/18 09/13/18 History polyethylene glycol 3350 17 g PO DAILY 07/01/18 09/13/18 History potassium chloride 10 meq PO DAILY 07/01/18 09/13/18 History pravastatin 40 mg PO DAILY 07/01/18 09/13/18 History valacyclovir 500 mg PO BID 07/01/18 09/13/18 History zolpidem [Ambien] 5 mg PO DAILY 07/01/18 09/13/18 History cholecalciferol (vitamin D3) 1,000 unit PO DAILY 09/13/18 09/13/18 History [Vitamin D3] enoxaparin 40 mg SUBCUT DAILY 09/13/18 09/13/18 History magnesium oxide [MagOx] 400 mg PO DAILY 09/13/18 09/13/18 History pantoprazole [Protonix] 40 mg PO BID 09/13/18 09/13/18 History pyridoxine (vitamin B6) [Vitamin 50 mg PO BID 09/13/18 09/13/18 History B-6] Exam Vital signs: Vital Signs 09/14/18 11:30 09/14/18 11:46 09/14/18 12:00 Temperature 98.2 F Pulse Rate 154 H 114 H 113 H Respiratory Rate 30 H 29 H 28 H Blood Pressure 141/51 H 136/59 L 121/58 L Pulse Oximetry 90 L 92 L 93 L 09/14/18 12:15 09/14/18 12:19 09/14/18 12:30 Temperature Pulse Rate 115 H 114 H 113 H Respiratory Rate 27 H 31 H 36 H Blood Pressure 90/48 L 122/56 L 104/55 L Pulse Oximetry 90 L 87 L 93 L 09/14/18 13:00 09/14/18 14:00 09/14/18 15:00 Temperature Pulse Rate 111 H 113 H 115 H Respiratory Rate 26 H 26 H 30 H Blood Pressure 91/55 L 83/50 L 74/51 L Pulse Oximetry 92 L 96 93 L 09/14/18 16:00 09/14/18 16:55 09/14/18 17:00 Temperature 98.0 F Pulse Rate 120 H 112 H Respiratory Rate 30 H 20 19 Blood Pressure 103/50 L 79/52 L Pulse Oximetry 90 L 96 91 L 09/14/18 18:48 09/14/18 18:51 09/14/18 18:54 Temperature Pulse Rate 113 H 112 H 112 H Respiratory Rate 19 20 19 Blood Pressure 104/51 L 100/60 95/53 L Pulse Oximetry 91 L 92 L 91 L 09/14/18 18:57 09/14/18 19:00 09/14/18 19:03 Temperature Pulse Rate 112 H 113 H 112 H Respiratory Rate 19 20 19 Blood Pressure 86/42 L 88/52 L 94/46 L Pulse Oximetry 91 L 91 L 91 L 09/14/18 19:07 09/14/18 19:09 09/14/18 19:12 Temperature Pulse Rate 113 H 113 H 114 H Respiratory Rate 19 19 21 Blood Pressure 86/58 L 67/48 L 76/53 L Pulse Oximetry 91 L 92 L 92 L 09/14/18 19:15 09/14/18 19:19 09/14/18 19:21 Temperature Pulse Rate 113 H 113 H 115 H Respiratory Rate 19 20 20 Blood Pressure 90/55 L 108/57 L 87/54 L Pulse Oximetry 92 L 92 L 92 L 09/14/18 19:24 09/14/18 19:27 09/14/18 19:30 Temperature Pulse Rate 115 H 115 H 114 H Respiratory Rate 20 19 20 Blood Pressure 83/53 L 87/49 L 86/47 L Pulse Oximetry 91 L 92 L 92 L 09/14/18 19:33 09/14/18 19:36 09/14/18 19:39 Temperature Pulse Rate 113 H 114 H 113 H Respiratory Rate 19 19 19 Blood Pressure 85/51 L 85/54 L 94/54 L Pulse Oximetry 91 L 92 L 91 L 09/14/18 19:42 09/14/18 19:45 09/14/18 19:48 Temperature Pulse Rate 114 H 115 H 114 H Respiratory Rate 20 20 19 Blood Pressure 91/55 L 91/53 L 90/54 L Pulse Oximetry 92 L 92 L 92 L 09/14/18 19:51 09/14/18 19:54 09/14/18 19:57 Temperature Pulse Rate 114 H 114 H 115 H Respiratory Rate 19 19 19 Blood Pressure 90/54 L 85/50 L 85/54 L Pulse Oximetry 91 L 91 L 92 L 09/14/18 20:00 09/14/18 20:03 09/14/18 20:06 Temperature 98 F Pulse Rate 115 H 115 H 114 H Respiratory Rate 20 19 19 Blood Pressure 86/50 L 93/51 L Pulse Oximetry 100 91 L 91 L 09/14/18 20:10 09/14/18 20:12 09/14/18 20:15 Temperature Pulse Rate 115 H 115 H 115 H Respiratory Rate 19 20 19 Blood Pressure 85/53 L 87/52 L 91/52 L Pulse Oximetry 91 L 90 L 90 L 09/14/18 20:16 09/14/18 20:18 09/14/18 20:21 Temperature Pulse Rate 115 H 115 H 114 H Respiratory Rate 20 21 20 Blood Pressure 86/53 L 87/53 L Pulse Oximetry 93 L 96 91 L 09/14/18 20:24 09/14/18 20:28 09/14/18 20:30 Temperature Pulse Rate 114 H 115 H 115 H Respiratory Rate 19 19 19 Blood Pressure 85/51 L 78/50 L 81/58 L Pulse Oximetry 94 L 91 L 91 L 09/14/18 20:33 09/14/18 20:36 09/14/18 20:39 Temperature Pulse Rate 115 H 115 H 115 H Respiratory Rate 19 19 19 Blood Pressure 90/52 L 89/52 L 98/43 L Pulse Oximetry 91 L 90 L 91 L 09/14/18 20:42 09/14/18 20:45 09/14/18 20:48 Temperature Pulse Rate 115 H 116 H 116 H Respiratory Rate 19 19 19 Blood Pressure 90/55 L 86/49 L 88/50 L Pulse Oximetry 91 L 91 L 91 L 09/14/18 20:51 09/14/18 20:54 09/14/18 20:57 Temperature Pulse Rate 116 H 116 H 117 H Respiratory Rate 19 19 20 Blood Pressure 87/52 L 87/54 L 89/54 L Pulse Oximetry 91 L 92 L 91 L 09/14/18 21:00 09/14/18 21:01 09/14/18 21:03 Temperature Pulse Rate 117 H 117 H 116 H Respiratory Rate 23 21 19 Blood Pressure 100/53 L 92/51 L Pulse Oximetry 91 L 90 L 91 L 09/14/18 21:06 09/14/18 21:09 09/14/18 21:12 Temperature Pulse Rate 116 H 116 H 117 H Respiratory Rate 19 19 20 Blood Pressure 81/45 L 87/51 L 87/52 L Pulse Oximetry 91 L 91 L 91 L 09/14/18 21:15 09/14/18 21:18 09/14/18 21:21 Temperature Pulse Rate 117 H 118 H 116 H Respiratory Rate 21 22 19 Blood Pressure 90/50 L 90/53 L 90/55 L Pulse Oximetry 91 L 91 L 91 L 09/14/18 21:30 09/14/18 21:45 09/14/18 22:00 Temperature Pulse Rate 115 H 115 H 115 H Respiratory Rate 19 19 20 Blood Pressure 88/51 L 86/54 L 89/50 L Pulse Oximetry 91 L 91 L 91 L 09/14/18 22:15 09/14/18 22:30 09/14/18 22:45 Temperature Pulse Rate 114 H 115 H 114 H Respiratory Rate 18 19 18 Blood Pressure 84/51 L 88/54 L 91/53 L Pulse Oximetry 92 L 93 L 92 L 09/14/18 23:00 09/14/18 23:15 09/14/18 23:30 Temperature Pulse Rate 114 H 114 H 114 H Respiratory Rate 19 18 18 Blood Pressure 90/50 L 89/52 L 87/51 L Pulse Oximetry 92 L 92 L 92 L 09/14/18 23:40 09/14/18 23:45 09/15/18 00:00 Temperature 98.5 F Pulse Rate 114 H 114 H 113 H Respiratory Rate 18 18 18 Blood Pressure 91/54 L 91/55 L 89/53 L Pulse Oximetry 92 L 92 L 91 L 09/15/18 00:15 09/15/18 00:30 09/15/18 00:45 Temperature Pulse Rate 112 H 113 H 112 H Respiratory Rate 17 18 19 Blood Pressure 89/53 L 90/54 L 90/51 L Pulse Oximetry 91 L 91 L 91 L 09/15/18 01:00 09/15/18 01:02 09/15/18 01:15 Temperature Pulse Rate 113 H 113 H 113 H Respiratory Rate 18 17 17 Blood Pressure 89/52 L 89/52 L Pulse Oximetry 92 L 92 L 92 L 09/15/18 01:30 09/15/18 01:45 09/15/18 02:00 Temperature Pulse Rate 114 H 114 H 114 H Respiratory Rate 18 18 17 Blood Pressure 89/54 L 89/53 L 88/50 L Pulse Oximetry 92 L 91 L 92 L 09/15/18 02:15 09/15/18 02:30 09/15/18 02:45 Temperature Pulse Rate 114 H 115 H 113 H Respiratory Rate 19 19 19 Blood Pressure 91/50 L 86/53 L 86/54 L Pulse Oximetry 92 L 92 L 92 L 09/15/18 03:00 09/15/18 03:15 09/15/18 03:30 Temperature Pulse Rate 115 H 115 H 113 H Respiratory Rate 23 21 20 Blood Pressure 85/52 L 104/54 L 97/54 L Pulse Oximetry 92 L 92 L 90 L 09/15/18 03:40 09/15/18 03:45 09/15/18 04:00 Temperature 101.2 F H Pulse Rate 113 H 114 H 113 H Respiratory Rate 20 19 19 Blood Pressure 98/52 L 102/50 L Pulse Oximetry 92 L 91 L 92 L 09/15/18 04:15 09/15/18 04:30 09/15/18 04:45 Temperature Pulse Rate 115 H 114 H 113 H Respiratory Rate 19 19 20 Blood Pressure 91/55 L 96/51 L 96/54 L Pulse Oximetry 93 L 93 L 94 L 09/15/18 05:00 09/15/18 05:15 09/15/18 05:30 Temperature Pulse Rate 113 H 114 H 113 H Respiratory Rate 19 20 20 Blood Pressure 90/51 L 94/53 L 87/49 L Pulse Oximetry 93 L 94 L 94 L 09/15/18 05:45 09/15/18 06:00 09/15/18 06:15 Temperature 102 F H Pulse Rate 116 H 115 H 114 H Respiratory Rate 20 18 19 Blood Pressure 92/51 L 93/55 L 93/55 L Pulse Oximetry 93 L 93 L 93 L 09/15/18 07:45 09/15/18 07:51 09/15/18 08:00 Temperature Pulse Rate 114 H Respiratory Rate 18 16 Blood Pressure Pulse Oximetry 95 94 L Intake & Output 09/14/18 09/15/18 09/15/18 18:59 06:59 18:59 Intake Total 1150 / 1150 760 / 760 2300 / 2300 Output Total 75 / 75 75 / 75 Balance 1075 / 1075 685 / 685 2300 / 2300 Weight 96.5 kg 97.7 kg Intake: IV 1100 / 1100 660 / 660 2300 / 2300 D5W/1/2 NS Inj 1,000 ML @ 60 1000 / 1000 mls/hr IV.CONT .[id number] BILL Rx# :[id number] Neosynephrine Inj 40 MG In NS 500 / 500 Inj 496 ML @ 40 MCG/MIN 30 mls/ hr IV.CONT TITRATE PRN Rx#: [id number] Sodium Bicarbonate 8.4% Inj 75 1000 / 1000 MEQ In 1/2 Normal Saline Inj 925 ML @ 100 mls/hr IV.CONT . Q10H [facility] Rx#:[id number] Calcium Chloride Inj 1 GM In NS 110 / 110 Inj 100 ML @ 110 mls/hr IV.SIG ONCE ONE Rx#:[id number] Zosyn 2.25 GM Premix 50 ML @ 100 / 100 50 / 50 50 / 50 100 mls/hr IV.SIG Q8H [facility] Rx#: [id number] Vancomycin Inj 1,000 MG In NS 250 / 250 Inj 250 ML @ 250 mls/hr IV.SIG ONCE ONE Rx#:[id number] Oral 50 / 50 Tube Feeding 100 / 100 Output: Urine Amount (Catheter) 75 / 75 75 / 75 Indwelling Urethral Catheter 75 / 75 75 / 75 Other: Date of Last Bowel Movement 09/15/18 09/15/18 # Bowel Movements 0 # Incontinent Bowel Movements 1 Weight On Admission 96.5 kg Narrative: GENERAL: Obese acutely ill appearing, not in acute distress SKIN: Cool and dry, no generalized rash HEAD: Atraumatic. Normocephalic. No temporal or scalp tenderness. EYES: Pupils equal round and reactive. Scleral icterus. No injection or drainage. No petechia ENT: Intubated. NECK: Trachea midline. Supple, nontender, no meningeal signs. CARDIOVASCULAR: HS audible. RESPIRATORY: Clear to auscultation bilaterally. AE decreased in the bases. GASTROINTESTINAL: Abdomen soft , diffuse tenderness. Obese. MUSCULOSKELETAL: Extremities without clubbing, cyanosis. NEUROLOGICAL: Alert oriented 3. Nonfocal. Psych cooperative IV line sites ok. CL site ok. Results - Labs CBC & Chem 7: 09/15/18 02:55 09/15/18 02:55 Labs: Laboratory Results - last 24 hr 09/13/18 09/14/18 09/14/18 17:45 04:18 04:18 WBC RBC Hgb Hct MCV MCH MCHC RDW Plt Count MPV Prelim Diff (Auto) Neut % (Auto) Lymph % (Auto) [place] % (Auto) Eos % (Auto) Baso % (Auto) Neut # (Auto) Lymph # (Auto) [place] # (Auto) Eos # (Auto) Baso # (Auto) WBC Differential Seg Neuts % (Manual) Band Neuts % (Manual) Lymphocytes % (Manual) Metamyelocytes % (Man) Plasma Cell % (Manual) Abs Neuts (Manual) Differential Comment Toxic Vacuolation Dohle Bodies Platelet Estimate Platelet Morphology Ovalocytes Acanthocytes (Spur) PT INR Puncture Site Patient Temperature O2 Saturation ABG pH ABG pCO2 ABG pO2 ABG HCO3 ABG O2 Content ABG Base Excess ABG Methemoglobin John Test Hemoglobin Carboxyhemoglobin O2 Delivery Device Liter Flow Vent Setting Inspired O2 Critical Value Sodium Potassium Chloride Carbon Dioxide Anion Gap BUN Creatinine Estimated GFR POC Glucose Random Glucose Hemoglobin A1c 5.2 Lactic Acid Uric Acid 12.5 H Calcium Prot Corrected Calcium Phosphorus Total Bilirubin AST ALT Alkaline Phosphatase Total Creatine Kinase CK-MB (CK-2) Troponin I Total Protein Albumin Urine Color Yellow Urine Clarity Turbid H Urine pH 5.0 Ur Specific [place] 1.025 Urine Protein 100 H Urine Glucose (UA) Negative Urine Ketones Negative Urine Occult Blood Moderate H Urine Nitrate Negative Urine Bilirubin Negative Urine Urobilinogen Less than 2 Ur Leukocyte Esterase Moderate H Urine RBC 19 H Urine WBC Urine Bacteria Many H Hyaline Casts 19 Urine Mucus Many H Micro UA Comment Cath-culture ind Urine Culture Comments Cath-cult indicated 09/14/18 09/14/18 09/14/18 11:35 11:35 11:38 WBC RBC Hgb Hct MCV MCH MCHC RDW Plt Count MPV Prelim Diff (Auto) Neut % (Auto) Lymph % (Auto) [place] % (Auto) Eos % (Auto) Baso % (Auto) Neut # (Auto) Lymph # (Auto) [place] # (Auto) Eos # (Auto) Baso # (Auto) WBC Differential Seg Neuts % (Manual) Band Neuts % (Manual) Lymphocytes % (Manual) Metamyelocytes % (Man) Plasma Cell % (Manual) Abs Neuts (Manual) Differential Comment Toxic Vacuolation Dohle Bodies Platelet Estimate Platelet Morphology Ovalocytes Acanthocytes (Spur) PT INR Puncture Site Left radial Left radial Patient Temperature 98.6 98.6 O2 Saturation 88 L* 92 ABG pH 7.26 L* 7.34 L ABG pCO2 46 H 35 L ABG pO2 71 82 ABG HCO3 20 L 18 L ABG O2 Content 14.8 15.3 ABG Base Excess -6.0 L -6.5 L ABG Methemoglobin 2.0 1.9 John Test Present Present Hemoglobin 11.9 L 11.8 L Carboxyhemoglobin 0.8 0.9 O2 Delivery Device Nrb Bipap Liter Flow 15.00 Vent Setting 15/+5 Inspired O2 100 50 Critical Value Yes No Sodium Potassium Chloride Carbon Dioxide Anion Gap BUN Creatinine Estimated GFR POC Glucose 72 Random Glucose Hemoglobin A1c Lactic Acid Uric Acid Calcium Prot Corrected Calcium Phosphorus Total Bilirubin AST ALT Alkaline Phosphatase Total Creatine Kinase CK-MB (CK-2) Troponin I Total Protein Albumin Urine Color Urine Clarity Urine pH Ur Specific [place] Urine Protein Urine Glucose (UA) Urine Ketones Urine Occult Blood Urine Nitrate Urine Bilirubin Urine Urobilinogen Ur Leukocyte Esterase Urine RBC Urine WBC Urine Bacteria Hyaline Casts Urine Mucus Micro UA Comment Urine Culture Comments 09/14/18 09/14/18 09/14/18 15:27 17:10 17:10 WBC 3.1 L RBC 3.45 L Hgb 11.3 L Hct 33.0 L MCV 95.9 MCH 32.9 MCHC 34.3 RDW 15.6 Plt Count 57 L MPV 10.3 Prelim Diff (Auto) Neut % (Auto) Lymph % (Auto) [place] % (Auto) Eos % (Auto) Baso % (Auto) Neut # (Auto) Lymph # (Auto) [place] # (Auto) Eos # (Auto) Baso # (Auto) WBC Differential Seg Neuts % (Manual) Band Neuts % (Manual) Lymphocytes % (Manual) Metamyelocytes % (Man) Plasma Cell % (Manual) Abs Neuts (Manual) Differential Comment Toxic Vacuolation Dohle Bodies Platelet Estimate Platelet Morphology Ovalocytes Acanthocytes (Spur) PT 12.7 H INR 1.3 Puncture Site Patient Temperature O2 Saturation ABG pH ABG pCO2 ABG pO2 ABG HCO3 ABG O2 Content ABG Base Excess ABG Methemoglobin John Test Hemoglobin Carboxyhemoglobin O2 Delivery Device Liter Flow Vent Setting Inspired O2 Critical Value Sodium Potassium Chloride Carbon Dioxide Anion Gap BUN Creatinine Estimated GFR POC Glucose 71 Random Glucose Hemoglobin A1c Lactic Acid Uric Acid Calcium Prot Corrected Calcium Phosphorus Total Bilirubin AST ALT Alkaline Phosphatase Total Creatine Kinase CK-MB (CK-2) Troponin I Total Protein Albumin Urine Color Urine Clarity Urine pH Ur Specific [place] Urine Protein Urine Glucose (UA) Urine Ketones Urine Occult Blood Urine Nitrate Urine Bilirubin Urine Urobilinogen Ur Leukocyte Esterase Urine RBC Urine WBC Urine Bacteria Hyaline Casts Urine Mucus Micro UA Comment Urine Culture Comments 09/14/18 09/14/18 09/14/18 17:10 17:10 20:13 WBC RBC Hgb Hct MCV MCH MCHC RDW Plt Count MPV Prelim Diff (Auto) Neut % (Auto) Lymph % (Auto) [place] % (Auto) Eos % (Auto) Baso % (Auto) Neut # (Auto) Lymph # (Auto) [place] # (Auto) Eos # (Auto) Baso # (Auto) WBC Differential Seg Neuts % (Manual) Band Neuts % (Manual) Lymphocytes % (Manual) Metamyelocytes % (Man) Plasma Cell % (Manual) Abs Neuts (Manual) Differential Comment Toxic Vacuolation Dohle Bodies Platelet Estimate Platelet Morphology Ovalocytes Acanthocytes (Spur) PT INR Puncture Site Patient Temperature O2 Saturation ABG pH ABG pCO2 ABG pO2 ABG HCO3 ABG O2 Content ABG Base Excess ABG Methemoglobin John Test Hemoglobin Carboxyhemoglobin O2 Delivery Device Liter Flow Vent Setting Inspired O2 Critical Value Sodium 131 L Potassium 3.2 L Chloride 92 L Carbon Dioxide 22.5 Anion Gap 17 H BUN 100 H Creatinine 8.65 H Estimated GFR 5 L POC Glucose 106 Random Glucose 103 Hemoglobin A1c Lactic Acid 3.7 H Uric Acid Calcium 6.3 L* Prot Corrected Calcium 6.5 L* Phosphorus Total Bilirubin 1.7 H AST 80 H ALT 66 H Alkaline Phosphatase 34 L Total Creatine Kinase 186 CK-MB (CK-2) 2.1 Troponin I Less than 0.02 L Total Protein 6.8 D Albumin 1.5 L Urine Color Urine Clarity Urine pH Ur Specific [place] Urine Protein Urine Glucose (UA) Urine Ketones Urine Occult Blood Urine Nitrate Urine Bilirubin Urine Urobilinogen Ur Leukocyte Esterase Urine RBC Urine WBC Urine Bacteria Hyaline Casts Urine Mucus Micro UA Comment Urine Culture Comments 09/14/18 09/15/18 09/15/18 23:25 02:55 02:55 WBC 7.3 D RBC 3.42 L Hgb 11.3 L Hct 32.9 L MCV 96.1 MCH 33.1 MCHC 34.4 RDW 15.7 Plt Count 47 L MPV 9.4 Prelim Diff (Auto) Slide review pending Neut % (Auto) 93.1 H Lymph % (Auto) 3.9 L [place] % (Auto) 2.7 Eos % (Auto) 0.2 Baso % (Auto) 0.1 Neut # (Auto) 6.8 Lymph # (Auto) 0.3 L [place] # (Auto) 0.2 Eos # (Auto) 0.0 Baso # (Auto) 0.0 WBC Differential Manual diff final Seg Neuts % (Manual) 69 Band Neuts % (Manual) 19 H Lymphocytes % (Manual) 3 L Metamyelocytes % (Man) 8 H Plasma Cell % (Manual) 1 H Abs Neuts (Manual) 7.0 Differential Comment . Toxic Vacuolation Present H Dohle Bodies Present H Platelet Estimate Low L Platelet Morphology Normal Ovalocytes 1+ H Acanthocytes (Spur) Occ H PT INR Puncture Site Patient Temperature O2 Saturation ABG pH ABG pCO2 ABG pO2 ABG HCO3 ABG O2 Content ABG Base Excess ABG Methemoglobin John Test Hemoglobin Carboxyhemoglobin O2 Delivery Device Liter Flow Vent Setting Inspired O2 Critical Value Sodium 132 L Potassium 3.5 Chloride 92 L Carbon Dioxide 23.8 Anion Gap 16 H BUN 109 H Creatinine 8.96 H Estimated GFR 4 L POC Glucose 86 Random Glucose 95 Hemoglobin A1c Lactic Acid Uric Acid Calcium 5.9 L* Prot Corrected Calcium 6.2 L* Phosphorus 9.2 H D Total Bilirubin 1.6 H AST 82 H ALT 58 H Alkaline Phosphatase 30 L Total Creatine Kinase CK-MB (CK-2) Troponin I Total Protein 6.4 Albumin 1.4 L Urine Color Urine Clarity Urine pH Ur Specific [place] Urine Protein Urine Glucose (UA) Urine Ketones Urine Occult Blood Urine Nitrate Urine Bilirubin Urine Urobilinogen Ur Leukocyte Esterase Urine RBC Urine WBC Urine Bacteria Hyaline Casts Urine Mucus Micro UA Comment Urine Culture Comments 09/15/18 08:00 WBC RBC Hgb Hct MCV MCH MCHC RDW Plt Count MPV Prelim Diff (Auto) Neut % (Auto) Lymph % (Auto) [place] % (Auto) Eos % (Auto) Baso % (Auto) Neut # (Auto) Lymph # (Auto) [place] # (Auto) Eos # (Auto) Baso # (Auto) WBC Differential Seg Neuts % (Manual) Band Neuts % (Manual) Lymphocytes % (Manual) Metamyelocytes % (Man) Plasma Cell % (Manual) Abs Neuts (Manual) Differential Comment Toxic Vacuolation Dohle Bodies Platelet Estimate Platelet Morphology Ovalocytes Acanthocytes (Spur) PT INR Puncture Site Patient Temperature O2 Saturation ABG pH ABG pCO2 ABG pO2 ABG HCO3 ABG O2 Content ABG Base Excess ABG Methemoglobin John Test Hemoglobin Carboxyhemoglobin O2 Delivery Device Liter Flow Vent Setting Inspired O2 Critical Value Sodium Potassium Chloride Carbon Dioxide Anion Gap BUN Creatinine Estimated GFR POC Glucose 97 Random Glucose Hemoglobin A1c Lactic Acid Uric Acid Calcium Prot Corrected Calcium Phosphorus Total Bilirubin AST ALT Alkaline Phosphatase Total Creatine Kinase CK-MB (CK-2) Troponin I Total Protein Albumin Urine Color Urine Clarity Urine pH Ur Specific [place] Urine Protein Urine Glucose (UA) Urine Ketones Urine Occult Blood Urine Nitrate Urine Bilirubin Urine Urobilinogen Ur Leukocyte Esterase Urine RBC Urine WBC Urine Bacteria Hyaline Casts Urine Mucus Micro UA Comment Urine Culture Comments - Imaging Impressions Chest X-Ray 09/14/18 00:00 CONCLUSION: Right IJ central line in excellent position. No visible pneumothorax Chest X-Ray 09/14/18 21:04 CONCLUSION: Enteric tube distal tip is not clearly seen. It extends beneath the diaphragm. Abdomen X-Ray 09/14/18 21:45 CONCLUSION: OG tube tip in distal stomach. No free air. Assessment and Plan - Plan Septic shock with multiorgan dysfunction syndrome Likely source Klebsiella pneumoniae UTI and gram-negative bacteremia expect gram -negative in the blood to be most likely Klebsiella pneumonia. Gram-negative warren bacteremia Klebsiella pneumoniae UTI Immune compromised status recent chemotherapy Multiple myeloma Acute respiratory failure Acute renal failure possibility of hemodialysis later today Recommendations: Continue Zosyn IV for now as clinically appears to be improving. No need for anymore vanco IV at present time as no GP identified, no skin lesions and patient in acute renal failure. Follow cultures follow clinical course. rebecca HAIRSTON
[2018-09-15] MEDS ORDERED: Etomidate Inj 40 MG/20 ML Vial IV.PUSH ONE (12:45)
[2018-09-15] MEDS ORDERED: fentaNYL Citrate Inj 100 MCG/2 ML Ampul IV.PUSH ONE (12:45)
[2018-09-15] MEDS: Levothyroxine 100 MCG Tablet PO SCH (13:16)
[2018-09-15] MEDS: Artificial Tears Opth Drops 15 ML Bottle EACH EYE SCH ×2 (13:17→17:27)
--- NOTE | 2018-09-15 13:39 | P.PNONC ---
Subjective Interval history: Febrile, T-max 102 F. Patient intubated and placed on pressors yesterday for septic shock. Nephrology plans for dialysis today. Patient opens her eyes to command, otherwise does not follow directions. Objective Vital Signs/Intake & Output: Vital Signs 09/14/18 14:00 09/14/18 15:00 09/14/18 16:00 Temperature 98.0 F Pulse Rate 113 H 115 H 120 H Respiratory Rate 26 H 30 H 30 H Blood Pressure 83/50 L 74/51 L 103/50 L Pulse Oximetry 96 93 L 90 L 09/14/18 16:55 09/14/18 17:00 09/14/18 18:48 Temperature Pulse Rate 112 H 113 H Respiratory Rate 20 19 19 Blood Pressure 79/52 L 104/51 L Pulse Oximetry 96 91 L 91 L 09/14/18 18:51 09/14/18 18:54 09/14/18 18:57 Temperature Pulse Rate 112 H 112 H 112 H Respiratory Rate 20 19 19 Blood Pressure 100/60 95/53 L 86/42 L Pulse Oximetry 92 L 91 L 91 L 09/14/18 19:00 09/14/18 19:03 09/14/18 19:07 Temperature Pulse Rate 113 H 112 H 113 H Respiratory Rate 20 19 19 Blood Pressure 88/52 L 94/46 L 86/58 L Pulse Oximetry 91 L 91 L 91 L 09/14/18 19:09 09/14/18 19:12 09/14/18 19:15 Temperature Pulse Rate 113 H 114 H 113 H Respiratory Rate 19 21 19 Blood Pressure 67/48 L 76/53 L 90/55 L Pulse Oximetry 92 L 92 L 92 L 09/14/18 19:19 09/14/18 19:21 09/14/18 19:24 Temperature Pulse Rate 113 H 115 H 115 H Respiratory Rate 20 20 20 Blood Pressure 108/57 L 87/54 L 83/53 L Pulse Oximetry 92 L 92 L 91 L 09/14/18 19:27 09/14/18 19:30 09/14/18 19:33 Temperature Pulse Rate 115 H 114 H 113 H Respiratory Rate 19 20 19 Blood Pressure 87/49 L 86/47 L 85/51 L Pulse Oximetry 92 L 92 L 91 L 09/14/18 19:36 09/14/18 19:39 09/14/18 19:42 Temperature Pulse Rate 114 H 113 H 114 H Respiratory Rate 19 19 20 Blood Pressure 85/54 L 94/54 L 91/55 L Pulse Oximetry 92 L 91 L 92 L 09/14/18 19:45 09/14/18 19:48 09/14/18 19:51 Temperature Pulse Rate 115 H 114 H 114 H Respiratory Rate 20 19 19 Blood Pressure 91/53 L 90/54 L 90/54 L Pulse Oximetry 92 L 92 L 91 L 09/14/18 19:54 09/14/18 19:57 09/14/18 20:00 Temperature Pulse Rate 114 H 115 H 115 H Respiratory Rate 19 19 20 Blood Pressure 85/50 L 85/54 L 86/50 L Pulse Oximetry 91 L 92 L 100 09/14/18 20:03 09/14/18 20:06 09/14/18 20:10 Temperature 98 F Pulse Rate 115 H 114 H 115 H Respiratory Rate 19 19 19 Blood Pressure 93/51 L 85/53 L Pulse Oximetry 91 L 91 L 91 L 09/14/18 20:12 09/14/18 20:15 09/14/18 20:16 Temperature Pulse Rate 115 H 115 H 115 H Respiratory Rate 20 19 20 Blood Pressure 87/52 L 91/52 L Pulse Oximetry 90 L 90 L 93 L 09/14/18 20:18 09/14/18 20:21 09/14/18 20:24 Temperature Pulse Rate 115 H 114 H 114 H Respiratory Rate 21 20 19 Blood Pressure 86/53 L 87/53 L 85/51 L Pulse Oximetry 96 91 L 94 L 09/14/18 20:28 09/14/18 20:30 09/14/18 20:33 Temperature Pulse Rate 115 H 115 H 115 H Respiratory Rate 19 19 19 Blood Pressure 78/50 L 81/58 L 90/52 L Pulse Oximetry 91 L 91 L 91 L 09/14/18 20:36 09/14/18 20:39 09/14/18 20:42 Temperature Pulse Rate 115 H 115 H 115 H Respiratory Rate 19 19 19 Blood Pressure 89/52 L 98/43 L 90/55 L Pulse Oximetry 90 L 91 L 91 L 09/14/18 20:45 09/14/18 20:48 09/14/18 20:51 Temperature Pulse Rate 116 H 116 H 116 H Respiratory Rate 19 19 19 Blood Pressure 86/49 L 88/50 L 87/52 L Pulse Oximetry 91 L 91 L 91 L 09/14/18 20:54 09/14/18 20:57 09/14/18 21:00 Temperature Pulse Rate 116 H 117 H 117 H Respiratory Rate 19 20 23 Blood Pressure 87/54 L 89/54 L Pulse Oximetry 92 L 91 L 91 L 09/14/18 21:01 09/14/18 21:03 09/14/18 21:06 Temperature Pulse Rate 117 H 116 H 116 H Respiratory Rate 21 19 19 Blood Pressure 100/53 L 92/51 L 81/45 L Pulse Oximetry 90 L 91 L 91 L 09/14/18 21:09 09/14/18 21:12 09/14/18 21:15 Temperature Pulse Rate 116 H 117 H 117 H Respiratory Rate 19 20 21 Blood Pressure 87/51 L 87/52 L 90/50 L Pulse Oximetry 91 L 91 L 91 L 09/14/18 21:18 09/14/18 21:21 09/14/18 21:30 Temperature Pulse Rate 118 H 116 H 115 H Respiratory Rate 22 19 19 Blood Pressure 90/53 L 90/55 L 88/51 L Pulse Oximetry 91 L 91 L 91 L 09/14/18 21:45 09/14/18 22:00 09/14/18 22:15 Temperature Pulse Rate 115 H 115 H 114 H Respiratory Rate 19 20 18 Blood Pressure 86/54 L 89/50 L 84/51 L Pulse Oximetry 91 L 91 L 92 L 09/14/18 22:30 09/14/18 22:45 09/14/18 23:00 Temperature Pulse Rate 115 H 114 H 114 H Respiratory Rate 19 18 19 Blood Pressure 88/54 L 91/53 L 90/50 L Pulse Oximetry 93 L 92 L 92 L 09/14/18 23:15 09/14/18 23:30 09/14/18 23:40 Temperature Pulse Rate 114 H 114 H 114 H Respiratory Rate 18 18 18 Blood Pressure 89/52 L 87/51 L 91/54 L Pulse Oximetry 92 L 92 L 92 L 09/14/18 23:45 09/15/18 00:00 09/15/18 00:15 Temperature 98.5 F Pulse Rate 114 H 113 H 112 H Respiratory Rate 18 18 17 Blood Pressure 91/55 L 89/53 L 89/53 L Pulse Oximetry 92 L 91 L 91 L 09/15/18 00:30 09/15/18 00:45 09/15/18 01:00 Temperature Pulse Rate 113 H 112 H 113 H Respiratory Rate 18 19 18 Blood Pressure 90/54 L 90/51 L 89/52 L Pulse Oximetry 91 L 91 L 92 L 09/15/18 01:02 09/15/18 01:15 09/15/18 01:30 Temperature Pulse Rate 113 H 113 H 114 H Respiratory Rate 17 17 18 Blood Pressure 89/52 L 89/54 L Pulse Oximetry 92 L 92 L 92 L 09/15/18 01:45 09/15/18 02:00 09/15/18 02:15 Temperature Pulse Rate 114 H 114 H 114 H Respiratory Rate 18 17 19 Blood Pressure 89/53 L 88/50 L 91/50 L Pulse Oximetry 91 L 92 L 92 L 09/15/18 02:30 09/15/18 02:45 09/15/18 03:00 Temperature Pulse Rate 115 H 113 H 115 H Respiratory Rate 19 19 23 Blood Pressure 86/53 L 86/54 L 85/52 L Pulse Oximetry 92 L 92 L 92 L 09/15/18 03:15 09/15/18 03:30 09/15/18 03:40 Temperature Pulse Rate 115 H 113 H 113 H Respiratory Rate 21 20 20 Blood Pressure 104/54 L 97/54 L Pulse Oximetry 92 L 90 L 92 L 09/15/18 03:45 09/15/18 04:00 09/15/18 04:15 Temperature 101.2 F H Pulse Rate 114 H 113 H 115 H Respiratory Rate 19 19 19 Blood Pressure 98/52 L 102/50 L 91/55 L Pulse Oximetry 91 L 92 L 93 L 09/15/18 04:30 09/15/18 04:45 09/15/18 05:00 Temperature Pulse Rate 114 H 113 H 113 H Respiratory Rate 19 20 19 Blood Pressure 96/51 L 96/54 L 90/51 L Pulse Oximetry 93 L 94 L 93 L 09/15/18 05:15 09/15/18 05:30 09/15/18 05:45 Temperature Pulse Rate 114 H 113 H 116 H Respiratory Rate 20 20 20 Blood Pressure 94/53 L 87/49 L 92/51 L Pulse Oximetry 94 L 94 L 93 L 09/15/18 06:00 09/15/18 06:15 09/15/18 07:45 Temperature 102 F H Pulse Rate 115 H 114 H 114 H Respiratory Rate 18 19 18 Blood Pressure 93/55 L 93/55 L Pulse Oximetry 93 L 93 L 09/15/18 07:51 09/15/18 08:00 09/15/18 11:00 Temperature Pulse Rate 115 H Respiratory Rate 16 26 H Blood Pressure Pulse Oximetry 95 94 L 09/15/18 12:00 09/15/18 12:17 Temperature 101.9 F H Pulse Rate 115 H Respiratory Rate 21 20 Blood Pressure 103/59 L Pulse Oximetry 89 L 93 L Intake & Output 09/14/18 09/15/18 09/15/18 18:59 06:59 18:59 Intake Total 1150 / 1150 760 / 760 2300 / 2300 Output Total 75 / 75 75 / 75 Balance 1075 / 1075 685 / 685 2300 / 2300 Weight 96.5 kg 97.7 kg Intake: IV 1100 / 1100 660 / 660 2300 / 2300 D5W/1/2 NS Inj 1,000 ML @ 60 1000 / 1000 mls/hr IV.CONT .[id number] [facility] Rx# :[id number] Neosynephrine Inj 40 MG In NS 500 / 500 Inj 496 ML @ 40 MCG/MIN 30 mls/ hr IV.CONT TITRATE PRN Rx#: [id number] Sodium Bicarbonate 8.4% Inj 75 1000 / 1000 MEQ In 1/2 Normal Saline Inj 925 ML @ 100 mls/hr IV.CONT . Q10H [facility] Rx#:[id number] Calcium Chloride Inj 1 GM In NS 110 / 110 Inj 100 ML @ 110 mls/hr IV.SIG ONCE ONE Rx#:[id number] Zosyn 2.25 GM Premix 50 ML @ 100 / 100 50 / 50 50 / 50 100 mls/hr IV.SIG Q8H [facility] Rx#: [id number] Vancomycin Inj 1,000 MG In NS 250 / 250 Inj 250 ML @ 250 mls/hr IV.SIG ONCE ONE Rx#:[id number] Oral 50 / 50 Tube Feeding 100 / 100 Output: Urine Amount (Catheter) 75 / 75 75 / 75 Indwelling Urethral Catheter 75 / 75 75 / 75 Other: Date of Last Bowel Movement 10/31/18 10/31/18 # Bowel Movements 0 # Incontinent Bowel Movements 1 Weight On Admission 96.5 kg Result Diagrams: 09/15/18 02:55 09/15/18 02:55 Laboratory Results: Laboratory Results - last 24 hr 09/13/18 09/14/18 09/14/18 17:45 11:35 15:27 WBC RBC Hgb Hct MCV MCH MCHC RDW Plt Count MPV Prelim Diff (Auto) Neut % (Auto) Lymph % (Auto) [place] % (Auto) Eos % (Auto) Baso % (Auto) Neut # (Auto) Lymph # (Auto) [place] # (Auto) Eos # (Auto) Baso # (Auto) WBC Differential Seg Neuts % (Manual) Band Neuts % (Manual) Lymphocytes % (Manual) Metamyelocytes % (Man) Plasma Cell % (Manual) Abs Neuts (Manual) Differential Comment Toxic Vacuolation Dohle Bodies Platelet Estimate Platelet Morphology Ovalocytes Acanthocytes (Spur) PT INR Puncture Site Left radial Patient Temperature 98.6 O2 Saturation 92 ABG pH 7.34 L ABG pCO2 35 L ABG pO2 82 ABG HCO3 18 L ABG O2 Content 15.3 ABG Base Excess -6.5 L ABG Methemoglobin 1.9 John Test Present Hemoglobin 11.8 L Carboxyhemoglobin 0.9 O2 Delivery Device Bipap Vent Setting 15/+5 Inspired O2 50 Critical Value No Sodium Potassium Chloride Carbon Dioxide Anion Gap BUN Creatinine Estimated GFR POC Glucose 71 Random Glucose Lactic Acid Calcium Prot Corrected Calcium Phosphorus Total Bilirubin AST ALT Alkaline Phosphatase Total Creatine Kinase CK-MB (CK-2) Troponin I Total Protein Albumin Urine Color Yellow Urine Clarity Turbid H Urine pH 5.0 Ur Specific [place] 1.025 Urine Protein 100 H Urine Glucose (UA) Negative Urine Ketones Negative Urine Occult Blood Moderate H Urine Nitrate Negative Urine Bilirubin Negative Urine Urobilinogen Less than 2 Ur Leukocyte Esterase Moderate H Urine RBC 19 H Urine WBC Urine Bacteria Many H Hyaline Casts 19 Urine Mucus Many H Micro UA Comment Cath-culture ind Urine Culture Comments Cath-cult indicated 09/14/18 09/14/18 09/14/18 17:10 17:10 17:10 WBC 3.1 L RBC 3.45 L Hgb 11.3 L Hct 33.0 L MCV 95.9 MCH 32.9 MCHC 34.3 RDW 15.6 Plt Count 57 L MPV 10.3 Prelim Diff (Auto) Neut % (Auto) Lymph % (Auto) [place] % (Auto) Eos % (Auto) Baso % (Auto) Neut # (Auto) Lymph # (Auto) [place] # (Auto) Eos # (Auto) Baso # (Auto) WBC Differential Seg Neuts % (Manual) Band Neuts % (Manual) Lymphocytes % (Manual) Metamyelocytes % (Man) Plasma Cell % (Manual) Abs Neuts (Manual) Differential Comment Toxic Vacuolation Dohle Bodies Platelet Estimate Platelet Morphology Ovalocytes Acanthocytes (Spur) PT 12.7 H INR 1.3 Puncture Site Patient Temperature O2 Saturation ABG pH ABG pCO2 ABG pO2 ABG HCO3 ABG O2 Content ABG Base Excess ABG Methemoglobin John Test Hemoglobin Carboxyhemoglobin O2 Delivery Device Vent Setting Inspired O2 Critical Value Sodium 131 L Potassium 3.2 L Chloride 92 L Carbon Dioxide 22.5 Anion Gap 17 H BUN 100 H Creatinine 8.65 H Estimated GFR 5 L POC Glucose Random Glucose 103 Lactic Acid Calcium 6.3 L* Prot Corrected Calcium 6.5 L* Phosphorus Total Bilirubin 1.7 H AST 80 H ALT 66 H Alkaline Phosphatase 34 L Total Creatine Kinase 186 CK-MB (CK-2) 2.1 Troponin I Less than 0.02 L Total Protein 6.8 D Albumin 1.5 L Urine Color Urine Clarity Urine pH Ur Specific [place] Urine Protein Urine Glucose (UA) Urine Ketones Urine Occult Blood Urine Nitrate Urine Bilirubin Urine Urobilinogen Ur Leukocyte Esterase Urine RBC Urine WBC Urine Bacteria Hyaline Casts Urine Mucus Micro UA Comment Urine Culture Comments 09/14/18 09/14/18 09/14/18 17:10 20:13 23:25 WBC RBC Hgb Hct MCV MCH MCHC RDW Plt Count MPV Prelim Diff (Auto) Neut % (Auto) Lymph % (Auto) [place] % (Auto) Eos % (Auto) Baso % (Auto) Neut # (Auto) Lymph # (Auto) [place] # (Auto) Eos # (Auto) Baso # (Auto) WBC Differential Seg Neuts % (Manual) Band Neuts % (Manual) Lymphocytes % (Manual) Metamyelocytes % (Man) Plasma Cell % (Manual) Abs Neuts (Manual) Differential Comment Toxic Vacuolation Dohle Bodies Platelet Estimate Platelet Morphology Ovalocytes Acanthocytes (Spur) PT INR Puncture Site Patient Temperature O2 Saturation ABG pH ABG pCO2 ABG pO2 ABG HCO3 ABG O2 Content ABG Base Excess ABG Methemoglobin John Test Hemoglobin Carboxyhemoglobin O2 Delivery Device Vent Setting Inspired O2 Critical Value Sodium Potassium Chloride Carbon Dioxide Anion Gap BUN Creatinine Estimated GFR POC Glucose 106 86 Random Glucose Lactic Acid 3.7 H Calcium Prot Corrected Calcium Phosphorus Total Bilirubin AST ALT Alkaline Phosphatase Total Creatine Kinase CK-MB (CK-2) Troponin I Total Protein Albumin Urine Color Urine Clarity Urine pH Ur Specific [place] Urine Protein Urine Glucose (UA) Urine Ketones Urine Occult Blood Urine Nitrate Urine Bilirubin Urine Urobilinogen Ur Leukocyte Esterase Urine RBC Urine WBC Urine Bacteria Hyaline Casts Urine Mucus Micro UA Comment Urine Culture Comments 09/15/18 09/15/18 09/15/18 02:55 02:55 08:00 WBC 7.3 D RBC 3.42 L Hgb 11.3 L Hct 32.9 L MCV 96.1 MCH 33.1 MCHC 34.4 RDW 15.7 Plt Count 47 L MPV 9.4 Prelim Diff (Auto) Slide review pending Neut % (Auto) 93.1 H Lymph % (Auto) 3.9 L [place] % (Auto) 2.7 Eos % (Auto) 0.2 Baso % (Auto) 0.1 Neut # (Auto) 6.8 Lymph # (Auto) 0.3 L [place] # (Auto) 0.2 Eos # (Auto) 0.0 Baso # (Auto) 0.0 WBC Differential Manual diff final Seg Neuts % (Manual) 69 Band Neuts % (Manual) 19 H Lymphocytes % (Manual) 3 L Metamyelocytes % (Man) 8 H Plasma Cell % (Manual) 1 H Abs Neuts (Manual) 7.0 Differential Comment . Toxic Vacuolation Present H Dohle Bodies Present H Platelet Estimate Low L Platelet Morphology Normal Ovalocytes 1+ H Acanthocytes (Spur) Occ H PT INR Puncture Site Patient Temperature O2 Saturation ABG pH ABG pCO2 ABG pO2 ABG HCO3 ABG O2 Content ABG Base Excess ABG Methemoglobin John Test Hemoglobin Carboxyhemoglobin O2 Delivery Device Vent Setting Inspired O2 Critical Value Sodium 132 L Potassium 3.5 Chloride 92 L Carbon Dioxide 23.8 Anion Gap 16 H BUN 109 H Creatinine 8.96 H Estimated GFR 4 L POC Glucose 97 Random Glucose 95 Lactic Acid Calcium 5.9 L* Prot Corrected Calcium 6.2 L* Phosphorus 9.2 H D Total Bilirubin 1.6 H AST 82 H ALT 58 H Alkaline Phosphatase 30 L Total Creatine Kinase CK-MB (CK-2) Troponin I Total Protein 6.4 Albumin 1.4 L Urine Color Urine Clarity Urine pH Ur Specific [place] Urine Protein Urine Glucose (UA) Urine Ketones Urine Occult Blood Urine Nitrate Urine Bilirubin Urine Urobilinogen Ur Leukocyte Esterase Urine RBC Urine WBC Urine Bacteria Hyaline Casts Urine Mucus Micro UA Comment Urine Culture Comments 09/15/18 09/15/18 11:00 12:12 WBC RBC Hgb Hct MCV MCH MCHC RDW Plt Count MPV Prelim Diff (Auto) Neut % (Auto) Lymph % (Auto) [place] % (Auto) Eos % (Auto) Baso % (Auto) Neut # (Auto) Lymph # (Auto) [place] # (Auto) Eos # (Auto) Baso # (Auto) WBC Differential Seg Neuts % (Manual) Band Neuts % (Manual) Lymphocytes % (Manual) Metamyelocytes % (Man) Plasma Cell % (Manual) Abs Neuts (Manual) Differential Comment Toxic Vacuolation Dohle Bodies Platelet Estimate Platelet Morphology Ovalocytes Acanthocytes (Spur) PT INR Puncture Site Patient Temperature O2 Saturation ABG pH ABG pCO2 ABG pO2 ABG HCO3 ABG O2 Content ABG Base Excess ABG Methemoglobin John Test Hemoglobin Carboxyhemoglobin O2 Delivery Device Vent Setting Inspired O2 Critical Value Sodium Potassium Chloride Carbon Dioxide Anion Gap BUN Creatinine Estimated GFR POC Glucose 86 Random Glucose Lactic Acid Calcium 6.3 L* Prot Corrected Calcium Phosphorus Total Bilirubin AST ALT Alkaline Phosphatase Total Creatine Kinase CK-MB (CK-2) Troponin I Total Protein Albumin Urine Color Urine Clarity Urine pH Ur Specific [place] Urine Protein Urine Glucose (UA) Urine Ketones Urine Occult Blood Urine Nitrate Urine Bilirubin Urine Urobilinogen Ur Leukocyte Esterase Urine RBC Urine WBC Urine Bacteria Hyaline Casts Urine Mucus Micro UA Comment Urine Culture Comments Culture Results: Microbiology 09/14/18 18:13 Aerobic Blood Culture - Preliminary Blood - Peripheral gram negative rods Anaerobic Blood Culture - Preliminary No growth in 1 day 09/14/18 18:10 Aerobic Blood Culture - Preliminary Blood - Line gram negative rods Anaerobic Blood Culture - Preliminary No growth in 1 day 09/13/18 17:45 Urine Culture - Final Catheterized Urine Klebsiella pneumoniae Imaging Studies: Impressions Chest X-Ray 09/14/18 00:00 CONCLUSION: Right IJ central line in excellent position. No visible pneumothorax Chest X-Ray 09/14/18 21:04 CONCLUSION: Enteric tube distal tip is not clearly seen. It extends beneath the diaphragm. Abdomen X-Ray 09/14/18 21:45 CONCLUSION: OG tube tip in distal stomach. No free air. Medications: Active Medications Generic Name Dose Route Start Last Admin Trade Name Freq PRN Reason Stop Dose Admin Albuterol 1 ampul 09/13/18 20:00 09/15/18 12:21 Duoneb Neb (Bill) NEB 1 ampul Q4HR NEB BILL Administration Artificial Tears 1 drop 09/15/18 13:00 09/15/18 13:17 Tears Naturale Opth Drops EACH EYE Not Given TID [facility] Chlorhexidine Gluconate 3 pack 09/14/18 04:00 09/15/18 04:21 Chlorhexidine 2% Cloth TOPICAL 09/19/18 03:59 3 pack DAILY@0400 [facility] Administration Piperacillin/Tazobactam/Dextrose 50 mls @ 100 mls/hr 09/14/18 08:00 09/15/18 08:52 Zosyn 2.25 Gm Premix IV.SIG Infused Q8H [facility] Infusion Phenylephrine HCl 40 mg/ 500 mls @ 30 mls/hr 09/14/18 15:18 09/15/18 11:00 Sodium Chloride IV.CONT 50 mcg/min TITRATE PRN 37.5 mls/hr See Protocol Titration Protocol 40 MCG/MIN Dextrose/Sodium Chloride 1,000 mls @ 60 mls/hr 09/14/18 16:00 09/15/18 08:03 D5w/1/2 Ns Inj IV.CONT 60 mls/hr .[id number] [facility] Administration Fentanyl 2,500 mcg in 250 mls @ 5 mls/hr 09/14/18 15:55 09/14/18 19:00 Fentanyl 10 Mcg/Ml Premix Drip IV.SIG 50 mcg/hr TITRATE PRN 5 mls/hr Per Protocol Administration Protocol 50 MCG/HR Insulin Human Regular 0 units 09/13/18 20:00 09/15/18 12:53 Novolin R Correctional Sugar Inj SQ Not Given Q4HR [facility] Protocol Levothyroxine Sodium 100 mcg 09/15/18 11:00 09/15/18 13:16 Synthroid PO 100 mcg DAILY@0600 [facility] Administration Pantoprazole Sodium 40 mg 09/13/18 18:00 09/14/18 17:21 Protonix Inj IV.PUSH 40 mg Q24H BILL Administration Senna/Docusate Sodium 1 tab 09/13/18 21:00 09/15/18 08:03 Chloé-Colace PO Not Given BID BILL Sodium Chloride 2 ml 09/13/18 21:00 09/15/18 08:02 Ns Flush IV.FLUSH 2 ml BID BILL Administration Objective Remarks: GENERAL: Critically ill appearing female patient, intubated and sedated. SKIN: Pale, warm and dry. HEAD: Normocephalic. EYES: No scleral icterus. No injection or drainage. NECK: Supple, trachea midline. Central line to right subclavian, dressing dry/ intact. CARDIOVASCULAR: Regular rate and rhythm without murmurs. + Tachycardic RESPIRATORY: Breath sounds equal bilaterally. Intubated, FiO2 50%. EXTREMITIES: No cyanosis, or edema. MUSCULOSKELETAL: Decreased muscle tone. NEUROLOGICAL: Opens her eyes to voice. Assessment/Plan - Plan Mrs. 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 She has a history of induction therapy with Revlimid, Decadron and Velcade followed by stem cell transplant. She was placed on Revlimid maintenance until progression. She had her first cycle of darutumumab, Velcade and Decadron approximately 8 days ago. She was admitted to the hospital with acute renal failure and mild thrombocytopenia. Recommendations: 1. Multiple myeloma, treatment is placed on hold until she is stabilized from her acute events. 2. Acute renal failure, management per nephrology. Plans for hemodialysis today. 3. Septic shock, febrile, urine culture positive for Klebsiella pneumonia, blood cultures growing gram-negative rods. Infectious disease consulted and following. 4. Thrombocytopenia, platelets 47,000 today. Continue to monitor closely for bleeding. Continue to hold heparin. 5. Continue supportive care. - Attending Statement The exam, history, and the medical decision-making described in the above note were completed with the assistance of the mid-level provider. I reviewed and agree with the findings presented. I attest that I had a [id number] encounter with the patient on the same day, and personally performed and documented my assessment and findings in the medical record. Discussed with precision jig grinder. Concern for ATN, less likely tumor lysis. Defer renal biopsy as it is unlikely to change manager. Anticipate recovery renal function if ATN. Consider renal biopsy if no response to treatment. Discussed with log sorter. Continue support for sepsis from GNR bacteremia. Appreciate ID consult. Noted fevers. Abx support administered. Continue to monitor response to above intervention.
--- NOTE | 2018-09-15 14:59 | ECG ---
Date Performed: 09/14/2018 Time Performed: 15:38:41 PTAGE: 68 years EKG: ATRIAL FIBRILLATION WITH RAPID VENTRICULAR RESPONSE POSSIBLE INFEROLATERAL MYOCARDIAL INFAR CTION, ST ELEVATION ABNORMAL RHYTHM ECG PREVIOUS TRACING : 09/13/2018 09.07 DOCTOR: Shorty Iyer Interpretating Date/Time 09/15/2018 14:57:29
[2018-09-15] MEDS ORDERED: *Heparin 10,000 UNITS/10 ML Vial Periprocedural ONLY ONE (15:57)
--- NOTE | 2018-09-15 16:16 | P.DIET ---
Nutritional Evaluation Type of nutrition evaluation: initial Nutrition consult regarding: Tube Feeding Objective - Diagnosis acute renal failure, multiple myeloma - Objective Body Mass Index: 42.1 % IBW: 215 (IBW = 100lb) Body Weight Used for Calculations: IBW (for protein needs), Actual (for kcal) Energy Needs - Lower Range (kCal/kg): 22 Energy Needs - Upper Range (kCal/kg): 25 Lower Limit kCal/kg (kCals): 2,149 Upper Limit kCal/kg (kCals): 2,443 Lower Limit Protein Factor (Grams per Kg): 1.5 Upper Limit Protein Factor (Grams per Kg): 2.0 Lower Protein Needs (Protein): 68 Upper Protein Needs (Protein): 91 Fluid Factor (ml/kg): 25 Estimated Fluid Needs (ml): 2,443 Dietitian Reviewed in Medical Record: Current diet, Curent medications, Intake & Output, Labs, Medical history, Tube feeding Diet Order: TF Objective Comments: PMH: GERD, hemangioma, hyperlipidemia, multiple myeloma, plasmacytoma, thyroid disease Labs: BUN 109, Cr 8.8, GFR 4, Ca+ 6.3 Feeding - Current Tube Feeding Tube Feeding Product: Nepro Tube Feeding Rate: 40 Assessment Assessment: Pt intubated, on pressors yesterday for septic shock. Pt is currently on Nepro TF @ 40mL/hr and tolerating. RD recommends Nepro goal rate @ 50mL/hr to provide 2160kcal, 97g of protein, and 872mL of free water to meet pts nutritional needs. Will continue to monitor TF tolerance and renal labs. Dietitian following. Recommendations: 1. Recommend Nepro goal rate @ 50mL/hr to meet pts nutritional needs 2. Will continue to monitor TF tolerance and renal labs 3. Dietitian following. Dietitian to Monitor: Lab values, Renal labs, Intake & Output, Tube feeding tolerance, Weight change, Medical course
--- NOTE | 2018-09-15 16:16 | OTSOAPIP ---
TIME SESSION COMPLETED: 1500 TREATMENT TIME: 0 MINS. CHART REVIEWED. PATIENT WAS BEING TRANSPORTED TO INTERVENTIONAL RADIOLOGY. _X_ PT WAS INSTRUCTED TO NOT GET OUT OF BED OR CHAIR WITHOUT ASSISTANCE. CALL SIMMONS WAS LEFT WITHIN REACH. DISABILITIES ELEMENTS SCORE SELF-FEEDING ____ 4 = INDEPENDENT: EATS FROM A DISH AND DRINKS FROM A CUP OR GLASS PRESENTED IN THE CUSTOMARY MANNER ON TABLE OR TRAY. USES ORDINARY KNIFE, FORK, AND SPOON. ____ 3 = INDEPENDENT WITH DEVICE: USES AN ADAPTIVE OR ASSISTING DEVICE SUCH A STRAW, SPORK, OR ROCKING KNIFE OR REQUIRES MORE THAN A REASONABLE TIME TO EAT. ____ 2 = DEPENDENT PARTIAL HELP REQUIRED: PERFORMS HALF OR MORE OF FEEDING TASKS BUT REQUIRES SUPERVISION (E.G., STANDBY, CUEING, OR COAXING), SETUP (APPLICATION OF ORTHOTICS), OR OTHER HELP. ____ 1 = DEPENDENT TOTAL HELP REQUIRED: EITHER PERFORMS LESS THAN HALF OF FEEDING TASKS, OR DOES NOT EAT OR DRINK FULL MEALS BY MOUTH AND RELIES AT LEAST IN PART ON OTHER MEANS OF ALIMENTATION, SUCH PARENTERAL OR GASTROSTOMY FEEDINGS. INTERDISCIPLINARY COMMUNICATION:ELECTRONIC MEDICAL RECORD AND NURSE Therapist: Tamanna Ferrer Signature on file
[2018-09-15] MEDS ORDERED: Heparin Central Flush 100 UNIT/ML 5 ML Vial IV.FLUSH PRN (16:20)
--- NOTE | 2018-09-15 16:23 | P.RAD ---
Post Procedure Progress Note - Procedure Information Procedure Date: 09/15/18 Supervising Radiologist: ELENO Varela Assisting Physician: Gonzalo Arreguin Estimated blood loss (mL): 5 Anesthesia: Conscious Sedation - Plan of Activity Patient to Unit: Critical Care Patient Condition: Good See PACS Report for procedural detail/treatment.
[2018-09-15] MEDS: Albumin Human 25% Inj 100 ML IV.SIG PRN ×2 (16:43→16:46)
[2018-09-15] MEDS: Heparin 10,000 UNITS/10 ML Vial (for IV use) OTHER PRN (16:44)
[2018-09-15] MEDS: Pantoprazole Inj 40 MG Vial IV.PUSH SCH (17:26)
[2018-09-15] MEDS ORDERED: METRONIDAZOLE TOPICAL SCH (21:00)
[2018-09-16] MEDS: Dextrose 5%/NaCl 0.45% Inj 1,000 ML IV.CONT SCH (00:26)
[2018-09-16] MEDS: fentaNYL 10 mcg/mL Premix Drip 2,500 MCG/250 ML BAG IV.SIG PRN ×2 (00:26→23:56)
[2018-09-16 03:08] LABS: Baso % (Auto) 0.2 % (0.0-2.0); Eos % (Auto) 0.1 % (0.0-4.0); Hematocrit 25.7 % (35.0-46.0); Hemoglobin 8.7 gm/dL (11.6-15.3); Lymph # (Auto) 0.1 th/mm3 (1.0-4.8); Lymph % (Auto) 2.3 % (9.0-44.0); Mean Corpuscular Hemoglobin 32.9 pg (27.0-34.0); Mean Corpuscular Volume 96.8 fL (80.0-100.0); Mono # (Auto) 0.1 th/mm3 (0.0-0.9); Mono % (Auto) 1.5 % (0.0-8.0); Neut # (Auto) 4.7 th/mm3 (1.8-7.7); Neut % (Auto) 95.9 % (16.0-70.0); Platelet Count 29 th/mm3 (150-450); Red Blood Count 2.66 mil/mm3 (4.00-5.30); Red Cell Distribution Width 16.3 % (11.6-17.2); White Blood Count 4.9 th/mm3 (4.0-11.0)
[2018-09-16] MEDS: Chlorhexidine Gluconate 2% 1 Pack (2 Cloths) TOPICAL SCH (03:15)
[2018-09-16] MEDS: Insulin NovoLIN Regular Correctional Sugar Inj SQ SCH ×5 (03:38→21:45)
[2018-09-16 04:01] LABS: Calcium 6.6 mg/dL (8.5-10.1); Carbon Dioxide 25.3 meq/L (21.0-32.0); Magnesium 2.2 mg/dL (1.5-2.5); Phosphorus 6.9 mg/dL (2.5-4.9); Potassium 3.3 meq/L (3.5-5.1); Total Protein 6.2 g/dL (6.4-8.2)
[2018-09-16 04:29] LABS: Dohle Bodies Present; Lymphocytes 5 % (9-44); Metamyelocytes 4 % (0-1); Monocytes 2 % (0-8); Platelet Estimate Rare (Normal); Platelet Morphology Normal (Normal); Toxic Granulation 1+
--- NOTE | 2018-09-16 05:10 | XR ---
EXAM DATE: 09/16/2018 4:33 AM EDT AGE/SEX: 68 years / Female INDICATIONS: Shortness of breath, possible pulmonary disease. CLINICAL DATA: This is the patient's subsequent encounter. Patient reports that signs and symptoms h ave been present for 4 - 6 days and indicates a pain score of 0/10. MEDICAL/SURGICAL HISTORY: . Multiple myeloma. Hysterectomy. Cholecystectomy. COMPARISON: [facility], CHEST 1V SINGLE AP, 09/14/2018. . FINDINGS: Bilateral diffuse airspace opacities and small pleural effusions are again noted and not significantl y changed. No pneumothorax seen. Heart size stable, within normal limits. Endotracheal tube tip is approximately 2.3 cm above the evangelist. Nasogastric tube courses into the sto mach. Unchanged right internal jugular central venous catheter with tip in the superior vena cava. Th ere is a new double-lumen left internal jugular central venous catheter with tip in the right atrium. CONCLUSION: 1. No significant change bilateral airspace opacities and small effusions. 2. New left IJ double lumen central venous catheter with tip in the right atrium. No pneumothorax. O ther lines and tubes unchanged as above. Electronically signed by: Darell Douglas MD 09/16/2018 5:09 AM EDT
[2018-09-16] MEDS: Levothyroxine 100 MCG Tablet PO SCH (05:32)
[2018-09-16] MEDS: Phenylephrine Inj 40 MG in Sodium Chlor 0.9% Inj 496 ML IV.CONT PRN ×2 (05:33→11:39)
--- NOTE | 2018-09-16 07:42 | IR ---
EXAM DATE: 09/15/2018 4:40 PM EDT AGE/SEX: 68 years / Female INDICATIONS: Acute renal failure CLINICAL DATA: This is the patient's initial encounter. Patient reports that signs and symptoms have been present for 2 days and indicates a pain score of Nonresponsive. MEDICAL/SURGICAL HISTORY: Gastroesophageal reflux disease. Renal failure, acute. Hypertension . chronic pain, depression, hypothyroidism, multiple myeloma.sepsis . bone marrow transplant, radia tion therapy,chemotherapy COMPARISON: No prior exams available for comparison. FLUORO TIME (min): 0.10 IMAGE SERIES: 2 ACCESS SITE: Left internal jugular vein DEVICE(S): 14 Brazilian double lumen 20 CM Schon catheter . . PROCEDURE : 1. Ultrasound guided venipuncture. 2. Fluoroscopic guidance. 3. Central line placement. The risks, benefits and alternatives to the procedure were explained and verbal and written consent w as obtained. The site was prepped in sterile fashion. Full sterile technique was used, including ca p, mask, sterile gloves and gown and a large sterile sheet. Hand hygiene and 2% chlorhexidine prep w as utilized per protocol for cutaneous antisepsis with appropriate dry time for site. Sterile gel an d sterile probe cover were utilized for ultrasound guidance. The skin and subcutaneous tissues were infiltrated with local anesthetic solution. A suitable site a mitch the vein was selected with ultrasound and fluoroscopic guidance. A small incision was made. Th e vein was accessed under direct ultrasound visualization using the micropuncture technique. The guera ropuncture set was exchanged for a 0.035 wire. The tract was dilated. The catheter was advanced int o position under direct fluoroscopic visualization, and was advanced with the tip at the junction of the superior vena cava and rt atrium. The catheter was fixed in place with suture and a sterile dres sing was applied. The patient tolerated the procedure well and there were no complications. CONCLUSION: 1. Uncomplicated line placement as above. Electronically signed by: Gonzalo Arreguin MD 09/16/2018 7:41 AM EDT
[2018-09-16] MEDS: Sodium Chloride 0.9% 2 ML Flush BID IV.FLUSH SCH ×2 (08:17→21:47)
[2018-09-16] MEDS: Polyethylene Glycol 3350 17 GM Packet PO SCH (08:17)
[2018-09-16] MEDS: Artificial Tears Opth Drops 15 ML Bottle EACH EYE SCH ×3 (08:17→17:39)
[2018-09-16] MEDS: Senna/Docusate Sodium 8.6/50 MG Tablet PO SCH ×2 (08:17→21:47)
[2018-09-16] MEDS: Piperacil/Tazo 2.25 GM Premix 50 ML IV.SIG SCH ×3 (08:17→23:57)
--- NOTE | 2018-09-16 08:20 | P.PNCC ---
Subjective Subjective Remarks/Hospital Course: patient is a 68-year-old female with a past medical history of hyperlipidemia, multiple myeloma, monoclonal gammopathy and GERD, who initially presented to [facility] ED with complaints of abdominal pain and back pain. The patient was recently treated with Revlimid, Decadron and Velcade. She also had a bone marrow transplant at [facility] in [place]. She is being followed by Dr. Martinez and had chemotherapy last week. The patient also was incontinent with a stooland urine and reported feeling nauseous and having vomiting and diarrhea. Also, she reports decreased p.o. intake for several days and generalized weakness. Her initial laboratory data showed acute renal failure with a BUN of 86, creatinine 9.2 and hyponatremia with a sodium level of 119. There was no evidence of any fever or leukocytosis. Due to abdominal pain, a CT abdomen and pelvis was done which showed a small ventral hernia in the anterior abdominal wall, no findings to indicate a bowel obstruction and no evidence of any free air or free fluid. Nodular enlargement of the left adrenal gland, new compared to prior study, and stable mixed lytic and sclerotic lesions in the osseous structures. She also had an ultrasound of the abdomen which showed a simple cyst in left kidney, no evidence of any masses or hydronephrosis. Due to her back pain, a lumbar CT spine was performed which showed moderate fracture deformity of the L3 vertebral body and T11. She was transferred to [facility] where she was seen by Dr. Avery from the hospitalist service this afternoon. Shortly after, the patient was transferred to the ICU for increased O2 requirements and tachycardia. She had a chest x- ray this morning as well which showeda mild streaky opacity in the left lateral lung and left lung base with no consolidation. When seen in the ICU, she is tachycardic with heart rate of 114, blood pressure 128/79 and on a nonrebreather mask. The patient is complaining of abdominal pain and back pain. She received morphine earlier. The patient was also seen by Dr. Valle from the nephrology service. She has been given approximately 3 liters of crystalloids thus far. 09/14 Patient is on NRM, renal function slowly improving, on bicarb drip. Afebrile. 09/15: Febrile overnight. T-max 102.9. Currently on phenylephrine drip. Minimal urine output. Tolerating tube feeds at 30 cc an hour. Subjective 09/16: T-max 101.8. Currently afebrile. Received hemodialysis yesterday. Remains on the ventilator. Platelets continue to down trend. Replacing calcium today. Klebsiella from urine likely blood cultures well. Objective Vital Signs / I&O: Vital Signs 09/15/18 11:00 09/15/18 12:00 09/15/18 12:17 Temperature 101.9 F H Pulse Rate 115 H 115 H Respiratory Rate 26 H 21 20 Blood Pressure 103/59 L Pulse Oximetry 89 L 93 L 09/15/18 15:00 09/15/18 15:16 09/15/18 15:35 Temperature Pulse Rate 116 H 115 H 113 H Respiratory Rate 19 19 20 Blood Pressure 105/51 L 100/51 L Pulse Oximetry 95 95 98 09/15/18 15:44 09/15/18 15:45 09/15/18 16:15 Temperature Pulse Rate 115 H 118 H Respiratory Rate 33 H Blood Pressure 101/53 L Pulse Oximetry 94 L 79 L 09/15/18 16:27 09/15/18 16:30 09/15/18 16:45 Temperature Pulse Rate 117 H 115 H Respiratory Rate 19 17 Blood Pressure 121/56 L 115/56 L 125/52 L Pulse Oximetry 88 L 82 L 90 L 09/15/18 17:00 09/15/18 17:15 09/15/18 17:30 Temperature Pulse Rate 115 H 114 H 114 H Respiratory Rate 18 18 17 Blood Pressure 105/51 L 94/55 L 87/53 L Pulse Oximetry 91 L 90 L 90 L 09/15/18 17:45 09/15/18 17:48 09/15/18 18:00 Temperature Pulse Rate 116 H 115 H Respiratory Rate 17 17 18 Blood Pressure 102/47 L 102/49 L Pulse Oximetry 91 L 91 L 91 L 09/15/18 18:15 09/15/18 18:30 09/15/18 18:35 Temperature Pulse Rate 111 H 112 H 115 H Respiratory Rate 16 17 Blood Pressure 102/46 L 101/50 L 101/50 L Pulse Oximetry 93 L 94 L 09/15/18 18:45 09/15/18 18:47 09/15/18 18:48 Temperature Pulse Rate 110 H 107 H 107 H Respiratory Rate 17 17 16 Blood Pressure 101/50 L 105/49 L 98/48 L Pulse Oximetry 93 L 93 L 93 L 09/15/18 19:00 09/15/18 19:15 09/15/18 19:30 Temperature Pulse Rate 113 H 108 H 108 H Respiratory Rate 16 15 15 Blood Pressure 107/49 L 92/55 L 105/52 L Pulse Oximetry 93 L 94 L 93 L 09/15/18 19:45 09/15/18 19:50 09/15/18 19:59 Temperature Pulse Rate 106 H 100 H Respiratory Rate 17 18 18 Blood Pressure 109/52 L Pulse Oximetry 93 L 95 09/15/18 20:00 09/15/18 20:15 09/15/18 20:30 Temperature 99.2 F Pulse Rate 106 H 107 H 112 H Respiratory Rate 18 16 21 Blood Pressure 119/54 L 108/52 L 106/50 L Pulse Oximetry 95 94 L 94 L 09/15/18 20:45 09/15/18 20:59 09/15/18 21:00 Temperature Pulse Rate 106 H 108 H 105 H Respiratory Rate 16 18 19 Blood Pressure 102/50 L 110/51 L Pulse Oximetry 94 L 95 95 09/15/18 21:15 09/15/18 21:30 09/15/18 21:45 Temperature Pulse Rate 105 H 101 H 106 H Respiratory Rate 19 20 19 Blood Pressure 118/52 L 116/54 L 120/52 L Pulse Oximetry 95 96 96 09/15/18 22:00 09/15/18 22:15 09/15/18 22:30 Temperature Pulse Rate 105 H 106 H 99 H Respiratory Rate 20 18 20 Blood Pressure 123/52 L 114/54 L 104/52 L Pulse Oximetry 95 96 95 09/15/18 22:45 09/15/18 23:00 09/15/18 23:15 Temperature Pulse Rate 95 H 96 H 97 H Respiratory Rate 21 20 22 Blood Pressure 112/53 L 115/54 L 115/55 L Pulse Oximetry 96 96 96 09/15/18 23:30 09/15/18 23:45 09/16/18 00:00 Temperature 98.8 F Pulse Rate 98 H 99 H 97 H Respiratory Rate 20 20 21 Blood Pressure 112/55 L 105/54 L 111/55 L Pulse Oximetry 96 96 95 09/16/18 00:15 09/16/18 00:18 09/16/18 00:30 Temperature Pulse Rate 96 H 90 102 H Respiratory Rate 18 19 18 Blood Pressure 124/55 L 107/55 L Pulse Oximetry 96 96 94 L 09/16/18 00:45 09/16/18 01:00 09/16/18 01:15 Temperature Pulse Rate 101 H 117 H 114 H Respiratory Rate 18 17 17 Blood Pressure 107/51 L 106/51 L 107/53 L Pulse Oximetry 95 95 95 09/16/18 01:30 09/16/18 01:45 09/16/18 02:00 Temperature Pulse Rate 110 H 109 H 109 H Respiratory Rate 20 19 18 Blood Pressure 107/55 L 99/54 L 100/53 L Pulse Oximetry 95 95 95 09/16/18 02:15 09/16/18 02:30 09/16/18 02:45 Temperature Pulse Rate 108 H 107 H 106 H Respiratory Rate 19 18 16 Blood Pressure 102/56 L 102/55 L 99/54 L Pulse Oximetry 96 96 96 09/16/18 03:00 09/16/18 03:15 09/16/18 03:30 Temperature Pulse Rate 108 H 105 H 106 H Respiratory Rate 18 17 24 Blood Pressure 102/57 L 99/55 L 107/52 L Pulse Oximetry 95 96 97 09/16/18 03:45 09/16/18 04:00 09/16/18 04:15 Temperature 98.2 F Pulse Rate 106 H 102 H 103 H Respiratory Rate 19 17 18 Blood Pressure 106/53 L 95/51 L 99/52 L Pulse Oximetry 96 96 96 09/16/18 04:28 09/16/18 04:29 09/16/18 04:30 Temperature Pulse Rate 99 H 99 H Respiratory Rate 19 17 16 Blood Pressure 101/49 L Pulse Oximetry 97 96 09/16/18 04:45 09/16/18 05:00 09/16/18 05:15 Temperature Pulse Rate 104 H 108 H 106 H Respiratory Rate 17 19 17 Blood Pressure 95/48 L 100/52 L 97/55 L Pulse Oximetry 97 96 97 09/16/18 05:30 09/16/18 05:45 09/16/18 06:00 Temperature Pulse Rate 106 H 111 H 108 H Respiratory Rate 17 32 H 19 Blood Pressure 103/56 L 105/57 L 104/59 L Pulse Oximetry 96 95 09/16/18 07:00 09/16/18 07:52 Temperature Pulse Rate 108 H 98 H Respiratory Rate 16 16 Blood Pressure 99/53 L Pulse Oximetry 97 96 Intake & Output 09/15/18 09/16/18 09/16/18 18:59 06:59 18:59 Intake Total 3050 / 3050 2300 / 2300 Output Total 700 / 700 50 / 50 Balance 2350 / 2350 2250 / 2250 Weight 97.7 kg 99.1 kg Intake: IV 3050 / 3050 2300 / 2300 D5W/1/2 NS Inj 1,000 ML @ 60 1000 / 1000 1000 / 1000 mls/hr IV.CONT .[id number] [facility] Rx# :[id number] Neosynephrine Inj 40 MG In NS 500 / 500 1000 / 1000 Inj 496 ML @ 40 MCG/MIN 30 mls/ hr IV.CONT TITRATE PRN Rx#: [id number] Flexbumin 25% Inj 100 ML @ 60 200 / 200 mls/hr IV.SIG WITH DIALYSIS PRN Rx#:[id number] Zosyn 2.25 GM Premix 50 ML @ 100 / 100 50 / 50 100 mls/hr IV.SIG Q8H [facility] Rx#: [id number] Vancomycin Inj 1,000 MG In NS 250 / 250 Inj 250 ML @ 250 mls/hr IV.SIG ONCE ONE Rx#:[id number] fentaNYL 10 mcg/mL Premix Drip 250 / 250 2,500 mcg In 250 ml @ 50 MCG/HR 5 mls/hr IV.SIG TITRATE PRN Rx #:[id number] Tube Feeding 0 / 0 Output: Hemodialysis Amount 700 / 700 Urine Amount (Catheter) 50 / 50 Indwelling Urethral Catheter 50 / 50 Other: Date of Last Bowel Movement 09/15/18 09/15/18 # Incontinent Bowel Movements 2 Weight On Admission 96.5 kg Result Diagrams: 09/16/18 02:50 09/16/18 02:50 Other Results: Microbiology 09/14/18 18:13 Blood - Peripheral Aerobic Blood Culture - Preliminary gram negative rods 09/14/18 18:13 Blood - Peripheral Anaerobic Blood Culture - Preliminary No growth in 1 day 09/14/18 18:10 Blood - Line Aerobic Blood Culture - Preliminary gram negative rods 09/14/18 18:10 Blood - Line Anaerobic Blood Culture - Preliminary No growth in 1 day 09/13/18 17:45 Catheterized Urine Urine Culture - Final Klebsiella pneumoniae Imaging: Abdomen/Bladder Ultrasound 09/13/18 00:00 CONCLUSION: 1. Simple cyst left kidney. Abdomen/Pelvis CT 09/13/18 08:54 CONCLUSION: 1. There is a small ventral hernia in the anterior abdominal wall. There is some omental fat herniated through the defect. 2. There are no findings to indicate a bowel obstruction. No free air free fluid is seen. 3. Nodular enlargement of the left adrenal gland new compared to previous of . Metastatic disease to the left adrenal is not excluded. 4. Stable mixed lytic and sclerotic lesion seen in the osseous structures when compared to PET examination of 06/28/2018. Chest X-Ray 09/13/18 08:54 CONCLUSION: Mild streaky opacity in left lateral lung and left lung base with no consolidation. This is most characteristic of atelectasis or scarring. Lumbar Spine CT 09/13/18 08:54 CONCLUSION: 1. Moderate fracture deformity of the L3 vertebral body with central lucency, sclerosis and invagination of the superior and inferior endplates. This may be acute. 2. Moderate fracture deformity of the T11 vertebral body with abnormal lucency , sclerosis and invagination superior and inferior endplates. 3. Atheromatous involvement of T10, T11, L1, L2 and L3 vertebral bodies. 4. Large lytic lesion involving the right side of the sacrum. 5. Moderate central canal stenosis at the L4-5 level secondary to disc bulge and degenerative change involving the facet joints. Chest X-Ray 09/14/18 00:00 CONCLUSION: Right IJ central line in excellent position. No visible pneumothorax Chest X-Ray 09/14/18 21:04 CONCLUSION: Enteric tube distal tip is not clearly seen. It extends beneath the diaphragm. Abdomen X-Ray 09/14/18 21:45 CONCLUSION: OG tube tip in distal stomach. No free air. Catheter Placement 09/15/18 00:00 CONCLUSION: 1. Uncomplicated line placement as above. Chest X-Ray 09/16/18 06:00 CONCLUSION: 1. No significant change bilateral airspace opacities and small effusions. 2. New left IJ double lumen central venous catheter with tip in the right atrium. No pneumothorax. Other lines and tubes unchanged as above. Objective Remarks: GENERAL: Patient is 68 yo lying in bed in no acute distress SKIN: Warm and dry. HEAD: Normocephalic. EYES: No scleral icterus. No injection or drainage. NECK: Supple, trachea midline. No JVD or lymphadenopathy. Right IJ CVL and left hemodialysis catheter is clean dry and intact CARDIOVASCULAR: Tachycardic without murmurs, gallops, or rubs. RESPIRATORY: Breath sounds equal bilaterally. No accessory muscle use. GASTROINTESTINAL: Abdomen soft, mild-tenderness on palpation, nondistended, obese. Reducible anterior wall hernia MUSCULOSKELETAL: Trace bilateral lower extremity edema. Neuro: Awake and alert Assessment and Plan - Assessment and Plan Plan: 1. Acute hypoxemic respiratory failure. 2. Acute renal failure -currently on hemodialysis. 3. Hyponatremia -resolving. 4. Dehydration. 5. Elevated liver enzymes including AST, total bilirubin and decreased albumin. 6. Hypertension currently hypotensive likely secondary to severe sepsis. 7. Chronic pain syndrome. 8. Abdominal pain associated with nausea and vomiting. 9. Gastroesophageal reflux disease. 10. History of multiple myeloma. 11 UTI -Klebsiella pneumoniae 12 normocytic anemia with thrombocytopenia/acute 13. Gram-negative warren sepsis 14. Hypocalcemia 15. Hyponatremia 16. Hyperphosphatemia 17. Lactic acidosis 18. Ventral abdominal hernia with omental fat 19 T11 fracture, L3 fracture 20. Hypothyroidism overcorrected Plan Neuro: Monitor neuro status closely. Currently on fentanyl drip at 75 mcg/min. Pulm: PRVC ventilation and maintain sats > 92%. Albuterol/ipratropium aerosols every 4 hours with albuterol aerosols every 2 hours as needed dyspnea Spontaneous breathing trials when clinically indicated CV: Monitor HR and BP keep MAP>65mmHG. Currently on phenylephrine drip at 90 mcg/min Lactic acid 1.9 from 3.1 Check 2D echo to eval LV function and complete 09/14. Revealed EF 60-65% . PA P 30 mmHg. : Monitor renal function, I's and O's and avoid nephrotoxins. CT abdomen and pelvis showed no signs of obstruction ultrasound abdomen showed no evidence of hydronephrosis. She has been given Renal is following- Tori Lay, on D5 water/half normal saline at 60 cc an hour Follow up on BMP in a.m. GI: on pantoprazole 40 mg IV daily for GI prophylaxis. Monitor LFTs. A CT abdomen and pelvis showed the liver was within normal limits. ID: Start on piperacillin/tazobactam and vancomycin. Monitor for signs of infections( fever and WBC). Follow up on urine cx 09/13 and blood culture 09/14 with gram-negative rods Heme: Monitor CBC and coags. Hold Heparin SQ for worsening thrombocytopenia, PLT < 50 Endo: SSI with Accu-Cheks to maintain euglycemic control every 4 hours. TSH: 0.145, FT4:1.34. Reduce levothyroxine from 112 200 mg daily Renal: Received hemodialysis 09/15. Likely again today. GI prophylaxis with pantoprazole 40 mg daily and DVT prophylaxis with SCDs, hold Heparin SQ CCT 40 mins excluding procedures
[2018-09-16] MEDS ORDERED: Heparin Central Flush 100 UNIT/ML 5 ML Vial IV.FLUSH SCH (09:00)
[2018-09-16] MEDS ORDERED: Calcium Chloride Inj 1 GM in Sodium Chlor 0.9% Inj 100 ML IV.SIG ONE (10:00)
--- NOTE | 2018-09-16 11:31 | P.PNNP ---
Subjective Interval history: Patient is on the ventilator. Minimal urine output. Dialyzed yesterday. Remains on phenylephrine. Left IJ VasCath. Right IJ TLC Discussed with Dr. Martinez yesterday. Physical Exam Vital signs: Vital Signs 09/15/18 12:00 09/15/18 12:17 09/15/18 15:00 Temperature 101.9 F H Pulse Rate 115 H 116 H Respiratory Rate 21 20 19 Blood Pressure 103/59 L Pulse Oximetry 89 L 93 L 95 09/15/18 15:16 09/15/18 15:35 09/15/18 15:44 Temperature Pulse Rate 115 H 113 H 115 H Respiratory Rate 19 20 33 H Blood Pressure 105/51 L 100/51 L Pulse Oximetry 95 98 94 L 09/15/18 15:45 09/15/18 16:15 09/15/18 16:27 Temperature Pulse Rate 118 H Respiratory Rate Blood Pressure 101/53 L 121/56 L Pulse Oximetry 79 L 88 L 09/15/18 16:30 09/15/18 16:45 09/15/18 17:00 Temperature Pulse Rate 117 H 115 H 115 H Respiratory Rate 19 17 18 Blood Pressure 115/56 L 125/52 L 105/51 L Pulse Oximetry 82 L 90 L 91 L 09/15/18 17:15 09/15/18 17:30 09/15/18 17:45 Temperature Pulse Rate 114 H 114 H 116 H Respiratory Rate 18 17 17 Blood Pressure 94/55 L 87/53 L 102/47 L Pulse Oximetry 90 L 90 L 91 L 09/15/18 17:48 09/15/18 18:00 09/15/18 18:15 Temperature Pulse Rate 115 H 111 H Respiratory Rate 17 18 16 Blood Pressure 102/49 L 102/46 L Pulse Oximetry 91 L 91 L 93 L 09/15/18 18:30 09/15/18 18:35 09/15/18 18:45 Temperature Pulse Rate 112 H 115 H 110 H Respiratory Rate 17 17 Blood Pressure 101/50 L 101/50 L 101/50 L Pulse Oximetry 94 L 93 L 09/15/18 18:47 09/15/18 18:48 09/15/18 19:00 Temperature Pulse Rate 107 H 107 H 113 H Respiratory Rate 17 16 16 Blood Pressure 105/49 L 98/48 L 107/49 L Pulse Oximetry 93 L 93 L 93 L 09/15/18 19:15 09/15/18 19:30 09/15/18 19:45 Temperature Pulse Rate 108 H 108 H 106 H Respiratory Rate 15 15 17 Blood Pressure 92/55 L 105/52 L 109/52 L Pulse Oximetry 94 L 93 L 93 L 09/15/18 19:50 09/15/18 19:59 09/15/18 20:00 Temperature 99.2 F Pulse Rate 100 H 106 H Respiratory Rate 18 18 18 Blood Pressure 119/54 L Pulse Oximetry 95 95 09/15/18 20:15 09/15/18 20:30 09/15/18 20:45 Temperature Pulse Rate 107 H 112 H 106 H Respiratory Rate 16 21 16 Blood Pressure 108/52 L 106/50 L 102/50 L Pulse Oximetry 94 L 94 L 94 L 09/15/18 20:59 09/15/18 21:00 09/15/18 21:15 Temperature Pulse Rate 108 H 105 H 105 H Respiratory Rate 18 19 19 Blood Pressure 110/51 L 118/52 L Pulse Oximetry 95 95 95 09/15/18 21:30 09/15/18 21:45 09/15/18 22:00 Temperature Pulse Rate 101 H 106 H 105 H Respiratory Rate 20 19 20 Blood Pressure 116/54 L 120/52 L 123/52 L Pulse Oximetry 96 96 95 09/15/18 22:15 09/15/18 22:30 09/15/18 22:45 Temperature Pulse Rate 106 H 99 H 95 H Respiratory Rate 18 20 21 Blood Pressure 114/54 L 104/52 L 112/53 L Pulse Oximetry 96 95 96 09/15/18 23:00 09/15/18 23:15 09/15/18 23:30 Temperature Pulse Rate 96 H 97 H 98 H Respiratory Rate 20 22 20 Blood Pressure 115/54 L 115/55 L 112/55 L Pulse Oximetry 96 96 96 09/15/18 23:45 09/16/18 00:00 09/16/18 00:15 Temperature 98.8 F Pulse Rate 99 H 97 H 96 H Respiratory Rate 20 21 18 Blood Pressure 105/54 L 111/55 L 124/55 L Pulse Oximetry 96 95 96 09/16/18 00:18 09/16/18 00:30 09/16/18 00:45 Temperature Pulse Rate 90 102 H 101 H Respiratory Rate 19 18 18 Blood Pressure 107/55 L 107/51 L Pulse Oximetry 96 94 L 95 09/16/18 01:00 09/16/18 01:15 09/16/18 01:30 Temperature Pulse Rate 117 H 114 H 110 H Respiratory Rate 17 17 20 Blood Pressure 106/51 L 107/53 L 107/55 L Pulse Oximetry 95 95 95 09/16/18 01:45 09/16/18 02:00 09/16/18 02:15 Temperature Pulse Rate 109 H 109 H 108 H Respiratory Rate 19 18 19 Blood Pressure 99/54 L 100/53 L 102/56 L Pulse Oximetry 95 95 96 09/16/18 02:30 09/16/18 02:45 09/16/18 03:00 Temperature Pulse Rate 107 H 106 H 108 H Respiratory Rate 18 16 18 Blood Pressure 102/55 L 99/54 L 102/57 L Pulse Oximetry 96 96 95 09/16/18 03:15 09/16/18 03:30 09/16/18 03:45 Temperature Pulse Rate 105 H 106 H 106 H Respiratory Rate 17 24 19 Blood Pressure 99/55 L 107/52 L 106/53 L Pulse Oximetry 96 97 96 09/16/18 04:00 09/16/18 04:15 09/16/18 04:28 Temperature 98.2 F Pulse Rate 102 H 103 H 99 H Respiratory Rate 17 18 19 Blood Pressure 95/51 L 99/52 L Pulse Oximetry 96 96 09/16/18 04:29 09/16/18 04:30 09/16/18 04:45 Temperature Pulse Rate 99 H 104 H Respiratory Rate 17 16 17 Blood Pressure 101/49 L 95/48 L Pulse Oximetry 97 96 97 09/16/18 05:00 09/16/18 05:15 09/16/18 05:30 Temperature Pulse Rate 108 H 106 H 106 H Respiratory Rate 19 17 17 Blood Pressure 100/52 L 97/55 L 103/56 L Pulse Oximetry 96 97 96 09/16/18 05:45 09/16/18 06:00 09/16/18 07:00 Temperature Pulse Rate 111 H 108 H 108 H Respiratory Rate 32 H 19 16 Blood Pressure 105/57 L 104/59 L 99/53 L Pulse Oximetry 95 97 09/16/18 07:52 09/16/18 08:00 09/16/18 09:00 Temperature 99.3 F Pulse Rate 98 H 100 H 104 H Respiratory Rate 16 17 19 Blood Pressure 112/54 L 107/53 L Pulse Oximetry 96 96 97 09/16/18 10:00 09/16/18 11:07 Temperature Pulse Rate 98 H 97 H Respiratory Rate 18 16 Blood Pressure 102/49 L Pulse Oximetry 97 96 Intake & Output 09/15/18 09/16/18 09/16/18 18:59 06:59 18:59 Intake Total 3050 / 3050 2300 / 2300 160 / 160 Output Total 700 / 700 50 / 50 Balance 2350 / 2350 2250 / 2250 160 / 160 Weight 97.7 kg 99.1 kg Intake: IV 3050 / 3050 2300 / 2300 160 / 160 D5W/1/2 NS Inj 1,000 ML @ 60 1000 / 1000 1000 / 1000 mls/hr IV.CONT .[id number] [facility] Rx# :[id number] Neosynephrine Inj 40 MG In NS 500 / 500 1000 / 1000 Inj 496 ML @ 40 MCG/MIN 30 mls/ hr IV.CONT TITRATE PRN Rx#: [id number] Flexbumin 25% Inj 100 ML @ 60 200 / 200 mls/hr IV.SIG WITH DIALYSIS PRN Rx#:[id number] Calcium Chloride Inj 1 GM In NS 110 / 110 Inj 100 ML @ 110 mls/hr IV.SIG ONCE ONE Rx#:[id number] Zosyn 2.25 GM Premix 50 ML @ 100 / 100 50 / 50 50 / 50 100 mls/hr IV.SIG Q8H [facility] Rx#: [id number] Vancomycin Inj 1,000 MG In NS 250 / 250 Inj 250 ML @ 250 mls/hr IV.SIG ONCE ONE Rx#:[id number] fentaNYL 10 mcg/mL Premix Drip 250 / 250 2,500 mcg In 250 ml @ 50 MCG/HR 5 mls/hr IV.SIG TITRATE PRN Rx #:[id number] Tube Feeding 0 / 0 Output: Hemodialysis Amount 700 / 700 Urine Amount (Catheter) 50 / 50 Indwelling Urethral Catheter 50 / 50 Other: Date of Last Bowel Movement 09/15/18 09/15/18 09/16/18 # Incontinent Bowel Movements 2 Weight On Admission 96.5 kg - Constitutional Comments: on the ventilator. - Routine HEENT Exam Head: Present: normocephalic, atraumatic Comments: orally intubated. - Routine Neck Exam Present: supple - Routine Respiratory Exam Comments: vented breath sounds - Routine Cardiovascular Exam Present: RRR, S1, S2 - Routine Abdominal Exam Present: soft - Routine Extremities Exam Absent: edema - Routine Neurological Exam sedated on the vent. - Urinary Catheter Management Indwelling Urethral Catheter Cath placed during this visit: yes Reason for continuing: Other continuation reason Insertion date: 09/13/18 Insertion time: 10:44 Assessment and Plan - Assessment (1) Acute renal failure Code(s): N17.9 - Acute kidney failure, unspecified Status: Acute Qualifiers: Acute renal failure type: unspecified Qualified Code(s): N17.9 - Acute kidney failure, unspecified Plan: Patient is oliguric. May have suffered ATN. Also have to consider cast nephropathy or "myeloma kidney". Tumor lysis syndrome is a consideration. Start Allopurinol. Patient has UTI with sepsis. Therefore multiple possible etiologies. Oliguric, high waste products, will initiate dialysis today. Prognosis is guarded. Avoid nephrotoxic agents. CT did not reveal hydronephrosis. Monitor urine output. (2) Hypo-osmolality and hyponatremia Code(s): E87.1 - Hypo-osmolality and hyponatremia Status: Acute Plan: improved. (3) Hypokalemia Code(s): E87.6 - Hypokalemia Status: Acute Plan: Improved. (4) Acidosis Code(s): E87.2 - Acidosis Status: Acute Plan: improved. (5) Multiple myeloma Code(s): C90.00 - Multiple myeloma not having achieved remission Status: Acute Plan: Oncology on the case, note was reviewed.
[2018-09-16] MEDS: Allopurinol 100 MG Tablet PO SCH (11:50)
[2018-09-16] MEDS: Albumin Human 25% Inj 100 ML IV.SIG PRN ×2 (14:12→14:14)
[2018-09-16] MEDS: Heparin 10,000 UNITS/10 ML Vial (for IV use) OTHER PRN (14:16)
--- NOTE | 2018-09-16 14:20 | P.PNONC ---
Subjective Interval history: Febrile, T-max 101.9 F. Patient remains on the ventilator, moves head occasionally, does not follow directions. Discussed with nurse she has been decreasing the Jim-Synephrine. Patient received hemodialysis yesterday and is pending dialysis today. She is noted to have a hard, swollen left upper extremity, nurse reports she had a infiltrated IV on that side. Patient also noted to have a drop in platelets from 47,000 yesterday to 29,000 today. We will do ultrasound to rule out thrombus. Objective Vital Signs/Intake & Output: Vital Signs 09/15/18 15:00 09/15/18 15:16 09/15/18 15:35 Temperature Pulse Rate 116 H 115 H 113 H Respiratory Rate 19 19 20 Blood Pressure 105/51 L 100/51 L Pulse Oximetry 95 95 98 09/15/18 15:44 09/15/18 15:45 09/15/18 16:15 Temperature Pulse Rate 115 H 118 H Respiratory Rate 33 H Blood Pressure 101/53 L Pulse Oximetry 94 L 79 L 09/15/18 16:27 09/15/18 16:30 09/15/18 16:45 Temperature Pulse Rate 117 H 115 H Respiratory Rate 19 17 Blood Pressure 121/56 L 115/56 L 125/52 L Pulse Oximetry 88 L 82 L 90 L 09/15/18 17:00 09/15/18 17:15 09/15/18 17:30 Temperature Pulse Rate 115 H 114 H 114 H Respiratory Rate 18 18 17 Blood Pressure 105/51 L 94/55 L 87/53 L Pulse Oximetry 91 L 90 L 90 L 09/15/18 17:45 09/15/18 17:48 09/15/18 18:00 Temperature Pulse Rate 116 H 115 H Respiratory Rate 17 17 18 Blood Pressure 102/47 L 102/49 L Pulse Oximetry 91 L 91 L 91 L 09/15/18 18:15 09/15/18 18:30 09/15/18 18:35 Temperature Pulse Rate 111 H 112 H 115 H Respiratory Rate 16 17 Blood Pressure 102/46 L 101/50 L 101/50 L Pulse Oximetry 93 L 94 L 09/15/18 18:45 09/15/18 18:47 09/15/18 18:48 Temperature Pulse Rate 110 H 107 H 107 H Respiratory Rate 17 17 16 Blood Pressure 101/50 L 105/49 L 98/48 L Pulse Oximetry 93 L 93 L 93 L 09/15/18 19:00 09/15/18 19:15 09/15/18 19:30 Temperature Pulse Rate 113 H 108 H 108 H Respiratory Rate 16 15 15 Blood Pressure 107/49 L 92/55 L 105/52 L Pulse Oximetry 93 L 94 L 93 L 09/15/18 19:45 09/15/18 19:50 09/15/18 19:59 Temperature Pulse Rate 106 H 100 H Respiratory Rate 17 18 18 Blood Pressure 109/52 L Pulse Oximetry 93 L 95 09/15/18 20:00 09/15/18 20:15 09/15/18 20:30 Temperature 99.2 F Pulse Rate 106 H 107 H 112 H Respiratory Rate 18 16 21 Blood Pressure 119/54 L 108/52 L 106/50 L Pulse Oximetry 95 94 L 94 L 09/15/18 20:45 09/15/18 20:59 09/15/18 21:00 Temperature Pulse Rate 106 H 108 H 105 H Respiratory Rate 16 18 19 Blood Pressure 102/50 L 110/51 L Pulse Oximetry 94 L 95 95 09/15/18 21:15 09/15/18 21:30 09/15/18 21:45 Temperature Pulse Rate 105 H 101 H 106 H Respiratory Rate 19 20 19 Blood Pressure 118/52 L 116/54 L 120/52 L Pulse Oximetry 95 96 96 09/15/18 22:00 09/15/18 22:15 09/15/18 22:30 Temperature Pulse Rate 105 H 106 H 99 H Respiratory Rate 20 18 20 Blood Pressure 123/52 L 114/54 L 104/52 L Pulse Oximetry 95 96 95 09/15/18 22:45 09/15/18 23:00 09/15/18 23:15 Temperature Pulse Rate 95 H 96 H 97 H Respiratory Rate 21 20 22 Blood Pressure 112/53 L 115/54 L 115/55 L Pulse Oximetry 96 96 96 09/15/18 23:30 09/15/18 23:45 09/16/18 00:00 Temperature 98.8 F Pulse Rate 98 H 99 H 97 H Respiratory Rate 20 20 21 Blood Pressure 112/55 L 105/54 L 111/55 L Pulse Oximetry 96 96 95 09/16/18 00:15 09/16/18 00:18 09/16/18 00:30 Temperature Pulse Rate 96 H 90 102 H Respiratory Rate 18 19 18 Blood Pressure 124/55 L 107/55 L Pulse Oximetry 96 96 94 L 09/16/18 00:45 09/16/18 01:00 09/16/18 01:15 Temperature Pulse Rate 101 H 117 H 114 H Respiratory Rate 18 17 17 Blood Pressure 107/51 L 106/51 L 107/53 L Pulse Oximetry 95 95 95 09/16/18 01:30 09/16/18 01:45 09/16/18 02:00 Temperature Pulse Rate 110 H 109 H 109 H Respiratory Rate 20 19 18 Blood Pressure 107/55 L 99/54 L 100/53 L Pulse Oximetry 95 95 95 09/16/18 02:15 09/16/18 02:30 09/16/18 02:45 Temperature Pulse Rate 108 H 107 H 106 H Respiratory Rate 19 18 16 Blood Pressure 102/56 L 102/55 L 99/54 L Pulse Oximetry 96 96 96 09/16/18 03:00 09/16/18 03:15 09/16/18 03:30 Temperature Pulse Rate 108 H 105 H 106 H Respiratory Rate 18 17 24 Blood Pressure 102/57 L 99/55 L 107/52 L Pulse Oximetry 95 96 97 09/16/18 03:45 09/16/18 04:00 09/16/18 04:15 Temperature 98.2 F Pulse Rate 106 H 102 H 103 H Respiratory Rate 19 17 18 Blood Pressure 106/53 L 95/51 L 99/52 L Pulse Oximetry 96 96 96 09/16/18 04:28 09/16/18 04:29 09/16/18 04:30 Temperature Pulse Rate 99 H 99 H Respiratory Rate 19 17 16 Blood Pressure 101/49 L Pulse Oximetry 97 96 09/16/18 04:45 09/16/18 05:00 09/16/18 05:15 Temperature Pulse Rate 104 H 108 H 106 H Respiratory Rate 17 19 17 Blood Pressure 95/48 L 100/52 L 97/55 L Pulse Oximetry 97 96 97 09/16/18 05:30 09/16/18 05:45 09/16/18 06:00 Temperature Pulse Rate 106 H 111 H 108 H Respiratory Rate 17 32 H 19 Blood Pressure 103/56 L 105/57 L 104/59 L Pulse Oximetry 96 95 09/16/18 07:00 09/16/18 07:52 09/16/18 08:00 Temperature 99.3 F Pulse Rate 108 H 98 H 100 H Respiratory Rate 16 16 17 Blood Pressure 99/53 L 112/54 L Pulse Oximetry 97 96 96 09/16/18 09:00 09/16/18 10:00 09/16/18 11:00 Temperature Pulse Rate 104 H 98 H 94 H Respiratory Rate 19 18 18 Blood Pressure 107/53 L 102/49 L 120/59 L Pulse Oximetry 97 97 95 09/16/18 11:07 09/16/18 12:00 Temperature 99.1 F Pulse Rate 97 H 99 H Respiratory Rate 16 17 Blood Pressure 141/66 H Pulse Oximetry 96 96 Intake & Output 09/15/18 09/16/18 09/16/18 18:59 06:59 18:59 Intake Total 3050 / 3050 2300 / 2300 1160 / 1160 Output Total 700 / 700 50 / 50 Balance 2350 / 2350 2250 / 2250 1160 / 1160 Weight 97.7 kg 99.1 kg Intake: IV 3050 / 3050 2300 / 2300 1160 / 1160 D5W/1/2 NS Inj 1,000 ML @ 60 1000 / 1000 1000 / 1000 500 / 500 mls/hr IV.CONT .[id number] [facility] Rx# :[id number] Neosynephrine Inj 40 MG In NS 500 / 500 1000 / 1000 500 / 500 Inj 496 ML @ 40 MCG/MIN 30 mls/ hr IV.CONT TITRATE PRN Rx#: [id number] Flexbumin 25% Inj 100 ML @ 60 200 / 200 mls/hr IV.SIG WITH DIALYSIS PRN Rx#:[id number] Calcium Chloride Inj 1 GM In NS 110 / 110 Inj 100 ML @ 110 mls/hr IV.SIG ONCE ONE Rx#:[id number] Zosyn 2.25 GM Premix 50 ML @ 100 / 100 50 / 50 50 / 50 100 mls/hr IV.SIG Q8H [facility] Rx#: [id number] Vancomycin Inj 1,000 MG In NS 250 / 250 Inj 250 ML @ 250 mls/hr IV.SIG ONCE ONE Rx#:[id number] fentaNYL 10 mcg/mL Premix Drip 250 / 250 2,500 mcg In 250 ml @ 50 MCG/HR 5 mls/hr IV.SIG TITRATE PRN Rx #:[id number] Tube Feeding 0 / 0 Output: Hemodialysis Amount 700 / 700 Urine Amount (Catheter) 50 / 50 Indwelling Urethral Catheter 50 / 50 Other: Date of Last Bowel Movement 09/15/18 09/15/18 09/16/18 # Incontinent Bowel Movements 2 Weight On Admission 96.5 kg Result Diagrams: 09/16/18 02:50 09/16/18 02:50 Laboratory Results: Laboratory Results - last 24 hr 09/15/18 09/15/18 09/15/18 16:54 20:22 23:50 WBC RBC Hgb Hct MCV MCH MCHC RDW Plt Count MPV Prelim Diff (Auto) Neut % (Auto) Lymph % (Auto) [place] % (Auto) Eos % (Auto) Baso % (Auto) Neut # (Auto) Lymph # (Auto) [place] # (Auto) Eos # (Auto) Baso # (Auto) WBC Differential Seg Neuts % (Manual) Band Neuts % (Manual) Lymphocytes % (Manual) Monocytes % (Manual) Metamyelocytes % (Man) Abs Neuts (Manual) Differential Comment Toxic Granulation Dohle Bodies Platelet Estimate Platelet Morphology Sodium Potassium Chloride Carbon Dioxide Anion Gap BUN Creatinine Estimated GFR POC Glucose 92 106 170 H Random Glucose Calcium Prot Corrected Calcium Phosphorus Magnesium Total Bilirubin AST ALT Alkaline Phosphatase Total Protein Albumin Stl C.difficile DNA Amp St C. diff Tox Epid 027 09/16/18 09/16/18 09/16/18 02:50 02:50 03:18 WBC 4.9 RBC 2.66 L Hgb 8.7 L D Hct 25.7 L MCV 96.8 MCH 32.9 MCHC 34.0 RDW 16.3 Plt Count 29 L D MPV 9.0 Prelim Diff (Auto) Slide review pending Neut % (Auto) 95.9 H Lymph % (Auto) 2.3 L [place] % (Auto) 1.5 Eos % (Auto) 0.1 Baso % (Auto) 0.2 Neut # (Auto) 4.7 Lymph # (Auto) 0.1 L [place] # (Auto) 0.1 Eos # (Auto) 0.0 Baso # (Auto) 0.0 WBC Differential Manual diff final Seg Neuts % (Manual) 56 Band Neuts % (Manual) 33 H Lymphocytes % (Manual) 5 L Monocytes % (Manual) 2 Metamyelocytes % (Man) 4 H Abs Neuts (Manual) 4.6 Differential Comment . Toxic Granulation 1+ H Dohle Bodies Present H Platelet Estimate Rare L Platelet Morphology Normal Sodium 137 Potassium 3.3 L Chloride 99 Carbon Dioxide 25.3 Anion Gap 13 BUN 72 H Creatinine 6.17 H Estimated GFR 7 L POC Glucose 166 H Random Glucose 167 H Calcium 6.6 L* Prot Corrected Calcium 7.0 L* D Phosphorus 6.9 H D Magnesium 2.2 Total Bilirubin 1.6 H AST 129 H ALT 46 Alkaline Phosphatase 25 L Total Protein 6.2 L Albumin 2.0 L D Stl C.difficile DNA Amp St C. diff Tox Epid 027 09/16/18 09/16/18 09/16/18 07:25 10:37 11:37 WBC RBC Hgb Hct MCV MCH MCHC RDW Plt Count MPV Prelim Diff (Auto) Neut % (Auto) Lymph % (Auto) [place] % (Auto) Eos % (Auto) Baso % (Auto) Neut # (Auto) Lymph # (Auto) [place] # (Auto) Eos # (Auto) Baso # (Auto) WBC Differential Seg Neuts % (Manual) Band Neuts % (Manual) Lymphocytes % (Manual) Monocytes % (Manual) Metamyelocytes % (Man) Abs Neuts (Manual) Differential Comment Toxic Granulation Dohle Bodies Platelet Estimate Platelet Morphology Sodium Potassium Chloride Carbon Dioxide Anion Gap BUN Creatinine Estimated GFR POC Glucose 197 H 117 H Random Glucose Calcium Prot Corrected Calcium Phosphorus Magnesium Total Bilirubin AST ALT Alkaline Phosphatase Total Protein Albumin Stl C.difficile DNA Amp Negative St C. diff Tox Epid 027 Negative Culture Results: Microbiology 09/15/18 12:45 Aerobic Blood Culture - Preliminary Blood - Peripheral gram negative rods Anaerobic Blood Culture - Preliminary No growth in 1 day 09/15/18 13:05 Aerobic Blood Culture - Preliminary Blood - Peripheral gram negative rods Anaerobic Blood Culture - Preliminary No growth in 1 day 09/14/18 18:10 Aerobic Blood Culture - Preliminary Blood - Line gram negative rods Anaerobic Blood Culture - Preliminary No growth in 2 days 09/14/18 18:13 Aerobic Blood Culture - Preliminary Blood - Peripheral gram negative rods Anaerobic Blood Culture - Preliminary No growth in 2 days 09/13/18 17:45 Urine Culture - Final Catheterized Urine Klebsiella pneumoniae Imaging Studies: Impressions Catheter Placement 09/15/18 00:00 CONCLUSION: 1. Uncomplicated line placement as above. Chest X-Ray 09/16/18 06:00 CONCLUSION: 1. No significant change bilateral airspace opacities and small effusions. 2. New left IJ double lumen central venous catheter with tip in the right atrium. No pneumothorax. Other lines and tubes unchanged as above. Medications: Active Medications Generic Name Dose Route Start Last Admin Trade Name Freq PRN Reason Stop Dose Admin Albuterol 1 ampul 09/13/18 20:00 09/16/18 11:06 Duoneb Neb (Bill) NEB 1 ampul Q4HR NEB BILL Administration Allopurinol 100 mg 09/16/18 12:00 09/16/18 11:50 Zyloprim PO 100 mg DAILY BILL Administration Artificial Tears 1 drop 09/15/18 13:00 09/16/18 12:39 Tears Naturale Opth Drops EACH EYE 1 drop TID BILL Administration Chlorhexidine Gluconate 3 pack 09/14/18 04:00 09/16/18 03:15 Chlorhexidine 2% Cloth TOPICAL 09/19/18 03:59 3 pack DAILY@0400 BILL Administration Gentamicin Sulfate 20 mg 09/15/18 11:06 09/15/18 16:44 Gentamicin Inj OTHER 20 mg WITH DIALYSIS PRN Administration Dwell Gentamycin Lock Heparin Sodium (Porcine) 0 units 09/15/18 11:06 09/15/18 16:44 Heparin Inj OTHER 1,000 units WITH DIALYSIS PRN Administration Dwell Heparin to Fill Catheter Heparin Sodium (Porcine) 0 unit 09/16/18 09:00 09/16/18 08:17 Heparin Central Flush IV.FLUSH 500 unit DAILY BILL Administration Piperacillin/Tazobactam/Dextrose 50 mls @ 100 mls/hr 09/14/18 08:00 09/16/18 08:47 Zosyn 2.25 Gm Premix IV.SIG Infused Q8H BILL Infusion Phenylephrine HCl 40 mg/ 500 mls @ 30 mls/hr 09/14/18 15:18 09/16/18 13:36 Sodium Chloride IV.CONT 70 mcg/min TITRATE PRN 52.5 mls/hr See Protocol Titration Protocol 40 MCG/MIN Fentanyl 2,500 mcg in 250 mls @ 5 mls/hr 09/14/18 15:55 09/16/18 00:26 Fentanyl 10 Mcg/Ml Premix Drip IV.SIG 75 mcg/hr TITRATE PRN 7.5 mls/hr Per Protocol Administration Protocol 50 MCG/HR Albumin Human 100 mls @ 60 mls/hr 09/15/18 11:06 09/15/18 16:48 Flexbumin 25% Inj IV.SIG Infused WITH DIALYSIS PRN Infusion hypotension / volume replace Insulin Human Regular 0 units 09/13/18 20:00 09/16/18 11:39 Novolin R Correctional Sugar Inj SQ Not Given Q4HR [facility] Protocol Levothyroxine Sodium 100 mcg 09/15/18 11:00 09/16/18 05:32 Synthroid PO 100 mcg DAILY@0600 BILL Administration Metoclopramide HCl 5 mg 09/16/18 14:00 09/16/18 13:39 Reglan Inj IV.PUSH Not Given Q8HR [facility] Protocol Multivitamins 1 tab 09/16/18 09:00 09/16/18 08:18 Theragran PO 1 tab DAILY BILL Administration Pantoprazole Sodium 40 mg 09/13/18 18:00 09/15/18 17:26 Protonix Inj IV.PUSH 40 mg Q24H BILL Administration Polyethylene Glycol 17 gm 09/16/18 09:00 09/16/18 08:17 Miralax PO 17 gm DAILY BILL Administration Pyridoxine HCl 50 mg 09/15/18 21:00 09/16/18 08:18 Vitamin B-6 PO 50 mg BID BILL Administration Senna/Docusate Sodium 1 tab 09/13/18 21:00 09/16/18 08:17 Chloé-Colace PO 1 tab BID BILL Administration Sodium Chloride 2 ml 09/13/18 21:00 09/16/18 08:17 Ns Flush IV.FLUSH 2 ml BID BILL Administration Vitamin D 1,000 unit 09/16/18 09:00 09/16/18 08:24 Vitamin D3 PO 1,000 unit DAILY BILL Administration Vitamin D 2,000 unit 09/16/18 09:00 09/16/18 08:24 Vitamin D3 PO 2,000 unit DAILY BILL Administration Objective Remarks: GENERAL: Critically ill appearing female patient, intubated and sedated. SKIN: Pale, warm and dry. HEAD: Normocephalic. EYES: No scleral icterus. No injection or drainage. NECK: Supple, trachea midline. Central line to right subclavian, dressing dry/ intact. CARDIOVASCULAR: Regular rate and rhythm without murmurs. RESPIRATORY: Breath sounds equal bilaterally. Intubated, FiO2 45%. EXTREMITIES: No cyanosis. 2+ edema to LUE, hard, erythematous. MUSCULOSKELETAL: Decreased muscle tone. NEUROLOGICAL: Opens her eyes to voice. Assessment/Plan - Plan Mrs. 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 She has a history of induction therapy with Revlimid, Decadron and Velcade followed by stem cell transplant. She was placed on Revlimid maintenance until progression. She had her first cycle of darutumumab, Velcade and Decadron approximately 8 days ago. She was admitted to the hospital with acute renal failure and mild thrombocytopenia. Recommendations: 1. Multiple myeloma, treatment is placed on hold until she is stabilized from her acute events. 2. Acute renal failure, management per nephrology. Status post hemodialysis which began yesterday. Patient pending dialysis today. 3. Septic shock, febrile, urine culture positive for Klebsiella pneumonia, blood cultures growing gram-negative rods in all 4 bottles. Antibiotics per infectious disease. 4. Thrombocytopenia, platelets decreased to 29,000 today. Continue to monitor closely for bleeding. Continue to hold heparin. 5. Discussed with RN, discussed with . - Attending Statement The exam, history, and the medical decision-making described in the above note were completed with the assistance of the mid-level provider. I reviewed and agree with the findings presented. I attest that I had a [id number] encounter with the patient on the same day, and personally performed and documented my assessment and findings in the medical record. US LUE positive for DVT with significant symptoms, on same side as R neck central line, complicating acute renal failure and sepsis. Thrombocytopenia in part due to sepsis and LUE DVT. Check pt/ptt and fibrinogen at baseline. Consumptive coagulopathy also driving thrombocytopenia and pt's poor BM reserve in light of BM disorder and recent use of Revlimid. Unable to exclude HIT, pt was on UFH prophylaxis. Check HIT antibodies and use Argatroban until results are available. Fortunately no renal dosing for Argatroban.
--- NOTE | 2018-09-16 15:39 | US ---
EXAM DATE: 09/16/2018 3:33 PM EDT AGE/SEX: 68 years / Female INDICATIONS: Left arm swelling and pain. CLINICAL DATA: This is the patient's initial encounter. Patient reports that signs and symptoms have been present for 1 day and indicates a pain score of 7/10. MEDICAL/SURGICAL HISTORY: Gastroesophageal reflux disease. Hemangioma. Hyperlipidemia. Multiple myeloma. Plasmacytoma. Thyroid disease. . Bone marrow transplant. Radiation therapy. COMPARISON: No prior exams available for comparison. FINDINGS: Occlusive thrombus left brachial, basilic and cephalic veins. No thrombus in the axillary, subclavian and jugular vein. Other: None. CONCLUSION: 1. Occlusive thrombus left arm Electronically signed by: Yg Flores MD 09/16/2018 3:38 PM EDT
--- NOTE | 2018-09-16 16:09 | P.PNID ---
Subjective Remarks: is a 68-year-old female with past medical history significant for multiple myeloma, monoclonal gammopathy, status post bone marrow transplant at [facility] in [place]. Patient also recently underwent chemotherapy with Revlimid, Decadron and Velcade. She is followed by Dr. Martinez and her last chemotherapy was per week prior to admission. Most of the history is obtained by review of medical records as patient is currently intubated and sedated and no family at bedside. Patient reportedly was incontinent of stool and urine and reportedly felt nauseous with vomiting and diarrhea prior to admission. Her p.o. intake had remarkably gone down prior to admission and she experienced generalized weakness. Upon initial presentation at [facility] she was noted to be in acute renal failure with a BUN of 86, creatinine of 9.2 and a hyponatremia with sodium of 119. No reported history of fever or leukocytosis but again this patient is immune compromised as she has received chemotherapy in the last 1 week prior to admission. A CT of the abdomen and pelvis was done due to history of abdominal pain and GI symptoms. CT shows a small ventral hernia in the anterior abdominal wall with no evidence of bowel obstruction no evidence of any free air or free fluid. There was noted and nodular enlargement of the left adrenal gland as well as stable lytic and sclerotic lesions in the osseous structures. An ultrasound of the abdomen showed simple cyst in the left kidney with no evidence of masses or hydronephrosis or stones noted. Due to her back pain and lumbar spine CT was performed which showed moderate fracture deformity of the L3 vertebral body and T11. She started complaining of abdominal and back pain. Patient received morphine and at some point it appears patient ended up being intubated possibly for respiratory distress or airway protection. Patient also was on Jim-Synephrine 18 mics this morning and currently is on 50 mics. Patient has been evaluated by Dr. Mg from nephrology services the nurse informs me there is a plan for Vas- Cath placement and possible hemodialysis. Patient has been evaluated for sepsis since admission and blood cultures drawn on admission positive for gram-negative rods, urine cultures are positive for Klebsiella pneumonia. Infectious disease is consulted for evaluation and management of septic shock as well as gram-negative bacteremia as well as Klebsiella UTI. Overnight events reviewed No fevers No rash Diarrhea Cdiff negative Remains intubated Razo with minimal urine. Undergoing HD using a vascath Antibiotics: Zosyn IV Vanco IV Lines: Lines ok Past Medical History: reviewed Allergies/Adverse Reactions: Allergies No Known Allergies Allergy (Verified 07/22/18 10:18) Objective Vital Signs 09/15/18 16:15 09/15/18 16:27 09/15/18 16:30 Temperature Pulse Rate 118 H 117 H Respiratory Rate 19 Blood Pressure 121/56 L 115/56 L Pulse Oximetry 79 L 88 L 82 L 09/15/18 16:45 09/15/18 17:00 09/15/18 17:15 Temperature Pulse Rate 115 H 115 H 114 H Respiratory Rate 17 18 18 Blood Pressure 125/52 L 105/51 L 94/55 L Pulse Oximetry 90 L 91 L 90 L 09/15/18 17:30 09/15/18 17:45 09/15/18 17:48 Temperature Pulse Rate 114 H 116 H Respiratory Rate 17 17 17 Blood Pressure 87/53 L 102/47 L Pulse Oximetry 90 L 91 L 91 L 09/15/18 18:00 09/15/18 18:15 09/15/18 18:30 Temperature Pulse Rate 115 H 111 H 112 H Respiratory Rate 18 16 17 Blood Pressure 102/49 L 102/46 L 101/50 L Pulse Oximetry 91 L 93 L 94 L 09/15/18 18:35 09/15/18 18:45 09/15/18 18:47 Temperature Pulse Rate 115 H 110 H 107 H Respiratory Rate 17 17 Blood Pressure 101/50 L 101/50 L 105/49 L Pulse Oximetry 93 L 93 L 09/15/18 18:48 09/15/18 19:00 09/15/18 19:15 Temperature Pulse Rate 107 H 113 H 108 H Respiratory Rate 16 16 15 Blood Pressure 98/48 L 107/49 L 92/55 L Pulse Oximetry 93 L 93 L 94 L 09/15/18 19:30 09/15/18 19:45 09/15/18 19:50 Temperature Pulse Rate 108 H 106 H Respiratory Rate 15 17 18 Blood Pressure 105/52 L 109/52 L Pulse Oximetry 93 L 93 L 95 09/15/18 19:59 09/15/18 20:00 09/15/18 20:15 Temperature 99.2 F Pulse Rate 100 H 106 H 107 H Respiratory Rate 18 18 16 Blood Pressure 119/54 L 108/52 L Pulse Oximetry 95 94 L 09/15/18 20:30 09/15/18 20:45 09/15/18 20:59 Temperature Pulse Rate 112 H 106 H 108 H Respiratory Rate 21 16 18 Blood Pressure 106/50 L 102/50 L Pulse Oximetry 94 L 94 L 95 09/15/18 21:00 09/15/18 21:15 09/15/18 21:30 Temperature Pulse Rate 105 H 105 H 101 H Respiratory Rate 19 19 20 Blood Pressure 110/51 L 118/52 L 116/54 L Pulse Oximetry 95 95 96 09/15/18 21:45 09/15/18 22:00 09/15/18 22:15 Temperature Pulse Rate 106 H 105 H 106 H Respiratory Rate 19 20 18 Blood Pressure 120/52 L 123/52 L 114/54 L Pulse Oximetry 96 95 96 09/15/18 22:30 09/15/18 22:45 09/15/18 23:00 Temperature Pulse Rate 99 H 95 H 96 H Respiratory Rate 20 21 20 Blood Pressure 104/52 L 112/53 L 115/54 L Pulse Oximetry 95 96 96 09/15/18 23:15 09/15/18 23:30 09/15/18 23:45 Temperature Pulse Rate 97 H 98 H 99 H Respiratory Rate 22 20 20 Blood Pressure 115/55 L 112/55 L 105/54 L Pulse Oximetry 96 96 96 09/16/18 00:00 09/16/18 00:15 09/16/18 00:18 Temperature 98.8 F Pulse Rate 97 H 96 H 90 Respiratory Rate 21 18 19 Blood Pressure 111/55 L 124/55 L Pulse Oximetry 95 96 96 09/16/18 00:30 09/16/18 00:45 09/16/18 01:00 Temperature Pulse Rate 102 H 101 H 117 H Respiratory Rate 18 18 17 Blood Pressure 107/55 L 107/51 L 106/51 L Pulse Oximetry 94 L 95 95 09/16/18 01:15 09/16/18 01:30 09/16/18 01:45 Temperature Pulse Rate 114 H 110 H 109 H Respiratory Rate 17 20 19 Blood Pressure 107/53 L 107/55 L 99/54 L Pulse Oximetry 95 95 95 09/16/18 02:00 09/16/18 02:15 09/16/18 02:30 Temperature Pulse Rate 109 H 108 H 107 H Respiratory Rate 18 19 18 Blood Pressure 100/53 L 102/56 L 102/55 L Pulse Oximetry 95 96 96 09/16/18 02:45 09/16/18 03:00 09/16/18 03:15 Temperature Pulse Rate 106 H 108 H 105 H Respiratory Rate 16 18 17 Blood Pressure 99/54 L 102/57 L 99/55 L Pulse Oximetry 96 95 96 09/16/18 03:30 09/16/18 03:45 09/16/18 04:00 Temperature 98.2 F Pulse Rate 106 H 106 H 102 H Respiratory Rate 24 19 17 Blood Pressure 107/52 L 106/53 L 95/51 L Pulse Oximetry 97 96 96 09/16/18 04:15 09/16/18 04:28 09/16/18 04:29 Temperature Pulse Rate 103 H 99 H Respiratory Rate 18 19 17 Blood Pressure 99/52 L Pulse Oximetry 96 97 09/16/18 04:30 09/16/18 04:45 09/16/18 05:00 Temperature Pulse Rate 99 H 104 H 108 H Respiratory Rate 16 17 19 Blood Pressure 101/49 L 95/48 L 100/52 L Pulse Oximetry 96 97 96 09/16/18 05:15 09/16/18 05:30 09/16/18 05:45 Temperature Pulse Rate 106 H 106 H 111 H Respiratory Rate 17 17 32 H Blood Pressure 97/55 L 103/56 L 105/57 L Pulse Oximetry 97 96 09/16/18 06:00 09/16/18 07:00 09/16/18 07:52 Temperature Pulse Rate 108 H 108 H 98 H Respiratory Rate 19 16 16 Blood Pressure 104/59 L 99/53 L Pulse Oximetry 95 97 96 09/16/18 08:00 09/16/18 09:00 09/16/18 10:00 Temperature 99.3 F Pulse Rate 100 H 104 H 98 H Respiratory Rate 17 19 18 Blood Pressure 112/54 L 107/53 L 102/49 L Pulse Oximetry 96 97 97 09/16/18 11:00 09/16/18 11:07 09/16/18 12:00 Temperature 99.1 F Pulse Rate 94 H 97 H 99 H Respiratory Rate 18 16 17 Blood Pressure 120/59 L 141/66 H Pulse Oximetry 95 96 96 09/16/18 15:01 09/16/18 15:57 Temperature Pulse Rate 101 H Respiratory Rate 18 19 Blood Pressure Pulse Oximetry 97 Intake & Output 09/15/18 09/16/18 09/16/18 18:59 06:59 18:59 Intake Total 3050 / 3050 2300 / 2300 1360 / 1360 Output Total 700 / 700 50 / 50 Balance 2350 / 2350 2250 / 2250 1360 / 1360 Weight 97.7 kg 99.1 kg Intake: IV 3050 / 3050 2300 / 2300 1360 / 1360 D5W/1/2 NS Inj 1,000 ML @ 60 1000 / 1000 1000 / 1000 500 / 500 mls/hr IV.CONT .[id number] [facility] Rx# :[id number] Neosynephrine Inj 40 MG In NS 500 / 500 1000 / 1000 500 / 500 Inj 496 ML @ 40 MCG/MIN 30 mls/ hr IV.CONT TITRATE PRN Rx#: [id number] Flexbumin 25% Inj 100 ML @ 60 200 / 200 200 / 200 mls/hr IV.SIG WITH DIALYSIS PRN Rx#:[id number] Calcium Chloride Inj 1 GM In NS 110 / 110 Inj 100 ML @ 110 mls/hr IV.SIG ONCE ONE Rx#:[id number] Zosyn 2.25 GM Premix 50 ML @ 100 / 100 50 / 50 50 / 50 100 mls/hr IV.SIG Q8H [facility] Rx#: [id number] Vancomycin Inj 1,000 MG In NS 250 / 250 Inj 250 ML @ 250 mls/hr IV.SIG ONCE ONE Rx#:[id number] fentaNYL 10 mcg/mL Premix Drip 250 / 250 2,500 mcg In 250 ml @ 50 MCG/HR 5 mls/hr IV.SIG TITRATE PRN Rx #:[id number] Tube Feeding 0 / 0 Output: Hemodialysis Amount 700 / 700 Urine Amount (Catheter) 50 / 50 Indwelling Urethral Catheter 50 / 50 Other: Date of Last Bowel Movement 09/15/18 09/15/18 09/16/18 # Incontinent Bowel Movements 2 Weight On Admission 96.5 kg 09/16/18 11:10 Sputum - Endotracheal Gram Stain - Pending 09/16/18 11:10 Sputum - Endotracheal Sputum Culture - Pending 09/15/18 12:45 Blood - Peripheral Aerobic Blood Culture - Preliminary gram negative rods 09/15/18 12:45 Blood - Peripheral Anaerobic Blood Culture - Preliminary No growth in 1 day 09/15/18 13:05 Blood - Peripheral Aerobic Blood Culture - Preliminary gram negative rods 09/15/18 13:05 Blood - Peripheral Anaerobic Blood Culture - Preliminary No growth in 1 day 09/14/18 18:10 Blood - Line Aerobic Blood Culture - Preliminary gram negative rods 09/14/18 18:10 Blood - Line Anaerobic Blood Culture - Preliminary No growth in 2 days 09/14/18 18:13 Blood - Peripheral Aerobic Blood Culture - Preliminary gram negative rods 09/14/18 18:13 Blood - Peripheral Anaerobic Blood Culture - Preliminary No growth in 2 days 09/13/18 17:45 Catheterized Urine Urine Culture - Final Klebsiella pneumoniae Lab - Hematology Results 09/14/18 09/15/18 09/16/18 17:10 02:55 02:50 WBC 3.1 L 7.3 D 4.9 RBC 3.45 L 3.42 L 2.66 L Hgb 11.3 L 11.3 L 8.7 L D Hct 33.0 L 32.9 L 25.7 L MCV 95.9 96.1 96.8 MCH 32.9 33.1 32.9 MCHC 34.3 34.4 34.0 RDW 15.6 15.7 16.3 Plt Count 57 L 47 L 29 L D MPV 10.3 9.4 9.0 Prelim Diff (Auto) Slide review pending Slide review pending Neut % (Auto) 93.1 H 95.9 H Lymph % (Auto) 3.9 L 2.3 L [place] % (Auto) 2.7 1.5 Eos % (Auto) 0.2 0.1 Baso % (Auto) 0.1 0.2 Neut # (Auto) 6.8 4.7 Lymph # (Auto) 0.3 L 0.1 L [place] # (Auto) 0.2 0.1 Eos # (Auto) 0.0 0.0 Baso # (Auto) 0.0 0.0 WBC Differential Manual diff final Manual diff final Seg Neuts % (Manual) 69 56 Band Neuts % (Manual) 19 H 33 H Lymphocytes % (Manual) 3 L 5 L Monocytes % (Manual) 2 Metamyelocytes % (Man) 8 H 4 H Plasma Cell % (Manual) 1 H Abs Neuts (Manual) 7.0 4.6 Differential Comment . . Toxic Granulation 1+ H Toxic Vacuolation Present H Dohle Bodies Present H Present H Platelet Estimate Low L Rare L Platelet Morphology Normal Normal Ovalocytes 1+ H Acanthocytes (Spur) Occ H Lab - Chemistry Results 09/14/18 09/14/18 09/14/18 17:10 17:10 20:13 Sodium 131 L Potassium 3.2 L Chloride 92 L Carbon Dioxide 22.5 Anion Gap 17 H BUN 100 H Creatinine 8.65 H Estimated GFR 5 L POC Glucose 106 Random Glucose 103 Lactic Acid 3.7 H Calcium 6.3 L* Prot Corrected Calcium 6.5 L* Phosphorus Magnesium Total Bilirubin 1.7 H AST 80 H ALT 66 H Alkaline Phosphatase 34 L Total Creatine Kinase 186 CK-MB (CK-2) 2.1 Troponin I Less than 0.02 L Total Protein 6.8 D Albumin 1.5 L 09/14/18 09/15/18 09/15/18 23:25 02:55 08:00 Sodium 132 L Potassium 3.5 Chloride 92 L Carbon Dioxide 23.8 Anion Gap 16 H BUN 109 H Creatinine 8.96 H Estimated GFR 4 L POC Glucose 86 97 Random Glucose 95 Lactic Acid Calcium 5.9 L* Prot Corrected Calcium 6.2 L* Phosphorus 9.2 H D Magnesium Total Bilirubin 1.6 H AST 82 H ALT 58 H Alkaline Phosphatase 30 L Total Creatine Kinase CK-MB (CK-2) Troponin I Total Protein 6.4 Albumin 1.4 L 09/15/18 09/15/18 09/15/18 11:00 12:12 16:54 Sodium Potassium Chloride Carbon Dioxide Anion Gap BUN Creatinine Estimated GFR POC Glucose 86 92 Random Glucose Lactic Acid Calcium 6.3 L* Prot Corrected Calcium Phosphorus Magnesium Total Bilirubin AST ALT Alkaline Phosphatase Total Creatine Kinase CK-MB (CK-2) Troponin I Total Protein Albumin 09/15/18 09/15/18 09/16/18 20:22 23:50 02:50 Sodium 137 Potassium 3.3 L Chloride 99 Carbon Dioxide 25.3 Anion Gap 13 BUN 72 H Creatinine 6.17 H Estimated GFR 7 L POC Glucose 106 170 H Random Glucose 167 H Lactic Acid Calcium 6.6 L* Prot Corrected Calcium 7.0 L* D Phosphorus 6.9 H D Magnesium 2.2 Total Bilirubin 1.6 H AST 129 H ALT 46 Alkaline Phosphatase 25 L Total Creatine Kinase CK-MB (CK-2) Troponin I Total Protein 6.2 L Albumin 2.0 L D 09/16/18 09/16/18 09/16/18 03:18 07:25 11:37 Sodium Potassium Chloride Carbon Dioxide Anion Gap BUN Creatinine Estimated GFR POC Glucose 166 H 197 H 117 H Random Glucose Lactic Acid Calcium Prot Corrected Calcium Phosphorus Magnesium Total Bilirubin AST ALT Alkaline Phosphatase Total Creatine Kinase CK-MB (CK-2) Troponin I Total Protein Albumin 09/16/18 15:28 Sodium Potassium Chloride Carbon Dioxide Anion Gap BUN Creatinine Estimated GFR POC Glucose 89 Random Glucose Lactic Acid Calcium Prot Corrected Calcium Phosphorus Magnesium Total Bilirubin AST ALT Alkaline Phosphatase Total Creatine Kinase CK-MB (CK-2) Troponin I Total Protein Albumin Imaging: ITS Impressions Abdomen/Bladder Ultrasound 09/13/18 00:00 CONCLUSION: 1. Simple cyst left kidney. Abdomen/Pelvis CT 09/13/18 08:54 CONCLUSION: 1. There is a small ventral hernia in the anterior abdominal wall. There is some omental fat herniated through the defect. 2. There are no findings to indicate a bowel obstruction. No free air free fluid is seen. 3. Nodular enlargement of the left adrenal gland new compared to previous of . Metastatic disease to the left adrenal is not excluded. 4. Stable mixed lytic and sclerotic lesion seen in the osseous structures when compared to PET examination of 06/28/2018. Lumbar Spine CT 09/13/18 08:54 CONCLUSION: 1. Moderate fracture deformity of the L3 vertebral body with central lucency, sclerosis and invagination of the superior and inferior endplates. This may be acute. 2. Moderate fracture deformity of the T11 vertebral body with abnormal lucency , sclerosis and invagination superior and inferior endplates. 3. Atheromatous involvement of T10, T11, L1, L2 and L3 vertebral bodies. 4. Large lytic lesion involving the right side of the sacrum. 5. Moderate central canal stenosis at the L4-5 level secondary to disc bulge and degenerative change involving the facet joints. Abdomen X-Ray 09/14/18 21:45 CONCLUSION: OG tube tip in distal stomach. No free air. Catheter Placement 09/15/18 00:00 CONCLUSION: 1. Uncomplicated line placement as above. Venous Doppler Study 09/16/18 00:00 CONCLUSION: 1. Occlusive thrombus left arm Chest X-Ray 09/16/18 06:00 CONCLUSION: 1. No significant change bilateral airspace opacities and small effusions. 2. New left IJ double lumen central venous catheter with tip in the right atrium. No pneumothorax. Other lines and tubes unchanged as above. Physical Exam: GENERAL: Obese acutely ill appearing, not in acute distress SKIN: Cool and dry, no generalized rash HEAD: Atraumatic. Normocephalic. No temporal or scalp tenderness. EYES: Pupils equal round and reactive. Scleral icterus. No injection or drainage. No petechia ENT: Intubated. NECK: Trachea midline. Supple, nontender, no meningeal signs. CARDIOVASCULAR: HS audible. RESPIRATORY: Clear to auscultation bilaterally. AE decreased in the bases. GASTROINTESTINAL: Abdomen soft , diffuse tenderness. Obese. MUSCULOSKELETAL: Extremities without clubbing, cyanosis. NEUROLOGICAL: Alert oriented 3. Nonfocal. Psych cooperative IV line sites ok. CL site ok. Assessment and Plan - Plan Septic shock with multiorgan dysfunction syndrome Likely source Klebsiella pneumoniae UTI and gram-negative bacteremia expect gram -negative in the blood to be most likely Klebsiella pneumonia. Gram-negative warren bacteremia Klebsiella pneumoniae UTI ? Chemo induced GI mucositis as cause for GNR sepsis. Immune compromised status recent chemotherapy Multiple myeloma Acute respiratory failure Acute renal failure possibility of hemodialysis later today Recommendations: Continue Zosyn IV for now. If worsening sepsis ok to change to meropenem IV and add Zyvox IV. Suspect ongoing positive cultures due to severe neutropenia period. Will check 2D ECHO to r/o endocarditis. Follow cultures follow clinical course. rebecca HAIRSTON
[2018-09-16] MEDS: Pantoprazole Inj 40 MG Vial IV.PUSH SCH (17:39)
[2018-09-16 18:02] LABS: Hepatitis A IgM Antibody Nonreactive (Nonreactive); Hepatitits B Surface Antigen Nonreactive (Nonreactive)
[2018-09-16] MEDS: Argatroban Inj 250 MG in Sodium Chlor 0.9% Inj 247.5 ML IV.CONT PRN (18:03)
[2018-09-16 18:24] LABS: INR 1.1 Ratio; Prothrombin Time 11.4 sec (9.8-11.6)
[2018-09-17 03:18] LABS: Mean Corpuscular HGB Conc 33.3 % (32.0-36.0); Mean Corpuscular Hemoglobin 32.6 pg (27.0-34.0); Mean Corpuscular Volume 97.8 fL (80.0-100.0); Mean Platelet Volume 8.8 fL (7.0-11.0); Platelet Count 20 th/mm3 (150-450); Red Blood Count 2.45 mil/mm3 (4.00-5.30); Red Cell Distribution Width 16.1 % (11.6-17.2); White Blood Count 2.5 th/mm3 (4.0-11.0)
[2018-09-17 03:38] LABS: Alanine Aminotransferase 46 U/L (10-53); Albumin 2.2 g/dL (3.4-5.0); Alkaline Phosphatase 26 U/L (45-117); Anion Gap 8 meq/L (5-15); Aspartate Aminotransferase 109 U/L (15-37); Blood Urea Nitrogen 49 mg/dL (7-18); Calcium 8.3 mg/dL (8.5-10.1); Carbon Dioxide 28.7 meq/L (21.0-32.0); Chloride 104 meq/L (98-107); Glomerular Filtration Rate 10 mL/min (>89); Glucose,Random 94 mg/dL (74-106); Magnesium 2.1 mg/dL (1.5-2.5); Phosphorus 4.3 mg/dL (2.5-4.9); Potassium 3.8 meq/L (3.5-5.1); Sodium 141 meq/L (136-145); Total Protein 6.4 g/dL (6.4-8.2)
[2018-09-17 03:50] LABS: Lymphocytes 7 % (9-44); Metamyelocytes 2 % (0-1)
[2018-09-17 03:51] LABS: Dohle Bodies Present; Ovalocytes 1+; Platelet Morphology Normal (Normal); Toxic Granulation 1+
--- NOTE | 2018-09-17 03:57 | XR ---
EXAM DATE: 09/17/2018 3:40 AM EDT AGE/SEX: 68 years / Female INDICATIONS: Shortness of breath, possible pulmonary disease. CLINICAL DATA: This is the patient's subsequent encounter. Patient reports that signs and symptoms h ave been present for 4 - 6 days and indicates a pain score of Nonresponsive. MEDICAL/SURGICAL HISTORY: . Multiple myeloma. . Hysterectomy. Cholecystectomy. [place] [facility] [place]. . FINDINGS: The cardiac silhouette is enlarged in transverse diameter. Support lines and tubes are in satisfactor y position. There is left lower lobe atelectasis versus pneumonia. There is prominence of the central pulmonary vasculature with indistinct vascular margins compatible with vascular congestion but no ev idence of overt failure. Small bilateral pleural effusions are identified. CONCLUSION: Cardiomegaly and findings of vascular congestion without overt failure. There has been no significant change when compared to the prior exam. Left lower lobe atelectasis versus pneumonia. Electronically signed by: Simone Alvarez MD 09/17/2018 3:55 AM EDT
--- NOTE | 2018-09-17 03:58 | XR ---
EXAM DATE: 09/17/2018 3:41 AM EDT AGE/SEX: 68 years / Female INDICATIONS: Abdominal distension CLINICAL DATA: This is the patient's subsequent encounter. Patient reports that signs and symptoms h ave been present for 1 week and indicates a pain score of Nonresponsive. MEDICAL/SURGICAL HISTORY: . Gastroesophageal reflux disease. Multiple myeloma. . Hysterectomy. Cholecystectomy. COMPARISON: . FINDINGS: The abdominal bowel gas pattern is normal. No abnormal masses, calcifications, or organomegaly is s een. The osseous structures are unremarkable. Nasogastric tube has its tip in the region of the pylo crys channel There are surgical clips in the right upper quadrant compatible with prior cholecystectom y. CONCLUSION: No evidence of obstruction. Electronically signed by: Simone Alvarez MD 09/17/2018 3:56 AM EDT
[2018-09-17] MEDS: Chlorhexidine Gluconate 2% 1 Pack (2 Cloths) TOPICAL SCH (04:00)
[2018-09-17] MEDS: Insulin NovoLIN Regular Correctional Sugar Inj SQ SCH ×5 (04:00→15:50)
[2018-09-17] MEDS: Levothyroxine 100 MCG Tablet PO SCH (06:28)
--- NOTE | 2018-09-17 07:21 | P.PNCC ---
Subjective Subjective Remarks/Hospital Course: patient is a 68-year-old female with a past medical history of hyperlipidemia, multiple myeloma, monoclonal gammopathy and GERD, who initially presented to [facility] ED with complaints of abdominal pain and back pain. The patient was recently treated with Revlimid, Decadron and Velcade. She also had a bone marrow transplant at [facility] in [place]. She is being followed by Dr. Martinez and had chemotherapy last week. The patient also was incontinent with a stooland urine and reported feeling nauseous and having vomiting and diarrhea. Also, she reports decreased p.o. intake for several days and generalized weakness. Her initial laboratory data showed acute renal failure with a BUN of 86, creatinine 9.2 and hyponatremia with a sodium level of 119. There was no evidence of any fever or leukocytosis. Due to abdominal pain, a CT abdomen and pelvis was done which showed a small ventral hernia in the anterior abdominal wall, no findings to indicate a bowel obstruction and no evidence of any free air or free fluid. Nodular enlargement of the left adrenal gland, new compared to prior study, and stable mixed lytic and sclerotic lesions in the osseous structures. She also had an ultrasound of the abdomen which showed a simple cyst in left kidney, no evidence of any masses or hydronephrosis. Due to her back pain, a lumbar CT spine was performed which showed moderate fracture deformity of the L3 vertebral body and T11. She was transferred to [facility] where she was seen by Dr. Avery from the hospitalist service this afternoon. Shortly after, the patient was transferred to the ICU for increased O2 requirements and tachycardia. She had a chest x- ray this morning as well which showeda mild streaky opacity in the left lateral lung and left lung base with no consolidation. When seen in the ICU, she is tachycardic with heart rate of 114, blood pressure 128/79 and on a nonrebreather mask. The patient is complaining of abdominal pain and back pain. She received morphine earlier. The patient was also seen by Dr. Valle from the nephrology service. She has been given approximately 3 liters of crystalloids thus far. 09/14 Patient is on NRM, renal function slowly improving, on bicarb drip. Afebrile. 09/15: Febrile overnight. T-max 102.9. Currently on phenylephrine drip. Minimal urine output. Tolerating tube feeds at 30 cc an hour. Subjective 09/16: T-max 101.8. Currently afebrile. Received hemodialysis yesterday. Remains on the ventilator. Platelets continue to down trend. Replacing calcium today. Klebsiella from urine likely blood cultures well. 09/17 Patient is intubated and sedated with Fentanyl drip. s/p HD yesterday w removal 3L. On Argatroban. Objective Vital Signs / I&O: Vital Signs 09/16/18 07:52 09/16/18 08:00 09/16/18 09:00 Temperature 99.3 F Pulse Rate 98 H 100 H 104 H Respiratory Rate 16 17 19 Blood Pressure 112/54 L 107/53 L Pulse Oximetry 96 96 97 09/16/18 10:00 09/16/18 11:00 09/16/18 11:07 Temperature Pulse Rate 98 H 94 H 97 H Respiratory Rate 18 18 16 Blood Pressure 102/49 L 120/59 L Pulse Oximetry 97 95 96 09/16/18 12:00 09/16/18 15:01 09/16/18 15:57 Temperature 99.1 F Pulse Rate 99 H 101 H Respiratory Rate 17 18 19 Blood Pressure 141/66 H Pulse Oximetry 96 97 09/16/18 16:00 09/16/18 19:00 09/16/18 19:15 Temperature 98.5 F Pulse Rate 102 H 100 H 99 H Respiratory Rate 20 20 18 Blood Pressure 90/45 L 106/51 L 101/47 L Pulse Oximetry 98 99 97 09/16/18 19:30 09/16/18 19:45 09/16/18 20:00 Temperature 98.0 F Pulse Rate 97 H 96 H 100 H Respiratory Rate 16 17 17 Blood Pressure 103/49 L 103/50 L 105/49 L Pulse Oximetry 98 97 97 09/16/18 20:15 09/16/18 20:30 09/16/18 20:45 Temperature Pulse Rate 100 H 100 H 100 H Respiratory Rate 19 20 21 Blood Pressure 106/51 L 114/53 L 110/51 L Pulse Oximetry 97 97 97 09/16/18 21:00 09/16/18 21:15 09/16/18 21:30 Temperature Pulse Rate 98 H 98 H 97 H Respiratory Rate 18 17 17 Blood Pressure 108/51 L 108/51 L 109/52 L Pulse Oximetry 98 97 97 09/16/18 21:45 09/16/18 22:00 09/16/18 22:15 Temperature Pulse Rate 97 H 97 H 101 H Respiratory Rate 18 18 22 Blood Pressure 108/50 L 112/53 L 124/55 L Pulse Oximetry 97 97 97 09/16/18 22:30 09/16/18 22:45 09/16/18 23:00 Temperature Pulse Rate 98 H 104 H 101 H Respiratory Rate 19 20 25 H Blood Pressure 127/58 L 124/59 L 125/58 L Pulse Oximetry 96 97 97 09/16/18 23:15 09/16/18 23:24 09/16/18 23:30 Temperature Pulse Rate 97 H 99 H 99 H Respiratory Rate 22 19 19 Blood Pressure 120/57 L 119/56 L Pulse Oximetry 97 97 09/16/18 23:45 09/17/18 00:00 09/17/18 01:18 Temperature Pulse Rate 101 H 102 H Respiratory Rate 16 17 20 Blood Pressure 109/51 L 110/53 L Pulse Oximetry 96 97 96 09/17/18 03:13 09/17/18 04:15 Temperature Pulse Rate 97 H Respiratory Rate 17 21 Blood Pressure Pulse Oximetry 95 Intake & Output 09/16/18 09/17/18 09/17/18 18:59 06:59 18:59 Intake Total 1499 / 1499 300 / 300 Output Total 3000 / 3000 Balance -1501 / -1501 300 / 300 Intake: IV 1410 / 1410 300 / 300 D5W/1/2 NS Inj 1,000 ML @ 60 500 / 500 mls/hr IV.CONT .[id number] [facility] Rx# :[id number] Neosynephrine Inj 40 MG In NS 500 / 500 Inj 496 ML @ 40 MCG/MIN 30 mls/ hr IV.CONT TITRATE PRN Rx#: [id number] Flexbumin 25% Inj 100 ML @ 60 200 / 200 mls/hr IV.SIG WITH DIALYSIS PRN Rx#:[id number] Calcium Chloride Inj 1 GM In NS 110 / 110 Inj 100 ML @ 110 mls/hr IV.SIG ONCE ONE Rx#:[id number] Zosyn 2.25 GM Premix 50 ML @ 100 / 100 50 / 50 100 mls/hr IV.SIG Q8H [facility] Rx#: [id number] fentaNYL 10 mcg/mL Premix Drip 250 / 250 2,500 mcg In 250 ml @ 50 MCG/HR 5 mls/hr IV.SIG TITRATE PRN Rx #:[id number] Tube Feeding Output: Hemodialysis Amount 3000 / 3000 Other: Date of Last Bowel Movement 09/16/18 09/16/18 # Incontinent Bowel Movements 4 Result Diagrams: 09/17/18 03:00 09/17/18 03:00 Other Results: Laboratory Results - last 12 hr 09/16/18 09/16/18 09/17/18 20:08 23:37 03:00 WBC 2.5 L RBC 2.45 L Hgb 8.0 L Hct 24.0 L MCV 97.8 MCH 32.6 MCHC 33.3 RDW 16.1 Plt Count 20 L D MPV 8.8 Prelim Diff (Auto) Manual diff required WBC Differential Manual diff final Seg Neuts % (Manual) 74 H Band Neuts % (Manual) 17 H Lymphocytes % (Manual) 7 L Metamyelocytes % (Man) 2 H Abs Neuts (Manual) 2.3 Differential Comment . Toxic Granulation 1+ H Dohle Bodies Present H Platelet Estimate Low L Platelet Morphology Normal Ovalocytes 1+ H Keratocytes Occ H Sodium Potassium Chloride Carbon Dioxide Anion Gap BUN Creatinine Estimated GFR POC Glucose 105 103 Random Glucose Lactic Acid Calcium Phosphorus Magnesium Total Bilirubin AST ALT Alkaline Phosphatase Total Protein Albumin 09/17/18 09/17/18 03:00 03:00 WBC RBC Hgb Hct MCV MCH MCHC RDW Plt Count MPV Prelim Diff (Auto) WBC Differential Seg Neuts % (Manual) Band Neuts % (Manual) Lymphocytes % (Manual) Metamyelocytes % (Man) Abs Neuts (Manual) Differential Comment Toxic Granulation Dohle Bodies Platelet Estimate Platelet Morphology Ovalocytes Keratocytes Sodium 141 Potassium 3.8 Chloride 104 Carbon Dioxide 28.7 Anion Gap 8 BUN 49 H Creatinine 4.42 H Estimated GFR 10 L POC Glucose Random Glucose 94 Lactic Acid 0.7 Calcium 8.3 L D Phosphorus 4.3 D Magnesium 2.1 Total Bilirubin 2.1 H AST 109 H ALT 46 Alkaline Phosphatase 26 L Total Protein 6.4 Albumin 2.2 L Imaging: Abdomen/Bladder Ultrasound 09/13/18 00:00 CONCLUSION: 1. Simple cyst left kidney. Abdomen/Pelvis CT 09/13/18 08:54 CONCLUSION: 1. There is a small ventral hernia in the anterior abdominal wall. There is some omental fat herniated through the defect. 2. There are no findings to indicate a bowel obstruction. No free air free fluid is seen. 3. Nodular enlargement of the left adrenal gland new compared to previous of . Metastatic disease to the left adrenal is not excluded. 4. Stable mixed lytic and sclerotic lesion seen in the osseous structures when compared to PET examination of 06/28/2018. Lumbar Spine CT 09/13/18 08:54 CONCLUSION: 1. Moderate fracture deformity of the L3 vertebral body with central lucency, sclerosis and invagination of the superior and inferior endplates. This may be acute. 2. Moderate fracture deformity of the T11 vertebral body with abnormal lucency , sclerosis and invagination superior and inferior endplates. 3. Atheromatous involvement of T10, T11, L1, L2 and L3 vertebral bodies. 4. Large lytic lesion involving the right side of the sacrum. 5. Moderate central canal stenosis at the L4-5 level secondary to disc bulge and degenerative change involving the facet joints. Catheter Placement 09/15/18 00:00 CONCLUSION: 1. Uncomplicated line placement as above. Venous Doppler Study 09/16/18 00:00 CONCLUSION: 1. Occlusive thrombus left arm Abdomen X-Ray 09/17/18 00:01 CONCLUSION: No evidence of obstruction. Chest X-Ray 09/17/18 06:00 CONCLUSION: Cardiomegaly and findings of vascular congestion without overt failure. There has been no significant change when compared to the prior exam. Left lower lobe atelectasis versus pneumonia. Objective Remarks: GENERAL: Patient is 68 yo lying in bed in no acute distress SKIN: Warm and dry. HEAD: Normocephalic. EYES: No scleral icterus. No injection or drainage. NECK: Supple, trachea midline. No JVD or lymphadenopathy. Right IJ CVL and left hemodialysis catheter is clean dry and intact CARDIOVASCULAR: Tachycardic without murmurs, gallops, or rubs. RESPIRATORY: Breath sounds equal bilaterally. No accessory muscle use. GASTROINTESTINAL: Abdomen soft, mild-tenderness on palpation, nondistended, obese. Reducible anterior wall hernia MUSCULOSKELETAL: Trace bilateral lower extremity edema. Neuro: intubated, sedated Assessment and Plan - Assessment and Plan Plan: 1. Acute hypoxemic respiratory failure. 2. Acute renal failure -currently on hemodialysis. 3. Hyponatremia -resolving. 4. Dehydration. 5. Elevated liver enzymes including AST, total bilirubin and decreased albumin. 6. Hypertension currently hypotensive likely secondary to severe sepsis. 7. Chronic pain syndrome. 8. Abdominal pain associated with nausea and vomiting. 9. Gastroesophageal reflux disease. 10. History of multiple myeloma. 11 UTI -Klebsiella pneumoniae 12 normocytic anemia with thrombocytopenia/acute 13. Gram-negative warren sepsis 14. Hypocalcemia 15. Hyponatremia 16. Hyperphosphatemia 17. Lactic acidosis 18. Ventral abdominal hernia with omental fat 19 T11 fracture, L3 fracture 20. Hypothyroidism overcorrected Plan Neuro: Monitor neuro status closely. Currently on fentanyl drip at 75 mcg/min. Daily sedation vacation Pulm: PRVC ventilation and maintain sats > 92%. Albuterol/ipratropium aerosols every 4 hours with albuterol aerosols every 2 hours as needed dyspnea SBT daily as severo CV: Monitor HR and BP keep MAP>65mmHG. Off Neosyn Lactic acid 0.7 2D echo to eval LV function and complete 09/14. Revealed EF 60-65%. PA P 30 mmHg. : Monitor renal function, I's and O's and avoid nephrotoxins. CT abdomen and pelvis showed no signs of obstruction ultrasound abdomen showed no evidence of hydronephrosis. Renal is following- Tori Lay, s/p HD yesterday w removal 3L. GI: on pantoprazole 40 mg IV daily for GI prophylaxis. Monitor LFTs. A CT abdomen and pelvis showed the liver was within normal limits. Tube feeds- On Nepro with goal rate 50ml/hr ID: on piperacillin/tazobactam and vancomycin. Monitor for signs of infections( fever and WBC). blood culture 09/14, 09/15: with gram-negative rods Urine cx 09/13: Kleb pneumonia Sputum 09/16: Pending Check BX 2 2sets today Heme: Monitor CBC and coags. On Argatroban, Heme is following Endo: SSI with Accu-Cheks to maintain euglycemic control every 4 hours. TSH: 0.145, FT4:1.34. levothyroxine 100 mg daily GI prophylaxis with pantoprazole 40 mg daily and DVT prophylaxis with SCDs, On Argatroban Doppler US LUE: occlusive thrombus left arm IV access: Left IJ vascath, right IJ CVP CCT 35 mins excluding procedures
[2018-09-17] MEDS: Allopurinol 100 MG Tablet PO SCH (08:54)
[2018-09-17] MEDS: Piperacil/Tazo 2.25 GM Premix 50 ML IV.SIG SCH (08:54)
[2018-09-17] MEDS: Senna/Docusate Sodium 8.6/50 MG Tablet PO SCH (08:55)
[2018-09-17] MEDS: Artificial Tears Opth Drops 15 ML Bottle EACH EYE SCH ×3 (08:55→18:53)
[2018-09-17] MEDS: Sodium Chloride 0.9% 2 ML Flush BID IV.FLUSH SCH ×2 (08:55→20:57)
[2018-09-17] MEDS: Polyethylene Glycol 3350 17 GM Packet PO SCH (08:55)
--- NOTE | 2018-09-17 11:36 | P.PNID ---
Subjective Remarks: is a 68-year-old female with past medical history significant for multiple myeloma, monoclonal gammopathy, status post bone marrow transplant at [facility] in [place]. Patient also recently underwent chemotherapy with Revlimid, Decadron and Velcade. She is followed by Dr. Martinez and her last chemotherapy was per week prior to admission. Most of the history is obtained by review of medical records as patient is currently intubated and sedated and no family at bedside. Patient reportedly was incontinent of stool and urine and reportedly felt nauseous with vomiting and diarrhea prior to admission. Her p.o. intake had remarkably gone down prior to admission and she experienced generalized weakness. Upon initial presentation at [facility] she was noted to be in acute renal failure with a BUN of 86, creatinine of 9.2 and a hyponatremia with sodium of 119. No reported history of fever or leukocytosis but again this patient is immune compromised as she has received chemotherapy in the last 1 week prior to admission. A CT of the abdomen and pelvis was done due to history of abdominal pain and GI symptoms. CT shows a small ventral hernia in the anterior abdominal wall with no evidence of bowel obstruction no evidence of any free air or free fluid. There was noted and nodular enlargement of the left adrenal gland as well as stable lytic and sclerotic lesions in the osseous structures. An ultrasound of the abdomen showed simple cyst in the left kidney with no evidence of masses or hydronephrosis or stones noted. Due to her back pain and lumbar spine CT was performed which showed moderate fracture deformity of the L3 vertebral body and T11. She started complaining of abdominal and back pain. Patient received morphine and at some point it appears patient ended up being intubated possibly for respiratory distress or airway protection. Patient also was on Jim-Synephrine 18 mics this morning and currently is on 50 mics. Patient has been evaluated by Dr. Mg from nephrology services the nurse informs me there is a plan for Vas- Cath placement and possible hemodialysis. Patient has been evaluated for sepsis since admission and blood cultures drawn on admission positive for gram-negative rods, urine cultures are positive for Klebsiella pneumonia. Infectious disease is consulted for evaluation and management of septic shock as well as gram-negative bacteremia as well as Klebsiella UTI. Overnight events reviewed No fevers No rash Diarrhea Cdiff negative Remains intubated Razo with minimal urine. HD yday, UO minimal. Awake, opens eyes, winces to pain,. Antibiotics: Zosyn IV Lines: Lines ok Past Medical History: reviewed Allergies/Adverse Reactions: Allergies No Known Allergies Allergy (Verified 07/22/18 10:18) Objective Vital Signs 09/16/18 12:00 09/16/18 15:01 09/16/18 15:57 Temperature 99.1 F Pulse Rate 99 H 101 H Respiratory Rate 17 18 19 Blood Pressure 141/66 H Pulse Oximetry 96 97 09/16/18 16:00 09/16/18 19:00 09/16/18 19:15 Temperature 98.5 F Pulse Rate 102 H 100 H 99 H Respiratory Rate 20 20 18 Blood Pressure 90/45 L 106/51 L 101/47 L Pulse Oximetry 98 99 97 09/16/18 19:30 09/16/18 19:45 09/16/18 20:00 Temperature 98.0 F Pulse Rate 97 H 96 H 100 H Respiratory Rate 16 17 17 Blood Pressure 103/49 L 103/50 L 105/49 L Pulse Oximetry 98 97 97 09/16/18 20:15 09/16/18 20:30 09/16/18 20:45 Temperature Pulse Rate 100 H 100 H 100 H Respiratory Rate 19 20 21 Blood Pressure 106/51 L 114/53 L 110/51 L Pulse Oximetry 97 97 97 09/16/18 21:00 09/16/18 21:15 09/16/18 21:30 Temperature Pulse Rate 98 H 98 H 97 H Respiratory Rate 18 17 17 Blood Pressure 108/51 L 108/51 L 109/52 L Pulse Oximetry 98 97 97 09/16/18 21:45 09/16/18 22:00 09/16/18 22:15 Temperature Pulse Rate 97 H 97 H 101 H Respiratory Rate 18 18 22 Blood Pressure 108/50 L 112/53 L 124/55 L Pulse Oximetry 97 97 97 09/16/18 22:30 09/16/18 22:45 09/16/18 23:00 Temperature Pulse Rate 98 H 104 H 101 H Respiratory Rate 19 20 25 H Blood Pressure 127/58 L 124/59 L 125/58 L Pulse Oximetry 96 97 97 09/16/18 23:15 09/16/18 23:24 09/16/18 23:30 Temperature Pulse Rate 97 H 99 H 99 H Respiratory Rate 22 19 19 Blood Pressure 120/57 L 119/56 L Pulse Oximetry 97 97 09/16/18 23:45 09/17/18 00:00 09/17/18 01:18 Temperature Pulse Rate 101 H 102 H Respiratory Rate 16 17 20 Blood Pressure 109/51 L 110/53 L Pulse Oximetry 96 97 96 09/17/18 02:00 09/17/18 02:10 09/17/18 02:15 Temperature Pulse Rate 101 H 101 H 100 H Respiratory Rate 18 18 17 Blood Pressure 124/58 L 124/59 L 122/58 L Pulse Oximetry 95 95 96 09/17/18 02:30 09/17/18 03:00 09/17/18 03:13 Temperature Pulse Rate 100 H 104 H 97 H Respiratory Rate 19 20 17 Blood Pressure 119/58 L 120/55 L Pulse Oximetry 95 95 09/17/18 03:14 09/17/18 03:15 09/17/18 03:30 Temperature Pulse Rate 99 H 100 H 105 H Respiratory Rate 16 18 17 Blood Pressure 125/61 137/60 128/55 L Pulse Oximetry 96 96 96 09/17/18 03:45 09/17/18 04:00 09/17/18 04:15 Temperature Pulse Rate 110 H 110 H 111 H Respiratory Rate 20 20 20 Blood Pressure 136/63 150/67 H 156/72 H Pulse Oximetry 97 96 96 09/17/18 04:30 09/17/18 04:45 09/17/18 05:00 Temperature Pulse Rate 112 H 113 H 111 H Respiratory Rate 20 21 20 Blood Pressure 140/65 144/64 H 138/64 Pulse Oximetry 94 L 95 95 09/17/18 05:15 09/17/18 05:30 09/17/18 05:45 Temperature Pulse Rate 111 H 111 H 109 H Respiratory Rate 19 23 18 Blood Pressure 137/65 139/62 133/63 Pulse Oximetry 80 L 80 L 96 09/17/18 06:00 09/17/18 06:15 09/17/18 06:30 Temperature Pulse Rate 110 H 111 H 111 H Respiratory Rate 20 19 20 Blood Pressure 136/62 134/62 133/63 Pulse Oximetry 96 96 97 09/17/18 06:45 09/17/18 07:00 09/17/18 07:15 Temperature Pulse Rate 114 H 113 H 114 H Respiratory Rate 19 16 18 Blood Pressure 130/60 123/59 L 131/56 L Pulse Oximetry 96 96 97 09/17/18 07:30 09/17/18 08:09 09/17/18 11:29 Temperature Pulse Rate 113 H 113 H 112 H Respiratory Rate 20 14 20 Blood Pressure 132/60 Pulse Oximetry 97 96 97 Intake & Output 09/16/18 09/17/18 09/17/18 18:59 06:59 18:59 Intake Total 1499 / 1499 420 / 420 50 / 50 Output Total 3000 / 3000 50 / 50 Balance -1501 / -1501 370 / 370 50 / 50 Weight 97.3 kg Intake: IV 1410 / 1410 300 / 300 50 / 50 D5W/1/2 NS Inj 1,000 ML @ 60 500 / 500 mls/hr IV.CONT .[id number] [facility] Rx# :[id number] Neosynephrine Inj 40 MG In NS 500 / 500 Inj 496 ML @ 40 MCG/MIN 30 mls/ hr IV.CONT TITRATE PRN Rx#: [id number] Flexbumin 25% Inj 100 ML @ 60 200 / 200 mls/hr IV.SIG WITH DIALYSIS PRN Rx#:[id number] Calcium Chloride Inj 1 GM In NS 110 / 110 Inj 100 ML @ 110 mls/hr IV.SIG ONCE ONE Rx#:[id number] Zosyn 2.25 GM Premix 50 ML @ 100 / 100 50 / 50 50 / 50 100 mls/hr IV.SIG Q8H [facility] Rx#: [id number] fentaNYL 10 mcg/mL Premix Drip 250 / 250 2,500 mcg In 250 ml @ 50 MCG/HR 5 mls/hr IV.SIG TITRATE PRN Rx #:[id number] Tube Feeding 89 / 89 120 / 120 Output: Hemodialysis Amount 3000 / 3000 Urine Amount (Catheter) 50 / 50 Indwelling Urethral Catheter 50 / 50 Other: Date of Last Bowel Movement 09/16/18 09/17/18 # Incontinent Bowel Movements 4 2 09/15/18 12:45 Blood - Peripheral Aerobic Blood Culture - Preliminary gram negative rods 09/15/18 12:45 Blood - Peripheral Anaerobic Blood Culture - Preliminary No growth in 2 days 09/15/18 13:05 Blood - Peripheral Aerobic Blood Culture - Preliminary gram negative rods 09/15/18 13:05 Blood - Peripheral Anaerobic Blood Culture - Preliminary No growth in 2 days 09/14/18 18:10 Blood - Line Aerobic Blood Culture - Preliminary gram negative rods 09/14/18 18:10 Blood - Line Anaerobic Blood Culture - Preliminary No growth in 3 days 09/14/18 18:13 Blood - Peripheral Aerobic Blood Culture - Preliminary gram negative rods 09/14/18 18:13 Blood - Peripheral Anaerobic Blood Culture - Preliminary No growth in 3 days 09/16/18 11:10 Sputum - Endotracheal Gram Stain - Final 09/16/18 11:10 Sputum - Endotracheal Sputum Culture - Pending 09/13/18 17:45 Catheterized Urine Urine Culture - Final Klebsiella pneumoniae Lab - Hematology Results 09/16/18 09/17/18 02:50 03:00 WBC 4.9 2.5 L RBC 2.66 L 2.45 L Hgb 8.7 L D 8.0 L Hct 25.7 L 24.0 L MCV 96.8 97.8 MCH 32.9 32.6 MCHC 34.0 33.3 RDW 16.3 16.1 Plt Count 29 L D 20 L D MPV 9.0 8.8 Prelim Diff (Auto) Slide review pending Manual diff required Neut % (Auto) 95.9 H Lymph % (Auto) 2.3 L Porter % (Auto) 1.5 Eos % (Auto) 0.1 Baso % (Auto) 0.2 Neut # (Auto) 4.7 Lymph # (Auto) 0.1 L Porter # (Auto) 0.1 Eos # (Auto) 0.0 Baso # (Auto) 0.0 WBC Differential Manual diff final Manual diff final Seg Neuts % (Manual) 56 74 H Band Neuts % (Manual) 33 H 17 H Lymphocytes % (Manual) 5 L 7 L Monocytes % (Manual) 2 Metamyelocytes % (Man) 4 H 2 H Abs Neuts (Manual) 4.6 2.3 Differential Comment . . Toxic Granulation 1+ H 1+ H Dohle Bodies Present H Present H Platelet Estimate Rare L Low L Platelet Morphology Normal Normal Ovalocytes 1+ H Keratocytes Occ H Lab - Chemistry Results 09/15/18 09/15/18 09/15/18 11:00 12:12 16:54 Sodium Potassium Chloride Carbon Dioxide Anion Gap BUN Creatinine Estimated GFR POC Glucose 86 92 Random Glucose Lactic Acid Calcium 6.3 L* Prot Corrected Calcium Phosphorus Magnesium Total Bilirubin AST ALT Alkaline Phosphatase Total Protein Albumin 09/15/18 09/15/18 09/16/18 20:22 23:50 02:50 Sodium 137 Potassium 3.3 L Chloride 99 Carbon Dioxide 25.3 Anion Gap 13 BUN 72 H Creatinine 6.17 H Estimated GFR 7 L POC Glucose 106 170 H Random Glucose 167 H Lactic Acid Calcium 6.6 L* Prot Corrected Calcium 7.0 L* D Phosphorus 6.9 H D Magnesium 2.2 Total Bilirubin 1.6 H AST 129 H ALT 46 Alkaline Phosphatase 25 L Total Protein 6.2 L Albumin 2.0 L D 09/16/18 09/16/18 09/16/18 03:18 07:25 11:37 Sodium Potassium Chloride Carbon Dioxide Anion Gap BUN Creatinine Estimated GFR POC Glucose 166 H 197 H 117 H Random Glucose Lactic Acid Calcium Prot Corrected Calcium Phosphorus Magnesium Total Bilirubin AST ALT Alkaline Phosphatase Total Protein Albumin 09/16/18 09/16/18 09/16/18 15:28 20:08 23:37 Sodium Potassium Chloride Carbon Dioxide Anion Gap BUN Creatinine Estimated GFR POC Glucose 89 105 103 Random Glucose Lactic Acid Calcium Prot Corrected Calcium Phosphorus Magnesium Total Bilirubin AST ALT Alkaline Phosphatase Total Protein Albumin 09/17/18 09/17/18 09/17/18 03:00 03:00 08:58 Sodium 141 Potassium 3.8 Chloride 104 Carbon Dioxide 28.7 Anion Gap 8 BUN 49 H Creatinine 4.42 H Estimated GFR 10 L POC Glucose 107 Random Glucose 94 Lactic Acid 0.7 Calcium 8.3 L D Prot Corrected Calcium Phosphorus 4.3 D Magnesium 2.1 Total Bilirubin 2.1 H AST 109 H ALT 46 Alkaline Phosphatase 26 L Total Protein 6.4 Albumin 2.2 L Imaging: ITS Impressions Abdomen/Bladder Ultrasound 09/13/18 00:00 CONCLUSION: 1. Simple cyst left kidney. Abdomen/Pelvis CT 09/13/18 08:54 CONCLUSION: 1. There is a small ventral hernia in the anterior abdominal wall. There is some omental fat herniated through the defect. 2. There are no findings to indicate a bowel obstruction. No free air free fluid is seen. 3. Nodular enlargement of the left adrenal gland new compared to previous of . Metastatic disease to the left adrenal is not excluded. 4. Stable mixed lytic and sclerotic lesion seen in the osseous structures when compared to PET examination of 06/28/2018. Lumbar Spine CT 09/13/18 08:54 CONCLUSION: 1. Moderate fracture deformity of the L3 vertebral body with central lucency, sclerosis and invagination of the superior and inferior endplates. This may be acute. 2. Moderate fracture deformity of the T11 vertebral body with abnormal lucency , sclerosis and invagination superior and inferior endplates. 3. Atheromatous involvement of T10, T11, L1, L2 and L3 vertebral bodies. 4. Large lytic lesion involving the right side of the sacrum. 5. Moderate central canal stenosis at the L4-5 level secondary to disc bulge and degenerative change involving the facet joints. Catheter Placement 09/15/18 00:00 CONCLUSION: 1. Uncomplicated line placement as above. Venous Doppler Study 09/16/18 00:00 CONCLUSION: 1. Occlusive thrombus left arm Abdomen X-Ray 09/17/18 00:01 CONCLUSION: No evidence of obstruction. Chest X-Ray 09/17/18 06:00 CONCLUSION: Cardiomegaly and findings of vascular congestion without overt failure. There has been no significant change when compared to the prior exam. Left lower lobe atelectasis versus pneumonia. Physical Exam: GENERAL: Obese acutely ill appearing, not in acute distress SKIN: Cool and dry, no generalized rash HEAD: Atraumatic. Normocephalic. No temporal or scalp tenderness. EYES: Pupils equal round and reactive. Scleral icterus. No injection or drainage. No petechia ENT: Intubated. NECK: Trachea midline. Supple, nontender, no meningeal signs. CARDIOVASCULAR: HS audible. RESPIRATORY: Clear to auscultation bilaterally. AE decreased in the bases. GASTROINTESTINAL: Abdomen soft , diffuse tenderness. Obese. MUSCULOSKELETAL: Extremities without clubbing, cyanosis. NEUROLOGICAL: Alert oriented 3. Nonfocal. Psych cooperative IV line sites ok. CL site ok. Assessment and Plan - Plan Septic shock with multiorgan dysfunction syndrome Likely source Klebsiella pneumoniae UTI and gram-negative bacteremia expect gram -negative in the blood to be most likely Klebsiella pneumonia. Gram-negative warren bacteremia Klebsiella pneumoniae UTI ? Chemo induced GI mucositis as cause for GNR sepsis. Immune compromised status recent chemotherapy Multiple myeloma Acute respiratory failure Acute renal failure possibility of hemodialysis later today Recommendations: DC Zosyn IV. Change to Cefepime IV covers Salmonella and Pseudomonas in an Immune compromised patients. 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 Follow cultures follow clinical course. rebecca HAIRSTON
--- NOTE | 2018-09-17 13:35 | P.PNNP ---
Subjective Interval history: Patient is orally intubated on mechanical ventilation, in bed, no distress. Patient dialyzed today, 3000 mL fluid removed. Patient remains oliguric. Phenylephrine discontinued yesterday. Left IJ VasCath. Right IJ TLC Physical Exam Vital signs: Vital Signs 09/16/18 15:01 09/16/18 15:57 09/16/18 16:00 Temperature 98.5 F Pulse Rate 101 H 102 H Respiratory Rate 18 19 20 Blood Pressure 90/45 L Pulse Oximetry 97 98 09/16/18 19:00 09/16/18 19:15 09/16/18 19:30 Temperature Pulse Rate 100 H 99 H 97 H Respiratory Rate 20 18 16 Blood Pressure 106/51 L 101/47 L 103/49 L Pulse Oximetry 99 97 98 09/16/18 19:45 09/16/18 20:00 09/16/18 20:15 Temperature 98.0 F Pulse Rate 96 H 100 H 100 H Respiratory Rate 17 17 19 Blood Pressure 103/50 L 105/49 L 106/51 L Pulse Oximetry 97 97 97 09/16/18 20:30 09/16/18 20:45 09/16/18 21:00 Temperature Pulse Rate 100 H 100 H 98 H Respiratory Rate 20 21 18 Blood Pressure 114/53 L 110/51 L 108/51 L Pulse Oximetry 97 97 98 09/16/18 21:15 09/16/18 21:30 09/16/18 21:45 Temperature Pulse Rate 98 H 97 H 97 H Respiratory Rate 17 17 18 Blood Pressure 108/51 L 109/52 L 108/50 L Pulse Oximetry 97 97 97 09/16/18 22:00 09/16/18 22:15 09/16/18 22:30 Temperature Pulse Rate 97 H 101 H 98 H Respiratory Rate 18 22 19 Blood Pressure 112/53 L 124/55 L 127/58 L Pulse Oximetry 97 97 96 09/16/18 22:45 09/16/18 23:00 09/16/18 23:15 Temperature Pulse Rate 104 H 101 H 97 H Respiratory Rate 20 25 H 22 Blood Pressure 124/59 L 125/58 L 120/57 L Pulse Oximetry 97 97 97 09/16/18 23:24 09/16/18 23:30 09/16/18 23:45 Temperature Pulse Rate 99 H 99 H 101 H Respiratory Rate 19 19 16 Blood Pressure 119/56 L 109/51 L Pulse Oximetry 97 96 09/17/18 00:00 09/17/18 01:18 09/17/18 02:00 Temperature Pulse Rate 102 H 101 H Respiratory Rate 17 20 18 Blood Pressure 110/53 L 124/58 L Pulse Oximetry 97 96 95 09/17/18 02:10 09/17/18 02:15 09/17/18 02:30 Temperature Pulse Rate 101 H 100 H 100 H Respiratory Rate 18 17 19 Blood Pressure 124/59 L 122/58 L 119/58 L Pulse Oximetry 95 96 95 09/17/18 03:00 09/17/18 03:13 09/17/18 03:14 Temperature Pulse Rate 104 H 97 H 99 H Respiratory Rate 20 17 16 Blood Pressure 120/55 L 125/61 Pulse Oximetry 95 96 09/17/18 03:15 09/17/18 03:30 09/17/18 03:45 Temperature Pulse Rate 100 H 105 H 110 H Respiratory Rate 18 17 20 Blood Pressure 137/60 128/55 L 136/63 Pulse Oximetry 96 96 97 09/17/18 04:00 09/17/18 04:15 09/17/18 04:30 Temperature Pulse Rate 110 H 111 H 112 H Respiratory Rate 20 20 20 Blood Pressure 150/67 H 156/72 H 140/65 Pulse Oximetry 96 96 94 L 09/17/18 04:45 09/17/18 05:00 09/17/18 05:15 Temperature Pulse Rate 113 H 111 H 111 H Respiratory Rate 21 20 19 Blood Pressure 144/64 H 138/64 137/65 Pulse Oximetry 95 95 80 L 09/17/18 05:30 09/17/18 05:45 09/17/18 06:00 Temperature Pulse Rate 111 H 109 H 110 H Respiratory Rate 23 18 20 Blood Pressure 139/62 133/63 136/62 Pulse Oximetry 80 L 96 96 09/17/18 06:15 09/17/18 06:30 09/17/18 06:45 Temperature Pulse Rate 111 H 111 H 114 H Respiratory Rate 19 20 19 Blood Pressure 134/62 133/63 130/60 Pulse Oximetry 96 97 96 09/17/18 07:00 09/17/18 07:15 09/17/18 07:30 Temperature Pulse Rate 113 H 114 H 113 H Respiratory Rate 16 18 20 Blood Pressure 123/59 L 131/56 L 132/60 Pulse Oximetry 96 97 97 09/17/18 08:09 09/17/18 11:29 Temperature Pulse Rate 113 H 112 H Respiratory Rate 14 20 Blood Pressure Pulse Oximetry 96 97 Intake & Output 09/16/18 09/17/18 09/17/18 18:59 06:59 18:59 Intake Total 1499 / 1499 420 / 420 50 / 50 Output Total 3000 / 3000 50 / 50 Balance -1501 / -1501 370 / 370 50 / 50 Weight 97.3 kg Intake: IV 1410 / 1410 300 / 300 50 / 50 D5W/1/2 NS Inj 1,000 ML @ 60 500 / 500 mls/hr IV.CONT .[id number] [facility] Rx# :[id number] Neosynephrine Inj 40 MG In NS 500 / 500 Inj 496 ML @ 40 MCG/MIN 30 mls/ hr IV.CONT TITRATE PRN Rx#: [id number] Flexbumin 25% Inj 100 ML @ 60 200 / 200 mls/hr IV.SIG WITH DIALYSIS PRN Rx#:[id number] Calcium Chloride Inj 1 GM In NS 110 / 110 Inj 100 ML @ 110 mls/hr IV.SIG ONCE ONE Rx#:[id number] Zosyn 2.25 GM Premix 50 ML @ 100 / 100 50 / 50 50 / 50 100 mls/hr IV.SIG Q8H [facility] Rx#: [id number] fentaNYL 10 mcg/mL Premix Drip 250 / 250 2,500 mcg In 250 ml @ 50 MCG/HR 5 mls/hr IV.SIG TITRATE PRN Rx #:[id number] Tube Feeding 89 / 89 120 / 120 Output: Hemodialysis Amount 3000 / 3000 Urine Amount (Catheter) 50 / 50 Indwelling Urethral Catheter 50 / 50 Other: Date of Last Bowel Movement 09/16/18 09/17/18 # Incontinent Bowel Movements 4 2 - Constitutional no acute distress - Routine HEENT Exam Head: Present: normocephalic - Routine Neck Exam Comments: Left IJ VasCath. Right IJ TLC - Routine Respiratory Exam Present: patient mechanically ventilated - Routine Cardiovascular Exam Present: tachycardia - Routine Abdominal Exam Present: normoactive bowel sounds - Routine Extremities Exam Present: edema - Urinary Catheter Management Indwelling Urethral Catheter Cath placed during this visit: yes Reason for continuing: Hourly intake/output Insertion date: 09/13/18 Insertion time: 10:44 Assessment and Plan - Assessment (1) Acute renal failure Code(s): N17.9 - Acute kidney failure, unspecified Status: Acute Qualifiers: Acute renal failure type: unspecified Qualified Code(s): N17.9 - Acute kidney failure, unspecified Plan: Patient is oliguric. May have suffered ATN. Also have to consider cast nephropathy or "myeloma kidney". Tumor lysis syndrome is a consideration. Start Allopurinol. Patient has UTI with sepsis. Therefore multiple possible etiologies. Patient last had dialysis 09/17/18, 3000 mL fluid removed. Prognosis is guarded. Avoid nephrotoxic agents. CT did not reveal hydronephrosis. Monitor urine output. Patient oliguric. (2) Hypo-osmolality and hyponatremia Code(s): E87.1 - Hypo-osmolality and hyponatremia Status: Acute Plan: improved. (3) Hypokalemia Code(s): E87.6 - Hypokalemia Status: Acute Plan: Improved. (4) Acidosis Code(s): E87.2 - Acidosis Status: Acute Plan: improved. (5) Multiple myeloma Code(s): C90.00 - Multiple myeloma not having achieved remission Status: Acute Plan: Oncology on the case.
[2018-09-17] MEDS: Argatroban Inj 250 MG in Sodium Chlor 0.9% Inj 247.5 ML IV.CONT PRN (16:08)
[2018-09-17 16:30] LABS: ABG Base Excess -0.3 mmol/L (-2-2); ABG PCO2 37 mmHg (38-42); ABG PO2 104 mmHG (61-120)
[2018-09-17] MEDS: Pantoprazole Inj 40 MG Vial IV.PUSH SCH (18:52)
--- NOTE | 2018-09-17 19:33 | US ---
EXAM DATE: 09/17/2018 7:28 PM EDT AGE/SEX: 68 years / Female INDICATIONS: Right upper quadrant pain. CLINICAL DATA: This is the patient's initial encounter. Patient reports that signs and symptoms have been present for 4 - 6 days and indicates a pain score of Nonresponsive. MEDICAL/SURGICAL HISTORY: Gastroesophageal reflux disease. Radiation therapy. Hemangioma. Hyper lipidemia. Multiple myeloma. Plasmacytoma. Thyroid disease. . Bone marrow transplant. COMPARISON: [facility], CT ABDOMEN & PELVIS W/O CONTRAST, 09/13/2018. . MEASUREMENTS: Liver:__ 20.3 cm. Common Bile Duct:__ Nonvisualized. Right Kidney:__ 12.0 x 6.0 x 6.3 cm. FINDINGS: Liver: Increased echotexture without focal lesion or ductal dilation. The liver appears enlarged. Portal Vein: Hepatopedal flow seen in portal vein. Common Duct: Not visualized. Gallbladder: Not visualized. Pancreas: The visualized portions are within normal limits Right Kidney: Normal echotexture and cortical thickness. No mass or hydronephrosis. Other: The spleen is enlarged measuring 14.6 cm in length. CONCLUSION: 1. Hepatosplenomegaly. 2. The patient is status post cholecystectomy. Clips are seen on the prior CT examination. 3. The common bile duct was not visualized. The gilberto hepatis is obscured. The common bile duct appe ar grossly normal in size on the recent CT examination. Electronically signed by: Darell Zaman MD 09/17/2018 7:31 PM EDT
[2018-09-17] MEDS: fentaNYL 10 mcg/mL Premix Drip 2,500 MCG/250 ML BAG IV.SIG PRN (19:35)
--- NOTE | 2018-09-17 19:56 | P.PNONC ---
Subjective Interval history: Pt seen earlier, sedated. Objective Vital Signs/Intake & Output: Vital Signs 09/16/18 20:00 09/16/18 20:15 09/16/18 20:30 Temperature 98.0 F Pulse Rate 100 H 100 H 100 H Respiratory Rate 17 19 20 Blood Pressure 105/49 L 106/51 L 114/53 L Pulse Oximetry 97 97 97 09/16/18 20:45 09/16/18 21:00 09/16/18 21:15 Temperature Pulse Rate 100 H 98 H 98 H Respiratory Rate 21 18 17 Blood Pressure 110/51 L 108/51 L 108/51 L Pulse Oximetry 97 98 97 09/16/18 21:30 09/16/18 21:45 09/16/18 22:00 Temperature Pulse Rate 97 H 97 H 97 H Respiratory Rate 17 18 18 Blood Pressure 109/52 L 108/50 L 112/53 L Pulse Oximetry 97 97 97 09/16/18 22:15 09/16/18 22:30 09/16/18 22:45 Temperature Pulse Rate 101 H 98 H 104 H Respiratory Rate 22 19 20 Blood Pressure 124/55 L 127/58 L 124/59 L Pulse Oximetry 97 96 97 09/16/18 23:00 09/16/18 23:15 09/16/18 23:24 Temperature Pulse Rate 101 H 97 H 99 H Respiratory Rate 25 H 22 19 Blood Pressure 125/58 L 120/57 L Pulse Oximetry 97 97 09/16/18 23:30 09/16/18 23:45 09/17/18 00:00 Temperature Pulse Rate 99 H 101 H 102 H Respiratory Rate 19 16 17 Blood Pressure 119/56 L 109/51 L 110/53 L Pulse Oximetry 97 96 97 09/17/18 01:18 09/17/18 02:00 09/17/18 02:10 Temperature Pulse Rate 101 H 101 H Respiratory Rate 20 18 18 Blood Pressure 124/58 L 124/59 L Pulse Oximetry 96 95 95 09/17/18 02:15 09/17/18 02:30 09/17/18 03:00 Temperature Pulse Rate 100 H 100 H 104 H Respiratory Rate 17 19 20 Blood Pressure 122/58 L 119/58 L 120/55 L Pulse Oximetry 96 95 95 09/17/18 03:13 09/17/18 03:14 09/17/18 03:15 Temperature Pulse Rate 97 H 99 H 100 H Respiratory Rate 17 16 18 Blood Pressure 125/61 137/60 Pulse Oximetry 96 96 09/17/18 03:30 09/17/18 03:45 09/17/18 04:00 Temperature Pulse Rate 105 H 110 H 110 H Respiratory Rate 17 20 20 Blood Pressure 128/55 L 136/63 150/67 H Pulse Oximetry 96 97 96 09/17/18 04:15 09/17/18 04:30 09/17/18 04:45 Temperature Pulse Rate 111 H 112 H 113 H Respiratory Rate 20 20 21 Blood Pressure 156/72 H 140/65 144/64 H Pulse Oximetry 96 94 L 95 09/17/18 05:00 09/17/18 05:15 09/17/18 05:30 Temperature Pulse Rate 111 H 111 H 111 H Respiratory Rate 20 19 23 Blood Pressure 138/64 137/65 139/62 Pulse Oximetry 95 80 L 80 L 09/17/18 05:45 09/17/18 06:00 09/17/18 06:15 Temperature Pulse Rate 109 H 110 H 111 H Respiratory Rate 18 20 19 Blood Pressure 133/63 136/62 134/62 Pulse Oximetry 96 96 96 09/17/18 06:30 09/17/18 06:45 09/17/18 07:00 Temperature Pulse Rate 111 H 114 H 113 H Respiratory Rate 20 19 16 Blood Pressure 133/63 130/60 123/59 L Pulse Oximetry 97 96 96 09/17/18 07:15 09/17/18 07:30 09/17/18 08:00 Temperature 100.7 F H Pulse Rate 114 H 113 H 112 H Respiratory Rate 18 20 18 Blood Pressure 131/56 L 132/60 131/62 Pulse Oximetry 97 97 97 09/17/18 08:09 09/17/18 11:29 09/17/18 12:00 Temperature 99.3 F Pulse Rate 113 H 112 H 109 H Respiratory Rate 14 20 20 Blood Pressure 142/64 H Pulse Oximetry 96 97 96 09/17/18 14:57 09/17/18 14:58 09/17/18 16:00 Temperature 99.5 F Pulse Rate 100 H 106 H Respiratory Rate 18 16 25 H Blood Pressure 148/70 H Pulse Oximetry 97 97 Intake & Output 09/17/18 09/17/18 09/18/18 06:59 18:59 06:59 Intake Total 420 / 420 650 / 650 Output Total 50 / 50 25 / 25 Balance 370 / 370 625 / 625 Weight 97.3 kg Intake: IV 300 / 300 650 / 650 Novastan Inj 250 MG In NS Inj 250 / 250 247.5 ML @ 2 MCG/KG/MIN 11.89 mls/hr IV.CONT TITRATE PRN Rx#: [id number] Maxipime Inj 1,000 MG In NS Inj 100 / 100 100 ML @ 200 mls/hr IV.SIG Q24H MACKENZIE Rx#:[id number] Zosyn 2.25 GM Premix 50 ML @ 50 / 50 50 / 50 100 mls/hr IV.SIG Q8H MACKENZIE Rx#: [id number] fentaNYL 10 mcg/mL Premix Drip 250 / 250 250 / 250 2,500 mcg In 250 ml @ 50 MCG/HR 5 mls/hr IV.SIG TITRATE PRN Rx #:[id number] Tube Feeding 120 / 120 Output: Urine Amount (Catheter) 50 / 50 25 / 25 Indwelling Urethral Catheter 50 / 50 25 / 25 Other: Date of Last Bowel Movement 09/17/18 09/17/18 # Bowel Movements 2 # Incontinent Bowel Movements 2 Result Diagrams: 09/19/18 08:10 09/19/18 03:45 Laboratory Results: Laboratory Results - last 24 hr 09/16/18 09/16/18 09/16/18 17:42 20:08 23:37 WBC RBC Hgb Hct MCV MCH MCHC RDW Plt Count MPV Prelim Diff (Auto) WBC Differential Seg Neuts % (Manual) Band Neuts % (Manual) Lymphocytes % (Manual) Metamyelocytes % (Man) Abs Neuts (Manual) Differential Comment Toxic Granulation Dohle Bodies Platelet Estimate Platelet Morphology Ovalocytes Keratocytes Puncture Site Patient Temperature O2 Saturation ABG pH ABG pCO2 ABG pO2 ABG HCO3 ABG O2 Content ABG Base Excess ABG Methemoglobin John Test Hemoglobin Carboxyhemoglobin O2 Delivery Device Vent Setting Inspired O2 Critical Value Sodium Potassium Chloride Carbon Dioxide Anion Gap BUN Creatinine Estimated GFR POC Glucose 105 103 Random Glucose Lactic Acid Calcium Phosphorus Magnesium Total Bilirubin AST ALT Alkaline Phosphatase Total Protein Albumin Heparin Dep Plt Ab OD 0.000 Hep-Induced Plt Ab Eden Negative 09/17/18 09/17/18 09/17/18 03:00 03:00 03:00 WBC 2.5 L RBC 2.45 L Hgb 8.0 L Hct 24.0 L MCV 97.8 MCH 32.6 MCHC 33.3 RDW 16.1 Plt Count 20 L D MPV 8.8 Prelim Diff (Auto) Manual diff required WBC Differential Manual diff final Seg Neuts % (Manual) 74 H Band Neuts % (Manual) 17 H Lymphocytes % (Manual) 7 L Metamyelocytes % (Man) 2 H Abs Neuts (Manual) 2.3 Differential Comment . Toxic Granulation 1+ H Dohle Bodies Present H Platelet Estimate Low L Platelet Morphology Normal Ovalocytes 1+ H Keratocytes Occ H Puncture Site Patient Temperature O2 Saturation ABG pH ABG pCO2 ABG pO2 ABG HCO3 ABG O2 Content ABG Base Excess ABG Methemoglobin John Test Hemoglobin Carboxyhemoglobin O2 Delivery Device Vent Setting Inspired O2 Critical Value Sodium 141 Potassium 3.8 Chloride 104 Carbon Dioxide 28.7 Anion Gap 8 BUN 49 H Creatinine 4.42 H Estimated GFR 10 L POC Glucose Random Glucose 94 Lactic Acid 0.7 Calcium 8.3 L D Phosphorus 4.3 D Magnesium 2.1 Total Bilirubin 2.1 H AST 109 H ALT 46 Alkaline Phosphatase 26 L Total Protein 6.4 Albumin 2.2 L Heparin Dep Plt Ab OD Hep-Induced Plt Ab Eden 09/17/18 09/17/18 09/17/18 08:58 11:39 15:47 WBC RBC Hgb Hct MCV MCH MCHC RDW Plt Count MPV Prelim Diff (Auto) WBC Differential Seg Neuts % (Manual) Band Neuts % (Manual) Lymphocytes % (Manual) Metamyelocytes % (Man) Abs Neuts (Manual) Differential Comment Toxic Granulation Dohle Bodies Platelet Estimate Platelet Morphology Ovalocytes Keratocytes Puncture Site Patient Temperature O2 Saturation ABG pH ABG pCO2 ABG pO2 ABG HCO3 ABG O2 Content ABG Base Excess ABG Methemoglobin John Test Hemoglobin Carboxyhemoglobin O2 Delivery Device Vent Setting Inspired O2 Critical Value Sodium Potassium Chloride Carbon Dioxide Anion Gap BUN Creatinine Estimated GFR POC Glucose 107 115 H 104 Random Glucose Lactic Acid Calcium Phosphorus Magnesium Total Bilirubin AST ALT Alkaline Phosphatase Total Protein Albumin Heparin Dep Plt Ab OD Hep-Induced Plt Ab Eden 09/17/18 09/17/18 16:20 19:40 WBC RBC Hgb Hct MCV MCH MCHC RDW Plt Count MPV Prelim Diff (Auto) WBC Differential Seg Neuts % (Manual) Band Neuts % (Manual) Lymphocytes % (Manual) Metamyelocytes % (Man) Abs Neuts (Manual) Differential Comment Toxic Granulation Dohle Bodies Platelet Estimate Platelet Morphology Ovalocytes Keratocytes Puncture Site Right radial Patient Temperature 98.6 O2 Saturation 95 ABG pH 7.42 ABG pCO2 37 L ABG pO2 104 ABG HCO3 24 ABG O2 Content 11.2 L ABG Base Excess -0.3 ABG Methemoglobin 1.7 John Test Present Hemoglobin 8.2 L Carboxyhemoglobin 1.3 O2 Delivery Device Ventilator Vent Setting Prvc/ac 450/16/5peep Inspired O2 40 Critical Value No Sodium Potassium Chloride Carbon Dioxide Anion Gap BUN Creatinine Estimated GFR POC Glucose 109 Random Glucose Lactic Acid Calcium Phosphorus Magnesium Total Bilirubin AST ALT Alkaline Phosphatase Total Protein Albumin Heparin Dep Plt Ab OD Hep-Induced Plt Ab Eden Culture Results: Microbiology 09/14/18 18:13 Aerobic Blood Culture - Final Blood - Peripheral Salmonella species not typhi Anaerobic Blood Culture - Preliminary No growth in 3 days 09/14/18 18:10 Aerobic Blood Culture - Final Blood - Line Salmonella species not typhi Anaerobic Blood Culture - Preliminary No growth in 3 days 09/16/18 11:10 Gram Stain - Final Sputum - Endotracheal Sputum Culture - Preliminary gram negative rods 09/15/18 12:45 Aerobic Blood Culture - Preliminary Blood - Peripheral gram negative rods Anaerobic Blood Culture - Preliminary No growth in 2 days 09/15/18 13:05 Aerobic Blood Culture - Preliminary Blood - Peripheral gram negative rods Anaerobic Blood Culture - Preliminary No growth in 2 days 09/13/18 17:45 Urine Culture - Final Catheterized Urine Klebsiella pneumoniae Imaging Studies: Impressions Liver Ultrasound 09/17/18 00:00 CONCLUSION: 1. Hepatosplenomegaly. 2. The patient is status post cholecystectomy. Clips are seen on the prior CT examination. 3. The common bile duct was not visualized. The gilberto hepatis is obscured. The common bile duct appear grossly normal in size on the recent CT examination. Abdomen X-Ray 09/17/18 00:01 CONCLUSION: No evidence of obstruction. Chest X-Ray 09/17/18 06:00 CONCLUSION: Cardiomegaly and findings of vascular congestion without overt failure. There has been no significant change when compared to the prior exam. Left lower lobe atelectasis versus pneumonia. Medications: Active Medications Generic Name Dose Route Start Last Admin Trade Name Freq PRN Reason Stop Dose Admin Albuterol 1 ampul 09/13/18 20:00 09/17/18 19:46 Duoneb Neb (Formerly [facility]) NEB 1 ampul Q4HR NEB MACKENZIE Administration Allopurinol 100 mg 09/16/18 12:00 09/17/18 08:54 Zyloprim PO 100 mg DAILY MACKENZIE Administration Artificial Tears 1 drop 09/15/18 13:00 09/17/18 18:53 Tears Naturale Opth Drops EACH EYE 1 drop TID MACKENZIE Administration Chlorhexidine Gluconate 3 pack 09/14/18 04:00 09/17/18 04:00 Chlorhexidine 2% Cloth TOPICAL 09/19/18 03:59 3 pack DAILY@0400 MACKENZIE Administration Gentamicin Sulfate 20 mg 09/15/18 11:06 09/16/18 14:16 Gentamicin Inj OTHER 20 mg WITH DIALYSIS PRN Administration Dwell Gentamycin Lock Phenylephrine HCl 40 mg/ 500 mls @ 30 mls/hr 09/14/18 15:18 09/16/18 13:36 Sodium Chloride IV.CONT 70 mcg/min TITRATE PRN 52.5 mls/hr See Protocol Titration Protocol 40 MCG/MIN Fentanyl 2,500 mcg in 250 mls @ 5 mls/hr 09/14/18 15:55 09/17/18 19:35 Fentanyl 10 Mcg/Ml Premix Drip IV.SIG 200 mcg/hr TITRATE PRN 20 mls/hr Per Protocol Administration Protocol 50 MCG/HR Albumin Human 100 mls @ 60 mls/hr 09/15/18 11:06 09/16/18 14:14 Flexbumin 25% Inj IV.SIG Infused WITH DIALYSIS PRN Infusion hypotension / volume replace Argatroban 250 mg/ Sodium 250 mls @ 11.89 mls/hr 09/16/18 16:59 09/17/18 16: 08 Chloride IV.CONT 09/18/18 12:00 2.5 mcg/kg/min TITRATE PRN 14.86 mls/hr Per Protocol Administration Protocol 2 MCG/KG/MIN Cefepime HCl 1,000 mg/ Sodium 100 mls @ 200 mls/hr 09/17/18 13:00 09/17/18 12 :30 Chloride IV.SIG Infused Q24H MACKENZIE Infusion Insulin Human Regular 0 units 09/13/18 20:00 09/17/18 15:50 Novolin R Correctional Sugar Inj SQ Not Given Q4HR MACKENZIE Protocol Levothyroxine Sodium 100 mcg 09/15/18 11:00 09/17/18 06:28 Synthroid PO 100 mcg DAILY@0600 MACKENZIE Administration Metoclopramide HCl 5 mg 09/16/18 14:00 09/17/18 15:50 Reglan Inj IV.PUSH 5 mg Q8HR MACKENZIE Administration Protocol Multivitamins 1 tab 09/16/18 09:00 09/17/18 08:54 Theragran PO 1 tab DAILY MACKENZIE Administration Pantoprazole Sodium 40 mg 09/13/18 18:00 09/17/18 18:52 Protonix Inj IV.PUSH 40 mg Q24H MACKENZIE Administration Polyethylene Glycol 17 gm 09/16/18 09:00 09/17/18 08:55 Miralax PO Not Given DAILY MACKENZIE Pyridoxine HCl 50 mg 09/15/18 21:00 09/17/18 08:54 Vitamin B-6 PO 50 mg BID MACKENZIE Administration Senna/Docusate Sodium 1 tab 09/13/18 21:00 09/17/18 08:55 Chloé-Colace PO Not Given BID MACKENZIE Sodium Chloride 2 ml 09/13/18 21:00 09/17/18 08:55 Ns Flush IV.FLUSH 2 ml BID MACKENZIE Administration Vitamin D 1,000 unit 09/16/18 09:00 09/17/18 09:01 Vitamin D3 PO 1,000 unit DAILY MACKENIZE Administration Vitamin D 2,000 unit 09/16/18 09:00 09/17/18 09:01 Vitamin D3 PO 2,000 unit DAILY MACKENZIE Administration Objective Remarks: GENERAL: Well-nourished, well-developed patient. SKIN: Warm and dry. HEAD: Normocephalic. EYES: No scleral icterus. No injection or drainage. NECK: Supple, trachea midline. No JVD or lymphadenopathy. LYMPHATIC: No adenopathy. CARDIOVASCULAR: Regular rate and rhythm without murmurs. RESPIRATORY: Breath sounds equal bilaterally. No accessory muscle use. GASTROINTESTINAL: Abdomen soft, non-tender, nondistended. EXTREMITIES: No cyanosis, or edema. MUSCULOSKELETAL: Adequate muscle tone. NEUROLOGICAL: No obvious focal deficit. Awake, alert, and oriented x3. PSYCHIATRIC: Appropriate mood and affect; insight and judgment normal. Assessment/Plan - Plan Mrs. 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 She has a history of induction therapy with Revlimid, Decadron and Velcade followed by stem cell transplant. She was placed on Revlimid maintenance until progression. She had her first cycle of darutumumab, Velcade and Decadron approximately 8 days ago. She was admitted to the hospital with acute renal failure and mild thrombocytopenia. Course complicated by LUE DVT and thrombocytopenia Recommendations: 1. Multiple myeloma, treatment is placed on hold until she is stabilized from her acute events. 2. Acute renal failure, management per nephrology. 3. Septic shock, febrile, urine culture positive for Klebsiella pneumonia, blood cultures growing gram-negative rods in all 4 bottles. Antibiotics per infectious disease. Continue support. 4. HIT antibodies negative 5. Anticipate stopping the Argatroban when current bag finished and switched to unfractionated heparin. 6. Discussed the above with her , King. Answered his questions. 7. Thrombocytopenia persist despite improved UE DVT clinically. Consumptive coagulopathy unlikely, fibrinogen elevated. Transfuse for platelets <20K.
[2018-09-18] MEDS: Senna/Docusate Sodium 8.6/50 MG Tablet PO SCH ×3 (00:54→21:33)
[2018-09-18] MEDS: Insulin NovoLIN Regular Correctional Sugar Inj SQ SCH ×6 (00:54→21:38)
[2018-09-18 04:06] LABS: Baso % (Auto) 0.2 % (0.0-2.0); Eos % (Auto) 0.6 % (0.0-4.0); Hematocrit 24.1 % (35.0-46.0); Lymph # (Auto) 0.1 th/mm3 (1.0-4.8); Lymph % (Auto) 6.2 % (9.0-44.0); Mean Corpuscular HGB Conc 33.3 % (32.0-36.0); Mean Corpuscular Hemoglobin 33.1 pg (27.0-34.0); Mean Corpuscular Volume 99.5 fL (80.0-100.0); Mean Platelet Volume 9.9 fL (7.0-11.0); Mono % (Auto) 1.7 % (0.0-8.0); Neut # (Auto) 1.6 th/mm3 (1.8-7.7); Neut % (Auto) 91.3 % (16.0-70.0); Red Blood Count 2.42 mil/mm3 (4.00-5.30); Red Cell Distribution Width 16.6 % (11.6-17.2); White Blood Count 1.8 th/mm3 (4.0-11.0)
[2018-09-18 04:09] LABS: Platelet Count 13 th/mm3 (150-450)
[2018-09-18] MEDS: Chlorhexidine Gluconate 2% 1 Pack (2 Cloths) TOPICAL SCH (04:37)
[2018-09-18 04:39] LABS: Lymphocytes 7 % (9-44); Metamyelocytes 1 % (0-1); Monocytes 2 % (0-8); Ovalocytes 1+; Platelet Morphology Normal (Normal); Tear Drop Cells 1+
[2018-09-18 05:00] LABS: Alanine Aminotransferase 41 U/L (10-53); Albumin 1.8 g/dL (3.4-5.0); Alkaline Phosphatase 33 U/L (45-117); Anion Gap 9 meq/L (5-15); Aspartate Aminotransferase 67 U/L (15-37); Blood Urea Nitrogen 82 mg/dL (7-18); Carbon Dioxide 25.7 meq/L (21.0-32.0); Chloride 106 meq/L (98-107); Glomerular Filtration Rate 7 mL/min (>89); Glucose,Random 99 mg/dL (74-106); Magnesium 2.3 mg/dL (1.5-2.5); Phosphorus 4.8 mg/dL (2.5-4.9); Potassium 3.7 meq/L (3.5-5.1); Sodium 141 meq/L (136-145); Total Protein 6.1 g/dL (6.4-8.2)
[2018-09-18] MEDS: Levothyroxine 100 MCG Tablet PO SCH (06:40)
--- NOTE | 2018-09-18 08:21 | P.PNCC ---
Subjective Subjective Remarks/Hospital Course: patient is a 68-year-old female with a past medical history of hyperlipidemia, multiple myeloma, monoclonal gammopathy and GERD, who initially presented to [place] ED with complaints of abdominal pain and back pain. The patient was recently treated with Revlimid, Decadron and Velcade. She also had a bone marrow transplant at [facility] in [place]. She is being followed by Dr. Martinez and had chemotherapy last week. The patient also was incontinent with a stooland urine and reported feeling nauseous and having vomiting and diarrhea. Also, she reports decreased p.o. intake for several days and generalized weakness. Her initial laboratory data showed acute renal failure with a BUN of 86, creatinine 9.2 and hyponatremia with a sodium level of 119. There was no evidence of any fever or leukocytosis. Due to abdominal pain, a CT abdomen and pelvis was done which showed a small ventral hernia in the anterior abdominal wall, no findings to indicate a bowel obstruction and no evidence of any free air or free fluid. Nodular enlargement of the left adrenal gland, new compared to prior study, and stable mixed lytic and sclerotic lesions in the osseous structures. She also had an ultrasound of the abdomen which showed a simple cyst in left kidney, no evidence of any masses or hydronephrosis. Due to her back pain, a lumbar CT spine was performed which showed moderate fracture deformity of the L3 vertebral body and T11. She was transferred to [facility] where she was seen by Dr. Avery from the hospitalist service this afternoon. Shortly after, the patient was transferred to the ICU for increased O2 requirements and tachycardia. She had a chest x- ray this morning as well which showeda mild streaky opacity in the left lateral lung and left lung base with no consolidation. When seen in the ICU, she is tachycardic with heart rate of 114, blood pressure 128/79 and on a nonrebreather mask. The patient is complaining of abdominal pain and back pain. She received morphine earlier. The patient was also seen by Dr. Valle from the nephrology service. She has been given approximately 3 liters of crystalloids thus far. 09/14 Patient is on NRM, renal function slowly improving, on bicarb drip. Afebrile. 09/15: Febrile overnight. T-max 102.9. Currently on phenylephrine drip. Minimal urine output. Tolerating tube feeds at 30 cc an hour. Subjective 09/16: T-max 101.8. Currently afebrile. Received hemodialysis yesterday. Remains on the ventilator. Platelets continue to down trend. Replacing calcium today. Klebsiella from urine likely blood cultures well. 09/17 Patient is intubated and sedated with Fentanyl drip. s/p HD yesterday w removal 3L. On Argatroban. 09/18 Patient remains intubated and on Fentanyl infusion for sedation. Afebrile. On Argatroban drip. Objective Vital Signs / I&O: Vital Signs 09/17/18 11:29 09/17/18 12:00 09/17/18 14:57 Temperature 99.3 F Pulse Rate 112 H 109 H 100 H Respiratory Rate 20 20 18 Blood Pressure 142/64 H Pulse Oximetry 97 96 09/17/18 14:58 09/17/18 16:00 09/17/18 19:00 Temperature 99.5 F Pulse Rate 106 H 104 H Respiratory Rate 16 25 H 22 Blood Pressure 148/70 H 141/65 H Pulse Oximetry 97 97 97 09/17/18 19:15 09/17/18 19:30 09/17/18 19:45 Temperature Pulse Rate 106 H 106 H 103 H Respiratory Rate 21 19 16 Blood Pressure 136/63 133/62 140/64 Pulse Oximetry 98 97 98 09/17/18 19:46 09/17/18 20:00 09/17/18 20:15 Temperature 98.9 F Pulse Rate 106 H 105 H 101 H Respiratory Rate 18 16 16 Blood Pressure 124/58 L 113/56 L Pulse Oximetry 98 98 97 09/17/18 20:30 09/17/18 20:45 09/17/18 21:00 Temperature Pulse Rate 98 H 101 H 100 H Respiratory Rate 25 H 19 17 Blood Pressure 107/53 L 103/51 L 113/57 L Pulse Oximetry 98 98 98 09/17/18 21:15 09/17/18 21:30 09/17/18 21:50 Temperature Pulse Rate 96 H 98 H 103 H Respiratory Rate 19 21 17 Blood Pressure 107/51 L 112/56 L 134/61 Pulse Oximetry 98 98 98 09/17/18 22:00 09/17/18 22:30 09/17/18 23:00 Temperature Pulse Rate 96 H 98 H 99 H Respiratory Rate 16 16 17 Blood Pressure 121/60 118/58 L 130/62 Pulse Oximetry 98 97 98 09/17/18 23:30 09/18/18 00:00 09/18/18 00:30 Temperature Pulse Rate 101 H 96 H 93 H Respiratory Rate 23 19 16 Blood Pressure 143/69 H 132/61 118/56 L Pulse Oximetry 97 98 98 09/18/18 01:00 09/18/18 01:30 09/18/18 02:00 Temperature Pulse Rate 92 H 86 86 Respiratory Rate 16 16 16 Blood Pressure 110/55 L 119/56 L 112/52 L Pulse Oximetry 97 97 97 09/18/18 02:30 09/18/18 03:00 09/18/18 03:34 Temperature Pulse Rate 86 90 99 H Respiratory Rate 16 18 16 Blood Pressure 107/56 L 166/67 H Pulse Oximetry 97 97 09/18/18 04:00 09/18/18 04:01 09/18/18 04:30 Temperature Pulse Rate 95 H 95 H 88 Respiratory Rate 16 16 16 Blood Pressure 128/61 122/58 L Pulse Oximetry 91 L 09/18/18 05:00 09/18/18 05:30 09/18/18 06:00 Temperature Pulse Rate 86 86 85 Respiratory Rate 16 16 16 Blood Pressure 129/56 L 124/56 L 124/56 L Pulse Oximetry 99 95 98 09/18/18 06:30 09/18/18 07:47 Temperature Pulse Rate 85 Respiratory Rate 16 14 Blood Pressure 113/53 L Pulse Oximetry 98 97 Intake & Output 09/17/18 09/18/18 09/18/18 18:59 06:59 18:59 Intake Total 650 / 650 50 / 50 Output Total 25 / 25 Balance 625 / 625 50 / 50 Weight 97.2 kg Intake: IV 650 / 650 Novastan Inj 250 MG In NS Inj 250 / 250 247.5 ML @ 2 MCG/KG/MIN 11.89 mls/hr IV.CONT TITRATE PRN Rx#: [id number] Maxipime Inj 1,000 MG In NS Inj 100 / 100 100 ML @ 200 mls/hr IV.SIG Q24H MACKENZIE Rx#:[id number] Zosyn 2.25 GM Premix 50 ML @ 50 / 50 100 mls/hr IV.SIG Q8H MACKENZIE Rx#: [id number] fentaNYL 10 mcg/mL Premix Drip 250 / 250 2,500 mcg In 250 ml @ 50 MCG/HR 5 mls/hr IV.SIG TITRATE PRN Rx #:[id number] Tube Feeding 50 / 50 Output: Urine Amount (Catheter) Indwelling Urethral Catheter Other: Date of Last Bowel Movement 09/17/18 09/18/18 # Bowel Movements 2 2 # Incontinent Bowel Movements 2 Result Diagrams: 09/18/18 02:45 09/18/18 02:45 Other Results: Laboratory Results - last 12 hr 09/17/18 09/17/18 09/18/18 21:00 23:44 00:45 WBC RBC Hgb Hct MCV MCH MCHC RDW Plt Count MPV Prelim Diff (Auto) Neut % (Auto) Lymph % (Auto) Loup % (Auto) Eos % (Auto) Baso % (Auto) Neut # (Auto) Lymph # (Auto) Loup # (Auto) Eos # (Auto) Baso # (Auto) WBC Differential Seg Neuts % (Manual) Band Neuts % (Manual) Lymphocytes % (Manual) Monocytes % (Manual) Metamyelocytes % (Man) Abs Neuts (Manual) Differential Comment Platelet Estimate Platelet Morphology Tear Drop Cells Ovalocytes APTT 193.5 H* D 194.2 H* Sodium Potassium Chloride Carbon Dioxide Anion Gap BUN Creatinine Estimated GFR POC Glucose 107 Random Glucose Calcium Phosphorus Magnesium Total Bilirubin AST ALT Alkaline Phosphatase Total Protein Albumin 09/18/18 09/18/18 09/18/18 02:45 02:45 07:30 WBC 1.8 L RBC 2.42 L Hgb 8.0 L Hct 24.1 L MCV 99.5 MCH 33.1 MCHC 33.3 RDW 16.6 Plt Count 13 L* D MPV 9.9 Prelim Diff (Auto) Slide review pending Neut % (Auto) 91.3 H Lymph % (Auto) 6.2 L Loup % (Auto) 1.7 Eos % (Auto) 0.6 Baso % (Auto) 0.2 Neut # (Auto) 1.6 L Lymph # (Auto) 0.1 L Loup # (Auto) 0.0 Eos # (Auto) 0.0 Baso # (Auto) 0.0 WBC Differential Manual diff final Seg Neuts % (Manual) 65 Band Neuts % (Manual) 25 H Lymphocytes % (Manual) 7 L Monocytes % (Manual) 2 Metamyelocytes % (Man) 1 Abs Neuts (Manual) 1.6 L Differential Comment . Platelet Estimate Low L Platelet Morphology Normal Tear Drop Cells 1+ H Ovalocytes 1+ H APTT Sodium 141 Potassium 3.7 Chloride 106 Carbon Dioxide 25.7 Anion Gap 9 BUN 82 H Creatinine 6.05 H Estimated GFR 7 L POC Glucose 96 Random Glucose 99 Calcium 8.0 L Phosphorus 4.8 Magnesium 2.3 Total Bilirubin 2.4 H AST 67 H ALT 41 Alkaline Phosphatase 33 L Total Protein 6.1 L Albumin 1.8 L Imaging: Abdomen/Bladder Ultrasound 09/13/18 00:00 CONCLUSION: 1. Simple cyst left kidney. Abdomen/Pelvis CT 09/13/18 08:54 CONCLUSION: 1. There is a small ventral hernia in the anterior abdominal wall. There is some omental fat herniated through the defect. 2. There are no findings to indicate a bowel obstruction. No free air free fluid is seen. 3. Nodular enlargement of the left adrenal gland new compared to previous of . Metastatic disease to the left adrenal is not excluded. 4. Stable mixed lytic and sclerotic lesion seen in the osseous structures when compared to PET examination of 06/28/2018. Lumbar Spine CT 09/13/18 08:54 CONCLUSION: 1. Moderate fracture deformity of the L3 vertebral body with central lucency, sclerosis and invagination of the superior and inferior endplates. This may be acute. 2. Moderate fracture deformity of the T11 vertebral body with abnormal lucency , sclerosis and invagination superior and inferior endplates. 3. Atheromatous involvement of T10, T11, L1, L2 and L3 vertebral bodies. 4. Large lytic lesion involving the right side of the sacrum. 5. Moderate central canal stenosis at the L4-5 level secondary to disc bulge and degenerative change involving the facet joints. Catheter Placement 09/15/18 00:00 CONCLUSION: 1. Uncomplicated line placement as above. Venous Doppler Study 09/16/18 00:00 CONCLUSION: 1. Occlusive thrombus left arm Liver Ultrasound 09/17/18 00:00 CONCLUSION: 1. Hepatosplenomegaly. 2. The patient is status post cholecystectomy. Clips are seen on the prior CT examination. 3. The common bile duct was not visualized. The gilberto hepatis is obscured. The common bile duct appear grossly normal in size on the recent CT examination. Abdomen X-Ray 09/17/18 00:01 CONCLUSION: No evidence of obstruction. Chest X-Ray 09/17/18 06:00 CONCLUSION: Cardiomegaly and findings of vascular congestion without overt failure. There has been no significant change when compared to the prior exam. Left lower lobe atelectasis versus pneumonia. Objective Remarks: GENERAL: Patient is 68 yo lying in bed in no acute distress SKIN: Warm and dry. HEAD: Normocephalic. EYES: No scleral icterus. No injection or drainage. NECK: Supple, trachea midline. No JVD or lymphadenopathy. Right IJ CVL and left hemodialysis catheter is clean dry and intact CARDIOVASCULAR: Tachycardic without murmurs, gallops, or rubs. RESPIRATORY: Breath sounds equal bilaterally. No accessory muscle use. GASTROINTESTINAL: Abdomen soft, mild-tenderness on palpation, nondistended, obese. Reducible anterior wall hernia MUSCULOSKELETAL: Trace bilateral lower extremity edema. Neuro: intubated, sedated Assessment and Plan - Assessment and Plan Plan: 1. Acute hypoxemic respiratory failure. 2. Acute renal failure -currently on hemodialysis. 3. Hyponatremia -resolving. 4. Dehydration. 5. Elevated liver enzymes including AST, total bilirubin and decreased albumin. 6. Hypertension currently hypotensive likely secondary to severe sepsis. 7. Chronic pain syndrome. 8. Abdominal pain associated with nausea and vomiting. 9. Gastroesophageal reflux disease. 10. History of multiple myeloma. 11 UTI -Klebsiella pneumoniae 12 normocytic anemia with thrombocytopenia/acute 13. Gram-negative warren sepsis 14. Hypocalcemia 15. Hyponatremia 16. Hyperphosphatemia 17. Lactic acidosis 18. Ventral abdominal hernia with omental fat 19 T11 fracture, L3 fracture 20. Hypothyroidism overcorrected Plan Neuro: Monitor neuro status closely. Currently on fentanyl drip at 75 mcg/min for sedation. Daily sedation vacation Pulm: PRVC ventilation and maintain sats > 92%. Albuterol/ipratropium aerosols every 4 hours with albuterol aerosols every 2 hours as needed dyspnea SBT daily as severo CV: Monitor HR and BP keep MAP>65mmHG. Off Neosyn Lactic acid 0.7 2D ech 09/14. Revealed: EF 60-65%, PAP 30mmHg : Monitor renal function, I's and O's and avoid nephrotoxins. CT abdomen and pelvis showed no signs of obstruction ultrasound abdomen showed no evidence of hydronephrosis. Renal is following- Tori Lay, s/p HD 09/16 w removal 3L. GI: on pantoprazole 40 mg IV daily for GI prophylaxis. Monitor LFTs. A CT abdomen and pelvis showed the liver was within normal limits. KUB abdomen 09/17: No obstruction Tube feeds- On Nepro currently @10ml/hr advance to goal rate 50ml/hr ID: Abx per ID- On Cefepime, Monitor for signs of infections( fever and WBC). blood culture 09/14, 09/15: with gram-negative rods/Salmonella species not typhi Urine cx 09/13: Kleb pneumonia Sputum 09/16: GNR Follow up on BC from 09/17 Heme: Monitor CBC and coags. On Argatroban, Heme is following, transfuse 1u PLT pheresis for PLT 13 Endo: SSI with Accu-Cheks to maintain euglycemic control every 4 hours. TSH: 0.145, FT4:1.34. levothyroxine 100 mg daily GI prophylaxis with pantoprazole 40 mg daily and DVT prophylaxis with SCDs, On Argatroban Doppler US LUE: occlusive thrombus left arm IV access: Left IJ vascath, right IJ CVP CCT 35 mins excluding procedures
[2018-09-18] MEDS: Sodium Chloride 0.9% 2 ML Flush BID IV.FLUSH SCH ×2 (08:34→21:32)
[2018-09-18] MEDS: Polyethylene Glycol 3350 17 GM Packet PO SCH (08:34)
[2018-09-18] MEDS: Allopurinol 100 MG Tablet PO SCH (08:35)
[2018-09-18] MEDS: Artificial Tears Opth Drops 15 ML Bottle EACH EYE SCH ×3 (08:35→21:42)
[2018-09-18] MEDS: fentaNYL 10 mcg/mL Premix Drip 2,500 MCG/250 ML BAG IV.SIG PRN (09:23)
--- NOTE | 2018-09-18 11:13 | P.PNID ---
Subjective Remarks: ID X cover for Dr Gonzalez chart was reviewed is a 68-year-old female with past medical history significant for multiple myeloma, monoclonal gammopathy, status post bone marrow transplant at [facility] in [place]. Patient also recently underwent chemotherapy with Revlimid, Decadron and Velcade. She is followed by Dr. Martinez and her last chemotherapy was per week prior to admission. Most of the history is obtained by review of medical records as patient is currently intubated and sedated and no family at bedside. Patient has been evaluated for sepsis since admission and blood cultures drawn on admission positive for gram-negative rods, urine cultures are positive for Klebsiella pneumonia. Pt has Salmonella sepsis and Kleb pneumo UTI SHe has multi organ system failure: acute VDRF and ARF requiring HD She is off pressors Minimal UOP tolerating CPAP heavily sedated cont to have liquid BMs (4 in last 24 hrs) Overnight events reviewed No fevers No rash Diarrhea Cdiff negative Remains intubated Razo with minimal urine. HD yday, UO minimal. Awake, opens eyes, winces to pain,. Antibiotics: cefepime Lines: Lines ok Past Medical History: reviewed Allergies/Adverse Reactions: Allergies No Known Allergies Allergy (Verified 07/22/18 10:18) Objective Vital Signs 09/17/18 11:29 09/17/18 12:00 09/17/18 14:57 Temperature 99.3 F Pulse Rate 112 H 109 H 100 H Respiratory Rate 20 20 18 Blood Pressure 142/64 H Pulse Oximetry 97 96 09/17/18 14:58 09/17/18 16:00 09/17/18 19:00 Temperature 99.5 F Pulse Rate 106 H 104 H Respiratory Rate 16 25 H 22 Blood Pressure 148/70 H 141/65 H Pulse Oximetry 97 97 97 09/17/18 19:15 09/17/18 19:30 09/17/18 19:45 Temperature Pulse Rate 106 H 106 H 103 H Respiratory Rate 21 19 16 Blood Pressure 136/63 133/62 140/64 Pulse Oximetry 98 97 98 09/17/18 19:46 09/17/18 20:00 09/17/18 20:15 Temperature 98.9 F Pulse Rate 106 H 105 H 101 H Respiratory Rate 18 16 16 Blood Pressure 124/58 L 113/56 L Pulse Oximetry 98 98 97 09/17/18 20:30 09/17/18 20:45 09/17/18 21:00 Temperature Pulse Rate 98 H 101 H 100 H Respiratory Rate 25 H 19 17 Blood Pressure 107/53 L 103/51 L 113/57 L Pulse Oximetry 98 98 98 09/17/18 21:15 09/17/18 21:30 09/17/18 21:50 Temperature Pulse Rate 96 H 98 H 103 H Respiratory Rate 19 21 17 Blood Pressure 107/51 L 112/56 L 134/61 Pulse Oximetry 98 98 98 09/17/18 22:00 09/17/18 22:30 09/17/18 23:00 Temperature Pulse Rate 96 H 98 H 99 H Respiratory Rate 16 16 17 Blood Pressure 121/60 118/58 L 130/62 Pulse Oximetry 98 97 98 09/17/18 23:30 09/18/18 00:00 09/18/18 00:30 Temperature Pulse Rate 101 H 96 H 93 H Respiratory Rate 23 19 16 Blood Pressure 143/69 H 132/61 118/56 L Pulse Oximetry 97 98 98 09/18/18 01:00 09/18/18 01:30 09/18/18 02:00 Temperature Pulse Rate 92 H 86 86 Respiratory Rate 16 16 16 Blood Pressure 110/55 L 119/56 L 112/52 L Pulse Oximetry 97 97 97 09/18/18 02:30 09/18/18 03:00 09/18/18 03:34 Temperature Pulse Rate 86 90 99 H Respiratory Rate 16 18 16 Blood Pressure 107/56 L 166/67 H Pulse Oximetry 97 97 09/18/18 04:00 09/18/18 04:01 09/18/18 04:30 Temperature Pulse Rate 95 H 95 H 88 Respiratory Rate 16 16 16 Blood Pressure 128/61 122/58 L Pulse Oximetry 91 L 09/18/18 05:00 09/18/18 05:30 09/18/18 06:00 Temperature Pulse Rate 86 86 85 Respiratory Rate 16 16 16 Blood Pressure 129/56 L 124/56 L 124/56 L Pulse Oximetry 99 95 98 09/18/18 06:30 09/18/18 07:47 09/18/18 10:28 Temperature Pulse Rate 85 Respiratory Rate 16 14 22 Blood Pressure 113/53 L Pulse Oximetry 98 97 100 Intake & Output 09/17/18 09/18/18 09/18/18 18:59 06:59 18:59 Intake Total 650 / 650 50 / 50 Output Total / 25 Balance 625 / 625 50 / 50 Weight 97.2 kg Intake: IV 650 / 650 Novastan Inj 250 MG In NS Inj 250 / 250 247.5 ML @ 2 MCG/KG/MIN 11.89 mls/hr IV.CONT TITRATE PRN Rx#: [id number] Maxipime Inj 1,000 MG In NS Inj 100 / 100 100 ML @ 200 mls/hr IV.SIG Q24H [facility] Rx#:[id number] Zosyn 2.25 GM Premix 50 ML @ 50 / 50 100 mls/hr IV.SIG Q8H [facility] Rx#: [id number] fentaNYL 10 mcg/mL Premix Drip 250 / 250 2,500 mcg In 250 ml @ 50 MCG/HR 5 mls/hr IV.SIG TITRATE PRN Rx #:[id number] Tube Feeding 50 / 50 Output: Urine Amount (Catheter) Indwelling Urethral Catheter Other: Date of Last Bowel Movement 09/17/18 09/18/18 # Bowel Movements 2 2 # Incontinent Bowel Movements 2 09/15/18 12:45 Blood - Peripheral Aerobic Blood Culture - Preliminary Klebsiella pneumoniae gram negative rods 09/15/18 12:45 Blood - Peripheral Anaerobic Blood Culture - Preliminary No growth in 3 days 09/15/18 13:05 Blood - Peripheral Aerobic Blood Culture - Final Salmonella species not typhi 09/15/18 13:05 Blood - Peripheral Anaerobic Blood Culture - Preliminary No growth in 3 days 09/14/18 18:10 Blood - Line Aerobic Blood Culture - Final Salmonella species not typhi 09/14/18 18:10 Blood - Line Anaerobic Blood Culture - Preliminary No growth in 4 days 09/14/18 18:13 Blood - Peripheral Aerobic Blood Culture - Final Salmonella species not typhi 09/14/18 18:13 Blood - Peripheral Anaerobic Blood Culture - Preliminary No growth in 4 days 09/17/18 21:00 Stool Stool for WBCs - Final Moderate WBC'S 09/17/18 21:00 Stool Stool Occult Blood (THAO) - Final Hemoccult positive 09/17/18 14:10 Blood - Peripheral Aerobic Blood Culture - Pending 09/17/18 14:10 Blood - Peripheral Anaerobic Blood Culture - Pending 09/17/18 14:05 Blood - Peripheral Aerobic Blood Culture - Pending 09/17/18 14:05 Blood - Peripheral Anaerobic Blood Culture - Pending 09/16/18 11:10 Sputum - Endotracheal Gram Stain - Final 09/16/18 11:10 Sputum - Endotracheal Sputum Culture - Preliminary gram negative rods 09/13/18 17:45 Catheterized Urine Urine Culture - Final Klebsiella pneumoniae Lab - Hematology Results 09/17/18 09/18/18 03:00 02:45 WBC 2.5 L 1.8 L RBC 2.45 L 2.42 L Hgb 8.0 L 8.0 L Hct 24.0 L 24.1 L MCV 97.8 99.5 MCH 32.6 33.1 MCHC 33.3 33.3 RDW 16.1 16.6 Plt Count 20 L D 13 L* D MPV 8.8 9.9 Prelim Diff (Auto) Manual diff required Slide review pending Neut % (Auto) 91.3 H Lymph % (Auto) 6.2 L [place] % (Auto) 1.7 Eos % (Auto) 0.6 Baso % (Auto) 0.2 Neut # (Auto) 1.6 L Lymph # (Auto) 0.1 L [place] # (Auto) 0.0 Eos # (Auto) 0.0 Baso # (Auto) 0.0 WBC Differential Manual diff final Manual diff final Seg Neuts % (Manual) 74 H 65 Band Neuts % (Manual) 17 H 25 H Lymphocytes % (Manual) 7 L 7 L Monocytes % (Manual) 2 Metamyelocytes % (Man) 2 H 1 Abs Neuts (Manual) 2.3 1.6 L Differential Comment . . Toxic Granulation 1+ H Dohle Bodies Present H Platelet Estimate Low L Low L Platelet Morphology Normal Normal Tear Drop Cells 1+ H Ovalocytes 1+ H 1+ H Keratocytes Occ H Lab - Chemistry Results 09/16/18 09/16/18 09/16/18 11:37 15:28 20:08 Sodium Potassium Chloride Carbon Dioxide Anion Gap BUN Creatinine Estimated GFR POC Glucose 117 H 89 105 Random Glucose Lactic Acid Calcium Phosphorus Magnesium Total Bilirubin AST ALT Alkaline Phosphatase Total Protein Albumin 09/16/18 09/17/18 09/17/18 23:37 03:00 03:00 Sodium 141 Potassium 3.8 Chloride 104 Carbon Dioxide 28.7 Anion Gap 8 BUN 49 H Creatinine 4.42 H Estimated GFR 10 L POC Glucose 103 Random Glucose 94 Lactic Acid 0.7 Calcium 8.3 L D Phosphorus 4.3 D Magnesium 2.1 Total Bilirubin 2.1 H AST 109 H ALT 46 Alkaline Phosphatase 26 L Total Protein 6.4 Albumin 2.2 L 09/17/18 09/17/18 09/17/18 08:58 11:39 15:47 Sodium Potassium Chloride Carbon Dioxide Anion Gap BUN Creatinine Estimated GFR POC Glucose 107 115 H 104 Random Glucose Lactic Acid Calcium Phosphorus Magnesium Total Bilirubin AST ALT Alkaline Phosphatase Total Protein Albumin 09/17/18 09/17/18 09/18/18 19:40 23:44 02:45 Sodium 141 Potassium 3.7 Chloride 106 Carbon Dioxide 25.7 Anion Gap 9 BUN 82 H Creatinine 6.05 H Estimated GFR 7 L POC Glucose 109 107 Random Glucose 99 Lactic Acid Calcium 8.0 L Phosphorus 4.8 Magnesium 2.3 Total Bilirubin 2.4 H AST 67 H ALT 41 Alkaline Phosphatase 33 L Total Protein 6.1 L Albumin 1.8 L 09/18/18 07:30 Sodium Potassium Chloride Carbon Dioxide Anion Gap BUN Creatinine Estimated GFR POC Glucose 96 Random Glucose Lactic Acid Calcium Phosphorus Magnesium Total Bilirubin AST ALT Alkaline Phosphatase Total Protein Albumin Imaging: ITS Impressions Abdomen/Bladder Ultrasound 09/13/18 00:00 CONCLUSION: 1. Simple cyst left kidney. Abdomen/Pelvis CT 09/13/18 08:54 CONCLUSION: 1. There is a small ventral hernia in the anterior abdominal wall. There is some omental fat herniated through the defect. 2. There are no findings to indicate a bowel obstruction. No free air free fluid is seen. 3. Nodular enlargement of the left adrenal gland new compared to previous of . Metastatic disease to the left adrenal is not excluded. 4. Stable mixed lytic and sclerotic lesion seen in the osseous structures when compared to PET examination of 06/28/2018. Lumbar Spine CT 09/13/18 08:54 CONCLUSION: 1. Moderate fracture deformity of the L3 vertebral body with central lucency, sclerosis and invagination of the superior and inferior endplates. This may be acute. 2. Moderate fracture deformity of the T11 vertebral body with abnormal lucency , sclerosis and invagination superior and inferior endplates. 3. Atheromatous involvement of T10, T11, L1, L2 and L3 vertebral bodies. 4. Large lytic lesion involving the right side of the sacrum. 5. Moderate central canal stenosis at the L4-5 level secondary to disc bulge and degenerative change involving the facet joints. Catheter Placement 09/15/18 00:00 CONCLUSION: 1. Uncomplicated line placement as above. Venous Doppler Study 09/16/18 00:00 CONCLUSION: 1. Occlusive thrombus left arm Liver Ultrasound 09/17/18 00:00 CONCLUSION: 1. Hepatosplenomegaly. 2. The patient is status post cholecystectomy. Clips are seen on the prior CT examination. 3. The common bile duct was not visualized. The gilberto hepatis is obscured. The common bile duct appear grossly normal in size on the recent CT examination. Abdomen X-Ray 09/17/18 00:01 CONCLUSION: No evidence of obstruction. Chest X-Ray 09/17/18 06:00 CONCLUSION: Cardiomegaly and findings of vascular congestion without overt failure. There has been no significant change when compared to the prior exam. Left lower lobe atelectasis versus pneumonia. Physical Exam: GENERAL: Obese acutely ill appearing, not in acute distress heavily sedated SKIN: Cool and dry, no generalized rash HEAD: Atraumatic. Normocephalic. No temporal or scalp tenderness. EYES: Pupils equal round and reactive. Scleral icterus. No injection or drainage. No petechia ENT: Intubated. NECK: Trachea midline. Supple, nontender, no meningeal signs. CARDIOVASCULAR: HS audible. No murmurs, rubs gallops RESPIRATORY: Clear to auscultation bilaterally. AE decreased in the bases. GASTROINTESTINAL: Abdomen soft , +tenderness (grimacing). Obese. MUSCULOSKELETAL: Extremities without clubbing, cyanosis. NEUROLOGICAL: heavily sedated Psych unable to assess IV line sites ok. CL site ok. Assessment and Plan - Plan Septic shock with multiorgan dysfunction syndrome Likely source Klebsiella pneumoniae UTI and gram-negative bacteremia expect gram -negative in the blood to be most likely Klebsiella pneumonia. Gram-negative warren bacteremia Klebsiella pneumoniae UTI ? Chemo induced GI mucositis as cause for GNR sepsis. Immune compromised status recent chemotherapy Multiple myeloma Acute respiratory failure Acute renal failure possibility of hemodialysis later today GNB PNA- new - ID P GNB in sputum clx LLL infiltrate on CXR WOrsening cytopenias Pt is critically ill Recommendations: cont Cefepime IV covers Salmonella and Pseudomonas in an Immune compromised patients. fu repeat Blood cultures x 2 Follow resp cultures follow clinical course. rebecca HAIRSTON
--- NOTE | 2018-09-18 11:32 | P.PNNP ---
Subjective Interval history: Patient remains on ventilator FiO2 40% Physical Exam Vital signs: Vital Signs 09/17/18 12:00 09/17/18 14:57 09/17/18 14:58 Temperature 99.3 F Pulse Rate 109 H 100 H Respiratory Rate 20 18 16 Blood Pressure 142/64 H Pulse Oximetry 96 97 09/17/18 16:00 09/17/18 19:00 09/17/18 19:15 Temperature 99.5 F Pulse Rate 106 H 104 H 106 H Respiratory Rate 25 H 22 21 Blood Pressure 148/70 H 141/65 H 136/63 Pulse Oximetry 97 97 98 09/17/18 19:30 09/17/18 19:45 09/17/18 19:46 Temperature Pulse Rate 106 H 103 H 106 H Respiratory Rate 19 16 18 Blood Pressure 133/62 140/64 Pulse Oximetry 97 98 98 09/17/18 20:00 09/17/18 20:15 09/17/18 20:30 Temperature 98.9 F Pulse Rate 105 H 101 H 98 H Respiratory Rate 16 16 25 H Blood Pressure 124/58 L 113/56 L 107/53 L Pulse Oximetry 98 97 98 09/17/18 20:45 09/17/18 21:00 09/17/18 21:15 Temperature Pulse Rate 101 H 100 H 96 H Respiratory Rate 19 17 19 Blood Pressure 103/51 L 113/57 L 107/51 L Pulse Oximetry 98 98 98 09/17/18 21:30 09/17/18 21:50 09/17/18 22:00 Temperature Pulse Rate 98 H 103 H 96 H Respiratory Rate 21 17 16 Blood Pressure 112/56 L 134/61 121/60 Pulse Oximetry 98 98 98 09/17/18 22:30 09/17/18 23:00 09/17/18 23:30 Temperature Pulse Rate 98 H 99 H 101 H Respiratory Rate 16 17 23 Blood Pressure 118/58 L 130/62 143/69 H Pulse Oximetry 97 98 97 09/18/18 00:00 09/18/18 00:30 09/18/18 01:00 Temperature Pulse Rate 96 H 93 H 92 H Respiratory Rate 19 16 16 Blood Pressure 132/61 118/56 L 110/55 L Pulse Oximetry 98 98 97 09/18/18 01:30 09/18/18 02:00 09/18/18 02:30 Temperature Pulse Rate 86 86 86 Respiratory Rate 16 16 16 Blood Pressure 119/56 L 112/52 L 107/56 L Pulse Oximetry 97 97 97 09/18/18 03:00 09/18/18 03:34 09/18/18 04:00 Temperature Pulse Rate 90 99 H 95 H Respiratory Rate 18 16 16 Blood Pressure 166/67 H Pulse Oximetry 97 09/18/18 04:01 09/18/18 04:30 09/18/18 05:00 Temperature Pulse Rate 95 H 88 86 Respiratory Rate 16 16 16 Blood Pressure 128/61 122/58 L 129/56 L Pulse Oximetry 91 L 99 09/18/18 05:30 09/18/18 06:00 09/18/18 06:30 Temperature Pulse Rate 86 85 85 Respiratory Rate 16 16 16 Blood Pressure 124/56 L 124/56 L 113/53 L Pulse Oximetry 95 98 98 09/18/18 07:47 09/18/18 10:28 Temperature Pulse Rate Respiratory Rate 14 22 Blood Pressure Pulse Oximetry 97 100 Intake & Output 09/17/18 09/18/18 09/18/18 18:59 06:59 18:59 Intake Total 650 / 650 50 / 50 Output Total 25 / 25 Balance 625 / 625 50 / 50 Weight 97.2 kg Intake: IV 650 / 650 Novastan Inj 250 MG In NS Inj 250 / 250 247.5 ML @ 2 MCG/KG/MIN 11.89 mls/hr IV.CONT TITRATE PRN Rx#: [id number] Maxipime Inj 1,000 MG In NS Inj 100 / 100 100 ML @ 200 mls/hr IV.SIG Q24H [facility] Rx#:[id number] Zosyn 2.25 GM Premix 50 ML @ 50 / 50 100 mls/hr IV.SIG Q8H [facility] Rx#: [id number] fentaNYL 10 mcg/mL Premix Drip 250 / 250 2,500 mcg In 250 ml @ 50 MCG/HR 5 mls/hr IV.SIG TITRATE PRN Rx #:[id number] Tube Feeding 50 / 50 Output: Urine Amount (Catheter) 25 / 25 Indwelling Urethral Catheter Other: Date of Last Bowel Movement 09/17/18 09/18/18 # Bowel Movements 2 2 # Incontinent Bowel Movements 2 Narrative: GENERAL: Obese acutely ill appearing, not in acute distress SKIN: Cool and dry, no generalized rash HEAD: Atraumatic. Normocephalic. No temporal or scalp tenderness. EYES: Pupils equal round and reactive. Scleral icterus. No injection or drainage. No petechia ENT: Intubated. NECK: Trachea midline. Supple, nontender, no meningeal signs. CARDIOVASCULAR: HS audible. RESPIRATORY: Clear to auscultation bilaterally. AE decreased in the bases. GASTROINTESTINAL: Abdomen soft , diffuse tenderness. Obese. MUSCULOSKELETAL: Extremities without clubbing, cyanosis. NEUROLOGICAL: Sedated. - Urinary Catheter Management Indwelling Urethral Catheter Cath placed during this visit: yes Reason for continuing: Hourly intake/output Insertion date: 09/13/18 Insertion time: 10:44 Assessment and Plan - Assessment (1) Acute renal failure Code(s): N17.9 - Acute kidney failure, unspecified Status: Acute Qualifiers: Acute renal failure type: unspecified Qualified Code(s): N17.9 - Acute kidney failure, unspecified Plan: Patient is oliguric. May have suffered ATN. Also have to consider cast nephropathy or "myeloma kidney". Patient is ambulating on DC Razo catheter hemodialysis is planned for later today Continue supportive care [id number] patient was seen during dialysis 1 L of ultrafiltrate patient blood pressure was low (2) Hypo-osmolality and hyponatremia Code(s): E87.1 - Hypo-osmolality and hyponatremia Status: Acute Plan: improved. (3) Hypokalemia Code(s): E87.6 - Hypokalemia Status: Acute Plan: Improved. (4) Acidosis Code(s): E87.2 - Acidosis Status: Acute Plan: improved. (5) Multiple myeloma Code(s): C90.00 - Multiple myeloma not having achieved remission Status: Acute Plan: Oncology on the case.
[2018-09-18] MEDS ORDERED: hydrALAZINE HCl Inj 20 MG/ML Vial IV.PUSH PRN (11:41)
[2018-09-18] MEDS ORDERED: Heparin Drip 25,000 UNIT/250 ML BAG IV.CONT PRN (12:05)
[2018-09-18] MEDS ORDERED: Heparin 10,000 UNITS/10 ML Vial (for IV use) IV.PUSH PRN (12:05)
--- NOTE | 2018-09-18 13:11 | P.PNONC ---
Subjective Interval history: Afebrile No bleeding per PLANT CYTOLOGIST She is getting dialysis today Noted samples and repairs preparer has ordered 1 unit platelets Remains mechanically ventilated and sedated with fentanyl Argatroban on hold Objective Vital Signs/Intake & Output: Vital Signs 09/17/18 14:57 09/17/18 14:58 09/17/18 16:00 Temperature 99.5 F Pulse Rate 100 H 106 H Respiratory Rate 18 16 25 H Blood Pressure 148/70 H Pulse Oximetry 97 97 09/17/18 19:00 09/17/18 19:15 09/17/18 19:30 Temperature Pulse Rate 104 H 106 H 106 H Respiratory Rate 22 21 19 Blood Pressure 141/65 H 136/63 133/62 Pulse Oximetry 97 98 97 09/17/18 19:45 09/17/18 19:46 09/17/18 20:00 Temperature 98.9 F Pulse Rate 103 H 106 H 105 H Respiratory Rate 16 18 16 Blood Pressure 140/64 124/58 L Pulse Oximetry 98 98 98 09/17/18 20:15 09/17/18 20:30 09/17/18 20:45 Temperature Pulse Rate 101 H 98 H 101 H Respiratory Rate 16 25 H 19 Blood Pressure 113/56 L 107/53 L 103/51 L Pulse Oximetry 97 98 98 09/17/18 21:00 09/17/18 21:15 09/17/18 21:30 Temperature Pulse Rate 100 H 96 H 98 H Respiratory Rate 17 19 21 Blood Pressure 113/57 L 107/51 L 112/56 L Pulse Oximetry 98 98 98 09/17/18 21:50 09/17/18 22:00 09/17/18 22:30 Temperature Pulse Rate 103 H 96 H 98 H Respiratory Rate 17 16 16 Blood Pressure 134/61 121/60 118/58 L Pulse Oximetry 98 98 97 09/17/18 23:00 09/17/18 23:30 09/18/18 00:00 Temperature Pulse Rate 99 H 101 H 96 H Respiratory Rate 17 23 19 Blood Pressure 130/62 143/69 H 132/61 Pulse Oximetry 98 97 98 09/18/18 00:30 09/18/18 01:00 09/18/18 01:30 Temperature Pulse Rate 93 H 92 H 86 Respiratory Rate 16 16 16 Blood Pressure 118/56 L 110/55 L 119/56 L Pulse Oximetry 98 97 97 09/18/18 02:00 09/18/18 02:30 09/18/18 03:00 Temperature Pulse Rate 86 86 90 Respiratory Rate 16 16 18 Blood Pressure 112/52 L 107/56 L Pulse Oximetry 97 97 97 09/18/18 03:34 09/18/18 04:00 09/18/18 04:01 Temperature Pulse Rate 99 H 95 H 95 H Respiratory Rate 16 16 16 Blood Pressure 166/67 H 128/61 Pulse Oximetry 09/18/18 04:30 09/18/18 05:00 09/18/18 05:30 Temperature Pulse Rate 88 86 86 Respiratory Rate 16 16 16 Blood Pressure 122/58 L 129/56 L 124/56 L Pulse Oximetry 91 L 99 95 09/18/18 06:00 09/18/18 06:30 09/18/18 07:47 Temperature Pulse Rate 85 85 Respiratory Rate 16 16 14 Blood Pressure 124/56 L 113/53 L Pulse Oximetry 98 98 97 09/18/18 10:28 09/18/18 12:01 09/18/18 12:18 Temperature 96.9 F L 97.1 F L Pulse Rate 82 86 Respiratory Rate 22 21 23 Blood Pressure 189/72 H 197/79 H Pulse Oximetry 100 93 L Intake & Output 09/17/18 09/18/18 09/18/18 18:59 06:59 18:59 Intake Total 650 / 650 50 / 50 0 / 0 Output Total 25 / 25 Balance 625 / 625 50 / 50 0 / 0 Weight 214 lb 4.629 oz Intake: IV 650 / 650 Novastan Inj 250 MG In NS Inj 250 / 250 247.5 ML @ 2 MCG/KG/MIN 11.89 mls/hr IV.CONT TITRATE PRN Rx#: [id number] Maxipime Inj 1,000 MG In NS Inj 100 / 100 100 ML @ 200 mls/hr IV.SIG Q24H MACKENZIE Rx#:[id number] Zosyn 2.25 GM Premix 50 ML @ 50 / 50 100 mls/hr IV.SIG Q8H MACKENZIE Rx#: [id number] fentaNYL 10 mcg/mL Premix Drip 250 / 250 2,500 mcg In 250 ml @ 50 MCG/HR 5 mls/hr IV.SIG TITRATE PRN Rx #:[id number] Tube Feeding 50 / 50 Intake (Blood Product) Amt 0 / 0 Plt Pheresis A Leukored Pas 0 / 0 Unit [id number] Output: Urine Amount (Catheter) Indwelling Urethral Catheter Other: Date of Last Bowel Movement 09/17/18 09/18/18 # Bowel Movements 2 2 # Incontinent Bowel Movements 2 Result Diagrams: 09/18/18 15:00 09/18/18 02:45 Laboratory Results: Laboratory Results - last 24 hr 09/17/18 09/17/18 09/17/18 15:47 16:20 19:40 WBC RBC Hgb Hct MCV MCH MCHC RDW Plt Count MPV Prelim Diff (Auto) Neut % (Auto) Lymph % (Auto) Elliott % (Auto) Eos % (Auto) Baso % (Auto) Neut # (Auto) Lymph # (Auto) Elliott # (Auto) Eos # (Auto) Baso # (Auto) WBC Differential Seg Neuts % (Manual) Band Neuts % (Manual) Lymphocytes % (Manual) Monocytes % (Manual) Metamyelocytes % (Man) Abs Neuts (Manual) Differential Comment Platelet Estimate Platelet Morphology Tear Drop Cells Ovalocytes APTT Puncture Site Right radial Patient Temperature 98.6 O2 Saturation 95 ABG pH 7.42 ABG pCO2 37 L ABG pO2 104 ABG HCO3 24 ABG O2 Content 11.2 L ABG Base Excess -0.3 ABG Methemoglobin 1.7 John Test Present Hemoglobin 8.2 L Carboxyhemoglobin 1.3 O2 Delivery Device Ventilator Vent Setting Prvc/ac 450/16/5peep Inspired O2 40 Critical Value No Sodium Potassium Chloride Carbon Dioxide Anion Gap BUN Creatinine Estimated GFR POC Glucose 104 109 Random Glucose Calcium Phosphorus Magnesium Total Bilirubin AST ALT Alkaline Phosphatase Total Protein Albumin Bld Prod Order Comment 09/17/18 09/17/18 09/18/18 21:00 23:44 00:45 WBC RBC Hgb Hct MCV MCH MCHC RDW Plt Count MPV Prelim Diff (Auto) Neut % (Auto) Lymph % (Auto) Elliott % (Auto) Eos % (Auto) Baso % (Auto) Neut # (Auto) Lymph # (Auto) Elliott # (Auto) Eos # (Auto) Baso # (Auto) WBC Differential Seg Neuts % (Manual) Band Neuts % (Manual) Lymphocytes % (Manual) Monocytes % (Manual) Metamyelocytes % (Man) Abs Neuts (Manual) Differential Comment Platelet Estimate Platelet Morphology Tear Drop Cells Ovalocytes APTT 193.5 H* D 194.2 H* Puncture Site Patient Temperature O2 Saturation ABG pH ABG pCO2 ABG pO2 ABG HCO3 ABG O2 Content ABG Base Excess ABG Methemoglobin John Test Hemoglobin Carboxyhemoglobin O2 Delivery Device Vent Setting Inspired O2 Critical Value Sodium Potassium Chloride Carbon Dioxide Anion Gap BUN Creatinine Estimated GFR POC Glucose 107 Random Glucose Calcium Phosphorus Magnesium Total Bilirubin AST ALT Alkaline Phosphatase Total Protein Albumin Bld Prod Order Comment 09/18/18 09/18/18 09/18/18 02:45 02:45 07:20 WBC 1.8 L RBC 2.42 L Hgb 8.0 L Hct 24.1 L MCV 99.5 MCH 33.1 MCHC 33.3 RDW 16.6 Plt Count 13 L* D MPV 9.9 Prelim Diff (Auto) Slide review pending Neut % (Auto) 91.3 H Lymph % (Auto) 6.2 L Elliott % (Auto) 1.7 Eos % (Auto) 0.6 Baso % (Auto) 0.2 Neut # (Auto) 1.6 L Lymph # (Auto) 0.1 L Elliott # (Auto) 0.0 Eos # (Auto) 0.0 Baso # (Auto) 0.0 WBC Differential Manual diff final Seg Neuts % (Manual) 65 Band Neuts % (Manual) 25 H Lymphocytes % (Manual) 7 L Monocytes % (Manual) 2 Metamyelocytes % (Man) 1 Abs Neuts (Manual) 1.6 L Differential Comment . Platelet Estimate Low L Platelet Morphology Normal Tear Drop Cells 1+ H Ovalocytes 1+ H APTT 189.3 H* Puncture Site Patient Temperature O2 Saturation ABG pH ABG pCO2 ABG pO2 ABG HCO3 ABG O2 Content ABG Base Excess ABG Methemoglobin John Test Hemoglobin Carboxyhemoglobin O2 Delivery Device Vent Setting Inspired O2 Critical Value Sodium 141 Potassium 3.7 Chloride 106 Carbon Dioxide 25.7 Anion Gap 9 BUN 82 H Creatinine 6.05 H Estimated GFR 7 L POC Glucose Random Glucose 99 Calcium 8.0 L Phosphorus 4.8 Magnesium 2.3 Total Bilirubin 2.4 H AST 67 H ALT 41 Alkaline Phosphatase 33 L Total Protein 6.1 L Albumin 1.8 L Bld Prod Order Comment 09/18/18 09/18/18 09/18/18 07:30 09:03 11:45 WBC RBC Hgb Hct MCV MCH MCHC RDW Plt Count MPV Prelim Diff (Auto) Neut % (Auto) Lymph % (Auto) Elliott % (Auto) Eos % (Auto) Baso % (Auto) Neut # (Auto) Lymph # (Auto) Elliott # (Auto) Eos # (Auto) Baso # (Auto) WBC Differential Seg Neuts % (Manual) Band Neuts % (Manual) Lymphocytes % (Manual) Monocytes % (Manual) Metamyelocytes % (Man) Abs Neuts (Manual) Differential Comment Platelet Estimate Platelet Morphology Tear Drop Cells Ovalocytes APTT Puncture Site Patient Temperature O2 Saturation ABG pH ABG pCO2 ABG pO2 ABG HCO3 ABG O2 Content ABG Base Excess ABG Methemoglobin John Test Hemoglobin Carboxyhemoglobin O2 Delivery Device Vent Setting Inspired O2 Critical Value Sodium Potassium Chloride Carbon Dioxide Anion Gap BUN Creatinine Estimated GFR POC Glucose 96 119 H Random Glucose Calcium Phosphorus Magnesium Total Bilirubin AST ALT Alkaline Phosphatase Total Protein Albumin Bld Prod Order Comment Culture Results: Microbiology 09/16/18 11:10 Gram Stain - Final Sputum - Endotracheal Sputum Culture - Final Salmonella species not typhi 09/17/18 14:10 Aerobic Blood Culture - Preliminary Blood - Peripheral No growth in 1 day Anaerobic Blood Culture - Preliminary No growth in 1 day 09/17/18 14:05 Aerobic Blood Culture - Preliminary Blood - Peripheral No growth in 1 day Anaerobic Blood Culture - Preliminary No growth in 1 day 09/15/18 12:45 Aerobic Blood Culture - Preliminary Blood - Peripheral Klebsiella pneumoniae gram negative rods Anaerobic Blood Culture - Preliminary No growth in 3 days 09/15/18 13:05 Aerobic Blood Culture - Final Blood - Peripheral Salmonella species not typhi Anaerobic Blood Culture - Preliminary No growth in 3 days 09/14/18 18:10 Aerobic Blood Culture - Final Blood - Line Salmonella species not typhi Anaerobic Blood Culture - Preliminary No growth in 4 days 09/14/18 18:13 Aerobic Blood Culture - Final Blood - Peripheral Salmonella species not typhi Anaerobic Blood Culture - Preliminary No growth in 4 days 09/17/18 21:00 Stool for WBCs - Final Stool Moderate WBC'S 09/17/18 21:00 Stool Occult Blood (THAO) - Final Stool Hemoccult positive 09/13/18 17:45 Urine Culture - Final Catheterized Urine Klebsiella pneumoniae Imaging Studies: Impressions Liver Ultrasound 09/17/18 00:00 CONCLUSION: 1. Hepatosplenomegaly. 2. The patient is status post cholecystectomy. Clips are seen on the prior CT examination. 3. The common bile duct was not visualized. The gilberto hepatis is obscured. The common bile duct appear grossly normal in size on the recent CT examination. Medications: Active Medications Generic Name Dose Route Start Last Admin Trade Name Freq PRN Reason Stop Dose Admin Allopurinol 100 mg 09/16/18 12:00 09/18/18 08:35 Zyloprim PO 100 mg DAILY MACKENZIE Administration Artificial Tears 1 drop 09/15/18 13:00 09/18/18 12:21 Tears Naturale Opth Drops EACH EYE 1 drop TID MACKENZIE Administration Chlorhexidine Gluconate 3 pack 09/14/18 04:00 09/18/18 04:37 Chlorhexidine 2% Cloth TOPICAL 09/19/18 03:59 3 pack DAILY@0400 MACKENZIE Administration Gentamicin Sulfate 20 mg 09/15/18 11:06 09/16/18 14:16 Gentamicin Inj OTHER 20 mg WITH DIALYSIS PRN Administration Dwell Gentamycin Lock Hydralazine HCl 10 mg 09/18/18 11:41 09/18/18 12:21 Apresoline Inj IV.PUSH 10 mg Q6H PRN Administration SBP > 160 OR DBP > 90 Phenylephrine HCl 40 mg/ 500 mls @ 30 mls/hr 09/14/18 15:18 09/16/18 13:36 Sodium Chloride IV.CONT 70 mcg/min TITRATE PRN 52.5 mls/hr See Protocol Titration Protocol 40 MCG/MIN Fentanyl 2,500 mcg in 250 mls @ 5 mls/hr 09/14/18 15:55 09/18/18 09:23 Fentanyl 10 Mcg/Ml Premix Drip IV.SIG 100 mcg/hr TITRATE PRN 10 mls/hr Per Protocol Administration Protocol 50 MCG/HR Albumin Human 100 mls @ 60 mls/hr 09/15/18 11:06 09/16/18 14:14 Flexbumin 25% Inj IV.SIG Infused WITH DIALYSIS PRN Infusion hypotension / volume replace Cefepime HCl 1,000 mg/ Sodium 100 mls @ 200 mls/hr 09/17/18 13:00 09/18/18 12 :19 Chloride IV.SIG 200 mls/hr Q24H MACKENZIE Administration Insulin Human Regular 0 units 09/13/18 20:00 09/18/18 12:16 Novolin R Correctional Sugar Inj SQ Not Given Q4HR MACKENZIE Protocol Levothyroxine Sodium 100 mcg 09/15/18 11:00 09/18/18 06:40 Synthroid PO 100 mcg DAILY@0600 MACKENZIE Administration Metoclopramide HCl 5 mg 09/16/18 14:00 09/18/18 06:39 Reglan Inj IV.PUSH 5 mg Q8HR MACKENZIE Administration Protocol Multivitamins 1 tab 09/16/18 09:00 09/18/18 08:35 Theragran PO 1 tab DAILY MACKENZIE Administration Pantoprazole Sodium 40 mg 09/13/18 18:00 09/17/18 18:52 Protonix Inj IV.PUSH 40 mg Q24H MACKENZIE Administration Polyethylene Glycol 17 gm 09/16/18 09:00 09/18/18 08:34 Miralax PO Not Given DAILY MACKENZIE Pyridoxine HCl 50 mg 09/15/18 21:00 09/18/18 08:36 Vitamin B-6 PO 50 mg BID MACKENZIE Administration Senna/Docusate Sodium 1 tab 09/13/18 21:00 09/18/18 08:34 Chloé-Colace PO Not Given BID MACKENZIE Sodium Chloride 2 ml 09/13/18 21:00 09/18/18 08:34 Ns Flush IV.FLUSH 2 ml BID MACKENZIE Administration Vitamin D 1,000 unit 09/16/18 09:00 09/18/18 08:35 Vitamin D3 PO 1,000 unit DAILY MACKENZIE Administration Vitamin D 2,000 unit 09/16/18 09:00 09/18/18 08:35 Vitamin D3 PO 2,000 unit DAILY MACKENZIE Administration Objective Remarks: GENERAL: Critically ill appearing female patient, intubated and sedated. SKIN: Pale, warm and dry. HEAD: Normocephalic. EYES: No scleral icterus. No injection or drainage. NECK: Supple, trachea midline. Central line to right subclavian, dressing dry/ intact. Vas-Cath to left neck. CARDIOVASCULAR: Regular rate and rhythm without murmurs. RESPIRATORY: Breath sounds equal bilaterally. Intubated, FiO2 40%. EXTREMITIES: No cyanosis. 2+ edema to LUE, hard, erythematous. MUSCULOSKELETAL: Generalized weakness NEUROLOGICAL: Sedated Assessment/Plan - Plan Mrs. 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 She has a history of induction therapy with Revlimid, Decadron and Velcade followed by stem cell transplant. She was placed on Revlimid maintenance until progression. She had her first cycle of darutumumab, Velcade and Decadron the week before admission. She was admitted to the hospital with acute renal failure and mild thrombocytopenia. Course complicated by LUE DVT and thrombocytopenia Recommendations: 1. Multiple myeloma, treatment is placed on hold until she is stabilized from her acute events. 2. Acute renal failure, management per nephrology. She will be having dialysis today. 3. Septic shock: Most recent blood cultures are negative times 1 day. Previous blood cultures show gram-negative rods and Salmonella. Urine culture positive for Klebsiella pneumonia. Continue antibiotics per infectious disease. 4. HIT antibodies negative 5. Anticoagulation currently on hold due to supratherapeutic INR, Hemoccult positive and severe thrombocytopenia. 6. Monitor for bleeding. CBC in a.m. Continue supportive care. - Attending Statement The exam, history, and the medical decision-making described in the above note were completed with the assistance of the mid-level provider. I reviewed and agree with the findings presented. I attest that I had a [id number] encounter with the patient on the same day, and personally performed and documented my assessment and findings in the medical record. Lengthy discussion with regarding events the past week, findings of GNR bacteremia, and new development. RUE DVT treatment/anticoagulant therapy is held due to severe thrombocytopenia and heme positive stools. Platelets were transfused. Pt was unresponsive during changing, no response during dialysis or during trial off sedation. Pupils large round but reactive. Discussed she was critically ill and that aggressive treatment continue. However, she is not improving as well as hoped, there is further worsening of clinical status. He understand and that he is realistic. He will talk with his 's family. Anticipate family meeting to decide on goals of treatment. Continue current care and objective for now. Discussed plan with her nurse.
[2018-09-18 16:23] LABS: Prothrombin Time 161.2 sec (9.8-11.6)
[2018-09-18 16:30] LABS: Activated Partial Thrombo Time 124.5 sec (23.4-31.7); INR 16.3 Ratio
[2018-09-18] MEDS: Albumin Human 25% Inj 100 ML IV.SIG PRN ×3 (17:11→18:55)
[2018-09-18] MEDS: Pantoprazole Inj 40 MG Vial IV.PUSH SCH (18:50)
[2018-09-19] MEDS: Insulin NovoLIN Regular Correctional Sugar Inj SQ SCH ×4 (01:33→20:53)
[2018-09-19] MEDS: Phenylephrine Inj 40 MG in Sodium Chlor 0.9% Inj 496 ML IV.CONT PRN (01:43)
[2018-09-19 05:18] LABS: Mean Corpuscular Hemoglobin 33.5 pg (27.0-34.0); Mean Corpuscular Volume 98.6 fL (80.0-100.0); Red Blood Count 1.73 mil/mm3 (4.00-5.30); Red Cell Distribution Width 15.5 % (11.6-17.2)
[2018-09-19 05:23] LABS: Hemoglobin 5.8 gm/dL (11.6-15.3)
[2018-09-19 05:24] LABS: Platelet Count 16 th/mm3 (150-450)
[2018-09-19 05:48] LABS: Alanine Aminotransferase 26 U/L (10-53); Albumin 2.5 g/dL (3.4-5.0); Alkaline Phosphatase 33 U/L (45-117); Anion Gap 8 meq/L (5-15); Aspartate Aminotransferase 29 U/L (15-37); Blood Urea Nitrogen 55 mg/dL (7-18); Calcium 7.5 mg/dL (8.5-10.1); Carbon Dioxide 30.1 meq/L (21.0-32.0); Chloride 107 meq/L (98-107); Glomerular Filtration Rate 11 mL/min (>89); Glucose,Random 100 mg/dL (74-106); Magnesium 2.2 mg/dL (1.5-2.5); Phosphorus 3.2 mg/dL (2.5-4.9); Potassium 3.2 meq/L (3.5-5.1); Sodium 145 meq/L (136-145); Total Protein 5.6 g/dL (6.4-8.2)
[2018-09-19] MEDS ORDERED: Sodium Chlor 0.9% Inj 250 ML IV.SIG SCH (06:00)
[2018-09-19 06:09] LABS: Lymphocytes 6 % (9-44); Monocytes 1 % (0-8); Ovalocytes 1+; Platelet Morphology Normal (Normal); Tear Drop Cells 1+
[2018-09-19] MEDS: Levothyroxine 100 MCG Tablet PO SCH (06:38)
--- NOTE | 2018-09-19 07:43 | P.PNCC ---
Subjective Subjective Remarks/Hospital Course: patient is a 68-year-old female with a past medical history of hyperlipidemia, multiple myeloma, monoclonal gammopathy and GERD, who initially presented to [facility] with complaints of abdominal pain and back pain. The patient was recently treated with Revlimid, Decadron and Velcade. She also had a bone marrow transplant at [facility] in [place]. She is being followed by Dr. Martinez and had chemotherapy last week. The patient also was incontinent with a stooland urine and reported feeling nauseous and having vomiting and diarrhea. Also, she reports decreased p.o. intake for several days and generalized weakness. Her initial laboratory data showed acute renal failure with a BUN of 86, creatinine 9.2 and hyponatremia with a sodium level of 119. There was no evidence of any fever or leukocytosis. Due to abdominal pain, a CT abdomen and pelvis was done which showed a small ventral hernia in the anterior abdominal wall, no findings to indicate a bowel obstruction and no evidence of any free air or free fluid. Nodular enlargement of the left adrenal gland, new compared to prior study, and stable mixed lytic and sclerotic lesions in the osseous structures. She also had an ultrasound of the abdomen which showed a simple cyst in left kidney, no evidence of any masses or hydronephrosis. Due to her back pain, a lumbar CT spine was performed which showed moderate fracture deformity of the L3 vertebral body and T11. She was transferred to [facility] where she was seen by Dr. Avery from the hospitalist service this afternoon. Shortly after, the patient was transferred to the ICU for increased O2 requirements and tachycardia. She had a chest x- ray this morning as well which showeda mild streaky opacity in the left lateral lung and left lung base with no consolidation. When seen in the ICU, she is tachycardic with heart rate of 114, blood pressure 128/79 and on a nonrebreather mask. The patient is complaining of abdominal pain and back pain. She received morphine earlier. The patient was also seen by Dr. Valle from the nephrology service. She has been given approximately 3 liters of crystalloids thus far. 09/14 Patient is on NRM, renal function slowly improving, on bicarb drip. Afebrile. 09/15: Febrile overnight. T-max 102.9. Currently on phenylephrine drip. Minimal urine output. Tolerating tube feeds at 30 cc an hour. Subjective 09/16: T-max 101.8. Currently afebrile. Received hemodialysis yesterday. Remains on the ventilator. Platelets continue to down trend. Replacing calcium today. Klebsiella from urine likely blood cultures well. 09/17 Patient is intubated and sedated with Fentanyl drip. s/p HD yesterday w removal 3L. On Argatroban. 09/18 Patient remains intubated and on Fentanyl infusion for sedation. Afebrile. On Argatroban drip. 09/19 Patient became hypotensive overnight started on Neosyn currently 60mics, off sedation unresponsive. Hgb 5.8, PLT 16 this morning 2u PRBC, 1uPLT ordered. Off Argatroban. s/p HD yesterday. Objective Vital Signs / I&O: Vital Signs 09/18/18 10:28 09/18/18 12:00 09/18/18 12:01 Temperature 96.9 F L 96.9 F L Pulse Rate 78 82 Respiratory Rate 22 25 H 21 Blood Pressure 189/72 H 189/72 H Pulse Oximetry 100 96 93 L 09/18/18 12:18 09/18/18 14:00 09/18/18 15:19 Temperature 97.1 F L 96.7 F L Pulse Rate 86 104 H Respiratory Rate 23 23 Blood Pressure 197/79 H 131/56 L Pulse Oximetry 98 98 09/18/18 16:00 09/18/18 20:00 09/18/18 20:08 Temperature 96.7 F L 97.5 F L Pulse Rate 109 H 94 H Respiratory Rate 16 16 16 Blood Pressure 100/46 L 81/42 L Pulse Oximetry 98 97 99 09/19/18 00:00 09/19/18 01:03 EDT 09/19/18 04:00 Temperature 97.4 F L 97.9 F Pulse Rate 73 65 Respiratory Rate 16 16 16 Blood Pressure 122/57 L 106/53 L Pulse Oximetry 97 97 97 09/19/18 04:18 Temperature Pulse Rate Respiratory Rate 16 Blood Pressure Pulse Oximetry 96 Intake & Output 09/18/18 09/19/18 09/19/18 19:59 06:59 18:59 Intake Total Output Total Balance Weight Intake: IV Neosynephrine Inj 40 MG In NS Inj 496 ML @ 40 MCG/MIN 30 mls/ hr IV.CONT TITRATE PRN Rx#: [id number] Flexbumin 25% Inj 100 ML @ 60 mls/hr IV.SIG WITH DIALYSIS PRN Rx#:[id number] Maxipime Inj 1,000 MG In NS Inj 100 ML @ 200 mls/hr IV.SIG Q24H MACKENZIE Rx#:[id number] Tube Feeding Intake (Blood Product) Amt Plt Pheresis A Leukored Pas Unit [id number] Output: Urine Hemodialysis Amount Other: Date of Last Bowel Movement # Bowel Movements # Emeses Result Diagrams: 09/19/18 08:10 09/19/18 03:45 Other Results: Laboratory Results - last 12 hr 09/18/18 09/19/18 09/19/18 21:37 01:21 EST 03:42 WBC RBC Hgb Hct MCV MCH MCHC RDW Plt Count MPV Prelim Diff (Auto) WBC Differential Seg Neuts % (Manual) Band Neuts % (Manual) Lymphocytes % (Manual) Monocytes % (Manual) Abs Neuts (Manual) Differential Comment Platelet Estimate Platelet Morphology Tear Drop Cells Ovalocytes Sodium Potassium Chloride Carbon Dioxide Anion Gap BUN Creatinine Estimated GFR POC Glucose 104 114 H 107 Random Glucose Calcium Phosphorus Magnesium Total Bilirubin AST ALT Alkaline Phosphatase Total Protein Albumin Blood Type Antibody Screen MTS Gel Crossmatch Bld Prod Order Comment 09/19/18 09/19/18 09/19/18 03:45 03:45 03:45 WBC 2.0 L RBC 1.73 L Hgb 5.8 L* D Hct 17.0 L* MCV 98.6 MCH 33.5 MCHC 34.0 RDW 15.5 Plt Count 16 L* D MPV 9.0 Prelim Diff (Auto) Slide review pending WBC Differential Manual diff final Seg Neuts % (Manual) 64 Band Neuts % (Manual) 29 H Lymphocytes % (Manual) 6 L Monocytes % (Manual) 1 Abs Neuts (Manual) 1.9 Differential Comment . Platelet Estimate Low L Platelet Morphology Normal Tear Drop Cells 1+ H Ovalocytes 1+ H Sodium 145 Potassium 3.2 L Chloride 107 Carbon Dioxide 30.1 Anion Gap 8 BUN 55 H Creatinine 4.10 H Estimated GFR 11 L POC Glucose Random Glucose 100 Calcium 7.5 L Phosphorus 3.2 D Magnesium 2.2 Total Bilirubin 2.0 H AST 29 ALT 26 Alkaline Phosphatase 33 L Total Protein 5.6 L Albumin 2.5 L D Blood Type A Positive Antibody Screen Positive H MTS Gel Crossmatch See Detail Bld Prod Order Comment 09/19/18 05:42 WBC RBC Hgb Hct MCV MCH MCHC RDW Plt Count MPV Prelim Diff (Auto) WBC Differential Seg Neuts % (Manual) Band Neuts % (Manual) Lymphocytes % (Manual) Monocytes % (Manual) Abs Neuts (Manual) Differential Comment Platelet Estimate Platelet Morphology Tear Drop Cells Ovalocytes Sodium Potassium Chloride Carbon Dioxide Anion Gap BUN Creatinine Estimated GFR POC Glucose Random Glucose Calcium Phosphorus Magnesium Total Bilirubin AST ALT Alkaline Phosphatase Total Protein Albumin Blood Type Antibody Screen MTS Gel Crossmatch See Detail Bld Prod Order Comment Imaging: Abdomen/Bladder Ultrasound 09/13/18 00:00 CONCLUSION: 1. Simple cyst left kidney. Abdomen/Pelvis CT 09/13/18 08:54 CONCLUSION: 1. There is a small ventral hernia in the anterior abdominal wall. There is some omental fat herniated through the defect. 2. There are no findings to indicate a bowel obstruction. No free air free fluid is seen. 3. Nodular enlargement of the left adrenal gland new compared to previous of . Metastatic disease to the left adrenal is not excluded. 4. Stable mixed lytic and sclerotic lesion seen in the osseous structures when compared to PET examination of 06/28/2018. Lumbar Spine CT 09/13/18 08:54 CONCLUSION: 1. Moderate fracture deformity of the L3 vertebral body with central lucency, sclerosis and invagination of the superior and inferior endplates. This may be acute. 2. Moderate fracture deformity of the T11 vertebral body with abnormal lucency , sclerosis and invagination superior and inferior endplates. 3. Atheromatous involvement of T10, T11, L1, L2 and L3 vertebral bodies. 4. Large lytic lesion involving the right side of the sacrum. 5. Moderate central canal stenosis at the L4-5 level secondary to disc bulge and degenerative change involving the facet joints. Catheter Placement 09/15/18 00:00 CONCLUSION: 1. Uncomplicated line placement as above. Venous Doppler Study 09/16/18 00:00 CONCLUSION: 1. Occlusive thrombus left arm Liver Ultrasound 09/17/18 00:00 CONCLUSION: 1. Hepatosplenomegaly. 2. The patient is status post cholecystectomy. Clips are seen on the prior CT examination. 3. The common bile duct was not visualized. The gilberto hepatis is obscured. The common bile duct appear grossly normal in size on the recent CT examination. Abdomen X-Ray 09/17/18 00:01 CONCLUSION: No evidence of obstruction. Chest X-Ray 09/17/18 06:00 CONCLUSION: Cardiomegaly and findings of vascular congestion without overt failure. There has been no significant change when compared to the prior exam. Left lower lobe atelectasis versus pneumonia. Head CT 09/19/18 10:59 CONCLUSION: 1. Generalized cerebral edema with loss of veloz-white differentiation 2. Large bilateral parenchymal hematomas with significant mass effect and surrounding edema. 3. Right to left midline shift measuring 7 mm. 4. Diffuse edema throughout the brainstem and cerebellum. . Objective Remarks: GENERAL: Patient is 68 yo lying in bed in no acute distress SKIN: Warm and dry. HEAD: Normocephalic. EYES: No scleral icterus. No injection or drainage. Pupils fixed and dilated. NECK: Supple, trachea midline. No JVD or lymphadenopathy. Right IJ CVL and left hemodialysis catheter is clean dry and intact CARDIOVASCULAR: RRR, nl S1, S2 without murmurs, gallops, or rubs. RESPIRATORY: Breath sounds equal bilaterally. No accessory muscle use. GASTROINTESTINAL: Abdomen soft, mild-tenderness on palpation, nondistended, obese. Reducible anterior wall hernia MUSCULOSKELETAL: Trace bilateral lower extremity edema. Neuro: intubated, unresponsive Assessment and Plan - Assessment and Plan Plan: 1. VDRF 2. Acute renal failure -currently on hemodialysis. 3. Hyponatremia -resolving. 4. Encephalopathy 5. Elevated liver enzymes 6. Hypertension currently hypotensive likely secondary to severe sepsis. 7. Chronic pain syndrome. 8. Abdominal pain associated with nausea and vomiting. 9. Gastroesophageal reflux disease. 10. History of multiple myeloma. 11 UTI -Klebsiella pneumoniae 12 normocytic anemia with thrombocytopenia/acute 13. Gram-negative warren sepsis 14. Hypocalcemia 15. Hyponatremia 16. Hyperphosphatemia 17. Lactic acidosis 18. Ventral abdominal hernia with omental fat 19 T11 fracture, L3 fracture 20. Hypothyroidism overcorrected Plan Neuro: Monitor neuro status closely. Off sedation. Check CT brain today: Generalized cerebral edema with loss of veloz- white differentiation, Large bilateral parenchymal hematomas with significant mass effect and surrounding edema. Right to left midline shift measuring 7 mm. Diffuse edema throughout the brainstem and cerebellum Spoke to Dr. Ness from NSG patient is not candidate for any surgical intervention. Pulm: PRVC ventilation and maintain sats > 92%. Albuterol/ipratropium aerosols every 4 hours with albuterol aerosols every 2 hours as needed dyspnea ICU vent bundle, SBT when indicated CV: Wean off Neosyn Monitor HR and BP keep MAP>65mmHG. Lactic acid 0.7 Place on stress dose steroids- HC 100mg IV Q8 2D ech 09/14. Revealed: EF 60-65%, PAP 30mmHg : Monitor renal function, I's and O's and avoid nephrotoxins. CT abdomen and pelvis showed no signs of obstruction ultrasound abdomen showed no evidence of hydronephrosis. Renal is following- Tori Lay, s/p HD 09/18- no fluid removed GI: on pantoprazole 40 mg IV daily for GI prophylaxis. Monitor LFTs. A CT abdomen and pelvis showed the liver was within normal limits. KUB abdomen 09/17: No obstruction Tube feeds- On Nepro currently @60ml/hr ID: Abx per ID- On Cefepime, Monitor for signs of infections( fever and WBC). blood culture 09/14, 09/15: with gram-negative rods/Salmonella species not typhi Urine cx 09/13: Kleb pneumonia Sputum 09/16: Salmonella species not typhi Follow up on BC from 09/17-NGTD Heme: Monitor CBC and coags. Off Argatroban, Heme is following, s/p transfuse 1u PLT pheresis 09/18 For transfusion 2uPRBC and 1u PLT today Will give 2uFFP and Vitamin K 10mg IV for coagulopathy ( INR 9) and transfuse 2u PRBC for Hgb 5.8 as ordered. Endo: SSI with Accu-Cheks to maintain euglycemic control every 4 hours. TSH: 0.145, FT4:1.34. levothyroxine 100 mg daily GI prophylaxis with pantoprazole 40 mg daily and DVT prophylaxis with SCDs, On Argatroban Doppler US LUE: occlusive thrombus left arm IV access: Left IJ vascath, right IJ CVP Poor prognosis. Family met with Dr. Martinez and elected to transition to comfort care and withdrawal life support. CCT 40 mins excluding procedures
[2018-09-19 08:38] LABS: Baso % (Auto) 0.2 % (0.0-2.0); Lymph # (Auto) 0.1 th/mm3 (1.0-4.8); Lymph % (Auto) 5.7 % (9.0-44.0); Mean Corpuscular HGB Conc 34.9 % (32.0-36.0); Mean Corpuscular Hemoglobin 33.7 pg (27.0-34.0); Mean Corpuscular Volume 96.6 fL (80.0-100.0); Mean Platelet Volume 8.9 fL (7.0-11.0); Mono % (Auto) 1.1 % (0.0-8.0); Neut # (Auto) 2.3 th/mm3 (1.8-7.7); Platelet Count 22 th/mm3 (150-450); Red Blood Count 1.78 mil/mm3 (4.00-5.30); Red Cell Distribution Width 15.9 % (11.6-17.2); White Blood Count 2.6 th/mm3 (4.0-11.0)
[2018-09-19 08:44] LABS: Hematocrit 17.2 % (35.0-46.0)
[2018-09-19 08:46] LABS: Prothrombin Time 91.7 sec (9.8-11.6)
[2018-09-19 09:02] LABS: INR 9.2 Ratio
[2018-09-19] MEDS: Senna/Docusate Sodium 8.6/50 MG Tablet PO SCH (09:37)
[2018-09-19] MEDS: Allopurinol 100 MG Tablet PO SCH (09:37)
[2018-09-19] MEDS: Sodium Chloride 0.9% 2 ML Flush BID IV.FLUSH SCH (09:37)
[2018-09-19] MEDS: Artificial Tears Opth Drops 15 ML Bottle EACH EYE SCH ×3 (09:37→20:54)
[2018-09-19] MEDS: Polyethylene Glycol 3350 17 GM Packet PO SCH (09:37)
[2018-09-19 09:42] LABS: Lymphocytes 2 % (9-44); Monocytes 2 % (0-8); Myelocytes 1 % (0-0); Platelet Morphology Normal (Normal); Tear Drop Cells 1+
[2018-09-19 09:43] LABS: Ovalocytes 1+; Toxic Granulation 1+
[2018-09-19] MEDS ORDERED: Phytonadione Inj 10 MG in Sodium Chlor 0.9% Inj 50 ML IV.SIG ONE (10:19)
--- NOTE | 2018-09-19 12:10 | P.PNONC ---
Subjective Interval history: Afebrile Pt not responsive after sedation turned off Pupils fixed and dilated Family meeting planned for 12:15pm today. Objective Vital Signs/Intake & Output: Vital Signs 09/18/18 14:00 09/18/18 15:19 09/18/18 16:00 Temperature 96.7 F L 96.7 F L Pulse Rate 104 H 109 H Respiratory Rate 23 16 Blood Pressure 131/56 L 100/46 L Pulse Oximetry 98 98 98 09/18/18 20:00 09/18/18 20:08 09/19/18 00:00 Temperature 97.5 F L 97.4 F L Pulse Rate 94 H 73 Respiratory Rate 16 16 16 Blood Pressure 81/42 L 122/57 L Pulse Oximetry 97 99 97 09/19/18 01:03 EDT 09/19/18 04:00 09/19/18 04:18 Temperature 97.9 F Pulse Rate 65 Respiratory Rate 16 16 16 Blood Pressure 106/53 L Pulse Oximetry 97 97 96 09/19/18 07:44 09/19/18 09:22 09/19/18 11:18 Temperature 97.5 F L Pulse Rate 63 Respiratory Rate 16 21 16 Blood Pressure 98/52 L Pulse Oximetry 97 95 99 09/19/18 11:48 Temperature Pulse Rate 66 Respiratory Rate 20 Blood Pressure 118/51 L Pulse Oximetry Intake & Output 09/18/18 09/19/18 09/19/18 19:59 06:59 18:59 Intake Total 0 / 0 Output Total Balance 0 / 0 Weight Intake: IV Neosynephrine Inj 40 MG In NS Inj 496 ML @ 40 MCG/MIN 30 mls/ hr IV.CONT TITRATE PRN Rx#: [id number] Flexbumin 25% Inj 100 ML @ 60 mls/hr IV.SIG WITH DIALYSIS PRN Rx#:[id number] Maxipime Inj 1,000 MG In NS Inj 100 ML @ 200 mls/hr IV.SIG Q24H [facility] Rx#:[id number] Tube Feeding Intake (Blood Product) Amt 0 / 0 Plasma Thawed 5 Day Cp2d Unit 0 / 0 [id number] Plt Pheresis A Leukored Pas Unit [id number] Prepooled Plts Leukoreduced 5d 0 / 0 Unit [id number] Output: Urine Hemodialysis Amount Other: Date of Last Bowel Movement 09/18/18 # Bowel Movements # Emeses Result Diagrams: 09/19/18 08:10 09/19/18 03:45 Laboratory Results: Laboratory Results - last 24 hr 09/18/18 09/18/18 09/18/18 15:00 15:00 15:04 WBC RBC Hgb Hct MCV MCH MCHC RDW Plt Count 47 L D MPV Prelim Diff (Auto) Neut % (Auto) Lymph % (Auto) Howard % (Auto) Eos % (Auto) Baso % (Auto) Neut # (Auto) Lymph # (Auto) Howard # (Auto) Eos # (Auto) Baso # (Auto) WBC Differential Seg Neuts % (Manual) Band Neuts % (Manual) Lymphocytes % (Manual) Monocytes % (Manual) Myelocytes % (Man) Abs Neuts (Manual) Differential Comment Toxic Granulation Platelet Estimate Platelet Morphology Tear Drop Cells Ovalocytes PT 161.2 H D INR 16.3 H* APTT 124.5 H* D Sodium Potassium Chloride Carbon Dioxide Anion Gap BUN Creatinine Estimated GFR POC Glucose 120 H Random Glucose Calcium Phosphorus Magnesium Total Bilirubin AST ALT Alkaline Phosphatase Total Protein Albumin Blood Type Antibody Screen [facility] Blood Bank Comment Bld Prod Order Comment 09/18/18 09/19/18 09/19/18 21:37 01:21 EST 03:42 WBC RBC Hgb Hct MCV MCH MCHC RDW Plt Count MPV Prelim Diff (Auto) Neut % (Auto) Lymph % (Auto) Howard % (Auto) Eos % (Auto) Baso % (Auto) Neut # (Auto) Lymph # (Auto) Howard # (Auto) Eos # (Auto) Baso # (Auto) WBC Differential Seg Neuts % (Manual) Band Neuts % (Manual) Lymphocytes % (Manual) Monocytes % (Manual) Myelocytes % (Man) Abs Neuts (Manual) Differential Comment Toxic Granulation Platelet Estimate Platelet Morphology Tear Drop Cells Ovalocytes PT INR APTT Sodium Potassium Chloride Carbon Dioxide Anion Gap BUN Creatinine Estimated GFR POC Glucose 104 114 H 107 Random Glucose Calcium Phosphorus Magnesium Total Bilirubin AST ALT Alkaline Phosphatase Total Protein Albumin Blood Type Antibody Screen [facility] Blood Bank Comment Bld Prod Order Comment 09/19/18 09/19/18 09/19/18 03:45 03:45 03:45 WBC 2.0 L RBC 1.73 L Hgb 5.8 L* D Hct 17.0 L* MCV 98.6 MCH 33.5 MCHC 34.0 RDW 15.5 Plt Count 16 L* D MPV 9.0 Prelim Diff (Auto) Slide review pending Neut % (Auto) Lymph % (Auto) Howard % (Auto) Eos % (Auto) Baso % (Auto) Neut # (Auto) Lymph # (Auto) Howard # (Auto) Eos # (Auto) Baso # (Auto) WBC Differential Manual diff final Seg Neuts % (Manual) 64 Band Neuts % (Manual) 29 H Lymphocytes % (Manual) 6 L Monocytes % (Manual) 1 Myelocytes % (Man) Abs Neuts (Manual) 1.9 Differential Comment . Toxic Granulation Platelet Estimate Low L Platelet Morphology Normal Tear Drop Cells 1+ H Ovalocytes 1+ H PT INR APTT Sodium 145 Potassium 3.2 L Chloride 107 Carbon Dioxide 30.1 Anion Gap 8 BUN 55 H Creatinine 4.10 H Estimated GFR 11 L POC Glucose Random Glucose 100 Calcium 7.5 L Phosphorus 3.2 D Magnesium 2.2 Total Bilirubin 2.0 H AST 29 ALT 26 Alkaline Phosphatase 33 L Total Protein 5.6 L Albumin 2.5 L D Blood Type A Positive Antibody Screen Positive H MTS Gel Crossmatch See Detail Blood Bank Comment Bld Prod Order Comment 09/19/18 09/19/18 09/19/18 05:42 08:10 08:10 WBC 2.6 L RBC 1.78 L Hgb 6.0 L* Hct 17.2 L* MCV 96.6 MCH 33.7 MCHC 34.9 RDW 15.9 Plt Count 22 L D MPV 8.9 Prelim Diff (Auto) Slide review pending Neut % (Auto) 92.0 H Lymph % (Auto) 5.7 L Howard % (Auto) 1.1 Eos % (Auto) 1.0 Baso % (Auto) 0.2 Neut # (Auto) 2.3 Lymph # (Auto) 0.1 L Howard # (Auto) 0.0 Eos # (Auto) 0.0 Baso # (Auto) 0.0 WBC Differential Manual diff final Seg Neuts % (Manual) 75 H Band Neuts % (Manual) 20 H Lymphocytes % (Manual) 2 L Monocytes % (Manual) 2 Myelocytes % (Man) 1 H Abs Neuts (Manual) 2.5 Differential Comment . Toxic Granulation 1+ H Platelet Estimate Low L Platelet Morphology Normal Tear Drop Cells 1+ H Ovalocytes 1+ H PT 91.7 H D INR 9.2 H* APTT Sodium Potassium Chloride Carbon Dioxide Anion Gap BUN Creatinine Estimated GFR POC Glucose Random Glucose Calcium Phosphorus Magnesium Total Bilirubin AST ALT Alkaline Phosphatase Total Protein Albumin Blood Type Antibody Screen MTS Gel Crossmatch See Detail Blood Bank Comment Bld Prod Order Comment 09/19/18 09/19/18 08:10 10:24 WBC RBC Hgb Hct MCV MCH MCHC RDW Plt Count MPV Prelim Diff (Auto) Neut % (Auto) Lymph % (Auto) Howard % (Auto) Eos % (Auto) Baso % (Auto) Neut # (Auto) Lymph # (Auto) Howard # (Auto) Eos # (Auto) Baso # (Auto) WBC Differential Seg Neuts % (Manual) Band Neuts % (Manual) Lymphocytes % (Manual) Monocytes % (Manual) Myelocytes % (Man) Abs Neuts (Manual) Differential Comment Toxic Granulation Platelet Estimate Platelet Morphology Tear Drop Cells Ovalocytes PT INR APTT 101.2 H* Sodium Potassium Chloride Carbon Dioxide Anion Gap BUN Creatinine Estimated GFR POC Glucose Random Glucose Calcium Phosphorus Magnesium Total Bilirubin AST ALT Alkaline Phosphatase Total Protein Albumin Blood Type Antibody Screen MTS Gel Crossmatch Blood Bank Comment Bld Prod Order Comment Culture Results: Microbiology 09/17/18 14:10 Aerobic Blood Culture - Preliminary Blood - Peripheral No growth in 2 days Anaerobic Blood Culture - Preliminary No growth in 2 days 09/17/18 14:05 Aerobic Blood Culture - Preliminary Blood - Peripheral No growth in 2 days Anaerobic Blood Culture - Preliminary No growth in 2 days 09/15/18 12:45 Aerobic Blood Culture - Final Blood - Peripheral Klebsiella pneumoniae Salmonella species not typhi Anaerobic Blood Culture - Preliminary No growth in 4 days 09/15/18 13:05 Aerobic Blood Culture - Final Blood - Peripheral Salmonella species not typhi Anaerobic Blood Culture - Preliminary No growth in 4 days 09/14/18 18:10 Aerobic Blood Culture - Final Blood - Line Salmonella species not typhi Anaerobic Blood Culture - Final No growth in 5 days 09/14/18 18:13 Aerobic Blood Culture - Final Blood - Peripheral Salmonella species not typhi Anaerobic Blood Culture - Final No growth in 5 days 09/16/18 11:10 Gram Stain - Final Sputum - Endotracheal Sputum Culture - Final Salmonella species not typhi 09/17/18 21:00 Stool for WBCs - Final Stool Moderate WBC'S 09/17/18 21:00 Stool Occult Blood (THAO) - Final Stool Hemoccult positive Medications: Active Medications Generic Name Dose Route Start Last Admin Trade Name Freq PRN Reason Stop Dose Admin Allopurinol 100 mg 09/16/18 12:00 09/19/18 09:37 Zyloprim PO 100 mg DAILY MACKENZIE Administration Artificial Tears 1 drop 09/15/18 13:00 09/19/18 09:37 Tears Naturale Opth Drops EACH EYE 1 drop TID MACKENZIE Administration Gentamicin Sulfate 20 mg 09/15/18 11:06 09/18/18 17:12 Gentamicin Inj OTHER 20 mg WITH DIALYSIS PRN Administration Dwell Gentamycin Lock Hydralazine HCl 10 mg 09/18/18 11:41 09/18/18 12:21 Apresoline Inj IV.PUSH 10 mg Q6H PRN Administration SBP > 160 OR DBP > 90 Phenylephrine HCl 40 mg/ 500 mls @ 30 mls/hr 09/14/18 15:18 09/19/18 01:43 EST Sodium Chloride IV.CONT 40 mcg/min TITRATE PRN 30 mls/hr See Protocol Administration Protocol 40 MCG/MIN Fentanyl 2,500 mcg in 250 mls @ 5 mls/hr 09/14/18 15:55 09/18/18 09:23 Fentanyl 10 Mcg/Ml Premix Drip IV.SIG 100 mcg/hr TITRATE PRN 10 mls/hr Per Protocol Administration Protocol 50 MCG/HR Albumin Human 100 mls @ 60 mls/hr 09/15/18 11:06 09/18/18 18:57 Flexbumin 25% Inj IV.SIG Infused WITH DIALYSIS PRN Infusion hypotension / volume replace Cefepime HCl 1,000 mg/ Sodium 100 mls @ 200 mls/hr 09/17/18 13:00 09/18/18 13 :10 Chloride IV.SIG Infused Q24H MACKENZIE Infusion Insulin Human Regular 0 units 09/13/18 20:00 09/19/18 04:36 Novolin R Correctional Sugar Inj SQ Not Given Q4HR MACKENZIE Protocol Levothyroxine Sodium 100 mcg 09/15/18 11:00 09/19/18 06:38 Synthroid PO 100 mcg DAILY@0600 MACKENZIE Administration Metoclopramide HCl 5 mg 09/16/18 14:00 09/19/18 06:37 Reglan Inj IV.PUSH 5 mg Q8HR MACKENZIE Administration Protocol Multivitamins 1 tab 09/16/18 09:00 09/19/18 09:37 Theragran PO 1 tab DAILY MACKENZIE Administration Pantoprazole Sodium 40 mg 09/13/18 18:00 09/18/18 18:50 Protonix Inj IV.PUSH 40 mg Q24H MACKENZIE Administration Polyethylene Glycol 17 gm 09/16/18 09:00 09/19/18 09:37 Miralax PO Not Given DAILY MACKENZIE Pyridoxine HCl 50 mg 09/15/18 21:00 09/19/18 09:37 Vitamin B-6 PO 50 mg BID MACKENZIE Administration Senna/Docusate Sodium 1 tab 09/13/18 21:00 09/19/18 09:37 Chloé-Colace PO 1 tab BID MACKENZIE Administration Sodium Chloride 2 ml 09/13/18 21:00 09/19/18 09:37 Ns Flush IV.FLUSH 2 ml BID MACKENZIE Administration Vitamin D 1,000 unit 09/16/18 09:00 09/19/18 09:37 Vitamin D3 PO 1,000 unit DAILY MACKENZIE Administration Vitamin D 2,000 unit 09/16/18 09:00 09/19/18 09:37 Vitamin D3 PO 2,000 unit DAILY MACKENZIE Administration Objective Remarks: GENERAL: Critically ill appearing female patient, intubated and sedated. SKIN: Pale, warm and dry. HEAD: Normocephalic. EYES: No scleral icterus. Pupils fixed and dilated NECK: Supple, trachea midline. Central line to right subclavian, dressing dry/ intact. Vas-Cath to left neck. CARDIOVASCULAR: Regular rate and rhythm. RESPIRATORY: Breath sounds equal bilaterally. Intubated, FiO2 40%. EXTREMITIES: No cyanosis. 3+ edema to LUE, hard, erythematous. MUSCULOSKELETAL: Generalized weakness NEUROLOGICAL: No response off sedation vacation Assessment/Plan - Plan Mrs. 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 She has a history of induction therapy with Revlimid, Decadron and Velcade followed by stem cell transplant. She was placed on Revlimid maintenance until progression. She had her first cycle of darutumumab, Velcade and Decadron the week before admission. She was admitted to the hospital with acute renal failure and mild thrombocytopenia. Course complicated by LUE DVT and thrombocytopenia Recommendations: 1. Plan to have discussion at bedside with patient's and close family members today. She is not responsive after sedation vacation. Left upper extremity swelling worse. Currently on vasopressors. Noted truck service manager has ordered packed red blood cells, platelets for today. Noted heart rate also slowly decreasing. She appears to be actively dying. Pupils are fixed and dilated. Critical care management has ordered CT the brain for evaluation. Discussed CODE STATUS at family meeting today. - Attending Statement The exam, history, and the medical decision-making described in the above note were completed with the assistance of the mid-level provider. I reviewed and agree with the findings presented. I attest that I had a [id number] encounter with the patient on the same day, and personally performed and documented my assessment and findings in the medical record. Family meeting including 2 brothers, [id number], nephew and her . We discussed her progress over the past week. We discussed the acute renal failure , electrolyte abnormality, gram-negative warren bacteremia, left upper extremity deep vein thromboses, pancytopenia and severe thrombocytopenia requiring platelet transfusions. She had a clinical deterioration in the last 24 hours for which she has not recovered. CT scan of the brain shows a hemorrhagic stroke. They have discussed among themselves the option of withdrawal care. They wish to have last rights, assembler caterpillar spider was consulted. Hospice will be consulted to assist him once the mechanical ventilatory support is stopped. We discussed initiating a morphine drip to assist the patient in this transition.
--- NOTE | 2018-09-19 12:24 | CT ---
EXAM DATE: 09/19/2018 12:14 PM EST AGE/SEX: 68 years / Female INDICATIONS: Altered Mental Status CLINICAL DATA: This is the patient's initial encounter. Patient reports that signs and symptoms have been present for 1 day and indicates a pain score of 0/10. MEDICAL/SURGICAL HISTORY: Gastroesophageal reflux disease. Multiple Myeloma, Thyroid disease, Monoc lonal Gammopathies . Bone Marrow Transplant RADIATION DOSE: 48.48 CTDI (mGy) COMPARISON: No prior exams available for comparison. TECHNIQUE: CT of the head without contrast. Using automated exposure control and adjustment of the mA and/or kV according to patient size, radiation dose was kept as low as reasonably achievable to ob tain optimal diagnostic quality images. DICOM format image data is available electronically for revi ew and comparison. FINDINGS: Cerebrum: Generalized edema with loss of veloz-white differentiation has developed. Large parenchymal hematomas are identified bilaterally. On the right there is a large hematoma extending from the righ t temporal lobe into the right parietal lobe. There is surrounding edema with significant mass effect . Shift of the midline structures from right to left is noted. 7 mm of shift is identified. Left-sided parenchymal hematoma is identified in the left frontoparietal region and left occipital lo be. Both demonstrate significant surrounding edema. Posterior Fossa: Generalized edema identified throughout the brainstem and cerebellar hemispheres. Extracranial: The visualized portion of the orbits is intact. Skull: The calvaria is intact. No evidence of skull fracture. CONCLUSION: 1. Generalized cerebral edema with loss of veloz-white differentiation 2. Large bilateral parenchymal hematomas with significant mass effect and surrounding edema. 3. Right to left midline shift measuring 7 mm. 4. Diffuse edema throughout the brainstem and cerebellum. . Electronically signed by: Vernon Alex MD 09/19/2018 12:23 PM EST
[2018-09-19] MEDS: Hydrocortisone Sod Succinate 100 MG Vial IV.PUSH SCH ×2 (12:44→20:55)
--- NOTE | 2018-09-19 14:38 | P.CONNS ---
History of Present Illness Service: Neurosurgery Consult date: 09/19/18 Reason for Consult: Brain hemorrhage Primary Care Provider: Renee Thomson Chief Complaint: Chronic pain/ abdominal pain History of Present Illness: 68F with myeloma/monoclonal gammopathy on chemo who is admitted to ICU with pancytopenia. She was also on an argatroban infusion for an arm DVT. She was intubated for AMS 2 days ago. Last night she became hypotensive and unresponsive ; required increased pressors. This AM, remained unresponsive when off sedation and pupils were fixed and dilated. CT head obtained with multiple hemorrhages. Neurosurgery consulted to assess. Review of Systems Pt intubated, cannot obtain ROS PMFSH - History History Provided By: Patient - Medical History Medical History: Medical History (Last Reviewed 09/16/18 @ 09:08 by Brooklynn Villafana) FHx: bone marrow transplant FHx: radiation therapy GERD (gastroesophageal reflux disease) Hemangioma Hyperlipemia Monoclonal gammopathies Multiple myeloma Plasmacytoma Thyroid disease - Family History Family History: Family History (Last Updated 09/13/18 @ 15:24 by Jarad Avery DO) Other Family history of hypertension - Tobacco History Second Hand Smoke Exposure: No Tobacco Use In Past 30 Days: No Smoking Status: Former smoker Tobacco Type: Cigarettes - Alcohol History How Often Do You Have a Drink Containing Alcohol: Never - Substance Use History Substance History: No History of Abuse - Travel History History of Recent Travel: No Recent Travel in the [place] Within the Last 8 Weeks: No Recent Travel Out of the Country Within the Last 8 Weeks: No - Immunization History Tetanus Immunization: Unsure Hx Influenza Vaccine This Season: No Medications and Allergies Active Medications: Active Medications Acetaminophen (Tylenol) 650 mg PO Q6HR PRN PRN Reason: FEVER Acetaminophen (Tylenol) 650 mg PO UNSCH X1 PRN PRN Reason: SEE LABEL COMMENTS Al Hydroxide/Mg Hydroxide (Milk Of Gaye Liq) 30 ml PO Q12H PRN PRN Reason: Mild Constipation Albuterol (Albuterol Neb (Prn)) 2.5 mg NEB Q2HR NEB PRN PRN Reason: DYSPNEA Allopurinol (Zyloprim) 100 mg PO DAILY [facility] Last Admin: 09/19/18 09:37 Dose: 100 mg Artificial Tears (Tears Naturale Opth Drops) 1 drop EACH EYE TID [facility] Last Admin: 09/19/18 09:37 Dose: 1 drop Bisacodyl (Dulcolax Supp) 10 mg RECTAL DAILY PRN PRN Reason: SEVERE CONSITIPATION Clonidine HCl (Catapres) 0.1 mg PO UNSCH X1 PRN PRN Reason: SEE LABEL COMMENTS Dextrose (D50w Vial) 50 ml IV.PUSH UNSCH PRN PRN Reason: PER HYPOGLYCEMIA PROTOCOL Diphenhydramine HCl (Benadryl) 25 mg PO UNSCH PRN PRN Reason: SEE LABEL COMMENTS Gelatin (Gelfoam 12 Mm/7 Mm Topical) 1 foam TOPICAL UNSCH PRN PRN Reason: help stop bleeding from site Gentamicin Sulfate (Gentamicin Inj) 20 mg OTHER WITH DIALYSIS PRN PRN Reason: Dwell Gentamycin Lock Last Admin: 09/18/18 17:12 Dose: 20 mg Glucagon (Glucagon Inj) 1 mg OTHER PRN PRN PRN Reason: for Hypoglycemia Protocol Heparin Sodium (Porcine) (Heparin Inj) 2,500 units IV.PUSH UNSCH PRN PRN Reason: aPTT 25-39 Hydralazine HCl (Apresoline Inj) 10 mg IV.PUSH Q6H PRN PRN Reason: SBP > 160 OR DBP > 90 Last Admin: 09/18/18 12:21 Dose: 10 mg Hydrocortisone Sodium Succinate (Solucortef Inj) 100 mg IV.PUSH Q8HR [place] Sodium Chloride (Ns Inj) 1,000 mls @ 0 mls/hr IV.SIG BOLUS MACKENZIE Phenylephrine HCl 40 mg/ (Sodium Chloride) 500 mls @ 30 mls/hr IV.CONT TITRATE PRN; Protocol PRN Reason: See Protocol Last Admin: 09/19/18 01:43 EST Dose: 40 mcg/min, 30 mls/hr Fentanyl (Fentanyl 10 Mcg/Ml Premix Drip) 2,500 mcg in 250 mls @ 5 mls/hr IV.SIG TITRATE PRN; Protocol PRN Reason: Per Protocol Last Admin: 09/18/18 09:23 Dose: 100 mcg/hr, 10 mls/hr Albumin Human (Flexbumin 25% Inj) 100 mls @ 60 mls/hr IV.SIG WITH DIALYSIS PRN PRN Reason: hypotension / volume replace Last Infusion: 09/18/18 18:57 Dose: Infused Sodium Chloride (Ns Inj) 1,000 mls @ 0 mls/hr OTHER .Q0M PRN PRN Reason: for prime and rinse back Sodium Chloride (Ns Inj) 1,000 mls @ 200 mls/hr OTHER .Q5H PRN PRN Reason: for dialyzer flush PRN Sodium Chloride (Ns Inj) 1,000 mls @ 0 mls/hr IV.CONT .Q0M PRN PRN Reason: hypotension / volume replace Cefepime HCl 1,000 mg/ Sodium (Chloride) 100 mls @ 200 mls/hr IV.SIG Q24H [facility] Last Infusion: 09/18/18 13:10 Dose: Infused Heparin Sodium/Dextrose (Heparin/D5w 25,000 U/250 Ml) 25,000 unit in 250 mls @ 18 mls/hr IV.CONT TITRATE PRN; Protocol PRN Reason: Per Protocol Sodium Chloride (Ns Inj) 250 mls @ 15 mls/hr IV.SIG ONCE [place]ACK[place]IE Stop: 09/19/18 22:39 Insulin Human Regular (Novolin R Correctional Sugar Inj) 0 units SQ Q4HR [facility]; Protocol Last Admin: 09/19/18 04:36 Dose: Not Given Lactulose (Lactulose Liq) 30 ml PO DAILY PRN PRN Reason: SEVERE CONSITIPATION Levothyroxine Sodium (Synthroid) 100 mcg PO DAILY@0600 [facility] Last Admin: 09/19/18 06:38 Dose: 100 mcg Mannitol (Mannitol Inj) 12.5 gm IV.PUSH UNSCH PRN PRN Reason: hypotension / volume replace Metoclopramide HCl (Reglan Inj) 5 mg IV.PUSH Q8HR MACK[place]IE; Protocol Last Admin: 09/19/18 06:37 Dose: 5 mg Multivitamins (Theragran) 1 tab PO DAILY [facility] Last Admin: 09/19/18 09:37 Dose: 1 tab Naloxone HCl (Narcan Inj) 0.4 mg IV.PUSH UNSCH PRN PRN Reason: SEE LABEL COMMENTS Nitroglycerin (Nitrostat Sl) 0.4 mg SL Q5M PRN PRN Reason: CHEST PAIN Ondansetron HCl (Zofran Inj) 4 mg IV.PUSH Q6H PRN PRN Reason: NAUSEA OR VOMITING Ondansetron HCl (Zofran Inj) 4 mg IV.PUSH UNSCH X1 PRN PRN Reason: WITH DIALYSIS Pantoprazole Sodium (Protonix Inj) 40 mg IV.PUSH Q24H [facility] Last Admin: 09/18/18 18:50 Dose: 40 mg Metronidazole Cream 1 Application To Skin Bid 0 each TOPICAL BID [facility] Polyethylene Glycol (Miralax) 17 gm PO DAILY [facility] Last Admin: 09/19/18 09:37 Dose: Not Given Pyridoxine HCl (Vitamin B-6) 50 mg PO BID [facility] Last Admin: 09/19/18 09:37 Dose: 50 mg Senna/Docusate Sodium (Chloé-Colace) 1 tab PO BID [facility] Last Admin: 09/19/18 09:37 Dose: 1 tab Sennosides (Senokot) 17.2 mg PO Q12H PRN PRN Reason: Moderate Constipation Sodium Chloride (Ns Flush) 2 ml IV.FLUSH BID [facility] Last Admin: 09/19/18 09:37 Dose: 2 ml Sodium Chloride (Ns Flush) 2 ml IV.FLUSH PRN PRN PRN Reason: FLUSH AFTER USING IV ACCESS Sodium Chloride (Ns Flush) 5 ml IV.FLUSH UNSCH PRN PRN Reason: flush each lumen during HD Terbutaline Sulfate (Brethine Inj) 1 mg SQ UNSCH PRN PRN Reason: For Extravasation Vitamin D (Vitamin D3) 1,000 unit PO DAILY [facility] Last Admin: 09/19/18 09:37 Dose: 1,000 unit Vitamin D (Vitamin D3) 2,000 unit PO DAILY [facility] Last Admin: 09/19/18 09:37 Dose: 2,000 unit Allergies Allergy/AdvReac Type Severity Reaction Status Date / Time No Known Allergies Allergy Verified 07/22/18 10:18 Home Medications Medication Instructions Recorded Confirmed Type aspirin 81 mg PO DAILY 07/01/18 09/13/18 History calcium carbonate [Calcium 500] 500 mg PO DAILY 07/01/18 09/13/18 History cholecalciferol (vitamin D3) 2,000 unit PO DAILY 07/01/18 09/13/18 History [Vitamin D3] duloxetine 30 mg PO DAILY 07/01/18 09/13/18 History gabapentin 2,400 mg PO DAILY 07/01/18 09/13/18 History levothyroxine 112 mcg PO DAILY 07/01/18 09/13/18 History magnesium oxide 400 mg PO DAILY 07/01/18 09/13/18 History metoprolol tartrate 50 mg PO DAILY 07/01/18 09/13/18 History metronidazole [MetroCream] 1 applic TOPICAL BID 07/01/18 09/13/18 History multivitamin 1 tab PO DAILY 07/01/18 09/13/18 History ondansetron 4 mg PO TID PRN 07/01/18 09/13/18 History oxycodone 20 mg PO Q4-6H PRN 07/01/18 09/13/18 History pantoprazole 40 mg PO DAILY 07/01/18 09/13/18 History polyethylene glycol 3350 17 g PO DAILY 07/01/18 09/13/18 History potassium chloride 10 meq PO DAILY 07/01/18 09/13/18 History pravastatin 40 mg PO DAILY 07/01/18 09/13/18 History valacyclovir 500 mg PO BID 07/01/18 09/13/18 History zolpidem [Ambien] 5 mg PO DAILY 07/01/18 09/13/18 History cholecalciferol (vitamin D3) 1,000 unit PO DAILY 09/13/18 09/13/18 History [Vitamin D3] enoxaparin 40 mg SUBCUT DAILY 09/13/18 09/13/18 History magnesium oxide [MagOx] 400 mg PO DAILY 09/13/18 09/13/18 History pantoprazole [Protonix] 40 mg PO BID 09/13/18 09/13/18 History pyridoxine (vitamin B6) [Vitamin 50 mg PO BID 09/13/18 09/13/18 History B-6] Exam Vital signs: Vital Signs 09/18/18 16:00 09/18/18 20:00 09/18/18 20:08 Temperature 96.7 F L 97.5 F L Pulse Rate 109 H 94 H Respiratory Rate 16 16 16 Blood Pressure 100/46 L 81/42 L Pulse Oximetry 98 97 99 09/19/18 00:00 09/19/18 01:03 EDT 09/19/18 04:00 Temperature 97.4 F L 97.9 F Pulse Rate 73 65 Respiratory Rate 16 16 16 Blood Pressure 122/57 L 106/53 L Pulse Oximetry 97 97 97 09/19/18 04:18 09/19/18 07:44 09/19/18 08:00 Temperature 96.4 F L Pulse Rate 63 Respiratory Rate 16 16 20 Blood Pressure 97/49 L Pulse Oximetry 96 97 97 09/19/18 09:22 09/19/18 11:18 09/19/18 11:48 Temperature 97.5 F L Pulse Rate 63 66 Respiratory Rate 21 16 20 Blood Pressure 98/52 L 118/51 L Pulse Oximetry 95 99 09/19/18 12:00 Temperature 95.9 F L Pulse Rate 63 Respiratory Rate 30 H Blood Pressure 155/66 H Pulse Oximetry 97 Intake & Output 09/18/18 09/19/18 09/19/18 19:59 06:59 18:59 Intake Total 0 / 0 Output Total Balance 0 / 0 Weight Intake: IV Neosynephrine Inj 40 MG In NS Inj 496 ML @ 40 MCG/MIN 30 mls/ hr IV.CONT TITRATE PRN Rx#: [id number] Flexbumin 25% Inj 100 ML @ 60 mls/hr IV.SIG WITH DIALYSIS PRN Rx#:[id number] Maxipime Inj 1,000 MG In NS Inj 100 ML @ 200 mls/hr IV.SIG Q24H MACKENZIE Rx#:[id number] Tube Feeding Intake (Blood Product) Amt 0 / 0 Plasma Thawed 5 Day Cp2d Unit 0 / 0 [id number] Plt Pheresis A Leukored Pas Unit [id number] Prepooled Plts Leukoreduced 5d 0 / 0 Unit [id number] Output: Urine Hemodialysis Amount Other: Date of Last Bowel Movement 09/18/18 # Bowel Movements # Emeses - Routine Neurological Exam Intubated, off all sedation. Pupils 6mm fixed OU. Disconjugate gaze. No corneals OU. No oculocephalic reflexes OU. No gag. No cough. No grimace or movement to multiple forms of vigorous central noxious stim. Results - Laboratory Findings CBC and BMP: 09/19/18 08:10 09/19/18 03:45 Abnormal lab findings: Abnormal Labs 09/13/18 09/13/18 09/13/18 08:50 08:50 17:25 WBC RBC Hgb Hct Plt Count 133 L Neut % (Auto) 87.7 H Lymph % (Auto) 6.0 L Baso % (Auto) 4.5 H Neut # (Auto) Lymph # (Auto) 0.3 L Seg Neuts % (Manual) Band Neuts % (Manual) Lymphocytes % (Manual) Metamyelocytes % (Man) Myelocytes % (Man) Plasma Cell % (Manual) Abs Neuts (Manual) Nucleated RBCs/100 WBC Toxic Granulation Toxic Vacuolation Dohle Bodies Platelet Estimate Low L Platelet Morphology Tear Drop Cells Ovalocytes [place] Cells Acanthocytes (Spur) Keratocytes Haptoglobin PT INR APTT Fibrinogen O2 Saturation ABG pH 7.26 L* ABG pCO2 34 L ABG HCO3 15 L* ABG O2 Content ABG Base Excess -11.2 L Hemoglobin Sodium 119 L* Potassium 3.1 L Chloride 79 L Carbon Dioxide 19.9 L Anion Gap 20 H BUN 86 H Creatinine 9.20 H Estimated GFR 4 L POC Glucose Random Glucose 131 H Osmolality Lactic Acid Uric Acid Calcium Prot Corrected Calcium Phosphorus Total Bilirubin 1.8 H Direct Bilirubin AST 116 H ALT 76 H Alkaline Phosphatase Lactate Dehydrogenase Total Creatine Kinase Troponin I Total Protein 10.5 H D Albumin 2.7 L Lipase 60 L TSH Urine Clarity Urine Protein Urine Occult Blood Ur Leukocyte Esterase Urine RBC Urine Bacteria Urine Mucus Antibody Screen MTS Gel Crossmatch 09/13/18 09/13/18 09/13/18 17:30 17:45 17:54 WBC RBC Hgb Hct Plt Count Neut % (Auto) Lymph % (Auto) Baso % (Auto) Neut # (Auto) Lymph # (Auto) Seg Neuts % (Manual) Band Neuts % (Manual) Lymphocytes % (Manual) Metamyelocytes % (Man) Myelocytes % (Man) Plasma Cell % (Manual) Abs Neuts (Manual) Nucleated RBCs/100 WBC Toxic Granulation Toxic Vacuolation Dohle Bodies Platelet Estimate Platelet Morphology Tear Drop Cells Ovalocytes Avery Cells Acanthocytes (Spur) Keratocytes Haptoglobin PT INR APTT Fibrinogen O2 Saturation ABG pH ABG pCO2 ABG HCO3 ABG O2 Content ABG Base Excess Hemoglobin Sodium 125 L Potassium 3.3 L Chloride 91 L D Carbon Dioxide 16.6 L Anion Gap 17 H BUN 92 H Creatinine 8.83 H Estimated GFR 4 L POC Glucose Random Glucose Osmolality Lactic Acid 3.1 H Uric Acid Calcium 7.3 L* D Prot Corrected Calcium Phosphorus Total Bilirubin 2.0 H Direct Bilirubin AST 102 H ALT 73 H Alkaline Phosphatase Lactate Dehydrogenase Total Creatine Kinase 505 H Troponin I Total Protein 8.6 H D Albumin 2.1 L D Lipase TSH 0.238 L Urine Clarity Turbid H Urine Protein 100 H Urine Occult Blood Moderate H Ur Leukocyte Esterase Moderate H Urine RBC 19 H Urine Bacteria Many H Urine Mucus Many H Antibody Screen MTS Gel Crossmatch 10/09/13/18 09/13/18 17:54 17:54 17:54 WBC 3.2 L RBC 3.96 L Hgb Hct Plt Count 85 L D Neut % (Auto) 92.4 H Lymph % (Auto) 5.8 L Baso % (Auto) Neut # (Auto) Lymph # (Auto) 0.2 L Seg Neuts % (Manual) Band Neuts % (Manual) 39 H Lymphocytes % (Manual) 6 L Metamyelocytes % (Man) 6 H Myelocytes % (Man) 1 H Plasma Cell % (Manual) Abs Neuts (Manual) Nucleated RBCs/100 WBC 1 H Toxic Granulation 2+ H Toxic Vacuolation Present H Dohle Bodies Present H Platelet Estimate Low L Platelet Morphology Enlarged H Tear Drop Cells Ovalocytes [place] Cells Acanthocytes (Spur) Keratocytes Haptoglobin 321 H PT INR APTT Fibrinogen O2 Saturation ABG pH ABG pCO2 ABG HCO3 ABG O2 Content ABG Base Excess Hemoglobin Sodium Potassium Chloride Carbon Dioxide Anion Gap BUN Creatinine Estimated GFR POC Glucose Random Glucose Osmolality 297 H Lactic Acid Uric Acid Calcium Prot Corrected Calcium Phosphorus Total Bilirubin 2.0 H Direct Bilirubin 1.4 H AST ALT Alkaline Phosphatase Lactate Dehydrogenase Total Creatine Kinase Troponin I Total Protein Albumin Lipase TSH Urine Clarity Urine Protein Urine Occult Blood Ur Leukocyte Esterase Urine RBC Urine Bacteria Urine Mucus Antibody Screen MTS Gel Crossmatch 09/13/18 09/14/18 09/14/18 17:54 04:18 04:18 WBC 2.3 L RBC 3.44 L Hgb 11.5 L Hct 33.4 L Plt Count 46 L D Neut % (Auto) 86.2 H Lymph % (Auto) 8.7 L Baso % (Auto) Neut # (Auto) Lymph # (Auto) 0.2 L Seg Neuts % (Manual) Band Neuts % (Manual) 51 H Lymphocytes % (Manual) 8 L Metamyelocytes % (Man) 2 H Myelocytes % (Man) Plasma Cell % (Manual) Abs Neuts (Manual) Nucleated RBCs/100 WBC Toxic Granulation 2+ H Toxic Vacuolation Dohle Bodies Present H Platelet Estimate Low L Platelet Morphology Tear Drop Cells 1+ H Ovalocytes 1+ H Avery Cells 1+ H Acanthocytes (Spur) Keratocytes Haptoglobin PT INR APTT Fibrinogen O2 Saturation ABG pH ABG pCO2 ABG HCO3 ABG O2 Content ABG Base Excess Hemoglobin Sodium 130 L Potassium 3.4 L Chloride 91 L Carbon Dioxide Anion Gap 16 H BUN 96 H Creatinine 8.64 H Estimated GFR 5 L POC Glucose Random Glucose 73 L Osmolality Lactic Acid Uric Acid Calcium 6.9 L* Prot Corrected Calcium 6.8 L* Phosphorus 11.6 H Total Bilirubin 1.8 H Direct Bilirubin AST 93 H ALT 73 H Alkaline Phosphatase 39 L Lactate Dehydrogenase 350 H 330 H Total Creatine Kinase Troponin I Total Protein Albumin 1.8 L Lipase TSH 0.145 L Urine Clarity Urine Protein Urine Occult Blood Ur Leukocyte Esterase Urine RBC Urine Bacteria Urine Mucus Antibody Screen MTS Gel Crossmatch 09/14/18 09/14/18 09/14/18 04:18 04:18 04:18 WBC RBC Hgb Hct Plt Count Neut % (Auto) Lymph % (Auto) Baso % (Auto) Neut # (Auto) Lymph # (Auto) Seg Neuts % (Manual) Band Neuts % (Manual) Lymphocytes % (Manual) Metamyelocytes % (Man) Myelocytes % (Man) Plasma Cell % (Manual) Abs Neuts (Manual) Nucleated RBCs/100 WBC Toxic Granulation Toxic Vacuolation Dohle Bodies Platelet Estimate Platelet Morphology Tear Drop Cells Ovalocytes [place] Cells Acanthocytes (Spur) Keratocytes Haptoglobin PT 11.8 H INR APTT Fibrinogen 657 H O2 Saturation ABG pH ABG pCO2 ABG HCO3 ABG O2 Content ABG Base Excess Hemoglobin Sodium Potassium Chloride Carbon Dioxide Anion Gap BUN Creatinine Estimated GFR POC Glucose Random Glucose Osmolality Lactic Acid Uric Acid 12.5 H Calcium Prot Corrected Calcium Phosphorus Total Bilirubin Direct Bilirubin AST ALT Alkaline Phosphatase Lactate Dehydrogenase Total Creatine Kinase Troponin I Total Protein Albumin Lipase TSH Urine Clarity Urine Protein Urine Occult Blood Ur Leukocyte Esterase Urine RBC Urine Bacteria Urine Mucus Antibody Screen MTS Gel Crossmatch 09/14/18 09/14/18 09/14/18 11:35 11:35 17:10 WBC 3.1 L RBC 3.45 L Hgb 11.3 L Hct 33.0 L Plt Count 57 L Neut % (Auto) Lymph % (Auto) Baso % (Auto) Neut # (Auto) Lymph # (Auto) Seg Neuts % (Manual) Band Neuts % (Manual) Lymphocytes % (Manual) Metamyelocytes % (Man) Myelocytes % (Man) Plasma Cell % (Manual) Abs Neuts (Manual) Nucleated RBCs/100 WBC Toxic Granulation Toxic Vacuolation Dohle Bodies Platelet Estimate Platelet Morphology Tear Drop Cells Ovalocytes [place] Cells Acanthocytes (Spur) Keratocytes Haptoglobin PT INR APTT Fibrinogen O2 Saturation 88 L* ABG pH 7.26 L* 7.34 L ABG pCO2 46 H 35 L ABG HCO3 20 L 18 L ABG O2 Content ABG Base Excess -6.0 L -6.5 L Hemoglobin 11.9 L 11.8 L Sodium Potassium Chloride Carbon Dioxide Anion Gap BUN Creatinine Estimated GFR POC Glucose Random Glucose Osmolality Lactic Acid Uric Acid Calcium Prot Corrected Calcium Phosphorus Total Bilirubin Direct Bilirubin AST ALT Alkaline Phosphatase Lactate Dehydrogenase Total Creatine Kinase Troponin I Total Protein Albumin Lipase TSH Urine Clarity Urine Protein Urine Occult Blood Ur Leukocyte Esterase Urine RBC Urine Bacteria Urine Mucus Antibody Screen MTS Gel Crossmatch 09/14/18 09/14/18 09/14/18 17:10 17:10 17:10 WBC RBC Hgb Hct Plt Count Neut % (Auto) Lymph % (Auto) Baso % (Auto) Neut # (Auto) Lymph # (Auto) Seg Neuts % (Manual) Band Neuts % (Manual) Lymphocytes % (Manual) Metamyelocytes % (Man) Myelocytes % (Man) Plasma Cell % (Manual) Abs Neuts (Manual) Nucleated RBCs/100 WBC Toxic Granulation Toxic Vacuolation Dohle Bodies Platelet Estimate Platelet Morphology Tear Drop Cells Ovalocytes [place] Cells Acanthocytes (Spur) Keratocytes Haptoglobin PT 12.7 H INR APTT Fibrinogen O2 Saturation ABG pH ABG pCO2 ABG HCO3 ABG O2 Content ABG Base Excess Hemoglobin Sodium 131 L Potassium 3.2 L Chloride 92 L Carbon Dioxide Anion Gap 17 H BUN 100 H Creatinine 8.65 H Estimated GFR 5 L POC Glucose Random Glucose Osmolality Lactic Acid 3.7 H Uric Acid Calcium 6.3 L* Prot Corrected Calcium 6.5 L* Phosphorus Total Bilirubin 1.7 H Direct Bilirubin AST 80 H ALT 66 H Alkaline Phosphatase 34 L Lactate Dehydrogenase Total Creatine Kinase Troponin I Less than 0.02 L Total Protein Albumin 1.5 L Lipase TSH Urine Clarity Urine Protein Urine Occult Blood Ur Leukocyte Esterase Urine RBC Urine Bacteria Urine Mucus Antibody Screen MTS Gel Crossmatch 09/15/18 09/15/18 09/15/18 02:55 02:55 11:00 WBC RBC 3.42 L Hgb 11.3 L Hct 32.9 L Plt Count 47 L Neut % (Auto) 93.1 H Lymph % (Auto) 3.9 L Baso % (Auto) Neut # (Auto) Lymph # (Auto) 0.3 L Seg Neuts % (Manual) Band Neuts % (Manual) 19 H Lymphocytes % (Manual) 3 L Metamyelocytes % (Man) 8 H Myelocytes % (Man) Plasma Cell % (Manual) 1 H Abs Neuts (Manual) Nucleated RBCs/100 WBC Toxic Granulation Toxic Vacuolation Present H Dohle Bodies Present H Platelet Estimate Low L Platelet Morphology Tear Drop Cells Ovalocytes 1+ H Avery Cells Acanthocytes (Spur) Occ H Keratocytes Haptoglobin PT INR APTT Fibrinogen O2 Saturation ABG pH ABG pCO2 ABG HCO3 ABG O2 Content ABG Base Excess Hemoglobin Sodium 132 L Potassium Chloride 92 L Carbon Dioxide Anion Gap 16 H BUN 109 H Creatinine 8.96 H Estimated GFR 4 L POC Glucose Random Glucose Osmolality Lactic Acid Uric Acid Calcium 5.9 L* 6.3 L* Prot Corrected Calcium 6.2 L* Phosphorus 9.2 H D Total Bilirubin 1.6 H Direct Bilirubin AST 82 H ALT 58 H Alkaline Phosphatase 30 L Lactate Dehydrogenase Total Creatine Kinase Troponin I Total Protein Albumin 1.4 L Lipase TSH Urine Clarity Urine Protein Urine Occult Blood Ur Leukocyte Esterase Urine RBC Urine Bacteria Urine Mucus Antibody Screen MTS Gel Crossmatch 09/15/18 09/16/18 09/16/18 23:50 02:50 02:50 WBC RBC 2.66 L Hgb 8.7 L D Hct 25.7 L Plt Count 29 L D Neut % (Auto) 95.9 H Lymph % (Auto) 2.3 L Baso % (Auto) Neut # (Auto) Lymph # (Auto) 0.1 L Seg Neuts % (Manual) Band Neuts % (Manual) 33 H Lymphocytes % (Manual) 5 L Metamyelocytes % (Man) 4 H Myelocytes % (Man) Plasma Cell % (Manual) Abs Neuts (Manual) Nucleated RBCs/100 WBC Toxic Granulation 1+ H Toxic Vacuolation Dohle Bodies Present H Platelet Estimate Rare L Platelet Morphology Tear Drop Cells Ovalocytes Avery Cells Acanthocytes (Spur) Keratocytes Haptoglobin PT INR APTT Fibrinogen O2 Saturation ABG pH ABG pCO2 ABG HCO3 ABG O2 Content ABG Base Excess Hemoglobin Sodium Potassium 3.3 L Chloride Carbon Dioxide Anion Gap BUN 72 H Creatinine 6.17 H Estimated GFR 7 L POC Glucose 170 H Random Glucose 167 H Osmolality Lactic Acid Uric Acid Calcium 6.6 L* Prot Corrected Calcium 7.0 L* D Phosphorus 6.9 H D Total Bilirubin 1.6 H Direct Bilirubin AST 129 H ALT Alkaline Phosphatase 25 L Lactate Dehydrogenase Total Creatine Kinase Troponin I Total Protein 6.2 L Albumin 2.0 L D Lipase TSH Urine Clarity Urine Protein Urine Occult Blood Ur Leukocyte Esterase Urine RBC Urine Bacteria Urine Mucus Antibody Screen MTS Gel Crossmatch 09/16/18 09/16/18 09/16/18 03:18 07:25 11:37 WBC RBC Hgb Hct Plt Count Neut % (Auto) Lymph % (Auto) Baso % (Auto) Neut # (Auto) Lymph # (Auto) Seg Neuts % (Manual) Band Neuts % (Manual) Lymphocytes % (Manual) Metamyelocytes % (Man) Myelocytes % (Man) Plasma Cell % (Manual) Abs Neuts (Manual) Nucleated RBCs/100 WBC Toxic Granulation Toxic Vacuolation Dohle Bodies Platelet Estimate Platelet Morphology Tear Drop Cells Ovalocytes Avery Cells Acanthocytes (Spur) Keratocytes Haptoglobin PT INR APTT Fibrinogen O2 Saturation ABG pH ABG pCO2 ABG HCO3 ABG O2 Content ABG Base Excess Hemoglobin Sodium Potassium Chloride Carbon Dioxide Anion Gap BUN Creatinine Estimated GFR POC Glucose 166 H 197 H 117 H Random Glucose Osmolality Lactic Acid Uric Acid Calcium Prot Corrected Calcium Phosphorus Total Bilirubin Direct Bilirubin AST ALT Alkaline Phosphatase Lactate Dehydrogenase Total Creatine Kinase Troponin I Total Protein Albumin Lipase TSH Urine Clarity Urine Protein Urine Occult Blood Ur Leukocyte Esterase Urine RBC Urine Bacteria Urine Mucus Antibody Screen [facility] Gel Crossmatch 09/16/18 09/17/18 09/17/18 17:42 03:00 03:00 WBC 2.5 L RBC 2.45 L Hgb 8.0 L Hct 24.0 L Plt Count 20 L D Neut % (Auto) Lymph % (Auto) Baso % (Auto) Neut # (Auto) Lymph # (Auto) Seg Neuts % (Manual) 74 H Band Neuts % (Manual) 17 H Lymphocytes % (Manual) 7 L Metamyelocytes % (Man) 2 H Myelocytes % (Man) Plasma Cell % (Manual) Abs Neuts (Manual) Nucleated RBCs/100 WBC Toxic Granulation 1+ H Toxic Vacuolation Dohle Bodies Present H Platelet Estimate Low L Platelet Morphology Tear Drop Cells Ovalocytes 1+ H [place] Cells Acanthocytes (Spur) Keratocytes Occ H Haptoglobin PT INR APTT 43.0 H Fibrinogen 582 H O2 Saturation ABG pH ABG pCO2 ABG HCO3 ABG O2 Content ABG Base Excess Hemoglobin Sodium Potassium Chloride Carbon Dioxide Anion Gap BUN 49 H Creatinine 4.42 H Estimated GFR 10 L POC Glucose Random Glucose Osmolality Lactic Acid Uric Acid Calcium 8.3 L D Prot Corrected Calcium Phosphorus Total Bilirubin 2.1 H Direct Bilirubin AST 109 H ALT Alkaline Phosphatase 26 L Lactate Dehydrogenase Total Creatine Kinase Troponin I Total Protein Albumin 2.2 L Lipase TSH Urine Clarity Urine Protein Urine Occult Blood Ur Leukocyte Esterase Urine RBC Urine Bacteria Urine Mucus Antibody Screen MTS Gel Crossmatch 09/17/18 09/17/18 09/17/18 11:39 16:20 21:00 WBC RBC Hgb Hct Plt Count Neut % (Auto) Lymph % (Auto) Baso % (Auto) Neut # (Auto) Lymph # (Auto) Seg Neuts % (Manual) Band Neuts % (Manual) Lymphocytes % (Manual) Metamyelocytes % (Man) Myelocytes % (Man) Plasma Cell % (Manual) Abs Neuts (Manual) Nucleated RBCs/100 WBC Toxic Granulation Toxic Vacuolation Dohle Bodies Platelet Estimate Platelet Morphology Tear Drop Cells Ovalocytes [place] Cells Acanthocytes (Spur) Keratocytes Haptoglobin PT INR APTT 193.5 H* D Fibrinogen O2 Saturation ABG pH ABG pCO2 37 L ABG HCO3 ABG O2 Content 11.2 L ABG Base Excess Hemoglobin 8.2 L Sodium Potassium Chloride Carbon Dioxide Anion Gap BUN Creatinine Estimated GFR POC Glucose 115 H Random Glucose Osmolality Lactic Acid Uric Acid Calcium Prot Corrected Calcium Phosphorus Total Bilirubin Direct Bilirubin AST ALT Alkaline Phosphatase Lactate Dehydrogenase Total Creatine Kinase Troponin I Total Protein Albumin Lipase TSH Urine Clarity Urine Protein Urine Occult Blood Ur Leukocyte Esterase Urine RBC Urine Bacteria Urine Mucus Antibody Screen MTS Gel Crossmatch 09/18/18 09/18/18 09/18/18 00:45 02:45 02:45 WBC 1.8 L RBC 2.42 L Hgb 8.0 L Hct 24.1 L Plt Count 13 L* D Neut % (Auto) 91.3 H Lymph % (Auto) 6.2 L Baso % (Auto) Neut # (Auto) 1.6 L Lymph # (Auto) 0.1 L Seg Neuts % (Manual) Band Neuts % (Manual) 25 H Lymphocytes % (Manual) 7 L Metamyelocytes % (Man) Myelocytes % (Man) Plasma Cell % (Manual) Abs Neuts (Manual) 1.6 L Nucleated RBCs/100 WBC Toxic Granulation Toxic Vacuolation Dohle Bodies Platelet Estimate Low L Platelet Morphology Tear Drop Cells 1+ H Ovalocytes 1+ H Avery Cells Acanthocytes (Spur) Keratocytes Haptoglobin PT INR APTT 194.2 H* Fibrinogen O2 Saturation ABG pH ABG pCO2 ABG HCO3 ABG O2 Content ABG Base Excess Hemoglobin Sodium Potassium Chloride Carbon Dioxide Anion Gap BUN 82 H Creatinine 6.05 H Estimated GFR 7 L POC Glucose Random Glucose Osmolality Lactic Acid Uric Acid Calcium 8.0 L Prot Corrected Calcium Phosphorus Total Bilirubin 2.4 H Direct Bilirubin AST 67 H ALT Alkaline Phosphatase 33 L Lactate Dehydrogenase Total Creatine Kinase Troponin I Total Protein 6.1 L Albumin 1.8 L Lipase TSH Urine Clarity Urine Protein Urine Occult Blood Ur Leukocyte Esterase Urine RBC Urine Bacteria Urine Mucus Antibody Screen MTS Gel Crossmatch 09/18/18 09/18/18 09/18/18 07:20 11:45 15:00 WBC RBC Hgb Hct Plt Count Neut % (Auto) Lymph % (Auto) Baso % (Auto) Neut # (Auto) Lymph # (Auto) Seg Neuts % (Manual) Band Neuts % (Manual) Lymphocytes % (Manual) Metamyelocytes % (Man) Myelocytes % (Man) Plasma Cell % (Manual) Abs Neuts (Manual) Nucleated RBCs/100 WBC Toxic Granulation Toxic Vacuolation Dohle Bodies Platelet Estimate Platelet Morphology Tear Drop Cells Ovalocytes Avery Cells Acanthocytes (Spur) Keratocytes Haptoglobin PT 161.2 H D INR 16.3 H* APTT 189.3 H* 124.5 H* D Fibrinogen O2 Saturation ABG pH ABG pCO2 ABG HCO3 ABG O2 Content ABG Base Excess Hemoglobin Sodium Potassium Chloride Carbon Dioxide Anion Gap BUN Creatinine Estimated GFR POC Glucose 119 H Random Glucose Osmolality Lactic Acid Uric Acid Calcium Prot Corrected Calcium Phosphorus Total Bilirubin Direct Bilirubin AST ALT Alkaline Phosphatase Lactate Dehydrogenase Total Creatine Kinase Troponin I Total Protein Albumin Lipase TSH Urine Clarity Urine Protein Urine Occult Blood Ur Leukocyte Esterase Urine RBC Urine Bacteria Urine Mucus Antibody Screen MTS Gel Crossmatch 09/18/18 09/18/18 09/19/18 15:00 15:04 01:21 EST WBC RBC Hgb Hct Plt Count 47 L D Neut % (Auto) Lymph % (Auto) Baso % (Auto) Neut # (Auto) Lymph # (Auto) Seg Neuts % (Manual) Band Neuts % (Manual) Lymphocytes % (Manual) Metamyelocytes % (Man) Myelocytes % (Man) Plasma Cell % (Manual) Abs Neuts (Manual) Nucleated RBCs/100 WBC Toxic Granulation Toxic Vacuolation Dohle Bodies Platelet Estimate Platelet Morphology Tear Drop Cells Ovalocytes [place] Cells Acanthocytes (Spur) Keratocytes Haptoglobin PT INR APTT Fibrinogen O2 Saturation ABG pH ABG pCO2 ABG HCO3 ABG O2 Content ABG Base Excess Hemoglobin Sodium Potassium Chloride Carbon Dioxide Anion Gap BUN Creatinine Estimated GFR POC Glucose 120 H 114 H Random Glucose Osmolality Lactic Acid Uric Acid Calcium Prot Corrected Calcium Phosphorus Total Bilirubin Direct Bilirubin AST ALT Alkaline Phosphatase Lactate Dehydrogenase Total Creatine Kinase Troponin I Total Protein Albumin Lipase TSH Urine Clarity Urine Protein Urine Occult Blood Ur Leukocyte Esterase Urine RBC Urine Bacteria Urine Mucus Antibody Screen MTS Gel Crossmatch 09/19/18 09/19/18 09/19/18 03:45 03:45 03:45 WBC 2.0 L RBC 1.73 L Hgb 5.8 L* D Hct 17.0 L* Plt Count 16 L* D Neut % (Auto) Lymph % (Auto) Baso % (Auto) Neut # (Auto) Lymph # (Auto) Seg Neuts % (Manual) Band Neuts % (Manual) 29 H Lymphocytes % (Manual) 6 L Metamyelocytes % (Man) Myelocytes % (Man) Plasma Cell % (Manual) Abs Neuts (Manual) Nucleated RBCs/100 WBC Toxic Granulation Toxic Vacuolation Dohle Bodies Platelet Estimate Low L Platelet Morphology Tear Drop Cells 1+ H Ovalocytes 1+ H Avery Cells Acanthocytes (Spur) Keratocytes Haptoglobin PT INR APTT Fibrinogen O2 Saturation ABG pH ABG pCO2 ABG HCO3 ABG O2 Content ABG Base Excess Hemoglobin Sodium Potassium 3.2 L Chloride Carbon Dioxide Anion Gap BUN 55 H Creatinine 4.10 H Estimated GFR 11 L POC Glucose Random Glucose Osmolality Lactic Acid Uric Acid Calcium 7.5 L Prot Corrected Calcium Phosphorus Total Bilirubin 2.0 H Direct Bilirubin AST ALT Alkaline Phosphatase 33 L Lactate Dehydrogenase Total Creatine Kinase Troponin I Total Protein 5.6 L Albumin 2.5 L D Lipase TSH Urine Clarity Urine Protein Urine Occult Blood Ur Leukocyte Esterase Urine RBC Urine Bacteria Urine Mucus Antibody Screen Positive H MTS Gel Crossmatch See Detail 09/19/18 09/19/18 09/19/18 05:42 08:10 08:10 WBC 2.6 L RBC 1.78 L Hgb 6.0 L* Hct 17.2 L* Plt Count 22 L D Neut % (Auto) 92.0 H Lymph % (Auto) 5.7 L Baso % (Auto) Neut # (Auto) Lymph # (Auto) 0.1 L Seg Neuts % (Manual) 75 H Band Neuts % (Manual) 20 H Lymphocytes % (Manual) 2 L Metamyelocytes % (Man) Myelocytes % (Man) 1 H Plasma Cell % (Manual) Abs Neuts (Manual) Nucleated RBCs/100 WBC Toxic Granulation 1+ H Toxic Vacuolation Dohle Bodies Platelet Estimate Low L Platelet Morphology Tear Drop Cells 1+ H Ovalocytes 1+ H Avery Cells Acanthocytes (Spur) Keratocytes Haptoglobin PT 91.7 H D INR 9.2 H* APTT Fibrinogen O2 Saturation ABG pH ABG pCO2 ABG HCO3 ABG O2 Content ABG Base Excess Hemoglobin Sodium Potassium Chloride Carbon Dioxide Anion Gap BUN Creatinine Estimated GFR POC Glucose Random Glucose Osmolality Lactic Acid Uric Acid Calcium Prot Corrected Calcium Phosphorus Total Bilirubin Direct Bilirubin AST ALT Alkaline Phosphatase Lactate Dehydrogenase Total Creatine Kinase Troponin I Total Protein Albumin Lipase TSH Urine Clarity Urine Protein Urine Occult Blood Ur Leukocyte Esterase Urine RBC Urine Bacteria Urine Mucus Antibody Screen MTS Gel Crossmatch See Detail 09/19/18 09/19/18 08:10 11:56 WBC RBC Hgb Hct Plt Count Neut % (Auto) Lymph % (Auto) Baso % (Auto) Neut # (Auto) Lymph # (Auto) Seg Neuts % (Manual) Band Neuts % (Manual) Lymphocytes % (Manual) Metamyelocytes % (Man) Myelocytes % (Man) Plasma Cell % (Manual) Abs Neuts (Manual) Nucleated RBCs/100 WBC Toxic Granulation Toxic Vacuolation Dohle Bodies Platelet Estimate Platelet Morphology Tear Drop Cells Ovalocytes Avery Cells Acanthocytes (Spur) Keratocytes Haptoglobin PT INR APTT 101.2 H* Fibrinogen O2 Saturation ABG pH ABG pCO2 ABG HCO3 ABG O2 Content ABG Base Excess Hemoglobin Sodium Potassium Chloride Carbon Dioxide Anion Gap BUN Creatinine Estimated GFR POC Glucose 131 H Random Glucose Osmolality Lactic Acid Uric Acid Calcium Prot Corrected Calcium Phosphorus Total Bilirubin Direct Bilirubin AST ALT Alkaline Phosphatase Lactate Dehydrogenase Total Creatine Kinase Troponin I Total Protein Albumin Lipase TSH Urine Clarity Urine Protein Urine Occult Blood Ur Leukocyte Esterase Urine RBC Urine Bacteria Urine Mucus Antibody Screen MTS Gel Crossmatch - Diagnostic Findings Additional findings: CT Head with multiple large bilateral intracerebral hemorrhages with diffuse cerebral edema throughout the brain and 7mm of midline shift. There is evidence of tonsillar and uncal herniation with cisternal effacement and hypodensity of the brainstem. 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 Suspect she likely herniated overnight when she became hypotensive and unresponsive. Her exam is consistent with brain and she remains thrombocytopenic. 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 Her family is currently in a meeting with the primary service regarding this and have reportedly already picked out a home for her; I will be available if needed to speak with them or clarify any of the above information.
[2018-09-19] MEDS ORDERED: SODIUM CHLOR 0.9% IV.SIG SCH (15:00)
[2018-09-19] MEDS ORDERED: MORPHINE IV.SIG SCH (15:00)
[2018-09-19] MEDS ORDERED: HYDROmorphone PF Inj 0.5 MG/0.5 ML Syringe IV.PUSH PRN ×3 (16:04→16:11)
[2018-09-19] MEDS ORDERED: Acetaminophen 650 MG Supp RECTAL PRN (16:10)
[2018-09-19] MEDS ORDERED: Bisacodyl 10 MG Supp RECTAL PRN (16:10)
[2018-09-19] MEDS ORDERED: HYDROmorphone PF Inj 1 MG/ML Ampul IV.PUSH PRN ×3 (16:29→16:30)
--- NOTE | 2018-09-19 16:42 | P.PNNP ---
Subjective Interval history: Patient unresponsive, became hypotensive, intracranial hemorrhage and brain herniation Physical Exam Vital signs: Vital Signs 09/18/18 20:00 09/18/18 20:08 09/19/18 00:00 Temperature 97.5 F L 97.4 F L Pulse Rate 94 H 73 Respiratory Rate 16 16 16 Blood Pressure 81/42 L 122/57 L Pulse Oximetry 97 99 97 09/19/18 01:03 EDT 09/19/18 04:00 09/19/18 04:18 Temperature 97.9 F Pulse Rate 65 Respiratory Rate 16 16 16 Blood Pressure 106/53 L Pulse Oximetry 97 97 96 09/19/18 07:44 09/19/18 08:00 09/19/18 09:22 Temperature 96.4 F L 97.5 F L Pulse Rate 63 63 Respiratory Rate 16 20 21 Blood Pressure 97/49 L 98/52 L Pulse Oximetry 97 97 95 09/19/18 11:18 09/19/18 11:48 09/19/18 12:00 Temperature 95.9 F L Pulse Rate 66 63 Respiratory Rate 16 20 30 H Blood Pressure 118/51 L 155/66 H Pulse Oximetry 99 97 09/19/18 16:00 Temperature Pulse Rate 66 Respiratory Rate 16 Blood Pressure 136/64 Pulse Oximetry Intake & Output 09/18/18 09/19/18 09/19/18 19:59 06:59 18:59 Intake Total 0 / 0 Output Total Balance 0 / 0 Weight Intake: IV Neosynephrine Inj 40 MG In NS Inj 496 ML @ 40 MCG/MIN 30 mls/ hr IV.CONT TITRATE PRN Rx#: [id number] Flexbumin 25% Inj 100 ML @ 60 mls/hr IV.SIG WITH DIALYSIS PRN Rx#:[id number] Maxipime Inj 1,000 MG In NS Inj 100 ML @ 200 mls/hr IV.SIG Q24H MACKENZIE Rx#:[id number] Tube Feeding Intake (Blood Product) Amt 0 / 0 Plasma Thawed 5 Day Cp2d Unit 0 / 0 [id number] Plt Pheresis A Leukored Pas Unit [id number] Prepooled Plts Leukoreduced 5d 0 / 0 Unit [id number] Output: Urine Hemodialysis Amount Other: Date of Last Bowel Movement 09/18/18 # Bowel Movements # Emeses Narrative: GENERAL: Obese pupils are dilated and fixed SKIN: Cool and dry, no generalized rash HEAD: Atraumatic. EYES: Pupils dilated and fixed ENT: Intubated NECK: Trachea midline. Supple, nontender, no meningeal signs. CARDIOVASCULAR: HS audible. RESPIRATORY: CTA. GASTROINTESTINAL: Abdomen soft , diffuse tenderness. Obese. MUSCULOSKELETAL: Extremities without clubbing, cyanosis. NEUROLOGICAL: Unresponsive - Urinary Catheter Management Indwelling Urethral Catheter Cath placed during this visit: yes, but has since been removed by the nurse Reason for continuing: Decision to DC catheter Insertion date: 09/13/18 Insertion time: 10:44 Removal date: 09/18/18 Removal time: 16:00 Assessment and Plan - Assessment (1) Acute renal failure Code(s): N17.9 - Acute kidney failure, unspecified Status: Acute Qualifiers: Acute renal failure type: unspecified Qualified Code(s): N17.9 - Acute kidney failure, unspecified Plan: Patient has new diagnosis of brain withdrawal of life support plan Bilateral brain hemorrhage Brain herniation Poor prognosis (2) Hypo-osmolality and hyponatremia Code(s): E87.1 - Hypo-osmolality and hyponatremia Status: Acute (3) Hypokalemia Code(s): E87.6 - Hypokalemia Status: Acute (4) Acidosis Code(s): E87.2 - Acidosis Status: Acute (5) Multiple myeloma Code(s): C90.00 - Multiple myeloma not having achieved remission Status: Acute Plan: Patient has brain
[2018-09-19] MEDS: Pantoprazole Inj 40 MG Vial IV.PUSH SCH (20:55)
--- NOTE | 2018-09-20 16:49 | MD ---
cc: Yin Polk MD DATE OF DISCHARGE: 09/19/2018 HOSPITAL COURSE: The patient is a 68-year-old female with past medical history of hyperlipidemia, multiple myeloma, monoclonal gammopathy and GERD, who initially presented to [place] ED with abdominal and back pain. The patient was recently treated with chemotherapy using Revlimid, Velcade and Decadron for her multiple myeloma and she also had a bone marrow transplant at [facility] in [place]. She had a CT scan of the abdomen and pelvis, which showed a small ventral hernia in the anterior abdominal wall without any findings of a bowel obstruction or free air. She also had a lumbar spine CT which showed moderate fracture deformity of L3 and T11. On arrival, the patient was found hyponatremic with a sodium level of 119 and was in acute renal failure with a BUN of 86 and creatinine 9.20. She was initially admitted to the hospitalist service and transferred to the [facility]; however, shortly after she was transferred to ICU under the bi technical lead service for respiratory distress. The patient was intubated and placed on mechanical ventilation and initial CT scan of the brain showed cerebral edema and placed on mechanical ventilation. The patient also required Jim-Synephrine to maintain MAP greater than 65 mmHg and was started on stress dose steroids. Echocardiogram was performed, which showed EF of 60%-65%. Ultrasound of the abdomen was obtained as well, which showed no evidence of hydronephrosis. She was seen by Dr. Valle from nephrology service and hemodialysis was initiated due to worsening renal function. Nutrition support was provided with tube feeds; Nepro at 60 mL an hour. The patient was also on GI prophylaxis with Protonix 40 mg daily. She was found to have Gram-negative bacteremia, salmonella species on blood cultures from 09/14/2018 and 09/15/2018 and urine culture was positive for Klebsiella pneumoniae. She was seen by infectious disease and was on broad spectrum antibiotics for her bacteremia and urinary tract infection. The patient had a Doppler ultrasound of the left upper extremity, which showed occlusive thrombus in the left arm and she was started on argatroban per hematology service. During her hospital course, she was found coagulopathic and was given fresh frozen plasma and vitamin K. In addition, she received 2 units of packed red blood cells for anemia with a hemoglobin of 5.8. On 09/19/2018, patient was found to have dilated and fixed pupils. A stat CT scan of the brain was obtained which showed generalized cerebral edema with lots of veloz-white matter differentiation and large bilateral parenchymal hematomas with significant mass effect and surrounding edema in addition to diffuse edema throughout the brainstem and cerebellum. She was seen by Dr. Arzola from neurosurgery and she deemed not a candidate for any surgical intervention. Dr. Martinez from hematology/oncology met with the family and they elected to proceed with a transition to comfort care and withdrawal of life support. She she on 09/19/2018. MD LEELEE Villafuerte/francine , 12:46 PM , 12:58 PM
== END 2018-09-19 18:04 | disposition expired ==
LOC: PHED 08:36 → PHEDH 11:11 → N07 14:45 → HIMC 17:05
PROVIDERS: ADMIT Internal Medicine Critical Care Medicine; ATTEND Internal Medicine Critical Care Medicine